=== PATIENT | female | born 1975 | race Two or more races ===

== ENCOUNTER 2020-09-18 14:11 | Outpatient (REF) | payer OTHER, MEDICARE, MEDICAID, SELFPAY ==
--- NOTE | 2020-09-18 14:15 | MR_ITS ---
EXAMINATION: MR KNEE WITHOUT CONTRAST, RIGHT CLINICAL INFORMATION: Patient fills pulling of the posterior knee. Knee gives out. History of fracture approximately 20 years ago. No recent injury. COMPARISON: No priors. TECHNIQUE: MRI of the knee without contrast was performed using routine sequences on a high-field scanner. Sequences were repeated due to motion artifact. FINDINGS: MENISCI: Medial Meniscus: Intact Lateral Meniscus: Intact LIGAMENTS: Cruciate: Intact Collateral: Intact EXTENSOR MECHANISM: Intact ARTICULAR CARTILAGE/BONE: Patellofemoral Compartment: Articular cartilage is preserved. Medial Compartment: Articular cartilage is preserved. Lateral Compartment: Articular cartilage is preserved. JOINT FLUID AND BURSAE: Small effusion. MR/MR knee RT wo con IMPRESSION: Right knee: 1. Intact menisci. 2. Intact cruciate and collateral ligaments. 3. Preserved tricompartmental articular cartilage. 4. Small joint effusion.
== END 2020-09-18 14:12 | disposition home or self-care (01) ==
LOC: HO.MRI 14:11
PROVIDERS: PCP Internal Medicine; Visit Provider Internal Medicine
DX: M25.561 Pain in right knee (principal); R53.1 Weakness; F40.240 Claustrophobia
CPT/HCPCS: 73721

== ENCOUNTER 2020-12-14 09:43 | Outpatient (REF) | payer OTHER, SELFPAY ==
[2020-12-14 10:58] LABS: MANUAL DIFF FLAG NO
[2020-12-14 11:08] LABS: Glucose Urine UA NEG (NEG); Leukocyte Esterase Urine NEG (NEG); Nitrite Urine NEG (NEG); PH 5.5 (5.0-8.0); Specific Gravity - Urine >= 1.030 (1.005-1.025); Urine Blood NEG (NEG); Urine Ketones NEG (NEG); Urine Protein NEG (NEG-TRACE)
[2020-12-14 11:09] LABS: Basophils Absolute Auto 0.1 X10*3/uL (0.0-0.2); Basophils Percent Auto 0.4 % (0-2); Eosinophils Absolute Auto 0.2 X10*3/uL (0.0-0.4); Eosinophils Percent Auto 1.7 % (0-4); Hematocrit 44.7 % (37-47); Hemoglobin 14.6 g/dl (12.0-16.0); Imm Gran Abs Auto 0.02 X10*3/uL (0.00-0.03); Imm Gran Pct Auto 0.2 % (0.0-0.4); Lymphocytes Absolute Auto 4.9 X10*3/uL (1.2-4.9); Lymphocytes Percent Auto 38.9 % (20-40); Mean Corpuscular HGB Conc 32.7 g/dl (31.0-35.0); Mean Corpuscular Hemoglobin 30.6 pg (27.0-33.0); Mean Corpuscular Volume 93.7 fL (80-98); Mean Platelet Volume 10.5 fL (9.4-12.3); Monocytes Absolute Auto 0.7 X10*3/uL (0.1-1.2); Monocytes Percent Auto 5.6 % (2-11); Neutrophils Absolute Auto 6.8 X10*3/uL (2.0-8.3); Neutrophils Percent Auto 53.2 % (45-73); Platelet Count 382 X10*3/uL (160-400); Red Blood Count 4.77 X10*6/uL (4.20-5.50); Red Cell Distribution Width 12.9 % (11.0-16.0); White Blood Count 12.7 X10*3/uL (4.8-10.8)
[2020-12-14 11:12] LABS: Appearance Urine CLEAR; Color Urine YELLOW
[2020-12-14 11:35] LABS: Alanine Aminotransferase 19 U/L (0-31); Albumin Level 4.4 g/dL (3.5-5.0); Alkaline Phosphatase 111 U/L (39-117); Anion Gap 12 (12-20); Aspartate Amino Transferase 12 U/L (5-31); Bilirubin Total 0.2 mg/dL (0.0-1.0); Blood Urea Nitrogen 13 mg/dL (9-16); C Reactive Protein 1.15 mg/dL (< or = 0.50); Calcium 9.7 mg/dL (8.4-10.2); Carbon Dioxide 26 mmol/L (22-29); Chloride 104 mmol/L (96-108); Cholesterol 252 mg/dL; Estimated Glomerular Filt Rate > 60; Glucose Fasting 80 mg/dL (60-99); HDL Cholesterol 28 mg/dL; Magnesium 2.2 mg/dL (1.6-2.6); Potassium 4.9 mmol/L (3.3-5.1); Rheumatoid Factor < 15.0 IU/mL (<15.0); Sodium 137 mmol/L (135-145); Total Protein 7.5 g/dL (6.5-8.0); Triglycerides 646 mg/dL; Uric Acid 6.1 mg/dL (2.4-5.7)
[2020-12-14 11:44] LABS: TSH reflex Free T4 2.98 uIU/mL (0.32-4.0)
[2020-12-14 12:30] LABS: Erythrocyte Sedimentation Rate 23 MM/HR (0-20)
[2020-12-16 13:31] LABS: Anti Nuclear Antibody Screen NEGATIVE (NEGATIVE)
== END 2020-12-14 09:44 | disposition home or self-care (01) ==
LOC: HO.LAB 09:43
PROVIDERS: PCP Internal Medicine; Visit Provider Internal Medicine
DX: M25.461 Effusion, right knee (principal); M25.561 Pain in right knee; E78.00 Pure hypercholesterolemia, unspecified
CPT/HCPCS: 36415; 80053; 80061; 81003; 83735; 84443; 84550; 85025; 85652; 86038; 86039; 86140; 86431

== ENCOUNTER 2021-01-05 14:33 | Outpatient (REF) | payer OTHER, SELFPAY ==
--- NOTE | ~2021-01-05 | XR_ITS ---
EXAMINATION: XR CERVICAL SPINE CLINICAL INFORMATION: Cervicalgia. COMPARISON: None. TECHNIQUE: 3 views of the cervical spine were obtained. FINDINGS: Cervical spine is visualized from the C1-C7 level. Straightening of the spinal curvature. Normal alignment of the lateral projection. No prevertebral soft tissue swelling. Vertebral body heights are maintained. No evidence of acute fracture. Base of the dens is intact. Disc spaces relatively maintained. Lung apices are clear. XR/XR cervical spine 2V IMPRESSION: No evidence of acute osseous abnormality.
--- NOTE | ~2021-01-05 | XR_ITS ---
EXAMINATION: XR SHOULDER, LEFT CLINICAL INFORMATION: Pain COMPARISON: None TECHNIQUE: AP external rotation, Grashey, scapular Y, and axillary views of the left shoulder. FINDINGS: The bones and soft tissues are normal. No fracture. Glenohumeral and acromioclavicular alignment is anatomic with normal joint space. No abnormal soft tissue calcifications. XR/XR shoulder LT min 2V IMPRESSION: Normal radiograph.
--- NOTE | ~2021-01-05 | XR_ITS ---
EXAMINATION: XR ANKLE, RIGHT CLINICAL INFORMATION: Pain. COMPARISON: None TECHNIQUE: AP, lateral, and mortise views of the right ankle. FINDINGS: There is sclerosis in the subchondral region of the mid/lateral aspect of the talar dome, within which is a curvilinear lucency measuring 1 cm transverse. Differential considerations include talar dome osteochondral lesion, avascular necrosis, sequela of fracture. There is anterior degenerative spurring of the tibial plafond. Dorsal spurring of the talar neck. Dorsal spurring at the talonavicular joint. Small plantar calcaneal spur. Focal chronic-appearing small osseous prominence along the plantar aspect of the mid fifth metatarsal shaft. XR/XR ankle RT min 3V IMPRESSION: 1. Abnormal findings of sclerosis, within which is a curvilinear 1 cm lucency in the mid/lateral talar dome as detailed above. Differential considerations include talar OCD, avascular necrosis, sequela of fracture. Recommend further evaluation with MRI. 2. Degenerative/arthritic changes as detailed above.
--- NOTE | ~2021-01-05 | XR_ITS ---
EXAMINATION: XR knee RT 3V CLINICAL INFORMATION: Reason for Exam M25.461 - Effusion, right knee COMPARISON: None available at the time of this dictation. TECHNIQUE: frontal, lateral, tunnel and patella sunrise views FINDINGS: BONES: No fracture or dislocation is present. JOINTS: Mild narrowing of medial joint space suggests mild DJD. No joint effusion. SOFT TISSUE: Normal XR/XR knee RT 3V IMPRESSION: Mild degenerative osteoarthritis involving medial compartment.
== END 2021-01-05 14:34 | disposition home or self-care (01) ==
LOC: HO.XRAY 14:33
PROVIDERS: PCP Internal Medicine; Visit Provider Internal Medicine
DX: M25.471 Effusion, right ankle (principal); M25.571 Pain in right ankle and joints of right foot; M25.512 Pain in left shoulder; M25.461 Effusion, right knee; M25.561 Pain in right knee; M54.2 Cervicalgia
CPT/HCPCS: 72040; 73030; 73562; 73610

== ENCOUNTER 2021-03-29 08:33 | Outpatient (REF) | payer OTHER, SELFPAY ==
--- NOTE | ~2021-03-29 | XR_ITS ---
EXAMINATION: XR CHEST CLINICAL INFORMATION: Hematemesis. COMPARISON: Most recent chest radiograph dated 03/11/2021 TECHNIQUE: Two views of the chest were obtained. FINDINGS: The lungs are clear. The cardiomediastinal silhouette is normal in size. There is no pleural effusion or pneumothorax. No acute osseous abnormality. Right upper quadrant surgical clips. XR/XR chest 2V IMPRESSION: No acute cardiopulmonary findings.
== END 2021-03-29 08:34 | disposition home or self-care (01) ==
LOC: HO.XRAY 08:33
PROVIDERS: PCP Internal Medicine; Referring Provider Internal Medicine; Visit Provider Anesthesiology
DX: M54.16 Radiculopathy, lumbar region (principal); M51.36 Other intervertebral disc degeneration, lumbar region; M16.0 Bilateral primary osteoarthritis of hip; M17.11 Unilateral primary osteoarthritis, right knee; M87.071 Idiopathic aseptic necrosis of right ankle; G89.4 Chronic pain syndrome; I10 Essential (primary) hypertension; K92.0 Hematemesis; K21.9 Gastro-esophageal reflux disease without esophagitis; K50.90 Crohn's disease, unspecified, without complications; E66.9 Obesity, unspecified; E78.2 Mixed hyperlipidemia; F17.210 Nicotine dependence, cigarettes, uncomplicated; Z88.5 Allergy status to narcotic agent; Z88.0 Allergy status to penicillin; Z88.2 Allergy status to sulfonamides; Z88.8 Allergy status to other drugs, medicaments and biological substances
CPT/HCPCS: 71046; 99202

== ENCOUNTER → 2021-04-11 13:03 | Outpatient (BNVA) | payer OTHER, SELFPAY | PROVIDERS: PCP Internal Medicine; Visit Provider Student in an Organized Health Care Education/Training Program | DX: M17.11 Unilateral primary osteoarthritis, right knee (principal) | CPT/HCPCS: 99202 ==

== ENCOUNTER → 2021-05-03 12:38 | Outpatient (BNVA) | payer OTHER, SELFPAY | PROVIDERS: PCP Internal Medicine; Visit Provider Orthopaedic Surgery | DX: M87.071 Idiopathic aseptic necrosis of right ankle (principal) | CPT/HCPCS: 99202; J1100 ==

== ENCOUNTER 2021-06-29 13:43 | Outpatient (REF) | payer OTHER, SELFPAY ==
[2021-06-29 13:51] LABS: MANUAL DIFF FLAG NO
[2021-06-29 14:04] LABS: Basophils Absolute Auto 0.1 X10*3/uL (0.0-0.2); Basophils Percent Auto 0.4 % (0-2); Eosinophils Absolute Auto 0.2 X10*3/uL (0.0-0.4); Eosinophils Percent Auto 1.4 % (0-4); Hematocrit 42.5 % (37-47); Hemoglobin 14.3 g/dl (12.0-16.0); Imm Gran Abs Auto 0.04 X10*3/uL (0.00-0.03); Imm Gran Pct Auto 0.3 % (0.0-0.4); Lymphocytes Absolute Auto 4.3 X10*3/uL (1.2-4.9); Lymphocytes Percent Auto 31.2 % (20-40); Mean Corpuscular HGB Conc 33.6 g/dl (31.0-35.0); Mean Corpuscular Hemoglobin 30.4 pg (27.0-33.0); Mean Corpuscular Volume 90.4 fL (80-98); Mean Platelet Volume 10.2 fL (9.4-12.3); Monocytes Absolute Auto 0.5 X10*3/uL (0.1-1.2); Monocytes Percent Auto 3.5 % (2-11); Neutrophils Absolute Auto 8.7 X10*3/uL (2.0-8.3); Neutrophils Percent Auto 63.2 % (45-73); Platelet Count 437 X10*3/uL (160-400); Red Cell Distribution Width 12.7 % (11.0-16.0); White Blood Count 13.8 X10*3/uL (4.8-10.8)
[2021-06-29 14:27] LABS: Alanine Aminotransferase 13 U/L (0-31); Albumin Level 4.5 g/dL (3.5-5.0); Alkaline Phosphatase 108 U/L (39-117); Anion Gap 11 (12-20); Aspartate Amino Transferase 12 U/L (5-31); Bilirubin Total 0.4 mg/dL (0.0-1.0); Blood Urea Nitrogen 11 mg/dL (9-16); Calcium 10.1 mg/dL (8.4-10.2); Carbon Dioxide 25 mmol/L (22-29); Chloride 108 mmol/L (96-108); Cholesterol 234 mg/dL; Estimated Glomerular Filt Rate 55; Glucose Fasting 77 mg/dL (60-99); HDL Cholesterol 29 mg/dL; LDL Cholesterol Calculated 138 mg/dl; Potassium 4.5 mmol/L (3.3-5.1); Sodium 139 mmol/L (135-145); Total Protein 7.6 g/dL (6.5-8.0); Triglycerides 337 mg/dL
[2021-06-29 14:48] LABS: TSH reflex Free T4 1.53 uIU/mL (0.32-4.0)
== END 2021-06-29 13:44 | disposition home or self-care (01) ==
LOC: HO.LAB 13:43
PROVIDERS: PCP Internal Medicine; Visit Provider Internal Medicine
DX: E78.2 Mixed hyperlipidemia (principal); E78.00 Pure hypercholesterolemia, unspecified; M16.11 Unilateral primary osteoarthritis, right hip; E66.9 Obesity, unspecified; I10 Essential (primary) hypertension; K92.0 Hematemesis; K21.9 Gastro-esophageal reflux disease without esophagitis; F17.200 Nicotine dependence, unspecified, uncomplicated
CPT/HCPCS: 36415; 80053; 80061; 84443; 85025

== ENCOUNTER 2021-07-13 11:43 | Day surgery (SDC) | payer OTHER, SELFPAY ==
[2021-07-06 12:38] VITALS: BMI 34.0
--- NOTE | 2021-07-12 10:26 | HO.ANESPROP2 ---
Documented by User: Mildred Galindo NP 07/12/21 10:27 HPI - Anesthesia Eval Consult details Narrative: 46yo F for Right Hip Steroid Injection Multiple Med Allergies PMFSH Active Problems Active Problems: All Active Problems (Updated 07/06/21 @ 12:45 by Christa Pillai RN) Chronic pain of right ankle (Acute) Hematemesis (Acute) Crohn's disease (Acute) Avascular necrosis of right talus (Acute) Chronic pain syndrome (Acute) Osteoarthritis of right knee (Acute) Osteoarthritis of left hip (Acute) Osteoarthritis of right hip (Acute) Lumbar radiculopathy, right (Acute) Disc degeneration, lumbar (Acute) Bony sclerosis (Acute) Rash (Acute) Strain of left trapezius muscle (Acute) Shoulder pain, left (Acute) Neck pain (Acute) Mixed hyperlipidemia (Acute) Pain and swelling of right ankle (Acute) Swelling of right knee joint (Acute) Right knee pain (Acute) Obesity (BMI 30-39.9) (Acute) Smoker (Acute) Migraine (Acute) GERD (gastroesophageal reflux disease) (Acute) COPD (chronic obstructive pulmonary disease) (Acute) Right lumbosacral radiculopathy (Acute) Lumbar degenerative disc disease (Acute) Past Medical History Medical History Avascular necrosis of right talus Bony sclerosis Chronic pain syndrome COPD (chronic obstructive pulmonary disease) Crohn's disease Depression Disc degeneration, lumbar GERD (gastroesophageal reflux disease) Hematemesis Lumbar degenerative disc disease Lumbar radiculopathy, right Migraine Mixed hyperlipidemia Neck pain Obesity (BMI 30-39.9) Osteoarthritis of left hip Osteoarthritis of right hip Osteoarthritis of right knee Pain and swelling of right ankle Rash Right knee pain Right lumbosacral radiculopathy Shoulder pain, left Smoker Strain of left trapezius muscle Swelling of right knee joint Family History Family History Father Hypertension Mother Hypertension Diabetes CVD (cardiovascular disease) Sister Liver disease Maternal Grandmother Colon cancer Maternal Aunt Breast cancer Surgical History Surgical History History of appendectomy History of cholecystectomy History of hysterectomy Hx of section Hx of colonoscopy Social History Social History Housing: House Are you a primary rn complex care to a significant other at home: No Do you presently have visiting nurse or other home services: No (Children come by to help) Alcohol intake: never Patient Tobacco Use Status: Current everyday Tobacco user Tobacco use type: Cigarette Cigarette Packs Per Day: 0.25 Cigarettes Per Day: 5.0 Second Hand Smoke Exposure: Yes Have you been hit, kicked, punched, or otherwise hurt by someone within the past year? If so, by whom?: No Are you DNR?: No Advance Directives: No Advance Directives Information Provided: No Advance Directives on File: No Recently lost weight without trying: No Eating poorly because of decreased appetite: No Nutrition Risks: No Nutritional Risk Patient : No service: No Current occupational status: disabled Meds Allergies Allergy/AdvReac Type Severity Reaction Status Date / Time diazepam [DIAZEPAM] Allergy Mild RASH Verified 07/06/21 12:22 fluoxetine [From Prozac] Allergy Unknown Unknown Verified 07/06/21 12:22 ibuprofen [From Motrin] Allergy Unknown UNKNOWN Verified 07/06/21 12:22 NSAIDS (Non-Steroidal Allergy Unknown UNKNOWN Verified 07/06/21 12:22 Anti-Inflamma [Nsaids] Penicillins Allergy Unknown UNKNOWN Verified 07/06/21 12:22 tramadol Allergy Unknown Unknown Verified 07/06/21 12:22 colchicine Allergy Dizziness Verified 07/06/21 12:22 gabapentin [From NEURONTIN] AdvReac Severe HALLUCINATIONS, Verified 07/06/21 12:22 halluciinations morphine [Morphine] AdvReac Severe DIFFICULTY Verified 07/06/21 12:22 BREATHING Sulfa (Sulfonamide AdvReac Severe DIFF Verified 07/06/21 12:22 Antibiotics) BREATHING [SULFA (SULFONAMIDE ANTIBIOTICS)] Home Medications Medication Instructions Recorded Confirmed Last Taken Type potassium chloride 20 mEq 20 meq PO DAILY 07/04/20 07/06/21 Unknown History tablet,extended release tiotropium bromide 18 mcg capsule 1 cap INHALATION DAILY 07/04/20 07/06/21 Unknown History with inhalation device (Spiriva with HandiHaler) lamotrigine 150 mg tablet 1 tab PO DAILY 07/06/21 07/06/21 07/13/21 History montelukast 10 mg tablet 1 tab PO DAILY 07/06/21 07/06/21 07/13/21 History prazosin 1 mg capsule mg PO 07/06/21 07/06/21 Unknown History Exam Exam Date and Time: July 12, 2021 1026 Height,Weight and Vital Signs: Height 5 ft 3 in Weight 87.09 kg Pertinent Lab Results Pertinent Lab Results: Laboratory Tests 06/29/21 06/29/21 13:49 13:49 WBC 13.8 H Hgb 14.3 Hct 42.5 Plt Count 437 H Sodium 139 Potassium 4.5 Chloride 108 Carbon Dioxide 25 BUN 11 Creatinine 1.08 Assessment and Plan Assessment Anesthesia Assessment: Chart Reviewed Documented by User: Corina Gerard MD 07/13/21 13:50 PMFSH Past Medical History Medical History Avascular necrosis of right talus Bony sclerosis Chronic pain syndrome COPD (chronic obstructive pulmonary disease) Crohn's disease Depression Disc degeneration, lumbar GERD (gastroesophageal reflux disease) Hematemesis Lumbar degenerative disc disease Lumbar radiculopathy, right Migraine Mixed hyperlipidemia Neck pain Obesity (BMI 30-39.9) Osteoarthritis of left hip Osteoarthritis of right hip Osteoarthritis of right knee Pain and swelling of right ankle Rash Right knee pain Right lumbosacral radiculopathy Shoulder pain, left Smoker Strain of left trapezius muscle Swelling of right knee joint Family History Family History Father Hypertension Mother Hypertension Diabetes CVD (cardiovascular disease) Sister Liver disease Maternal Grandmother Colon cancer Maternal Aunt Breast cancer Surgical History Surgical History History of appendectomy History of cholecystectomy History of hysterectomy Hx of section Hx of colonoscopy History of Problems with Anesthesia: No Social History Social History Housing: House Are you a primary rn complex care to a significant other at home: No Do you presently have visiting nurse or other home services: No (Children come by to help) Alcohol intake: never Patient Tobacco Use Status: Current everyday Tobacco user Tobacco use type: Cigarette Cigarette Packs Per Day: 0.25 Cigarettes Per Day: 5.0 Second Hand Smoke Exposure: Yes Have you been hit, kicked, punched, or otherwise hurt by someone within the past year? If so, by whom?: No Are you DNR?: No Advance Directives: No Advance Directives Information Provided: No Advance Directives on File: No Recently lost weight without trying: No Eating poorly because of decreased appetite: No Nutrition Risks: No Nutritional Risk Patient : No service: No Current occupational status: disabled Meds Allergies Allergy/AdvReac Type Severity Reaction Status Date / Time diazepam [DIAZEPAM] Allergy Mild RASH Verified 07/06/21 12:22 fluoxetine [From Prozac] Allergy Unknown Unknown Verified 07/06/21 12:22 ibuprofen [From Motrin] Allergy Unknown UNKNOWN Verified 07/06/21 12:22 NSAIDS (Non-Steroidal Allergy Unknown UNKNOWN Verified 07/06/21 12:22 Anti-Inflamma [Nsaids] Penicillins Allergy Unknown UNKNOWN Verified 07/06/21 12:22 tramadol Allergy Unknown Unknown Verified 07/06/21 12:22 colchicine Allergy Dizziness Verified 07/06/21 12:22 gabapentin [From NEURONTIN] AdvReac Severe HALLUCINATIONS, Verified 07/06/21 12:22 halluciinations morphine [Morphine] AdvReac Severe DIFFICULTY Verified 07/06/21 12:22 BREATHING Sulfa (Sulfonamide AdvReac Severe DIFF Verified 07/06/21 12:22 Antibiotics) BREATHING [SULFA (SULFONAMIDE ANTIBIOTICS)] Home Medications Medication Instructions Recorded Confirmed Last Taken Type potassium chloride 20 mEq 20 meq PO DAILY 07/04/20 07/06/21 Unknown History tablet,extended release tiotropium bromide 18 mcg capsule 1 cap INHALATION DAILY 07/04/20 07/06/21 Unknown History with inhalation device (Spiriva with HandiHaler) lamotrigine 150 mg tablet 1 tab PO DAILY 07/06/21 07/06/21 07/13/21 History montelukast 10 mg tablet 1 tab PO DAILY 07/06/21 07/06/21 07/13/21 History prazosin 1 mg capsule mg PO 07/06/21 07/06/21 Unknown History Exam Airway Mallampati Class: II (Edentulous) TM Dist: >3cm Neck ROM: Full Denture: Upper and Lower Loose/Missing/Broken Teeth: Yes, Upper and Lower Heart: RRR Lungs: CTA Assessment and Plan Assessment Anesthesia Assessment: Anesthesia Plan Discussed Final Anesthetic Review History of Problems with Anesthesia: No NPO: Yes ASA Class: III Final Preanesthetic Review: Meds/Allgs Chart Reviewed, Consent Obtained/Reviewed and Anes Risks/Benef Reviewed Patient Risk: Intermediate Procedure Risk: Intermediate Anesthetic Plan Anesthetic Plan: MAC: Disposition: Standard PACU
--- NOTE | ~2021-07-13 | FL_ITS ---
EXAMINATION: XR FLUOROSCOPY WITH IMAGES CLINICAL INFORMATION: Right hip pain COMPARISON: None. TECHNIQUE: Fluoroscopy performed by Dr. Talat Del Valle. Fluoroscopy time: 0.2 minutes DAP: 1.89 Gycm2 Images: 1 FINDINGS: There is spinal needle with tip adjacent to the superior lateral right femoral head. Some contrast is present in the joint capsule. FL/FL guidance in OR IMPRESSION: Fluoroscopy for pain management procedure.
[2021-07-13 11:58] VITALS: BP 166/88; PULSE 81; RESP 18; TEMP 36.9; O2SAT 95
--- NOTE | 2021-07-13 13:23 | PC.NURSE ---
attempted iv with several rn anesthesia attempted now
--- NOTE | 2021-07-13 13:28 | P.HPSUR_ITS ---
Pre-Procedural Eval Section A Date of Service: 07/13/21 Section B Chief Complaint: Osteoarthritis of right hip Details of Present Illness: As above Relevant Family History (Specify if Yes): No Relevant Social History: None Present Medications: see Short Stay [facility] assessment Medical History: No relevant PMH History of Previous Operations: No relevant previous surgery Allergies: Allergies Allergy/AdvReac Type Severity Reaction Status Date / Time diazepam [DIAZEPAM] Allergy Mild RASH Verified 07/06/21 12:22 fluoxetine [From Prozac] Allergy Unknown Unknown Verified 07/06/21 12:22 ibuprofen [From Motrin] Allergy Unknown UNKNOWN Verified 07/06/21 12:22 NSAIDS (Non-Steroidal Allergy Unknown UNKNOWN Verified 07/06/21 12:22 Anti-Inflamma [Nsaids] Penicillins Allergy Unknown UNKNOWN Verified 07/06/21 12:22 tramadol Allergy Unknown Unknown Verified 07/06/21 12:22 colchicine Allergy Dizziness Verified 07/06/21 12:22 gabapentin [From NEURONTIN] AdvReac Severe HALLUCINATIONS, Verified 07/06/21 12:22 halluciinations morphine [Morphine] AdvReac Severe DIFFICULTY Verified 07/06/21 12:22 BREATHING Sulfa (Sulfonamide AdvReac Severe DIFF Verified 07/06/21 12:22 Antibiotics) BREATHING [SULFA (SULFONAMIDE ANTIBIOTICS)] Review of Systems Sugical H&P ROS: Negative: Constitution, Cardiovascular, Respiratory, Neurological, Psychiatric, Hem-Onc, Allergic/Immunologic, Gastrointestinal, Genitourinary, Musculoskeletal, Integumentary, Endocrine and Eyes/Ears/Nose/Throat Exam Surgical H&P Exam: Normal: HEENT, Normal: Heart, Normal: Lungs, Normal: Extremities, Normal: Abdomen, Normal: Skin and Normal: Neurological Plan Diagnosis/Plan: Unchanged I have reviewed the history and physical and performed a pertinent physical examination on my patient. No changes have occurred unless specified.
[2021-07-13] MEDS: Lactated Ringers 1,000 ML 100 ML IVCONT (13:38)
--- NOTE | 2021-07-13 14:20 | PM.OP ---
Brief Operative Note Date of Service: 07/13/21 Pre-op diagnosis: right hip osteoarthritis Post-op diagnosis: same Procedure: right hip joint steroid injection Surgeon: Talat Del Valle MD Anesthesia: MAC Was an Warehouse Foreman used for this Procedure?: No Estimated blood loss (mL): 0 Pathology: none sent Condition: stable Disposition: PACU
--- NOTE | 2021-07-13 14:22 | W.PM.OPN ---
Operative Note Operative Note Date of Service: 07/13/21 Narrative: Ms. Vela is very pleasant 46 y.o. female who came to the OR for intraarticular fluoroscopy guided right hip joint injection under sadation. The patient came to the operating room after informed consent was explained. She was position left lateral decubitus on the operating table, [employer] monitors were applied and patient was moderately sedated. Time-out was performed delineating name and date of of the patient, nature and laterality of the procedure, need for antibiotics, list of allergies, need for DVT prophylaxis and risk of fire. The patient is non dependent right hip was prepped with ChloraPrep and draped with sterile utility towels. C-arm was brought over operating field and picture of right hip joint (smaller in size) was delineated on the screen. The point of injection was chosen as projection prevent of most superior portion of the trochanter. Few mm above that area skin wheal was raised using lidocaine 2% 2 cc and after that 22 gauge 3-1/2 inch needle was advanced to were the right hip joint on anterior posterior and intermittent lateral views. A when needle entered the capsule of the joint injection of the contrast was performed demonstrating the intra-articular spread of the contrast. The image was saved. After that 5 cc of bupivacaine 0.5% mixed with Kenalog 40 mg was slowly injected into the joint. The patient tolerated procedure well. She was taking outside of the operating room to recovery room where she recovered uneventfully. She went home without immediate complications.
[2021-07-13 14:25] VITALS: BP 118/72; PULSE 71; RESP 14; TEMP 36.3; O2SAT 98
[2021-07-13] MEDS: Acetaminophen 325 MG TABLET 650 MG PO (14:36)
[2021-07-13] MEDS: oxyCODONE HCl Immed Release 5 MG TABLET 10 MG PO (14:37)
[2021-07-13] MEDS: ondansetron HCL 4 MG/2 ML VIAL IVPUSH (14:39)
[2021-07-13 14:40] VITALS: BP 141/85; PULSE 65; RESP 20; O2SAT 96
[2021-07-13 14:41] VITALS: RESP 20
[2021-07-13] MEDS: fentaNYL citrate/PF 100 MCG/2 ML VIAL 50 MCG IVPUSH (14:41)
[2021-07-13 14:55] VITALS: BP 149/82; PULSE 72; RESP 20; O2SAT 98
== END 2021-07-13 13:00 | disposition home or self-care (01) ==
PROVIDERS: PCP Internal Medicine; Visit Provider Anesthesiology
PROC: (CPT 20610; principal; 2021-07-13 14:20)
DX: M16.11 Unilateral primary osteoarthritis, right hip (principal); M17.11 Unilateral primary osteoarthritis, right knee; G89.4 Chronic pain syndrome; M54.50 Low back pain, unspecified; M51.36 Other intervertebral disc degeneration, lumbar region; M54.16 Radiculopathy, lumbar region; R51.9 Headache, unspecified; J45.909 Unspecified asthma, uncomplicated; F32.9 Major depressive disorder, single episode, unspecified; J44.9 Chronic obstructive pulmonary disease, unspecified; Z79.899 Other long term (current) drug therapy; Z88.0 Allergy status to penicillin; Z88.2 Allergy status to sulfonamides; Z88.8 Allergy status to other drugs, medicaments and biological substances; F17.210 Nicotine dependence, cigarettes, uncomplicated
CPT/HCPCS: 20610; J2250; J2405; J3010; J3300; Q9967

== ENCOUNTER 2021-08-31 14:19 | Outpatient (REF) | payer OTHER, SELFPAY ==
[2021-08-31 15:23] LABS: Alanine Aminotransferase 13 U/L (0-31); Albumin Level 4.1 g/dL (3.5-5.0); Alkaline Phosphatase 112 U/L (39-117); Anion Gap 13 (12-20); Aspartate Amino Transferase 11 U/L (5-31); Bilirubin Total 0.3 mg/dL (0.0-1.0); Blood Urea Nitrogen 8 mg/dL (9-16); Carbon Dioxide 24 mmol/L (22-29); Chloride 107 mmol/L (96-108); Cholesterol 191 mg/dL; Estimated Glomerular Filt Rate 56; Glucose Fasting 97 mg/dL (60-99); HDL Cholesterol 26 mg/dL; LDL Cholesterol Calculated 114 mg/dl; Potassium 4.2 mmol/L (3.3-5.1); Sodium 140 mmol/L (135-145); Triglycerides 257 mg/dL
[2021-08-31 15:57] LABS: Appearance Urine HAZY; Color Urine YELLOW; Glucose Urine UA NEG (NEG); Leukocyte Esterase Urine NEG (NEG); Nitrite Urine POS (NEG); PH 5.5 (5.0-8.0); UACC Culture Trigger YES; Urine Blood NEG (NEG); Urine Ketones NEG (NEG); Urine Protein NEG (NEG-TRACE)
[2021-08-31 16:17] LABS: Bacteria Urine 4+ /LPF; RBC Urine 0 /HPF (0); Squamous Epithelial Cell Urine 1+ /LPF
== END 2021-08-31 14:20 | disposition home or self-care (01) ==
LOC: HO.LAB 14:19
PROVIDERS: Absent Provider Internal Medicine; PCP Internal Medicine; Visit Provider Internal Medicine
DX: E78.2 Mixed hyperlipidemia (principal)
CPT/HCPCS: 36415; 80053; 80061; 81001; 81003; 87086; 87088; 87186

== ENCOUNTER 2021-09-19 13:23 | Outpatient (REF) | payer OTHER, SELFPAY ==
--- NOTE | ~2021-09-19 | MM_ITS ---
EXAMINATION: MM DIAGNOSTIC DIGITAL BREAST TOMOSYNTHESIS, BILATERAL US DIAGNOSTIC ULTRASOUND BREAST, RIGHT CLINICAL INFORMATION: Pain and fullness right axilla and right lateral chest wall. Prior mammography performed in [place], currently unavailable. Family history breast cancer, mother. Personal history cervical cancer. The lifetime risk of breast cancer based on the Tyrer-Cuzick Model is 18%. COMPARISON: None. TECHNIQUE: Digital breast tomosynthesis is performed in both the craniocaudal and mediolateral oblique views along with computer-aided detection (CAD). Synthesized 2D images are generated from the tomosynthesis. Additional spot CC and ML views of the right breast are obtained. Ultrasound right breast is performed posterior upper outer quadrant and axilla. Additional imaging also performed along right lateral chest wall in area of patient symptoms. Patient is able to point to area of concern at time of imaging. Grayscale imaging and color Doppler are performed without and with harmonics. FINDINGS: There are scattered areas of fibroglandular density (ACR BI-RADS breast composition Category b). There is inhomogeneous parenchymal pattern. Focal asymmetry is present mid upper outer right breast. No underlying mass or architectural distortion on additional views. No abnormal calcifications. No lymphadenopathy. There is no skin thickening or coarsening of the Marito's ligaments. Ultrasound demonstrates no cystic or solid mass or right axillary adenopathy. No skin thickening or edema tracking in soft tissue planes. Additional imaging right lateral chest wall shows no soft tissue mass. Results are discussed with the patient at time of visit. Radiology department staff will attempt to retrieve prior [id number] mammography to allow for comparison in an addendum report. If prior outside exam is unable to be retrieved, then short interval six-month follow-up right mammography would be suggested to confirm stability of the probable benign parenchymal asymmetry mid upper outer quadrant. If there is still clinical concern for palpable area right lateral chest wall and/or axilla, then CT may be considered for further assessment. MM/MM tomosynthesis diagnostic BI IMPRESSION: 1. Left: No mammographic evidence of malignancy. 2. Right: Probable benign parenchymal asymmetry mid upper outer quadrant. No adenopathy or inflammatory changes. 3. Additional targeted ultrasound right lateral chest wall shows no soft tissue abnormality. ASSESSMENT: BI-RADS 3: Probably Benign RECOMMENDATION: 1. Radiology department staff will attempt to retrieve prior rud-ri-[id number] mammography to allow for comparison in an addendum report. If prior outside exam is unable to be retrieved, then short interval six-month follow-up right mammography would be suggested. 2. Patient should be managed based on the clinical impression. If there is still clinical concern for palpable area right lateral chest wall and/or axilla, then surgical consult and/or CT may be considered for further assessment. This patient's information was entered into a reminder system with a target due date for their next mammogram.
== END 2021-09-19 13:24 | disposition home or self-care (01) ==
LOC: HO.MAMMO 13:23
PROVIDERS: PCP Internal Medicine; Visit Provider Nurse Practitioner Family
DX: N63.31 Unspecified lump in axillary tail of the right breast (principal)
CPT/HCPCS: 76642; 77062; 77066

== ENCOUNTER 2021-10-16 13:23 | Outpatient (REF) | payer OTHER, SELFPAY ==
--- NOTE | ~2021-10-16 | XR_ITS ---
EXAMINATION: XR ELBOW, RIGHT CLINICAL INFORMATION: Pain. COMPARISON: None TECHNIQUE: AP, lateral, and oblique views of the right elbow. FINDINGS: No acute fracture or dislocation. No joint space or marginal osteophytes. No osseous erosion. No abnormal soft tissue calcification. No significant joint effusion. Mild soft tissue swelling overlying the olecranon, which could represent a soft tissue contusion or mild bursitis. XR/XR elbow RT 2V IMPRESSION: Mild soft tissue swelling overlying the olecranon which could represent a soft tissue contusion or mild bursitis. No acute osseous abnormality.
--- NOTE | ~2021-10-16 | XR_ITS ---
EXAMINATION: XR HIP, RIGHT CLINICAL INFORMATION: Right hip pain. COMPARISON: None TECHNIQUE: Two views of the right hip. FINDINGS: Mild joint space narrowing with small lateral acetabular marginal osteophytes. No osseous erosion. No fracture or dislocation. No abnormal soft tissue calcification. XR/XR hip RT min 2V IMPRESSION: Mild right hip osteoarthritis.
--- NOTE | ~2021-10-16 | XR_ITS ---
EXAMINATION: XR KNEE, RIGHT CLINICAL INFORMATION: Pain right knee COMPARISON: Radiographs right knee 01/05/2021 TECHNIQUE: Four views of the right knee. FINDINGS: There is no fracture, dislocation, or destructive process. No focal joint narrowing or erosive change or chondrocalcinosis. No subchondral sclerosis. No suprapatellar effusion. Hoffa's fat pad appears normal. Axial view patella shows no lateralization or tilting. XR/XR knee RT 3V IMPRESSION: Unremarkable right knee.
== END 2021-10-16 13:24 | disposition home or self-care (01) ==
LOC: HO.XRAY 13:23
PROVIDERS: Absent Provider Nurse Practitioner Family; PCP Internal Medicine; Visit Provider Surgery
DX: M25.511 Pain in right shoulder (principal); M25.551 Pain in right hip; M25.561 Pain in right knee; R22.2 Localized swelling, mass and lump, trunk; N63.31 Unspecified lump in axillary tail of the right breast
CPT/HCPCS: 73070; 73502; 73562; 99202

== ENCOUNTER 2021-11-06 10:09 | Outpatient (REF) | payer OTHER, SELFPAY ==
[2021-11-06 10:37] LABS: MANUAL DIFF FLAG NO
[2021-11-06 10:48] LABS: Basophils Absolute Auto 0.1 X10*3/uL (0.0-0.2); Basophils Percent Auto 0.5 % (0-2); Eosinophils Absolute Auto 0.2 X10*3/uL (0.0-0.4); Hematocrit 41.9 % (37.0-47.0); Hemoglobin 13.8 g/dl (12.0-16.0); Imm Gran Abs Auto 0.03 X10*3/uL (0.00-0.03); Imm Gran Pct Auto 0.3 % (0.0-0.4); Lymphocytes Absolute Auto 4.9 X10*3/uL (1.2-4.9); Lymphocytes Percent Auto 43.3 % (20-40); Mean Corpuscular HGB Conc 32.9 g/dl (31.0-35.0); Mean Corpuscular Hemoglobin 29.9 pg (27.0-33.0); Mean Corpuscular Volume 90.7 fL (80.0-98.0); Monocytes Absolute Auto 0.7 X10*3/uL (0.1-1.2); Monocytes Percent Auto 6.1 % (2-11); Neutrophils Absolute Auto 5.4 x10*3/uL (2.0-8.3); Neutrophils Percent Auto 47.8 % (45-73); Platelet Count 412 X10*3/uL (160-400); Red Blood Count 4.62 X10*6/uL (4.20-5.50); Red Cell Distribution Width 12.9 % (11.0-16.0); White Blood Count 11.4 X10*3/uL (4.8-10.8)
[2021-11-06 11:16] LABS: Alanine Aminotransferase 30 U/L (0-31); Albumin Level 4.3 g/dL (3.5-5.0); Alkaline Phosphatase 128 U/L (39-117); Anion Gap 13 (12-20); Aspartate Amino Transferase 30 U/L (5-31); Bilirubin Total 0.3 mg/dL (0.0-1.0); Blood Urea Nitrogen 11 mg/dL (9-16); Calcium 9.9 mg/dL (8.4-10.2); Carbon Dioxide 23 mmol/L (22-29); Chloride 107 mmol/L (96-108); Cholesterol 247 mg/dL; Estimated Glomerular Filt Rate > 60; Glucose Random 66 mg/dL (60-115); HDL Cholesterol 33 mg/dL; LDL Cholesterol Calculated 151 mg/dl; Potassium 4.5 mmol/L (3.3-5.1); Sodium 138 mmol/L (135-145); Total Protein 7.4 g/dL (6.5-8.0); Triglycerides 317 mg/dL
[2021-11-06 11:25] LABS: Erythrocyte Sedimentation Rate 25 MM/HR (0-20)
[2021-11-06 11:37] LABS: TSH reflex Free T4 1.84 uIU/mL (0.32-4.0)
[2021-11-06 11:43] LABS: Appearance Urine CLEAR; Color Urine YELLOW; Glucose Urine UA NEG (NEG); Leukocyte Esterase Urine NEG (NEG); Nitrite Urine NEG (NEG); Specific Gravity - Urine 1.025 (1.005-1.025); Urine Blood NEG (NEG); Urine Ketones NEG (NEG); Urine Protein NEG (NEG-TRACE)
== END 2021-11-06 10:10 | disposition home or self-care (01) ==
LOC: HO.LAB 10:09
PROVIDERS: Absent Provider Internal Medicine; PCP Internal Medicine; Visit Provider Nurse Practitioner Family
DX: E78.00 Pure hypercholesterolemia, unspecified (principal); I10 Essential (primary) hypertension; R22.2 Localized swelling, mass and lump, trunk; M16.11 Unilateral primary osteoarthritis, right hip
CPT/HCPCS: 36415; 80053; 80061; 81003; 84443; 85025; 85652; 86140

== ENCOUNTER 2021-11-12 10:08 | Outpatient (REF) | payer OTHER, SELFPAY ==
--- NOTE | ~2021-11-12 | CT_ITS ---
EXAMINATION: CT CHEST WITH CONTRAST CLINICAL INFORMATION: Localized swelling, mass and lump. COMPARISON: None TECHNIQUE: Multidetector volumetric CT imaging of the chest was obtained after the administration of 50 mL of Omnipaque 350 intravenous contrast without immediate adverse reactions. Axial MIP volume rendering provided. Sagittal and coronal reformatted images were obtained. This CT examination was performed using dose optimization techniques as appropriate, variously including the following: *Automated exposure control *Adjustment of mA and/or kV according to patient size (this includes techniques or standardized protocols for targeted exams where dose is matched to indication/reason for exam; i.e. 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 LUNGS: There is centrilobular emphysema without acute pneumonic process. There is a 3 mm nodule right middle lobe axial image 27/4. A 1 mm nodule is seen in the left lower lobe anterobasal segment image 138/7. No additional nodules seen. There is no mass, consolidation or groundglass density. MEDIASTINUM: The thyroid lobes are symmetrical and normal. The central trachea and the bronchi are widely patent. The heart size and the great vessels are normal caliber. There is no pericardial effusion. There is no hilar or mediastinal lymph nodes. PLEURA: There is no pleural effusion. No pleural mass or thickening. AXILLA: No abnormal lymph nodes seen in the axilla. The chest wall appears unremarkable. UPPER ABDOMEN: Visualized liver, spleen, pancreas and bilateral adrenal glands unremarkable. Gallbladder has been surgically removed. OSSEOUS STRUCTURES: No lytic or sclerotic process seen. CT/CT chest w con IMPRESSION: Diffuse emphysema with 2 small pulmonary nodules. No abnormal lymphadenopathy. There is no mass seen along the chest wall. Fleischner guidelines were followed.
[2021-11-12] MEDS: iohexoL 350 MG/ML 100 ML INFUS..BTL IV (11:36)
== END 2021-11-12 10:09 | disposition home or self-care (01) ==
LOC: HO.CT 10:08
PROVIDERS: PCP Internal Medicine; Visit Provider Nurse Practitioner Family
DX: N63.31 Unspecified lump in axillary tail of the right breast (principal); R22.2 Localized swelling, mass and lump, trunk
CPT/HCPCS: 71260; Q9967

== ENCOUNTER → 2021-11-20 15:19 | Outpatient (BNVA) | payer OTHER, SELFPAY | PROVIDERS: PCP Internal Medicine; Referring Provider Internal Medicine; Visit Provider Surgery | DX: R22.2 Localized swelling, mass and lump, trunk (principal) | CPT/HCPCS: 99212 ==

== ENCOUNTER → 2021-12-10 10:24 | Outpatient (BNVA) | payer OTHER, SELFPAY | PROVIDERS: PCP Internal Medicine; Visit Provider Internal Medicine | DX: M87.071 Idiopathic aseptic necrosis of right ankle (principal); M25.561 Pain in right knee; M25.551 Pain in right hip; M54.16 Radiculopathy, lumbar region | CPT/HCPCS: 99212 ==

== ENCOUNTER 2021-12-17 10:49 | Outpatient (REF) | payer OTHER, SELFPAY ==
[2021-12-17 11:00] LABS: MANUAL DIFF FLAG NO
[2021-12-17 11:50] LABS: Basophils Absolute Auto 0.1 X10*3/uL (0.0-0.2); Basophils Percent Auto 0.5 % (0-2); Eosinophils Absolute Auto 0.1 X10*3/uL (0.0-0.4); Eosinophils Percent Auto 1.1 % (0-4); Hemoglobin 13.1 g/dl (12.0-16.0); Imm Gran Abs Auto 0.04 X10*3/uL (0.00-0.03); Imm Gran Pct Auto 0.4 % (0.0-0.4); Lymphocytes Absolute Auto 3.5 X10*3/uL (1.2-4.9); Lymphocytes Percent Auto 31.5 % (20-40); Mean Corpuscular HGB Conc 33.6 g/dl (31.0-35.0); Mean Corpuscular Hemoglobin 29.9 pg (27.0-33.0); Mean Platelet Volume 10.2 fL (9.4-12.3); Monocytes Absolute Auto 0.5 X10*3/uL (0.1-1.2); Monocytes Percent Auto 4.8 % (2-11); Neutrophils Absolute Auto 6.8 x10*3/uL (2.0-8.3); Neutrophils Percent Auto 61.7 % (45-73); Platelet Count 374 X10*3/uL (160-400); Red Blood Count 4.38 X10*6/uL (4.20-5.50); Red Cell Distribution Width 12.6 % (11.0-16.0)
[2021-12-17 12:26] LABS: Alanine Aminotransferase 78 U/L (0-31); Albumin Level 4.4 g/dL (3.5-5.0); Alkaline Phosphatase 110 U/L (39-117); Anion Gap 12 (12-20); Aspartate Amino Transferase 74 U/L (5-31); Bilirubin Total 0.3 mg/dL (0.0-1.0); Blood Urea Nitrogen 21 mg/dL (9-16); Calcium 9.7 mg/dL (8.4-10.2); Carbon Dioxide 25 mmol/L (22-29); Chloride 104 mmol/L (96-108); Cholesterol 222 mg/dL; Estimated Glomerular Filt Rate 57; Glucose Fasting 86 mg/dL (60-99); HDL Cholesterol 41 mg/dL; LDL Cholesterol Calculated 134 mg/dl; Potassium 4.1 mmol/L (3.3-5.1); Sodium 137 mmol/L (135-145); Total Protein 7.2 g/dL (6.5-8.0); Triglycerides 237 mg/dL
[2021-12-17 12:49] LABS: TSH reflex Free T4 4.93 uIU/mL (0.32-4.0)
[2021-12-17 13:24] LABS: Free T4 (Free Thyroxine) 1.02 ng/dL (0.71-1.85)
== END 2021-12-17 10:50 | disposition home or self-care (01) ==
LOC: HO.LAB 10:49
PROVIDERS: PCP Internal Medicine; Visit Provider Internal Medicine
DX: K21.9 Gastro-esophageal reflux disease without esophagitis (principal); K50.919 Crohn's disease, unspecified, with unspecified complications; E78.00 Pure hypercholesterolemia, unspecified
CPT/HCPCS: 36415; 80053; 80061; 84439; 84443; 85025

== ENCOUNTER → 2021-12-18 13:25 | Outpatient (BNVA) | payer OTHER, SELFPAY | PROVIDERS: PCP Internal Medicine; Visit Provider Internal Medicine Pulmonary Disease | DX: R91.8 Other nonspecific abnormal finding of lung field (principal); J43.9 Emphysema, unspecified; F17.210 Nicotine dependence, cigarettes, uncomplicated; Z79.899 Other long term (current) drug therapy | CPT/HCPCS: 99202 ==

== ENCOUNTER 2022-01-14 14:03 | Outpatient (REF) | payer OTHER, SELFPAY ==
--- NOTE | ~2022-01-14 | MR_ITS ---
EXAMINATION: MRI ANKLE WITHOUT CONTRAST, RIGHT CLINICAL INFORMATION: Right ankle pain and swelling. Osteopetrosis. COMPARISON: Right ankle radiographs dated 01/05/2021. TECHNIQUE: Multisequence MR imaging of the right ankle was obtained without contrast on a high-field strength scanner. FINDINGS: BONE AND ARTICULAR CARTILAGE: Articular cartilage thinning and loss with mild subchondral cystic change and small anterior osteophytes at the distal tibial plafond. There is an unfused osteophyte versus loose body anteriorly measuring up to 1.2 cm in ML dimension. ACHILLES TENDON: Normal. OTHER TENDONS: Trace fluid within the posterior tibialis and flexor digitorum longus tendon sheaths consistent with minimal tenosynovitis. No measurable tendon tear. LIGAMENTS: Intact. JOINT FLUID AND SOFT TISSUES: Small tibiotalar joint effusion. Medial subcutaneous edema. PLANTAR FASCIA: Small plantar calcaneal spur. Intact plantar fascia. SINUS TARSI AND TARSAL TUNNEL: Normal. MR/MR ankle RT wo con IMPRESSION: 1. Mild tibiotalar osteoarthritis. Anterior marginal osteophytes as well as an anterior unfused osteophyte versus ossified loose body measuring up to 1.2 cm in ML dimension. Small tibiotalar joint effusion. 2. Minimal posterior tibialis and flexor digitorum tenosynovitis. No tendon tear. 3. Medial subcutaneous edema.
== END 2022-01-14 14:04 | disposition home or self-care (01) ==
LOC: HO.MRI 14:03
PROVIDERS: Visit Provider Internal Medicine
DX: Q78.2 Osteopetrosis (principal); M19.90 Unspecified osteoarthritis, unspecified site
CPT/HCPCS: 73721

== ENCOUNTER 2022-02-19 09:23 | Outpatient (REF) | payer OTHER, SELFPAY ==
[2022-02-19 10:26] LABS: Alanine Aminotransferase 20 U/L (0-31); Albumin Level 4.5 g/dL (3.5-5.0); Alkaline Phosphatase 132 U/L (39-117); Anion Gap 13 (12-20); Aspartate Amino Transferase 16 U/L (5-31); Bilirubin Total 0.2 mg/dL (0.0-1.0); Blood Urea Nitrogen 13 mg/dL (9-16); Calcium 9.9 mg/dL (8.4-10.2); Carbon Dioxide 25 mmol/L (22-29); Chloride 106 mmol/L (96-108); Cholesterol 290 mg/dL; Estimated Glomerular Filt Rate 60; Glucose Fasting 68 mg/dL (60-99); HDL Cholesterol 35 mg/dL; LDL Cholesterol Calculated 183 mg/dl; Potassium 4.9 mmol/L (3.3-5.1); Sodium 139 mmol/L (135-145); Total Protein 7.5 g/dL (6.5-8.0); Triglycerides 360 mg/dL
[2022-02-19 10:47] LABS: TSH reflex Free T4 1.71 uIU/mL (0.32-4.0); Vitamin D 25-OH Total 22.1 ng/mL (>30)
== END 2022-02-19 09:24 | disposition home or self-care (01) ==
LOC: HO.LAB 09:23
PROVIDERS: PCP Internal Medicine; Visit Provider Internal Medicine
DX: E78.00 Pure hypercholesterolemia, unspecified (principal); E55.9 Vitamin D deficiency, unspecified
CPT/HCPCS: 36415; 80053; 80061; 82306; 84443

== ENCOUNTER 2022-03-11 10:50 | Outpatient (REF) | payer OTHER, SELFPAY ==
--- NOTE | ~2022-03-11 | XR_ITS ---
EXAMINATION: XR CHEST CLINICAL INFORMATION: J43.9 - Emphysema, unspecified COMPARISON: Chest radiographs 03/29/2021, 03/11/2010 TECHNIQUE: 2 views of the chest were obtained. FINDINGS: Lungs are clear. The vascularity is normal. No airspace solid lesion, groundglass opacity, or effusion. No hyperinflation. The costophrenic sulci are clear. The heart is normal in size. The hilar and mediastinal contours and bony structures are unremarkable. XR/XR chest 2V IMPRESSION: Unremarkable examination.
--- NOTE | 2022-03-11 11:04 | ECG_ITS ---
Test Reason : PREOP Blood Pressure : / mmHG Vent. Rate : 072 BPM Atrial Rate : 072 BPM P-R Int : 156 ms QRS Dur : 080 ms QT Int : 378 ms P-R-T Axes : 021 049 054 degrees QTc Int : 413 ms Normal sinus rhythm Nonspecific T wave abnormality Borderline ECG No previous ECGs available Referred By: Murphy Feliz Electronically Signed By:TC CALVILLO
[2022-03-11 11:51] LABS: Basophils Absolute Auto 0.1 X10*3/uL (0.0-0.2); Basophils Percent Auto 0.4 % (0-2); Eosinophils Absolute Auto 0.2 X10*3/uL (0.0-0.4); Eosinophils Percent Auto 1.3 % (0-4); Hematocrit 38.7 % (37.0-47.0); Hemoglobin 13.2 g/dl (12.0-16.0); Imm Gran Abs Auto 0.05 X10*3/uL (0.00-0.03); Imm Gran Pct Auto 0.4 % (0.0-0.4); Lymphocytes Absolute Auto 5.7 X10*3/uL (1.2-4.9); Lymphocytes Percent Auto 42.6 % (20-40); MANUAL DIFF FLAG SCAN; Mean Corpuscular HGB Conc 34.1 g/dl (31.0-35.0); Mean Corpuscular Hemoglobin 31.4 pg (27.0-33.0); Mean Corpuscular Volume 91.9 fL (80.0-98.0); Mean Platelet Volume 10.5 fL (9.4-12.3); Monocytes Absolute Auto 0.7 X10*3/uL (0.1-1.2); Monocytes Percent Auto 5.3 % (2-11); Neutrophils Absolute Auto 6.8 x10*3/uL (2.0-8.3); Platelet Count 382 X10*3/uL (160-400); Red Blood Count 4.21 X10*6/uL (4.20-5.50); Red Cell Distribution Width 13.1 % (11.0-16.0); SCAN SMEAR FLAG 1; White Blood Count 13.5 X10*3/uL (4.8-10.8)
[2022-03-11 11:53] LABS: Prothrombin Time 11.2 SEC (9.9-13.0)
[2022-03-11 12:28] LABS: SLIDE REVIEW VERIFIED
[2022-03-11 13:00] LABS: Anion Gap 14 (12-20); Blood Urea Nitrogen 12 mg/dL (9-16); Calcium 9.1 mg/dL (8.4-10.2); Carbon Dioxide 20 mmol/L (22-29); Chloride 109 mmol/L (96-108); Estimated Glomerular Filt Rate > 60; Glucose Random 82 mg/dL (60-115); Potassium 4.3 mmol/L (3.3-5.1); Sodium 139 mmol/L (135-145)
== END 2022-03-11 10:51 | disposition home or self-care (01) ==
LOC: HO.LAB 10:50
PROVIDERS: Absent Provider Internal Medicine Pulmonary Disease; PCP Internal Medicine; Visit Provider Nurse Practitioner Family
DX: Z01.818 Encounter for other preprocedural examination (principal); M19.90 Unspecified osteoarthritis, unspecified site; J43.9 Emphysema, unspecified; I10 Essential (primary) hypertension
CPT/HCPCS: 36415; 71046; 80048; 85025; 85610; 93005

== ENCOUNTER 2022-04-30 13:04 | Outpatient (REF) | payer OTHER, SELFPAY ==
--- NOTE | ~2022-04-30 | CT_ITS ---
EXAMINATION: CT CHEST WITHOUT CONTRAST CLINICAL INFORMATION: Abnormal findings of lung field. COMPARISON: CT chest 11/12/2021. Chest x-ray 03/11/2022. TECHNIQUE: Multidetector volumetric CT imaging of the chest was done. Axial MIP volume rendering provided. Sagittal and coronal reformatted images were obtained. This CT examination was performed using dose optimization techniques as appropriate, variously including the following: *Automated exposure control *Adjustment of mA and/or kV according to patient size (this includes techniques or standardized protocols for targeted exams where dose is matched to indication/reason for exam; i.e. 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 LUNGS: There is diffuse centrilobular emphysematous changes of both lungs with minimal bilateral apical pleural thickening and parenchymal scarring. There are no pulmonary nodules, mass or consolidation. MEDIASTINUM: The thyroid lobes are symmetrical and normal. The central trachea and the bronchi are widely patent. The heart size and great vessels are normal caliber. There is no abnormal-sized mediastinal or hilar lymph node seen. There is no pericardial effusion. PLEURA: There is no pleural effusion. No pleural mass or thickening. AXILLA: No lymphadenopathy. UPPER ABDOMEN: Visualized liver, spleen, pancreas and bilateral adrenal glands unremarkable. OSSEOUS STRUCTURES: No aggressive lytic or sclerotic process seen. CT/CT chest wo con IMPRESSION: Emphysema with no acute process. No nodules or lymphadenopathy. Fleischner guidelines were followed.
== END 2022-04-30 13:05 | disposition home or self-care (01) ==
LOC: HO.CT 13:04
PROVIDERS: PCP Internal Medicine; Visit Provider Internal Medicine Pulmonary Disease
DX: R91.8 Other nonspecific abnormal finding of lung field (principal)
CPT/HCPCS: 71250

== ENCOUNTER 2022-07-05 13:54 | Outpatient (REF) | payer OTHER, SELFPAY ==
[2022-07-09 22:02] LABS: HPV mRNA E6/E7 rflx Not Detected (Not Detected)
== END 2022-07-05 13:55 | disposition home or self-care (01) ==
LOC: HO.LNP 13:54
PROVIDERS: Visit Provider Advanced Practice Midwife
DX: Z01.419 Encounter for gynecological examination (general) (routine) without abnormal findings (principal)
CPT/HCPCS: 87255; 87624; 88142

== ENCOUNTER 2022-10-09 12:44 | Outpatient (REF) | payer OTHER, SELFPAY ==
--- NOTE | ~2022-10-09 | XR_ITS ---
EXAMINATION: CHEST. RIGHT HIP. CLINICAL INFORMATION: Chest pain. Respiratory disorders. Right hip pain. COMPARISON: None TECHNIQUE: 2 views right hip. Chest 2 views. FINDINGS: Chest: Both lungs are fairly well-expanded and clear of acute pneumonic process. The heart size and pulmonary vascularity is normal. No gross bony abnormalities seen. Right hip: The joint space is maintained normal. No bony erosive changes. No loose bodies. No visible acute fracture or dislocation seen. XR/XR hip RT min 2V IMPRESSION: 1. Unremarkable chest exam. 2. Unremarkable right hip exam.
--- NOTE | ~2022-10-09 | XR_ITS ---
EXAMINATION: CHEST. RIGHT HIP. CLINICAL INFORMATION: Chest pain. Respiratory disorders. Right hip pain. COMPARISON: None TECHNIQUE: 2 views right hip. Chest 2 views. FINDINGS: Chest: Both lungs are fairly well-expanded and clear of acute pneumonic process. The heart size and pulmonary vascularity is normal. No gross bony abnormalities seen. Right hip: The joint space is maintained normal. No bony erosive changes. No loose bodies. No visible acute fracture or dislocation seen. XR/XR chest 2V IMPRESSION: 1. Unremarkable chest exam. 2. Unremarkable right hip exam.
[2022-10-09 13:02] LABS: MANUAL DIFF FLAG NO
[2022-10-09 13:14] LABS: Basophils Absolute Auto 0.1 X10*3/uL (0.0-0.2); Basophils Percent Auto 0.5 % (0-2); Eosinophils Absolute Auto 0.3 X10*3/uL (0.0-0.4); Eosinophils Percent Auto 2.3 % (0-4); Hematocrit 41.1 % (37.0-47.0); Hemoglobin 14.3 g/dl (12.0-16.0); Imm Gran Abs Auto 0.03 X10*3/uL (0.00-0.03); Imm Gran Pct Auto 0.2 % (0.0-0.4); Lymphocytes Absolute Auto 4.9 X10*3/uL (1.2-4.9); Lymphocytes Percent Auto 38.2 % (20-40); Mean Corpuscular HGB Conc 34.8 g/dl (31.0-35.0); Mean Corpuscular Hemoglobin 30.8 pg (27.0-33.0); Mean Corpuscular Volume 88.6 fL (80.0-98.0); Monocytes Absolute Auto 0.5 X10*3/uL (0.1-1.2); Monocytes Percent Auto 3.9 % (2-11); Neutrophils Percent Auto 54.9 % (45-73); Platelet Count 373 X10*3/uL (160-400); Red Blood Count 4.64 X10*6/uL (4.20-5.50); White Blood Count 12.8 X10*3/uL (4.8-10.8)
[2022-10-09 13:53] LABS: Alanine Aminotransferase 83 U/L (0-31); Albumin Level 4.4 g/dL (3.5-5.0); Alkaline Phosphatase 187 U/L (39-117); Anion Gap 15 (12-20); Aspartate Amino Transferase 40 U/L (5-31); Bilirubin Total 0.4 mg/dL (0.0-1.0); Blood Urea Nitrogen 11 mg/dL (9-16); Calcium 9.9 mg/dL (8.4-10.2); Carbon Dioxide 20 mmol/L (22-29); Chloride 106 mmol/L (96-108); Cholesterol 299 mg/dL; Estimated Glomerular Filt Rate > 60; Glucose Fasting 99 mg/dL (60-99); HDL Cholesterol 32 mg/dL; LDL Cholesterol Calculated 215 mg/dl; Potassium 4.3 mmol/L (3.3-5.1); Sodium 137 mmol/L (135-145); Total Protein 7.6 g/dL (6.5-8.0); Triglycerides 261 mg/dL
[2022-10-09 14:03] LABS: TSH reflex Free T4 1.85 uIU/mL (0.32-4.0); Vitamin D 25-OH Total 13.6 ng/mL (>30)
[2022-10-09 14:05] LABS: TSH reflex Free T4 1.86 uIU/mL (0.32-4.0)
[2022-10-09 14:13] LABS: Appearance Urine Clear; Color Urine Yellow; Glucose Urine UA Negative (Negative); Leukocyte Esterase Urine Negative (Negative); Nitrite Urine Negative (Negative); PH 5.5 (5.0-9.0); Specific Gravity - Urine 1.015 (1.005-1.025); Urine Blood Negative (Negative); Urine Ketones Negative (Negative); Urine Protein Negative (Neg-Trace)
[2022-10-09 14:19] LABS: Folate 5.8 ng/mL (> or = 4.0); Vitamin B12 262 pg/mL (200-900)
== END 2022-10-09 12:45 | disposition home or self-care (01) ==
LOC: HO.LAB 12:44
PROVIDERS: Absent Provider Internal Medicine; PCP Internal Medicine; Visit Provider Nurse Practitioner Family
DX: M25.551 Pain in right hip (principal); R05.9 Cough, unspecified; E78.00 Pure hypercholesterolemia, unspecified; I10 Essential (primary) hypertension; E55.9 Vitamin D deficiency, unspecified; G62.9 Polyneuropathy, unspecified; R20.0 Anesthesia of skin; J98.8 Other specified respiratory disorders; Z91.81 History of falling
CPT/HCPCS: 36415; 71046; 73502; 80053; 80061; 81003; 82306; 82607; 82746; 84443; 85025

== ENCOUNTER 2022-10-22 12:52 | Outpatient (REF) | payer OTHER, SELFPAY ==
[2022-10-22 15:11] LABS: Prothrombin Time 11.3 SEC (10.0-13.1)
== END 2022-10-22 12:53 | disposition home or self-care (01) ==
LOC: HO.LAB 12:52
PROVIDERS: PCP Internal Medicine; Referring Provider Internal Medicine; Visit Provider Internal Medicine
DX: I25.10 Atherosclerotic heart disease of native coronary artery without angina pectoris (principal); R07.2 Precordial pain; E78.2 Mixed hyperlipidemia; Z79.899 Other long term (current) drug therapy
CPT/HCPCS: 36415; 85610; 93005; 99202

== ENCOUNTER → 2022-10-24 14:27 | Outpatient (REF) | payer OTHER, SELFPAY ==
--- NOTE | 2022-10-24 14:32 | CA_ITS ---
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 Study Quality: Fair Conclusions: - 1. Normal LV systolic function with grade 1 diastolic dysfunction 2. Normal cardiac valvular Doppler 3. Normal RV systolic pressure 4. No gross pericardial effusion Findings Left Ventricle Normal left ventricular size, thickness, and systolic function. The visually estimated ejection fraction is between 60-65%. Spectral Doppler is indicative of an impaired relaxation filling pattern. E/E prime ratio is <8, consistent with normal filling pressures. Evidence suggests grade I (mild) diastolic dysfunction. Right Ventricle Normal right ventricular cavity size and systolic function. Atria Both atria are normal in size. There is no evidence of interatrial shunt. Aortic Valve Normal aortic valve structure and function. There is no aortic valve stenosis. There is no aortic valve regurgitation. Mitral Valve There is mild anterior and posterior mitral leaflet thickening. There is trace mitral valve regurgitation. There is no mitral valve stenosis. Pulmonic Valve The pulmonic valve was not well visualized. Tricuspid Valve Likely normal tricuspid valve structure and function. There is trace tricuspid valve regurgitation. The right ventricular systolic pressure is normal. The right ventricular systolic pressure is 10 mmHg. Normal right atrial pressure. There is no evidence of pulmonary hypertension. Great Vessels All visible segments of the aorta are normal in size. The pulmonary artery was not well visualized. Venous The inferior vena cava is normal in size and collapses greater than 50% with inspiration. Pericardium/Pleural There is no evidence of pericardial effusion. Prior Study Comparison No prior study available for comparison. Measurements 2D Linear Measurements IVSd: 1.06 0.6-0.9/0.6-1.0 cm LVIDd: 3.51 3.9-5.3/4.2-5.9 cm LVIDd Index: 1.80 2.4-3.2/2.2-3.1 cm/m2 LVIDs: 2.57 2.0-3.6 cm LVPWd: 0.93 0.7-1.1 cm LA Diam: 3.40 2.7-3.8/3.0-4.0 cm LAIDs Index: 1.74 1.5-2.3 cm/m2 LV Mass: 156.69 67-162/88-224 g LV Mass Index: 80.35 43-95/49-115 g/m2 LVOT Diam: 2.00 3.0+(-)1.3 cm 2D Systolic Function EF 4C: 59.40 >55% EF 2C: 65.90 >55% EF BiP: 63.20 >55% Mitral Valve MV Pk E: 0.45 MV PK A: 0.71 MV Decel Time: 211.00 E/A: 0.60 E'Lateral: 7.51 E'Medial: 5.87 E/E' Med: 7.70 E/E' Lat: 6.00 PHT: 62.00 MVA PHT: 3.55 Decel Kimble: 2.13 Aortic Valve AoV Pk Sky: 1.06 AoV Mn Sky: 0.75 AoV VTI: 0.21 AoV Pk Grad: 4.00 Aov Mn Grad: 2.00 WOJCIECH Cont.VTI: 2.19 LVOT LVOT Pk Sky: 0.82 LVOT Mn Sky: 0.55 LVOT VTI: 0.15 LVOT Pk Grad: 3.00 LVOT Mn Grad: 1.00 LVOT Diam: 2.00 LVOT Area: 3.14 Diastolic Function MV Pk E: 0.45 MV Pk A: 0.71 E/A: 0.60 E'Medial: 5.87 E/E' Med: 7.70 E' Laterial: 7.51 E/E' Lat: 6.00 Right Ventricle TAPSE (mm): 21.20 TVS' Sky: 9.46 Tricuspid Valve TR Pk Sky: 1.32 TR Pk Grad: 7.00 RA Press: 3.00 RVSP: 10.00 Great Vessels Aorta Sinus of Valsalva: 3.20 2.0-3.5 cm Ao Asc: 2.90 2.1-3.4 cm Updated in Other Vendor System with Status of Final Paolo Abrams MD electronically signed on 10/26/2022 1:28:55 PM with status of Final
== END ==
LOC: HO.CARD 14:27
PROVIDERS: PCP Internal Medicine; Visit Provider Internal Medicine
DX: R07.2 Precordial pain (principal); I25.10 Atherosclerotic heart disease of native coronary artery without angina pectoris
CPT/HCPCS: 93306

== ENCOUNTER 2022-11-19 13:52 | Outpatient (REF) | payer OTHER, SELFPAY ==
[2022-11-19 14:05] LABS: MANUAL DIFF FLAG NO
[2022-11-19 14:45] LABS: Basophils Absolute Auto 0.1 X10*3/uL (0.0-0.2); Basophils Percent Auto 0.7 % (0-2); Eosinophils Absolute Auto 0.3 X10*3/uL (0.0-0.4); Eosinophils Percent Auto 2.7 % (0-4); Hematocrit 36.2 % (37.0-47.0); Hemoglobin 12.2 g/dl (12.0-16.0); Imm Gran Abs Auto 0.03 X10*3/uL (0.00-0.03); Imm Gran Pct Auto 0.3 % (0.0-0.4); Lymphocytes Absolute Auto 4.6 X10*3/uL (1.2-4.9); Lymphocytes Percent Auto 46.8 % (20-40); Mean Corpuscular HGB Conc 33.7 g/dl (31.0-35.0); Mean Corpuscular Hemoglobin 30.7 pg (27.0-33.0); Mean Corpuscular Volume 91.2 fL (80.0-98.0); Mean Platelet Volume 9.9 fL (9.4-12.3); Monocytes Absolute Auto 0.6 X10*3/uL (0.1-1.2); Monocytes Percent Auto 5.8 % (2-11); Neutrophils Absolute Auto 4.3 x10*3/uL (2.0-8.3); Neutrophils Percent Auto 43.7 % (45-73); Platelet Count 429 X10*3/uL (160-400); Red Blood Count 3.97 X10*6/uL (4.20-5.50); Red Cell Distribution Width 12.8 % (11.0-16.0); White Blood Count 9.8 X10*3/uL (4.8-10.8)
[2022-11-19 15:28] LABS: Alanine Aminotransferase 24 U/L (0-31); Alkaline Phosphatase 155 U/L (39-117); Anion Gap 14 (12-20); Aspartate Amino Transferase 16 U/L (5-31); Bilirubin Total 0.2 mg/dL (0.0-1.0); Blood Urea Nitrogen 9 mg/dL (9-16); Calcium 9.4 mg/dL (8.4-10.2); Carbon Dioxide 23 mmol/L (22-29); Chloride 108 mmol/L (96-108); Cholesterol 153 mg/dL; Estimated Glomerular Filt Rate > 60; Glucose Fasting 85 mg/dL (60-99); HDL Cholesterol 31 mg/dL; LDL Cholesterol Calculated 74 mg/dl; Potassium 4.3 mmol/L (3.3-5.1); Sodium 141 mmol/L (135-145); Total Protein 6.7 g/dL (6.5-8.0); Triglycerides 242 mg/dL
[2022-11-19 15:39] LABS: Appearance Urine Clear; Color Urine Yellow; Glucose Urine UA Negative (Negative); Leukocyte Esterase Urine Negative (Negative); Nitrite Urine Negative (Negative); Urine Blood Negative (Negative); Urine Ketones Negative (Negative); Urine Protein Negative (Neg-Trace)
== END 2022-11-19 13:53 | disposition home or self-care (01) ==
LOC: HO.LAB 13:52
PROVIDERS: PCP Internal Medicine; Visit Provider Internal Medicine
DX: I10 Essential (primary) hypertension (principal); R30.0 Dysuria; E78.00 Pure hypercholesterolemia, unspecified; E55.9 Vitamin D deficiency, unspecified; I25.118 Atherosclerotic heart disease of native coronary artery with other forms of angina pectoris; E78.2 Mixed hyperlipidemia; Z79.899 Other long term (current) drug therapy
CPT/HCPCS: 36415; 80053; 80061; 81003; 82306; 85025; 99212

== ENCOUNTER 2022-12-27 12:55 | Outpatient (REF) | payer OTHER, SELFPAY ==
[2022-12-27 13:31] LABS: B Type Natriuretic Peptide 10 pg/mL (<100)
[2022-12-27 13:32] LABS: Anion Gap 13 (12-20); Blood Urea Nitrogen 14 mg/dL (9-16); Calcium 9.4 mg/dL (8.4-10.2); Carbon Dioxide 23 mmol/L (22-29); Chloride 112 mmol/L (96-108); Estimated Glomerular Filt Rate 48; Glucose Random 85 mg/dL (60-115); Potassium 4.1 mmol/L (3.3-5.1); Sodium 144 mmol/L (135-145)
== END 2022-12-27 12:56 | disposition home or self-care (01) ==
LOC: HO.LAB 12:55
PROVIDERS: PCP Internal Medicine; Visit Provider Internal Medicine Cardiovascular Disease
DX: M79.89 Other specified soft tissue disorders (principal); R19.00 Intra-abdominal and pelvic swelling, mass and lump, unspecified site; Z98.890 Other specified postprocedural states
CPT/HCPCS: 36415; 80048; 83880

== ENCOUNTER → 2023-01-10 12:36 | Outpatient (BNVA) | payer OTHER, SELFPAY | PROVIDERS: PCP Internal Medicine; Visit Provider Nurse Practitioner Family | DX: G47.62 Sleep related leg cramps (principal); R40.0 Somnolence; I25.2 Old myocardial infarction; F17.210 Nicotine dependence, cigarettes, uncomplicated; Z86.73 Personal history of transient ischemic attack (TIA), and cerebral infarction without residual deficits | CPT/HCPCS: 99202 ==

== ENCOUNTER 2023-01-21 12:55 | Outpatient (REF) | payer OTHER, SELFPAY ==
[2023-01-21 13:12] LABS: MANUAL DIFF FLAG NO
[2023-01-21 13:22] LABS: Basophils Absolute Auto 0.1 X10*3/uL (0.0-0.2); Basophils Percent Auto 0.6 % (0-2); Eosinophils Absolute Auto 0.3 X10*3/uL (0.0-0.4); Eosinophils Percent Auto 2.9 % (0-4); Hematocrit 38.2 % (37.0-47.0); Hemoglobin 12.9 g/dl (12.0-16.0); Imm Gran Abs Auto 0.04 X10*3/uL (0.00-0.03); Imm Gran Pct Auto 0.4 % (0.0-0.4); Lymphocytes Absolute Auto 3.9 X10*3/uL (1.2-4.9); Mean Corpuscular HGB Conc 33.8 g/dl (31.0-35.0); Mean Corpuscular Volume 91.8 fL (80.0-98.0); Mean Platelet Volume 9.5 fL (9.4-12.3); Monocytes Absolute Auto 0.5 X10*3/uL (0.1-1.2); Monocytes Percent Auto 4.8 % (2-11); Neutrophils Percent Auto 51.3 % (45-73); Platelet Count 460 X10*3/uL (160-400); Red Blood Count 4.16 X10*6/uL (4.20-5.50); Red Cell Distribution Width 13.2 % (11.0-16.0); White Blood Count 9.7 X10*3/uL (4.8-10.8)
[2023-01-21 14:28] LABS: Alanine Aminotransferase 23 U/L (0-31); Albumin Level 4.2 g/dL (3.5-5.0); Alkaline Phosphatase 105 U/L (39-117); Anion Gap 13 (12-20); Aspartate Amino Transferase 15 U/L (5-31); Bilirubin Total 0.2 mg/dL (0.0-1.0); Blood Urea Nitrogen 8 mg/dL (9-16); Calcium 9.5 mg/dL (8.4-10.2); Carbon Dioxide 22 mmol/L (22-29); Chloride 109 mmol/L (96-108); Cholesterol 183 mg/dL; Estimated Glomerular Filt Rate > 60; Glucose Fasting 87 mg/dL (60-99); HDL Cholesterol 31 mg/dL; LDL Cholesterol Calculated 111 mg/dl; Potassium 4.4 mmol/L (3.3-5.1); Sodium 140 mmol/L (135-145); Triglycerides 208 mg/dL
[2023-01-21 14:56] LABS: Folate 2.7 ng/mL (> or = 4.0); TSH reflex Free T4 2.56 uIU/mL (0.32-4.0); Vitamin B12 < 148 pg/mL (200-900); Vitamin D 25-OH Total 25.1 ng/mL (>30)
[2023-01-21 15:00] LABS: Appearance Urine Clear; Color Urine Yellow; Glucose Urine UA Negative (Negative); Leukocyte Esterase Urine Negative (Negative); Nitrite Urine Negative (Negative); PH 5.5 (5.0-9.0); Urine Blood Negative (Negative); Urine Ketones Negative (Negative); Urine Protein Negative (Neg-Trace)
== END 2023-01-21 12:56 | disposition home or self-care (01) ==
LOC: HO.LAB 12:55
PROVIDERS: PCP Internal Medicine; Visit Provider Internal Medicine
DX: I25.118 Atherosclerotic heart disease of native coronary artery with other forms of angina pectoris (principal); E78.00 Pure hypercholesterolemia, unspecified; E55.9 Vitamin D deficiency, unspecified; E53.8 Deficiency of other specified B group vitamins; I10 Essential (primary) hypertension; R30.0 Dysuria; E78.2 Mixed hyperlipidemia; F17.200 Nicotine dependence, unspecified, uncomplicated; Z71.6 Tobacco abuse counseling
CPT/HCPCS: 36415; 80053; 80061; 81003; 82306; 82607; 82746; 84443; 85025; 93005; 99212

== ENCOUNTER → 2023-02-19 14:00 | Outpatient (BNVA) | payer OTHER, SELFPAY | PROVIDERS: PCP Internal Medicine; Referring Provider Internal Medicine; Visit Provider Internal Medicine | DX: R19.4 Change in bowel habit (principal); R10.9 Unspecified abdominal pain; I25.10 Atherosclerotic heart disease of native coronary artery without angina pectoris; Z79.02 Long term (current) use of antithrombotics/antiplatelets | CPT/HCPCS: 99202 ==

== ENCOUNTER 2023-02-21 12:28 | Outpatient (REF) | payer OTHER, SELFPAY ==
[2023-02-21 12:53] LABS: Hemoglobin 13.2 g/dl (12.0-16.0); Mean Corpuscular Hemoglobin 30.6 pg (27.0-33.0); Mean Corpuscular Volume 92.8 fL (80.0-98.0); Platelet Count 424 X10*3/uL (160-400); Red Blood Count 4.31 X10*6/uL (4.20-5.50); Red Cell Distribution Width 12.6 % (11.0-16.0); White Blood Count 13.6 X10*3/uL (4.8-10.8)
[2023-02-21 13:30] LABS: C Reactive Protein 0.24 mg/dL (< or = 0.50)
[2023-02-21 13:52] LABS: HBS Num1 0.23 mIU/mL (0-7.99); HBc Num1 0.09 S/CO (0.00-0.79); HBsAGNum1 0.29 S/CO (0.00-0.99); Hepatitis B Core Antibody Nonreactive (Nonreactive); Hepatitis B Surface Antigen Negative (Negative); ~HepC Num1 0.09 S/CO (0.00-0.79); ~Hepatitis B Surface Antibody NONREACTIVE (Nonreactive); ~Hepatitis C Antibody Nonreactive (Nonreactive)
[2023-02-21 14:00] LABS: Ferritin 205 ng/mL (10-250); Folate 14.1 ng/mL (> or = 4.0); TSH reflex Free T4 4.68 uIU/mL (0.32-4.0); Vitamin B12 336 pg/mL (200-900); Vitamin D 25-OH Total 33.6 ng/mL (>30)
[2023-02-21 14:38] LABS: Free T4 (Free Thyroxine) 0.94 ng/dL (0.71-1.85)
[2023-02-24 18:33] LABS: Immunoglobulin A 304 mg/dL (47-310)
[2023-02-25 13:28] LABS: Transglutaminase IgA <1.0 U/mL
== END 2023-02-21 12:29 | disposition home or self-care (01) ==
LOC: HO.LAB 12:28
PROVIDERS: PCP Internal Medicine; Visit Provider Internal Medicine
DX: R19.4 Change in bowel habit (principal)
CPT/HCPCS: 36415; 82306; 82607; 82728; 82746; 82784; 84439; 84443; 85027; 86140; 86364; 86704; 86706; 86803; 87340

== ENCOUNTER 2023-04-15 11:00 | Outpatient (REF) | payer OTHER, SELFPAY ==
[2023-04-15 11:28] LABS: MANUAL DIFF FLAG NO
[2023-04-15 11:49] LABS: Basophils Absolute Auto 0.1 X10*3/uL (0.0-0.2); Basophils Percent Auto 0.5 % (0-2); Eosinophils Absolute Auto 0.3 X10*3/uL (0.0-0.4); Eosinophils Percent Auto 2.2 % (0-4); Hematocrit 39.9 % (37.0-47.0); Hemoglobin 13.3 g/dl (12.0-16.0); Imm Gran Abs Auto 0.05 X10*3/uL (0.00-0.03); Imm Gran Pct Auto 0.4 % (0.0-0.4); Lymphocytes Absolute Auto 4.1 X10*3/uL (1.2-4.9); Lymphocytes Percent Auto 31.5 % (20-40); Mean Corpuscular HGB Conc 33.3 g/dl (31.0-35.0); Mean Corpuscular Hemoglobin 30.6 pg (27.0-33.0); Mean Corpuscular Volume 91.9 fL (80.0-98.0); Mean Platelet Volume 10.1 fL (9.4-12.3); Monocytes Absolute Auto 0.7 X10*3/uL (0.1-1.2); Monocytes Percent Auto 5.7 % (2-11); Neutrophils Absolute Auto 7.7 x10*3/uL (2.0-8.3); Neutrophils Percent Auto 59.7 % (45-73); Platelet Count 454 X10*3/uL (160-400); Red Blood Count 4.34 X10*6/uL (4.20-5.50); Red Cell Distribution Width 12.7 % (11.0-16.0); White Blood Count 12.9 X10*3/uL (4.8-10.8)
[2023-04-15 12:52] LABS: Alanine Aminotransferase 22 U/L (0-31); Albumin Level 4.4 g/dL (3.5-5.0); Alkaline Phosphatase 84 U/L (39-117); Anion Gap 16 (12-20); Aspartate Amino Transferase 16 U/L (5-31); Bilirubin Total 0.3 mg/dL (0.0-1.0); Blood Urea Nitrogen 15 mg/dL (9-16); Calcium 10.4 mg/dL (8.4-10.2); Carbon Dioxide 21 mmol/L (22-29); Chloride 104 mmol/L (96-108); Cholesterol 177 mg/dL; Estimated Glomerular Filt Rate > 60; Glucose Fasting 93 mg/dL (60-99); HDL Cholesterol 31 mg/dL; LDL Cholesterol Calculated 101 mg/dl; Potassium 4.3 mmol/L (3.3-5.1); Sodium 137 mmol/L (135-145); TSH reflex Free T4 3.32 uIU/mL (0.32-4.0); Total Protein 7.8 g/dL (6.5-8.0); Triglycerides 228 mg/dL; Vitamin D 25-OH Total 31.8 ng/mL (>30)
[2023-04-15 13:07] LABS: Appearance Urine Clear; Color Urine Yellow; Glucose Urine UA Negative (Negative); Leukocyte Esterase Urine Negative (Negative); Nitrite Urine Negative (Negative); Urine Blood Negative (Negative); Urine Ketones Negative (Negative); Urine Protein Negative (Neg-Trace)
[2023-04-15 13:27] LABS: Folate > 20.0 ng/mL (> or = 4.0); Vitamin B12 903 pg/mL (200-900)
== END 2023-04-15 11:01 | disposition home or self-care (01) ==
LOC: HO.LAB 11:00
PROVIDERS: PCP Internal Medicine; Visit Provider Internal Medicine
DX: E78.00 Pure hypercholesterolemia, unspecified (principal); I10 Essential (primary) hypertension; R30.0 Dysuria; E55.9 Vitamin D deficiency, unspecified; E53.8 Deficiency of other specified B group vitamins
CPT/HCPCS: 36415; 80053; 80061; 81003; 82306; 82607; 82746; 84443; 85025

== ENCOUNTER 2023-04-15 12:56 | Outpatient (AMB) | payer OTHER, SELFPAY ==
[2023-04-15 13:02] VITALS: BP 110/68; PULSE 97; O2SAT 96; BMI 36.5
--- NOTE | 2023-04-15 13:02 | MHC.PC.OV ---
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: No Accompanied by: Self / Same As Patient Allergies NSAIDS (Non-Steroidal Anti-Inflamma [Nsaids] Allergy (Severe, Verified 04/15/23 14:00) blood in stool diazepam [DIAZEPAM] Allergy (Mild, Verified 04/15/23 14:00) RASH fluoxetine [From Prozac] Allergy (Unknown, Verified 04/15/23 14:00) Unknown ibuprofen [From Motrin] Allergy (Unknown, Verified 04/15/23 14:00) UNKNOWN Penicillins Allergy (Unknown, Verified 04/15/23 14:00) UNKNOWN colchicine Allergy (Verified 04/15/23 14:00) Dizziness gabapentin [From NEURONTIN] Adverse Reaction (Severe, Verified 04/15/23 14:00) HALLUCINATIONS, halluciinations morphine [Morphine] Adverse Reaction (Severe, Verified 04/15/23 14:00) DIFFICULTY BREATHING Sulfa (Sulfonamide Antibiotics) [SULFA (SULFONAMIDE ANTIBIOTICS)] Adverse Reaction (Severe, Verified 04/15/23 14:00) DIFF BREATHING Medication List - Last Reconciled 04/15/23 by Ambrose Feliciano MD albuterol sulfate 2.5 mg (3 mL) inhalation QID PRN 30 days albuterol sulfate 90 mcg/actuation 2 puffs inhalation Q6H PRN aspirin 81 mg PO DAILY atorvastatin 80 mg PO DAILY baclofen 20 mg PO TID PRN 30 days bupropion HCl 150 mg PO QAM 30 days mmbfclkzgq-wklpqwehftvmw-cfic 50-325-40 mg 1 tab PO Q6-8H PRN 30 days carvedilol 6.25 mg PO BID 90 days cholecalciferol (vitamin D3) 50 mcg PO DAILY 90 days cyanocobalamin (vitamin B-12) 1,000 mcg IM DAILY 2 weeks fenofibrate 160 mg PO DAILY 30 days folic acid 1 mg PO DAILY 90 days furosemide 20 mg PO QAM PRN 15 days hydroxyzine HCl 25 mg PO TID PRN 30 days lamotrigine 150 mg PO DAILY lidocaine HCl 2% 1 appl topical BID-QID PRN lidocaine HCl 3% 1 appl topical BID PRN 30 days magnesium 200 mg PO BEDTIME 30 days melatonin 10 mg PO BEDTIME PRN 14 days miscellaneous medical supply as directed; Medical Recliner miscellaneous medical supply as directed; Cane miscellaneous medical supply 1 ea miscellaneous DAILY miscellaneous medical supply 1 ea miscellaneous DAILY nebulizers As directed every 6 hours as needed nystatin-triamcinolone 100,000-0.1 unit/g-% 1 appl topical BID 10 days omeprazole 20 mg PO DAILY 90 days ondansetron HCl 4 mg PO Q12H PRN 7 days oxycodone 5 mg PO BID-TID PRN potassium chloride ER 20 mEq PO DAILY 90 days prazosin 3 mg PO BEDTIME prednisone 40 mg (2 x 20 mg) PO DAILY 5 days sertraline 50 mg PO DAILY ticagrelor (Brilinta) 90 mg PO BID tizanidine 4 mg PO Q8H PRN 30 days tramadol 50 mg PO QID PRN 14 days Tobacco use date assessed: 04/15/23 Dental Screening Dental Screen Date: 04/15/23 Did you have a dental visit in the last 12 months?: Yes Did you have a dental problem in the last 6 months where you did not have access to dental care?: No Was dental information given to patient?: Patient has dentist HPI Multiple Concerns HPI Details Patient comes in today for her follow up visit States that she feels okay Continues to experience increased pain in her right knee and right ankle States that she is scheduled to receive some injections into her right knee from [facility] next month (May 2023) and is hoping that the injection will help with her knee pain States that she was advised that she will only be able to have ankle surgery done once she is cleared by cardiology, which will most likely be a year after her recent OH earlier this year (10/2022) She denies any headaches or dizziness Denies any chest pains, no shortness of breath No nausea/ vomiting, no abdominal pain No change in bowel habits noted Had her follow up labs done earlier today - to discuss her results COUNTS INCLUDE 234 BEDS AT [facility] Medical History (Updated 04/16/23 @ 06:23 by Ambrose Feliciano MD) Anxiety Avascular necrosis of right talus Bony sclerosis Chronic pain syndrome COPD (chronic obstructive pulmonary disease) Coronary atherosclerosis Crohn's disease Depression Disc degeneration, lumbar Folate deficiency GERD (gastroesophageal reflux disease) Hematemesis Lumbar degenerative disc disease Lumbar radiculopathy, right Migraine Mixed hyperlipidemia Neck pain Obesity (BMI 30-39.9) Osteoarthritis of left hip Osteoarthritis of right hip Osteoarthritis of right knee Pain and swelling of right ankle Rash Right knee pain Right lumbosacral radiculopathy Shoulder pain, left Smoker STEMI (ST elevation myocardial infarction) Strain of left trapezius muscle Swelling of right knee joint Vitamin D deficiency Surgical History History of appendectomy History of cholecystectomy History of esophagogastroduodenoscopy (EGD) History of hysterectomy Hx of cardiac cath (~11/01/22) Hx of section Hx of colonoscopy Family History Father Hypertension Mother Hypertension Diabetes CVD (cardiovascular disease) Sister Liver disease Maternal Grandmother Colon cancer Maternal Aunt Breast cancer Social History Housing: House Are you a primary wound care physician to a significant other at home: No Do you presently have visiting nurse or other home services: No (Children come by to help) Alcohol intake: never Patient Tobacco Use Status: Current everyday Tobacco user Tobacco use type: Cigarette Cigarettes Per Day: 5 e-Cigarette/Vaping Use: Never Used Second Hand Smoke Exposure: Yes service: No Current occupational status: disabled Cognitive needs: Yes (cane) Hearing needs: No Vision needs: Yes (glasses) Female Reproductive History Menstrual Age of Menarche: 10 Questionnaire PHQ-9 Over the last 2 weeks, how often have you been bothered by any of the following problems? 1. Little interest or pleasure in doing things: several days 2. Feeling down, depressed, or hopeless: several days 3. Trouble falling or staying asleep, or sleeping too much: several days 4. Feeling tired or having little energy: several days 5. Poor appetite or overeating: several days 6. Feeling bad about yourself - or that you are a failure or have let yourself or your family down: not at all 7. Trouble concentrating on things, such as reading the newspaper or watching television: not at all 8. Moving or speaking so slowly that other people could have noticed. Or the opposite - being so fidgety or restless that you have been moving around a lot more than usual: not at all 9. Thoughts that you would be better off or of hurting yourself in some way: not at all Total score: 5 Depression Screening Interpretation: Positive Depression Screening Follow-up: Existing condition and In treatment 17912 - PHQ-9 Billing: Yes Source: Developed by Drs. Adebayo Lizarraga, Alicia Mata, Avel Blancas and colleagues, with an educational rayshawn from [employer]. Thrive Questionnaire Date Thrive assessed: 04/15/23 I am a: Patient What is your living situation today?: I have a steady place to live Within the past 12 months, did the food you bought not last and you didn't have the money to get more?: Never true Within the past 12 months, did you worry whether your food would run out before you got money to buy more?: Never true Do you have trouble paying for medicines?: No Do you have trouble getting transportation to medical appointments?: No Do you have trouble paying your heating and electricity bill?: No Do you have trouble taking care of your child, family member or friend?: No Do you have trouble with day-to-day activities such as bathing, preparing meals, shopping, managing finances, etc.?: No Are you currently unemployed and looking for a job?: No Are you interested in more education?: No Please select the resources that you would like help with: None Currently or been in a relationship where the following occur: no concerns reported AUDIT C Alcohol Use Questionnaire (AUDIT-C) 1. How often do you have a drink containing alcohol?: Never 2. How many drinks containing alcohol do you have on a typical day when you are drinking?: 1 or 2 (0) 3. How often do you have six or more drinks on one occasion?: Never Total Score: 0 Score Reviewed/Action Taken: Yes CHANELLE-7 AMB Questionnaire CHANELLE-7 Date CHANELLE - 7 assessed: 04/15/23 Feeling nervous, anxious, or on edge: 0 = Not at all Not being able to stop or control worryin = Not at all Worrying too much about different things: 0 = Not at all Trouble relaxin = Not at all Being so restless that it is hard to sit still: 0 = Not at all Becoming easily annoyed or irritable: 0 = Not at all Feeling afraid as if something awful might happen: 0 = Not at all Total CHANELLE-7 score (0-4 normal; 5-9 mild; 10-14 moderate; 15-21 severe): 0 Source: Developed by Drs. Adebayo Lizarraga, Alicia Mata, Avel Blancas and colleagues, with an educational rayshawn from [employer]. Review of Systems Const Reports fatigue, Denies fever(s) and Denies headache(s) ENT Denies dysphagia, Denies dizziness, Denies headache(s), Reports neck pain, Denies odynophagia and Denies sore throat Card Denies chest pain, Denies palpitations and Denies dyspnea Resp Denies cough, Denies dyspnea and Denies wheezing GI Denies abdominal pain, Denies constipation, Denies dysphagia, Denies heartburn, Denies diarrhea, Denies nausea, Denies odynophagia and Denies vomiting Denies difficulty voiding, Denies nocturia and Denies dysuria Musc Reports back pain (chronic), Reports arthralgias (of the right knee and right ankle), Denies joint swelling and Reports neck pain Neuro Denies dizziness and Denies headache(s) Endo Reports fatigue and Denies palpitations Aller/Immun Denies wheezing Physical exam (Primary Care) Vital Signs: Last Vital Signs Pulse 97 04/15/23 13:02 BP 110/68 04/15/23 13:02 Pulse Ox 96 04/15/23 13:02 Oxygen Delivery Method Room Air 04/15/23 13:02 BMI result Body Mass Index 36.5 Tobacco/Smoking Status: Tobacco use Status Tobacco use date assessed 04/15/23 04/15/23 13:09 Patient Tobacco Use Status Current everyday Tobacco 04/15/23 13:09 Tobacco use type Cigarette 04/15/23 13:09 e-Cigarette/Vaping Use Never Used 04/15/23 13:09 PHQ-9: PHQ-9 Score PHQ-9: Total score 5 04/15/23 13:49 Depression Screening Interpretation: Positive Depression Screening Follow-up: Existing condition and In treatment Thrive Assessment: Date of Thrive Assessment Date Thrive assessed 04/15/23 04/15/23 13:09 Currently or been in a relationship where the following occur: no concerns reported Const General: no acute distress and alert HENMT Ears: TM's normal bilaterally and EAC's normal Throat: Yes posterior oropharynx normal and Yes tonsils normal (no TP congestion noted) Neck Neck: Yes no lymphadenopathy and Yes supple Resp Auscultation: clear to auscultation bilaterally, no rales and no wheezes Cardio Rate: regular rate Rhythm: regular rhythm Heart sounds: no murmurs GI Palpation (GI): Soft to palpation and nontender Auscultation: normal bowel sounds Back/Spine/Pelvis Cervical Spine: Cervical spine tenderness Thoracic/Lumbar Spine: lumbar spinal tenderness Extrem General: Yes no clubbing, cyanosis or edema Right lower extremity: knee Details: tenderness; no swelling, ankle Details: tenderness; no swelling and foot Details: tenderness Location: of the dorsal foot and edema (mild) Location: of the dorsal foot Office Meds cyanocobalamin (vitamin B-12) Performing Provider: Ambrose Feliciano MD Administered by: Pam Park RN on 04/15/23 13:29 Dose Route Admin Location Lot Number Expiration Date [facility] Sterilization Tech 1,000 mcg IM [id number] 11/12/24 49814-174-50 Pricebets Results Reviewed Results Reviewed: Laboratory Tests 04/15/23 04/15/23 04/15/23 11:25 11:26 11:26 WBC 12.9 H Hgb 13.3 Hct 39.9 Plt Count 454 H Sodium 137 Potassium 4.3 Creatinine 0.97 Estimated GFR > 60 Fasting Glucose 93 Calcium 10.4 H D AST 16 ALT 22 Triglycerides 228 Cholesterol 177 LDL Cholesterol, Calc 101 HDL Cholesterol 31 Vitamin B12 25-OH Vitamin D Total 31.8 TSH 3.32 Ur Specific Walker 1.020 Urine Protein Negative Urine Glucose (UA) Negative Urine Blood Negative 04/15/23 11:26 WBC Hgb Hct Plt Count Sodium Potassium Creatinine Estimated GFR Fasting Glucose Calcium AST ALT Triglycerides Cholesterol LDL Cholesterol, Calc HDL Cholesterol Vitamin B12 903 H 25-OH Vitamin D Total TSH Ur Specific Walker Urine Protein Urine Glucose (UA) Urine Blood Assessment and Plan Assessment & Plan (1) Coronary atherosclerosis: Code(s): I25.10 - Atherosclerotic heart disease of [place] coronary artery without angina pectoris Qualifiers: Coronary Disease-Associated Artery/Lesion type: [place] artery [place] vs. transplanted heart: [place] heart Associated angina: with stable angina Qualified Code(s): I25.118 - Atherosclerotic heart disease of [place] coronary artery with other forms of angina pectoris Plan: S/P cardiac cath and PCI to the mid LAD in October 2022 - had CARA x1 and kissing balloon angioplasty to the bifurcating lesion Continue Aspirin 81 mg QD - will need lifelong antiplatelet therapy Continue aggressive risk reduction with strict BP control and cholesterol reduction Follow up with cardiology as scheduled (2) STEMI (ST elevation myocardial infarction): Code(s): I21.3 - ST elevation (STEMI) myocardial infarction of unspecified site Qualifiers: Involved coronary artery: unspecified coronary artery Qualified Code(s): I21.3 - ST elevation (STEMI) myocardial infarction of unspecified site Plan: S/P STEMI post cath and required a second CARA to remove the occlusion in the ostial diagonal, which was thought to be due to dissection from her prior PCI Continue Carvedilol 6.25 mg BID Continue cardiac rehab as scheduled (3) Mixed hyperlipidemia: Code(s): E78.2 - Mixed hyperlipidemia Plan: Results of her labs done earlier today reviewed and discussed with patient - lipids have improved slightly from previous but advised that these should continue to improve and goal is LDL cholesterol <70 mg/dl Reinforced low cholesterol diet Continue Fenofibrate 160 mg QD and Atorvastatin 80 mg QD Will recheck her labs in 3 months for follow up (4) Chronic pain of right ankle: Code(s): M25.571 - Pain in right ankle and joints of right foot; G89.29 - Other chronic pain Plan: Orthopedics suspects that patient may have AVN of her ankle Right ankle MRI done in January 2022 revealed mild tibiotalar osteoarthritis. Anterior marginal osteophytes as well as an anterior unfused osteophyte versus ossified loose body measuring up to 1.2 cm in ML dimension. Small tibiotalar joint effusion. Minimal posterior tibialis and flexor digitorum tenosynovitis. No tendon tear. Medial subcutaneous edema Patient has reportedly been advised that they can only perform surgery on her ankle when she is cleared by Cardiology, which will most likely be early next year when she will be a year out from her OH earlier this year in October 2022 Follow-up with orthopedics as scheduled (5) Osteoarthritis of right knee: Comment: Right knee MRI done on 09/18/2020 showed: 1. Intact menisci. 2. Intact cruciate and collateral ligaments. 3. Preserved tricompartmental articular cartilage. 4. Small joint effusion Code(s): M17.11 - Unilateral primary osteoarthritis, right knee Qualifiers: Osteoarthritis type: unspecified Qualified Code(s): M17.11 - Unilateral primary osteoarthritis, right knee Plan: Was seen previously by [facility] months ago and advised that her knee OA is mild with no other intervention recommended at the time Per request, was referred to orthopedics in [place] for a second opinion and she is now following up with [facility] for her knee issues (6) Lumbar degenerative disc disease: Code(s): M51.36 - Other intervertebral disc degeneration, lumbar region Plan: Reinforced activity and weight-lifting restrictions Continue Tramadol 50 mg TID PRN for pain Follow up with pain management as scheduled (7) Elevated LFTs: Code(s): R79.89 - Other specified abnormal findings of blood chemistry Plan: Improved/resolved - patient's LFTs have remained normal on her labs done earlier today Was most likely due to her weight and high cholesterol numbers Will continue to monitor her LFTs regularly (8) COPD (chronic obstructive pulmonary disease): Code(s): J44.9 - Chronic obstructive pulmonary disease, unspecified Qualifiers: COPD type: emphysema Emphysema type: unspecified Qualified Code(s): J43.9 - Emphysema, unspecified Plan: Stable lately Continue Spiriva Handihaler inhale contents of 18 mcg capsule QD, Breo Ellipta 200-25 mcg 1 inhalation QD and Albuterol HFA 2 puffs 4 times a day as needed Follow up with pulmonary as scheduled (9) Crohn's disease: Code(s): K50.90 - Crohn's disease, unspecified, without complications Qualifiers: Gastrointestinal tract location: unspecified location Digestive disease complication type: unspecified complication Qualified Code(s): K50.919 - Crohn's disease, unspecified, with unspecified complications Plan: Has had no recent flare ups Follow up with GI as scheduled (10) Vitamin B12 deficiency: Code(s): E53.8 - Deficiency of other specified B group vitamins Plan: Corrected - S/P Tx with 3 doses of Vitamin B12 IM Q 2 weeks She will continue on oral Vitamin B12 tablets 1000 mcg QD (11) Folate deficiency: Code(s): E53.8 - Deficiency of other specified B group vitamins Plan: Continue Folic Acid 1 mg QD (12) Vitamin D deficiency: Code(s): E55.9 - Vitamin D deficiency, unspecified Plan: Corrected - continue Vitamin D3 2000 units QD (13) GERD (gastroesophageal reflux disease): Code(s): K21.9 - Gastro-esophageal reflux disease without esophagitis Qualifiers: Esophagitis presence: without esophagitis Qualified Code(s): K21.9 - Gastro-esophageal reflux disease without esophagitis Plan: Dietary restrictions reinforced Continue Omeprazole 20 mg QD Follow up with GI as scheduled (14) Migraine: Code(s): G43.909 - Migraine, unspecified, not intractable, without status migrainosus Qualifiers: Migraine type: unspecified Status migrainosus presence: without status migrainosus Intractability: not intractable Qualified Code(s): G43.909 - Migraine, unspecified, not intractable, without status migrainosus Plan: Stable lately - continue Fioricet 3 to 4 times a day as needed for headaches (15) Anxiety: Code(s): F41.9 - Anxiety disorder, unspecified Plan: Continue Bupropion 150 mg Q AM, Sertraline 50 mg QD and Hydroxyzine 25 mg TID PRN Continue Prazosin 3 mg Q HS (16) Depression: Code(s): F32.A - Depression, unspecified Qualifiers: Depression Type: major depressive disorder Major depression recurrence: recurrent Active/Remission status: currently active Major depression episode severity: unspecified Qualified Code(s): F33.9 - Major depressive disorder, recurrent, unspecified Plan: Continue Sertraline 50 mg QD, Bupropion 150 mg Q AM and Lamictal 150 mg QD Follow up with psychiatry as scheduled (17) Smoker: Code(s): F17.200 - Nicotine dependence, unspecified, uncomplicated Plan: Counseled again on complete smoking cessation, especially in light of her coronary disease (18) Obesity (BMI 30-39.9): Code(s): E66.9 - Obesity, unspecified Plan: Reinforced diet/exercise as tolerated/lose weight Plan Follow up in 3 months Orders: Orders Complete Blood Count Auto Diff 3 Months I10 - Essential (primary) hypertension Comprehensive [place]. Panel Fast 3 Months E78.00 - Pure hypercholesterolemia, unspecified Lipid Panel 3 Months E78.00 - Pure hypercholesterolemia, unspecified AMB Vitamin B12 Injection Patient Supplied 04/15/23 E53.8 - Deficiency of other specified B group vitamins Vitamin B12 and Folate 3 Months E53.8 - Deficiency of other specified B group vitamins TSH reflex Free T4 3 Months E78.00 - Pure hypercholesterolemia, unspecified Vitamin D 25-OH Total 3 Months E55.9 - Vitamin D deficiency, unspecified UA CC w/rflx Micro + Cult 3 Months R30.0 - Dysuria Coding Level of Care Code Est Pt Level 4 (97898) Diagnoses Coronary atherosclerosis I25.118 Coronary Disease-Associated Artery/Lesion type: [place] artery [place] vs. transplanted heart: [place] heart Associated angina: with stable angina STEMI (ST elevation myocardial infarction) I21.3 Involved coronary artery: unspecified coronary artery Mixed hyperlipidemia E78.2 Chronic pain of right ankle M25.571; G89.29 Osteoarthritis of right knee M17.11 Osteoarthritis type: unspecified Lumbar degenerative disc disease M51.36 Elevated LFTs R79.89 COPD (chronic obstructive pulmonary disease) J43.9 COPD type: emphysema Emphysema type: unspecified Crohn's disease K50.919 Gastrointestinal tract location: unspecified location Digestive disease complication type: unspecified complication Vitamin B12 deficiency E53.8 Folate deficiency E53.8 Vitamin D deficiency E55.9 GERD (gastroesophageal reflux disease) K21.9 Esophagitis presence: without esophagitis Migraine G43.909 Migraine type: unspecified Status migrainosus presence: without status migrainosus Intractability: not intractable Anxiety F41.9 Depression F33.9 Depression Type: major depressive disorder Major depression recurrence: recurrent Active/Remission status: currently active Major depression episode severity: unspecified Smoker F17.200 Obesity (BMI 30-39.9) E66.9
== END 2023-04-15 13:59 | disposition home or self-care (01) ==
PROVIDERS: PCP Internal Medicine; Visit Provider Internal Medicine
DX: I25.118 Atherosclerotic heart disease of native coronary artery with other forms of angina pectoris (principal); J43.9 Emphysema, unspecified; K50.919 Crohn's disease, unspecified, with unspecified complications; G43.909 Migraine, unspecified, not intractable, without status migrainosus; G89.29 Other chronic pain; E78.2 Mixed hyperlipidemia; M25.571 Pain in right ankle and joints of right foot; M17.11 Unilateral primary osteoarthritis, right knee; M51.36 Other intervertebral disc degeneration, lumbar region; I21.3 ST elevation (STEMI) myocardial infarction of unspecified site; R79.89 Other specified abnormal findings of blood chemistry; K21.9 Gastro-esophageal reflux disease without esophagitis
CPT/HCPCS: 96372; 99214; J3420

== ENCOUNTER 2023-05-27 11:55 | Outpatient (REF) | payer OTHER, SELFPAY ==
[2023-05-27 15:29] LABS: B Type Natriuretic Peptide 40 pg/mL (<100)
== END 2023-05-27 11:56 | disposition home or self-care (01) ==
LOC: HO.LAB 11:55
PROVIDERS: PCP Internal Medicine; Visit Provider Nurse Practitioner Family
DX: R07.2 Precordial pain (principal); R06.02 Shortness of breath; I25.10 Atherosclerotic heart disease of native coronary artery without angina pectoris
CPT/HCPCS: 36415; 83880; 93005; 99212

== ENCOUNTER 2023-05-27 11:55 | Outpatient (AMB) | payer OTHER, SELFPAY ==
[2023-05-27 13:21] VITALS: BP 132/70; PULSE 78; BMI 36.7
--- NOTE | 2023-05-27 13:21 | MHC.OFFVIS ---
Intake Vital Signs 05/27/23 13:21 Height 5 ft 3 in Weight 207 lb 3.752 oz BMI 36.7 BP 132/70 Blood Pressure Location Lt brachial Position Sitting Pulse 78 Intake Visit Reasons: per dc In Store Banker Required: No Allergies NSAIDS (Non-Steroidal Anti-Inflamma [Nsaids] Allergy (Severe, Verified 05/27/23 13:26) blood in stool diazepam [DIAZEPAM] Allergy (Mild, Verified 05/27/23 13:26) RASH fluoxetine [From Prozac] Allergy (Unknown, Verified 05/27/23 13:) Unknown ibuprofen [From Motrin] Allergy (Unknown, Verified 05/27/23 13:) UNKNOWN Penicillins Allergy (Unknown, Verified 05/27/23 13:) UNKNOWN colchicine Allergy (Verified 05/27/23:) Dizziness gabapentin [From NEURONTIN] Adverse Reaction (Severe, Verified 05/27/23 13:) HALLUCINATIONS, halluciinations morphine [Morphine] Adverse Reaction (Severe, Verified 05/27/23 13:) DIFFICULTY BREATHING Sulfa (Sulfonamide Antibiotics) [SULFA (SULFONAMIDE ANTIBIOTICS)] Adverse Reaction (Severe, Verified 05/27/23 13:26) DIFF BREATHING Medication List - Last Reconciled 05/27/23 by Liliam Green [employer]IGH SCHOOL LIBRARIAN-C albuterol sulfate 2.5 mg (3 mL) inhalation QID PRN 30 days albuterol sulfate 90 mcg/actuation 2 puffs inhalation Q6H PRN aspirin 81 mg PO DAILY atorvastatin 80 mg PO DAILY baclofen 20 mg PO TID PRN 30 days bupropion HCl 150 mg PO QAM 30 days hcbmasldhi-cubbfskldscuu-roug 50-325-40 mg 1 tab PO Q6-8H PRN 30 days carvedilol 6.25 mg PO BID 90 days cholecalciferol (vitamin D3) 50 mcg PO DAILY 90 days cyanocobalamin (vitamin B-12) 1,000 mcg IM DAILY 2 weeks fenofibrate 160 mg PO DAILY 30 days folic acid 1 mg PO DAILY 90 days furosemide 20 mg PO QAM PRN 15 days hydroxyzine HCl 25 mg PO TID PRN 30 days lamotrigine 150 mg PO DAILY lidocaine HCl 2% 1 appl topical BID-QID PRN lidocaine HCl 3% 1 appl topical BID PRN 30 days magnesium 200 mg PO BEDTIME 30 days melatonin 10 mg PO BEDTIME PRN 14 days miscellaneous medical supply as directed; Medical Recliner miscellaneous medical supply as directed; Cane miscellaneous medical supply 1 ea miscellaneous DAILY miscellaneous medical supply 1 ea miscellaneous DAILY nebulizers As directed every 6 hours as needed nystatin-triamcinolone 100,000-0.1 unit/g-% 1 appl topical BID 10 days omeprazole 20 mg PO DAILY 90 days ondansetron HCl 4 mg PO Q12H PRN 7 days oxycodone 5 mg PO BID-TID PRN potassium chloride ER 20 mEq PO DAILY 90 days prazosin 3 mg PO BEDTIME prednisone 40 mg (2 x 20 mg) PO DAILY 3 days sertraline 50 mg PO DAILY ticagrelor (Brilinta) 90 mg PO BID tizanidine 4 mg PO Q8H PRN 30 days tramadol 50 mg PO QID PRN 14 days HPI per dc HPI Details Kyrie is a 48-year-old female with past medical history of hyperlipidemia, smoking, obesity, coronary artery disease status post PCI to the LAD and diagonal who called our office yesterday with reports of recurrent pressure in her left chest region. Office visit arranged for today. Today she states she has been under high emotional stress and grieving. She tells me that her grandson over the summer. She has been experiencing some tightness in her left upper chest region. She said in the past when she had chest discomfort prior to her stents it was like this and went to her arm and neck. At this time her discomfort is not traveling to her arm or neck. It is occurring intermittently when she is feeling very stressed. She does report some tenderness to palpation in that region. Also some discomfort with deep inspiration. She is noticing shortness of breath which she feels is new for her along with orthopnea. No PND, edema. No presyncope, syncope, falls. She has been taking her medications as directed. She continues on aspirin and Brilinta without interruption. [facility] Medical History (Updated 05/27/23 @ 16:47 by MARLENE Edward) Anxiety Folate deficiency Vitamin D deficiency STEMI (ST elevation myocardial infarction) Coronary atherosclerosis Depression Hematemesis Crohn's disease Avascular necrosis of right talus Chronic pain syndrome Osteoarthritis of right knee Osteoarthritis of left hip Osteoarthritis of right hip Lumbar radiculopathy, right Disc degeneration, lumbar Bony sclerosis Rash Strain of left trapezius muscle Shoulder pain, left Neck pain Mixed hyperlipidemia Pain and swelling of right ankle Swelling of right knee joint Right knee pain Obesity (BMI 30-39.9) Smoker Migraine GERD (gastroesophageal reflux disease) COPD (chronic obstructive pulmonary disease) Right lumbosacral radiculopathy Lumbar degenerative disc disease Surgical History (Updated 05/27/23 @ 16:09 by Liliam Green NP-C) History of esophagogastroduodenoscopy (EGD) Hx of cardiac cath (~11/01/22) Hx of section History of appendectomy Hx of colonoscopy History of hysterectomy History of cholecystectomy Family History Father Hypertension Mother Hypertension Diabetes CVD (cardiovascular disease) Sister Liver disease Maternal Grandmother Colon cancer Maternal Aunt Breast cancer Social History Housing: House Are you a primary plant health care technician to a significant other at home: No Do you presently have visiting nurse or other home services: No (Children come by to help) Alcohol intake: never Patient Tobacco Use Status: Current everyday Tobacco user Tobacco use type: Cigarette Cigarettes Per Day: 5 e-Cigarette/Vaping Use: Never Used Second Hand Smoke Exposure: Yes service: No Current occupational status: disabled Cognitive needs: Yes (cane) Hearing needs: No Vision needs: Yes (glasses) Female Reproductive History Menstrual Age of Menarche: 10 Review of Systems Const All systems reviewed & are unremarkable except as noted in HPI and below ENT Denies dizziness Card Reports chest pain (tightness - left upper chest), Denies chest pain at rest, Denies chest pain with activity, Denies rapid heart rate, Denies pedal edema, Denies edema, Denies leg edema, Denies lightheadedness, Denies palpitations, Denies dyspnea, Reports dyspnea on exertion and Reports orthopnea Resp Denies cough, Denies dyspnea and Reports dyspnea on exertion GI Denies hematochezia and Denies change in stool character Musc Denies abnormal gait, Denies limited range of motion, Denies muscle cramps, Denies muscle weakness, Denies numbness, Denies radiating pain into limb, Denies stiffness and Denies tingling Neuro Denies abnormal gait, Denies dizziness, Denies numbness and Denies tingling Endo Denies palpitations Physical Exam Vital Signs: Last Vital Signs Pulse 78 05/27/23 13:21 BP 132/70 05/27/23 13:21 BMI result Body Mass Index 36.7 Const General: cooperative, healthy appearing, comfortable and no acute distress Orientation/consciousness: patient oriented x3 Neck Neck: Yes normal visual inspection and Yes no JVD Resp Effort & Inspection: normal respiratory effort Auscultation: clear to auscultation bilaterally, no crackles, no rales, no rhonchi and no wheezes Cardio Jugular venous distension: no JVD Rate: regular rate Rhythm: regular rhythm Heart sounds: S1 normal heart sound present, S2 normal heart sound present, no murmurs and no rubs Neuro General: patient oriented x3 Extrem General: Yes normal to inspection Psych Appearance: grossly normal Mental Status: mental status grossly normal Speech and movement: Normal speech and movement present Office Procedures EKG Details: Today, read by me, sinus rhythm with nonspecific T-wave abnormality, rate 78, QTC 437 millisecond [id number], Complete Assessment & Plan Assessment & Plan (1) Precordial chest pain: Code(s): R07.2 - Precordial pain Plan: Left upper chest discomfort which feels like tightness occurring intermittently, brought on by stress, not brought on by physical exertion. She describes a similar feeling prior to her coronary stents however at that time she was also experiencing left arm and left neck discomfort as well. Her current symptom is worsened with palpation of the area and deep inspiration. It is most likely noncardiac in nature however with her history of coronary stents, resolution of symptom and now recurrent symptom will need to ischemia. EKG done today showing sinus rhythm with no acute ST or T-wave abnormalities. Will order an exercise nuclear stress test. She also describes extreme stress and grief in recent months as well as new she a apnea. Will check a BNP today. Will also check a limited echo to assess for any stress induced cardiomyopathy. Signs and symptoms of angina reviewed. Offered some reassurance that her symptom is worse with palpation. It may be musculoskeletal discomfort brought on by high stress. Will have her continue on aspirin indefinitely. Continue Brilinta uninterrupted for at least 1 year post stenting, October 2023. Continue high-dose atorvastatin, fenofibrate, carvedilol. Cardiology follow-up in 4-6 weeks, sooner if needed. Emergency care if needed for concerning symptoms. (2) Shortness of breath: Code(s): R06.02 - Shortness of breath (3) Coronary artery disease: Code(s): I25.10 - Atherosclerotic heart disease of mi[place]kmaq coronary artery without angina pectoris Qualifiers: Coronary Disease-Associated Artery/Lesion type: mi[place]kmaq artery [place] vs. transplanted heart: mi[place]kmaq heart Associated angina: unspecified whether angina present Qualified Code(s): I25.10 - Atherosclerotic heart disease of mi'kmaq coronary artery without angina pectoris Plan: History of coronary artery disease with cardiac catheterization 11/01/2022, PCI to the LAD. She then developed chest discomfort and ST elevations and had PCI of the diagonal artery, same day. She describes her symptom as being left upper chest tightness with radiation to her left arm and left neck area. Tells me her symptoms did resolve after stenting. She now has symptoms as described above. Will update cardiac testing. Orders: Orders B Type Natriuretic Peptide Today R06.02 - Shortness of breath CA echo limited Today F43.21 - Adjustment disorder with depressed mood, I25.10 - Atherosclerotic heart disease of mi[place] coronary artery without angina pectoris, R06.02 - Shortness of breath, R07.2 - Precordial pain NM cardiolite stress test Today I25.10 - Atherosclerotic heart disease of [place] coronary artery without angina pectoris, R07.2 - Precordial pain, Z98.890 - Other specified postprocedural states CA stress test Today I25.10 - Atherosclerotic heart disease of mi[place] coronary artery without angina pectoris, R06.02 - Shortness of breath, R07.2 - Precordial pain Coding Level of Care Code Est Pt Level 4 (76899) Diagnoses Precordial chest pain R07.2 Shortness of breath R06.02 Coronary artery disease involving mi'kmaq coronary artery of mi[place] heart, unspecified whether angina present I25.10 Coronary Disease-Associated Artery/Lesion type: mi[place] artery [place] vs. transplanted heart: mi[place]kmaq heart Associated angina: unspecified whether angina present CPT Codes EKG - CPT: 62005-[id number], Complete ([id number]) Time Spent (min) 28
== END 2023-05-27 14:05 | disposition home or self-care (01) ==
PROVIDERS: PCP Internal Medicine; Visit Provider Nurse Practitioner Family
DX: R07.2 Precordial pain (principal); R06.02 Shortness of breath; I25.10 Atherosclerotic heart disease of native coronary artery without angina pectoris
CPT/HCPCS: 93010; 99214

== ENCOUNTER 2023-06-13 14:39 | Outpatient (AMB) | payer OTHER, SELFPAY ==
--- NOTE | 2023-06-13 14:40 | MHC.OFFVIS ---
Intake Vital Signs 06/13/23 14:50 Height 5 ft 3 in Weight 208 lb 5.389 oz BMI 36.9 BP 102/80 Blood Pressure Location Rt brachial Position Sitting Pulse 91 Pulse Source Pulse Oximeter Temp 97.3 F Temp Source Skin Pulse Oximetry (%) 96 Oxygen Delivery Method Room Air Intake Visit Reasons: Joint Pain Intake Note: Patient here for joint pain follow up. c/o right leg swelling, debra knee pain Exceptional Children Teacher Assistant Required: No Accompanied by: Self / Same As Patient Allergies NSAIDS (Non-Steroidal Anti-Inflamma [Nsaids] Allergy (Severe, Verified 06/13/23 14:52) blood in stool diazepam [DIAZEPAM] Allergy (Mild, Verified 06/13/23 14:52) RASH fluoxetine [From Prozac] Allergy (Unknown, Verified 06/13/23 14:52) Unknown ibuprofen [From Motrin] Allergy (Unknown, Verified 06/13/23 14:52) UNKNOWN Penicillins Allergy (Unknown, Verified 06/13/23 14:52) UNKNOWN colchicine Allergy (Verified 06/13/23 14:52) Dizziness gabapentin [From NEURONTIN] Adverse Reaction (Severe, Verified 06/13/23 14:52) HALLUCINATIONS, halluciinations morphine [Morphine] Adverse Reaction (Severe, Verified 06/13/23 14:52) DIFFICULTY BREATHING Sulfa (Sulfonamide Antibiotics) [SULFA (SULFONAMIDE ANTIBIOTICS)] Adverse Reaction (Severe, Verified 06/13/23 14:52) DIFF BREATHING Medication List - Last Reviewed 06/13/23 by BORA Judd albuterol sulfate 90 mcg/actuation 2 puffs inhalation Q6H PRN albuterol sulfate 2.5 mg (3 mL) inhalation QID PRN 30 days aspirin 81 mg PO DAILY atorvastatin 80 mg PO DAILY baclofen 20 mg PO TID PRN 30 days bupropion HCl 150 mg PO QAM 30 days okuvealadw-rcdykkaczhzdh-vkus 50-325-40 mg 1 tab PO Q6-8H PRN 30 days carvedilol 6.25 mg PO BID 90 days cholecalciferol (vitamin D3) 50 mcg PO DAILY 90 days cyanocobalamin (vitamin B-12) 1,000 mcg PO DAILY fenofibrate 160 mg PO DAILY 30 days folic acid 1 mg PO DAILY 90 days furosemide 20 mg PO QAM PRN 15 days hydroxyzine HCl 25 mg PO TID PRN 30 days lamotrigine 150 mg PO DAILY lidocaine HCl 2% 1 appl topical BID-QID PRN lidocaine HCl 3% 1 appl topical BID PRN 30 days magnesium 200 mg PO BEDTIME 30 days melatonin 10 mg PO BEDTIME PRN 14 days miscellaneous medical supply as directed; Medical Recliner miscellaneous medical supply as directed; Cane miscellaneous medical supply 1 ea miscellaneous DAILY miscellaneous medical supply 1 ea miscellaneous DAILY nebulizers As directed every 6 hours as needed nystatin-triamcinolone 100,000-0.1 unit/g-% 1 appl topical BID 10 days omeprazole 20 mg PO DAILY 90 days ondansetron HCl 4 mg PO Q12H PRN 7 days potassium chloride ER 20 mEq PO DAILY 90 days prazosin 3 mg PO BEDTIME sertraline 50 mg PO DAILY ticagrelor (Brilinta) 90 mg PO BID tizanidine 4 mg PO Q8H PRN 30 days tramadol 50 mg PO QID PRN 14 days HPI HPI Comments History of Present Illness Details This is a 48-year-old female who presents for evaluation of multiple joint pain. Patient stated that 6 years ago in [place] she was evaluated by [facility] at that time she had right foot swelling. She stated that fluid was aspirated and she was told she has gout. She does not recall being on any specific treatment for gout. She does not recall the name of the hanger in [place]. Patient states that she gets recurrent pain in her right lower back, right hip and right knee as well as her right ankle and foot. Is treated with tramadol, Percocet and prednisone. She had right ankle surgery last year for a large bone spur. She was evaluated by [facility] and received steroid injections in her right knee, most recent injection was January of 2023, states that injections provide some relief. She was told that she will likely need arthroscopic surgery for her right knee and right hip, these procedures however cannot be done before October of next year when patient can reduce her blood thinners, patient had a heart attack in October of 2022 and had 2 stents placed. She also gets intermittent pain and swelling of her left elbow. She mentions that her mother of MS. Her sister had SLE and of alcoholic liver disease. She mentions that her father was diagnosed with rheumatoid arthritis but she is estranged from her father COUNT INCLUDES THE [facility] Medical History (Updated 06/13/23 @ 15:21 by Tia Solano MD) Anxiety Folate deficiency Vitamin D deficiency STEMI (ST elevation myocardial infarction) Coronary atherosclerosis Depression Hematemesis Crohn's disease Avascular necrosis of right talus Chronic pain syndrome Osteoarthritis of right knee Osteoarthritis of left hip Osteoarthritis of right hip Lumbar radiculopathy, right Disc degeneration, lumbar Bony sclerosis Rash Strain of left trapezius muscle Shoulder pain, left Neck pain Mixed hyperlipidemia Pain and swelling of right ankle Swelling of right knee joint Right knee pain Obesity (BMI 30-39.9) Smoker Migraine GERD (gastroesophageal reflux disease) COPD (chronic obstructive pulmonary disease) Right lumbosacral radiculopathy Lumbar degenerative disc disease Surgical History Hx of foot surgery History of esophagogastroduodenoscopy (EGD) Hx of cardiac cath (~11/01/22) Hx of section History of appendectomy Hx of colonoscopy History of hysterectomy History of cholecystectomy Family History Father Hypertension Rheumatoid arthritis Mother Hypertension Diabetes CVD (cardiovascular disease) Multiple sclerosis Sister Liver disease Maternal Grandmother Colon cancer Maternal Aunt Breast cancer Social History Housing: House Are you a primary post acute care nurse to a significant other at home: No Do you presently have visiting nurse or other home services: No (Children come by to help) Alcohol intake: never Patient Tobacco Use Status: Current everyday Tobacco user Tobacco use type: Cigarette Cigarettes Per Day: 5 e-Cigarette/Vaping Use: Never Used Second Hand Smoke Exposure: Yes service: No Current occupational status: disabled Cognitive needs: Yes (cane) Hearing needs: No Vision needs: Yes (glasses) Female Reproductive History Menstrual Age of Menarche: 10 Review of Systems Musc Reports back pain, Reports arthralgias, Reports joint swelling, Reports limited range of motion and Reports stiffness Skin/Breast Reports dry skin and Reports rash Physical Exam Const General: cooperative, healthy appearing and comfortable Nutritional Appearance: obese Orientation/consciousness: patient oriented x3 Limitations: no limitations HEENT Head: Yes normocephalic and Yes atraumatic Mouth: moist mucous membranes Resp Effort & Inspection: normal respiratory effort and able to speak in complete sentences Cardio Rate: regular rate Skin Other: Dry skin Neuro General: patient oriented x3 Extrem Other: Mild osteoarthritic changes of both hands with no active synovitis Multiple fibromyalgia tender points Bilateral groin pain with straight leg raise test No knee swelling erythema or warmth No ankle swelling erythema or warmth right Bilateral foot bunions No tophi noted Assessment & Plan Assessment & Plan (1) Polyarthralgia: Code(s): M25.50 - Pain in unspecified joint Plan: This is a 48-year-old female with complex past medical history of presents for follow-up. Patient stated that 6 years ago in [place] she was evaluated by a [facility] for his swollen and red right foot and had arthrocentesis and was told she had gout. Patient does not recall being on any specific treatment for gout in the past. Except for pain medication. Uric acid level when checked a few years ago was unremarkable. There is questionable history of pseudogout, patient stated that she will need right knee and right hip arthroscopy as soon as she can hold her blood thinners next year (patient is on blood thinners after [facility] and stents 10/2022) there is also questionable history of Crohn's colitis. Patient has some findings of olecranon bursitis of her left elbow which can be seen gout. Will check BMP and uric acid levels. Follow-up in 1 month. Advised patient to take pictures of any swollen joints. We can consider ordering a dual energy CT scan of both ankles and feet to evaluate for gout/pseudogout Plan I spent 30 minutes reviewing patient's chart, evaluating patient, ordering diagnostic workup, counseling patient and documenting in the chart Orders: Orders Basic Metabolic Panel Today M25.50 - Pain in unspecified joint Uric Acid Today M25.50 - Pain in unspecified joint Coding Level of Care Code Est Pt Level 4 (37030) Diagnoses Polyarthralgia M25.50
[2023-06-13 14:50] VITALS: BP 102/80; PULSE 91; TEMP 36.3; O2SAT 96; BMI 36.9
== END 2023-06-13 15:13 | disposition home or self-care (01) ==
PROVIDERS: PCP Internal Medicine; Visit Provider Student in an Organized Health Care Education/Training Program
DX: M25.50 Pain in unspecified joint (principal)
CPT/HCPCS: 99214

== ENCOUNTER → 2023-06-13 14:39 | Outpatient (BNVA) | payer OTHER, SELFPAY | PROVIDERS: PCP Internal Medicine; Visit Provider Student in an Organized Health Care Education/Training Program | DX: M25.50 Pain in unspecified joint (principal) | CPT/HCPCS: 99212 ==

== ENCOUNTER 2023-07-07 12:47 | Outpatient (AMB) | payer OTHER, SELFPAY ==
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
[2023-07-07 13:17] VITALS: BP 120/82; BMI 36.1
== END 2023-07-07 14:13 | disposition home or self-care (01) ==
PROVIDERS: Visit Provider Advanced Practice Midwife
DX: Z01.419 Encounter for gynecological examination (general) (routine) without abnormal findings (principal); N39.3 Stress incontinence (female) (male); Z86.19 Personal history of other infectious and parasitic diseases; E66.9 Obesity, unspecified; Z90.710 Acquired absence of both cervix and uterus; Z90.721 Acquired absence of ovaries, unilateral; Z91.410 Personal history of adult physical and sexual abuse
CPT/HCPCS: 99396

== ENCOUNTER → 2023-07-07 12:47 | Outpatient (BNVA) | payer OTHER, SELFPAY | PROVIDERS: Visit Provider Advanced Practice Midwife ==

== ENCOUNTER → 2023-07-15 07:21 | Outpatient (REF) | payer OTHER, SELFPAY ==
--- NOTE | ~2023-07-15 | NM_ITS ---
Lexiscan Myocardial perfusion study Indication: Coronary artery disease, assess for ischemia Technique: The patient was brought in for a Lexiscan perfusion study on 07/15/2023 and was injected 0.4 mg of Lexiscan intravenously. Within a minute of this injection 35 mCi of sestamibi was given intravenously. Images were obtained using the SPECT gamma camera interlaced with the gating device. Images were obtained in supine position. Resting perfusion study was performed on 07/17/2023. Patient was administered 35 mCi of sestamibi intravenously at rest. Images were then obtained in supine position. Images were processed with the software and compared side to side in short axis, horizontal long axis and vertical long axis views. Total DLP 124mGy-cm. Findings: Raw acquisition reviewed. The stress perfusion study showed diminished tracer uptake along the basal part of anterior wall. With CT attenuation correction, there is significant improvement suggestive of components of soft tissue attenuation artifact. The gated study shows normal LV systolic function with calculated LVEF of 70%. LV cavity is normal in size. The gated study shows possible mild anterior hypokinesis. Resting study shows diminished tracer uptake along the basal part of anterior wall. With CT attenuation correction, there is significant improvement suggestive of soft tissue attenuation artifact. Gating at rest reveals LVEF 63%. The findings are consistent with very small reversible defect in the basal part of anterior wall. NM/NM cardiolite stress test Impression: 1. Myocardial perfusion imaging study shows possible mild ischemia in the basal part of anterior wall. Could also be artifactual. 2. Gated LVEF is 70% during stress and 60% during rest. 3. Transient ischemic dilatation not present. EKG component of the test reported separately.
--- NOTE | 2023-07-15 07:27 | CA_ITS ---
Transthoracic Echocardiogram Patient (Last, First, Middle): Mariana Vela Dee Gender: Female Date of : 1975 Age: 48 Procedure Date: 07/15/2023 Procedure Type: Transthoracic Echocardiogram Location: OP Height: 160.02 cm Weight: 94.35 kg BSA: 1.97 m2 Heart Rate: bpm BP: 120 / 76 mmHg Acrobatic Rigger: TO Referring MD: Liliam Green SENIOR SHAREPOINT DEVELOPERZaira Symptoms: R06.02 - Shortness of breath Study Quality: Fair/Contrast ECG Rhythm: Sinus Conclusions: - The left ventricular systolic function is normal. The visually estimated ejection fraction is between 60-65%. - The basal inferior and basal inferolateral segments are hypokinetic. Findings Procedure Information Contrast agent, definity, is being given per protocol without apparent complications. Left Ventricle Normal left ventricular cavity size. The left ventricular systolic function is normal. The visually estimated ejection fraction is between 60-65%. There is evidence of regional wall motion abnormalities. There is moderate septal asymmetric hypertrophy. Wall Motion Rest Echo Findings The basal inferior and basal inferolateral segments are hypokinetic. Atria Both atria are normal in size. Aortic Valve There is no aortic valve stenosis. There is no aortic valve regurgitation. Venous The inferior vena cava is normal in size and collapses greater than 50% with inspiration. Prior Study Comparison No significant change compared to prior study dated: 10/24/2022. (images reviewed). Measurements 2D Linear Measurements IVSd: 1.43 0.6-0.9/0.6-1.0 cm LVIDd: 3.99 3.9-5.3/4.2-5.9 cm LVIDd Index: 2.03 2.4-3.2/2.2-3.1 cm/m2 LVIDs: 2.25 2.0-3.6 cm LVPWd: 0.88 0.7-1.1 cm LA Diam: 3.20 2.7-3.8/3.0-4.0 cm LAIDs Index: 1.62 1.5-2.3 cm/m2 LV Mass: 194.11 67-162/88-224 g LV Mass Index: 98.53 43-95/49-115 g/m2 LVOT Diam: 2.00 3.0+(-)1.3 cm 2D Systolic Function EF 4C: 69.70 >55% EF 2C: 71.30 >55% EF BiP: 71.30 >55% LVOT LVOT Pk Sky: 0.97 LVOT Mn Sky: 0.63 LVOT VTI: 0.19 LVOT Pk Grad: 4.00 LVOT Mn Grad: 2.00 LVOT Diam: 2.00 LVOT Area: 3.14 Tricuspid Valve RA Press: 3.00 Updated in Other Vendor System with Status of Final Andrews Francois MD electronically signed on 07/16/2023 1:13:49 PM with status of Final
--- NOTE | 2023-07-15 07:27 | CA_ITS ---
Acquisition Time: 2023-07-15 09:17:04 Total Exercise Time: 00:02:45 Test Indications: Chest Pain Medications: SEE H Protocol: GYPSY Max HR: 136 BPM 78% of Pred: 173 BPM Max BP: 158/070 mmHG Max Work Load: 4.6 METS Exerise stress test exercise 2 min 45 sec of Gypsy protocol approx 64% with request to stop due to moderate SOB, with 6/10 left chest pressure at baseline. 7-8/10 at peak, without arrhythmias, with HTN respones, with nondiagnoisitic EKGs. Breathing and chest pain returned to baseline with rest. Test changed to pharmacological stress test with Lexiscan injeciton, without anginal symptoms, without arrhythmais, with normotensive response to injection, without EKG changes. Aminophylline 75mg IVP given to reverse Lexiscan. Nuclear images pending, Test reviewed with Dr. Polo Referred By: Liliam Green Overread By: Jenn Soliman
[2023-07-15 07:48] LABS: MANUAL DIFF FLAG NO
[2023-07-15 07:57] LABS: Basophils Absolute Auto 0.1 X10*3/uL (0.0-0.2); Basophils Percent Auto 0.5 % (0-2); Eosinophils Absolute Auto 0.3 X10*3/uL (0.0-0.4); Hematocrit 37.5 % (37.0-47.0); Hemoglobin 12.9 g/dl (12.0-16.0); Imm Gran Abs Auto 0.06 X10*3/uL (0.00-0.03); Imm Gran Pct Auto 0.5 % (0.0-0.4); Lymphocytes Absolute Auto 3.6 X10*3/uL (1.2-4.9); Lymphocytes Percent Auto 26.8 % (20-40); Mean Corpuscular HGB Conc 34.4 g/dl (31.0-35.0); Mean Corpuscular Volume 90.1 fL (80.0-98.0); Mean Platelet Volume 10.1 fL (9.4-12.3); Monocytes Absolute Auto 0.8 X10*3/uL (0.1-1.2); Monocytes Percent Auto 6.1 % (2-11); Neutrophils Absolute Auto 8.5 x10*3/uL (2.0-8.3); Neutrophils Percent Auto 64.1 % (45-73); Platelet Count 416 X10*3/uL (160-400); Red Blood Count 4.16 X10*6/uL (4.20-5.50); Red Cell Distribution Width 12.5 % (11.0-16.0); White Blood Count 13.2 X10*3/uL (4.8-10.8)
[2023-07-15 08:36] LABS: Alanine Aminotransferase 49 U/L (0-31); Albumin Level 4.6 g/dL (3.5-5.0); Alkaline Phosphatase 95 U/L (39-117); Anion Gap 14 (12-20); Aspartate Amino Transferase 26 U/L (5-31); Bilirubin Total 0.4 mg/dL (0.0-1.0); Blood Urea Nitrogen 20 mg/dL (9-16); Calcium 10.1 mg/dL (8.4-10.2); Carbon Dioxide 24 mmol/L (22-29); Chloride 104 mmol/L (96-108); Cholesterol 189 mg/dL (<200); Estimated Glomerular Filt Rate > 60; Glucose Fasting 71 mg/dL (60-99); HDL Cholesterol 30 mg/dL (>40); LDL Cholesterol Calculated 129 mg/dL (<100); Potassium 4.2 mmol/L (3.3-5.1); Sodium 138 mmol/L (135-145); Total Protein 7.9 g/dL (6.5-8.0); Triglycerides 153 mg/dL (<150)
[2023-07-15 08:53] LABS: TSH reflex Free T4 3.37 uIU/mL (0.32-4.0); Vitamin D 25-OH Total 42.2 ng/mL (>30)
[2023-07-15 08:58] LABS: Appearance Urine Turbid; Color Urine Yellow; Glucose Urine UA Negative (Negative); Leukocyte Esterase Urine Moderate (2+) (Negative); Nitrite Urine Positive (Negative); PH 5.5 (5.0-9.0); Specific Gravity - Urine 1.025 (1.005-1.025); UMIC TRIGGER UACC YES; Urine Blood Small (1+) (Negative); Urine Ketones Negative (Negative); Urine Protein Trace mg/dL (Neg-Trace)
[2023-07-15 09:17] LABS: Folate > 20.0 ng/mL (> or = 4.0); Vitamin B12 1925 pg/mL (200-900)
[2023-07-15 09:21] LABS: Bacteria Urine 4+ (None Seen); Hyaline Casts Urine 0-2 /LPF (0-2); UACC Culture Trigger YES; WBC Clumps Urine Present; WBC Urine >50 /HPF (0-5)
== END ==
LOC: HO.CARD 07:21
PROVIDERS: Absent Provider Internal Medicine; PCP Internal Medicine; Referring Provider Student in an Organized Health Care Education/Training Program; Visit Provider Nurse Practitioner Family
DX: R07.2 Precordial pain (principal); I25.10 Atherosclerotic heart disease of native coronary artery without angina pectoris; R06.02 Shortness of breath; R30.0 Dysuria; I10 Essential (primary) hypertension; E53.8 Deficiency of other specified B group vitamins; E78.00 Pure hypercholesterolemia, unspecified; E55.9 Vitamin D deficiency, unspecified; Z98.890 Other specified postprocedural states
CPT/HCPCS: 36415; 78452; 80053; 80061; 81001; 81003; 82306; 82607; 82746; 84443; 85025; 87086; 87088; 87186; 93017; 93308; A9500; J0280; J2785; Q9957

== ENCOUNTER → 2023-07-15 07:27 | Outpatient (BNV) | payer OTHER, SELFPAY | PROVIDERS: Absent Provider Internal Medicine; PCP Internal Medicine; Referring Provider Student in an Organized Health Care Education/Training Program; Visit Provider Nurse Practitioner | DX: I25.10 Atherosclerotic heart disease of native coronary artery without angina pectoris (principal) | CPT/HCPCS: 78452; 93016; 93018; 93308 ==

== ENCOUNTER 2023-07-23 10:05 | Outpatient (AMB) | payer OTHER, SELFPAY ==
--- NOTE | 2023-07-23 10:07 | A.OFFPC_ITS ---
Intake Visit Reasons: 3 month f/u/CAD, hyperlipidemia, OA/[phone] Lead Level Designer Required: No Accompanied by: Self / Same As Patient Allergies NSAIDS (Non-Steroidal Anti-Inflamma [Nsaids] Allergy (Severe, Verified 07/23/23 10:37) blood in stool diazepam [DIAZEPAM] Allergy (Mild, Verified 07/23/23 10:37) RASH fluoxetine [From Prozac] Allergy (Unknown, Verified 07/23/23 10:37) Unknown ibuprofen [From Motrin] Allergy (Unknown, Verified 07/23/23 10:37) UNKNOWN Penicillins Allergy (Unknown, Verified 07/23/23 10:37) UNKNOWN colchicine Allergy (Verified 07/23/23 10:37) Dizziness gabapentin [From NEURONTIN] Adverse Reaction (Severe, Verified 07/23/23 10:37) HALLUCINATIONS, halluciinations morphine [Morphine] Adverse Reaction (Severe, Verified 07/23/23 10:37) DIFFICULTY BREATHING Sulfa (Sulfonamide Antibiotics) [SULFA (SULFONAMIDE ANTIBIOTICS)] Adverse Reaction (Severe, Verified 07/23/23 10:37) DIFF BREATHING pregabalin Adverse Reaction (Intermediate, Uncoded 07/23/23 10:52) Hallucinations Medication List - Last Reconciled 07/23/23 by Ambrose Feliciano MD albuterol sulfate 2.5 mg (3 mL) inhalation QID PRN 30 days albuterol sulfate 90 mcg/actuation 2 puffs inhalation Q6H PRN aspirin 81 mg PO DAILY atorvastatin 80 mg PO DAILY baclofen 20 mg PO TID PRN 30 days bupropion HCl 150 mg PO QAM 30 days [id number] 50-325-40 mg 1 tab PO Q6-8H PRN 30 days carvedilol 12.5 mg PO BID cholecalciferol (vitamin D3) 50 mcg PO DAILY 90 days cyanocobalamin (vitamin B-12) 1,000 mcg PO DAILY fenofibrate 160 mg PO DAILY 30 days folic acid 1 mg PO DAILY 90 days furosemide 20 mg PO QAM PRN 15 days hydroxyzine HCl 25 mg PO TID PRN 30 days lamotrigine 150 mg PO DAILY levofloxacin 500 mg PO DAILY lidocaine HCl 2% 1 appl topical BID-QID PRN lidocaine HCl 3% 1 appl topical BID PRN 30 days magnesium 200 mg PO BEDTIME 30 days melatonin 10 mg PO BEDTIME PRN 14 days miscellaneous medical supply as directed; Medical Recliner miscellaneous medical supply as directed; Cane miscellaneous medical supply 1 ea miscellaneous DAILY miscellaneous medical supply 1 ea miscellaneous DAILY nebulizers As directed every 6 hours as needed nystatin-triamcinolone 100,000-0.1 unit/g-% 1 appl topical BID 10 days omeprazole 20 mg PO DAILY 90 days ondansetron HCl 4 mg PO Q12H PRN 7 days potassium chloride ER 20 mEq PO DAILY 90 days prazosin 3 mg PO BEDTIME prednisone 20 mg PO DAILY sertraline 50 mg PO DAILY ticagrelor (Brilinta) 90 mg PO BID tizanidine 4 mg PO Q8H PRN 30 days tramadol 50 mg PO QID PRN 14 days Tobacco use date assessed: 07/23/23 Dental Screening Dental Screen Date: 07/23/23 Did you have a dental visit in the last 12 months?: No Did you have a dental problem in the last 6 months where you did not have access to dental care?: No Was dental information given to patient?: No HPI 3 month f/u/CAD, hyperlipidemia, OA/[phone] HPI Details Patient's follow-up visit / consultation today is done over the phone - this is a Telehealth visit Patient's current medications have been reviewed and verified with patient and / or caregiver / proxy and have been updated accordingly in the medication list Patient states that she has been experiencing symptoms of increased cough and congestion for over a week now and just tested positive for COVID using a home test kit yesterday so she asked to have her appointment today changed over to a telehealth visit She also continues to experience increased pain over her lower back and in her right knee and right ankle States that her current meds help with the pain but she is hoping that she can take her Tramadol more often than her current dosing so that it will help her more effectively at least until she can undergo orthopedics intervention for her right ankle and knee when she is cleared by cardiology Relates (+) fatigue and some sore throat as well as nasal and sinus congestion She denies any fever; relates (+) headaches at times; denies any dizziness Denies any chest pains, no increased SOB No nausea/vomiting, no abdominal pain No change in bowel habits noted Had her follow up labs done last week - to discuss her results [facility] Medical History Hx of ovarian cancer Anxiety Folate deficiency Vitamin D deficiency STEMI (ST elevation myocardial infarction) Coronary atherosclerosis Depression Hematemesis Crohn's disease Avascular necrosis of right talus Chronic pain syndrome Osteoarthritis of right knee Osteoarthritis of left hip Osteoarthritis of right hip Lumbar radiculopathy, right Disc degeneration, lumbar Bony sclerosis Rash Strain of left trapezius muscle Shoulder pain, left Neck pain Mixed hyperlipidemia Pain and swelling of right ankle Swelling of right knee joint Right knee pain Obesity (BMI 30-39.9) Smoker Migraine GERD (gastroesophageal reflux disease) COPD (chronic obstructive pulmonary disease) Right lumbosacral radiculopathy Lumbar degenerative disc disease Surgical History Hx of foot surgery History of esophagogastroduodenoscopy (EGD) Hx of cardiac cath (~11/01/22) Hx of section History of appendectomy Hx of colonoscopy History of hysterectomy History of cholecystectomy Family History Father Hypertension Rheumatoid arthritis Mother Hypertension Diabetes CVD (cardiovascular disease) Multiple sclerosis Sister Liver disease Maternal Grandmother Colon cancer Maternal Aunt Breast cancer Social History Housing: House Are you a primary direct care supervisor to a significant other at home: No Do you presently have visiting nurse or other home services: No (Children come by to help) Alcohol intake: never Patient Tobacco Use Status: Current everyday Tobacco user Tobacco use type: Cigarette Cigarettes Per Day: 5 e-Cigarette/Vaping Use: Never Used Second Hand Smoke Exposure: Yes service: No Current occupational status: disabled Cognitive needs: Yes (cane) Hearing needs: No Vision needs: Yes (glasses) Female Reproductive History Menstrual Age of Menarche: 10 Questionnaire PHQ-9 Over the last 2 weeks, how often have you been bothered by any of the following problems? 1. Little interest or pleasure in doing things: several days 2. Feeling down, depressed, or hopeless: several days 3. Trouble falling or staying asleep, or sleeping too much: several days 4. Feeling tired or having little energy: several days 5. Poor appetite or overeating: several days 6. Feeling bad about yourself - or that you are a failure or have let yourself or your family down: not at all 7. Trouble concentrating on things, such as reading the newspaper or watching television: not at all 8. Moving or speaking so slowly that other people could have noticed. Or the opposite - being so fidgety or restless that you have been moving around a lot more than usual: not at all 9. Thoughts that you would be better off or of hurting yourself in some way: not at all Total score: 5 Depression Screening Interpretation: Positive Depression Screening Follow-up: Existing condition and In treatment Depression Screening Done: Yes 28183 - PHQ-9 Billing: Yes Source: Developed by Drs. Adebayo Lizarraga, Alicia Mata, Avel Blancas and colleagues, with an educational rayshawn from [employer]. Thrive Questionnaire Date Thrive assessed: 07/23/23 I am a: Patient What is your living situation today?: I have a steady place to live Within the past 12 months, did the food you bought not last and you didn't have the money to get more?: Never true Within the past 12 months, did you worry whether your food would run out before you got money to buy more?: Never true Do you have trouble paying for medicines?: No Do you have trouble getting transportation to medical appointments?: No Do you have trouble paying your heating and electricity bill?: No Do you have trouble taking care of your child, family member or friend?: No Do you have trouble with day-to-day activities such as bathing, preparing meals, shopping, managing finances, etc.?: No Are you currently unemployed and looking for a job?: No Are you interested in more education?: No Please select the resources that you would like help with: None Currently or been in a relationship where the following occur: no concerns reported AUDIT C Alcohol Use Questionnaire (AUDIT-C) 1. How often do you have a drink containing alcohol?: Never 2. How many drinks containing alcohol do you have on a typical day when you are drinking?: 1 or 2 (0) 3. How often do you have six or more drinks on one occasion?: Never Total Score: 0 Score Reviewed/Action Taken: Yes CHANELLE-7 AMB Questionnaire CHANELLE-7 Date CHANELLE - 7 assessed: 07/23/23 Feeling nervous, anxious, or on edge: 0 = Not at all Not being able to stop or control worryin = Not at all Worrying too much about different things: 0 = Not at all Trouble relaxin = Not at all Being so restless that it is hard to sit still: 0 = Not at all Becoming easily annoyed or irritable: 0 = Not at all Feeling afraid as if something awful might happen: 0 = Not at all Total CHANELLE-7 score (0-4 normal; 5-9 mild; 10-14 moderate; 15-21 severe): 0 Source: Developed by Drs. Adebayo Lizarraga, Alicia Mata, Avel Blancas and colleagues, with an educational rayshawn from [employer]. Review of Systems Const Reports fatigue, Denies fever(s) and Reports headache(s) (on and off lately) ENT Denies dysphagia, Denies dizziness, Denies otalgia, Reports headache(s) (on and off lately), Reports nasal congestion, Reports neck pain, Denies odynophagia, Denies sinus pain and Denies sore throat Card Denies chest pain, Denies palpitations and Denies dyspnea Resp Reports chest congestion (mild), Reports cough (on and off), Denies dyspnea and Denies wheezing GI Denies abdominal pain, Denies constipation, Denies dysphagia, Denies heartburn, Denies diarrhea, Denies nausea, Denies odynophagia and Denies vomiting Denies difficulty voiding, Denies nocturia, Denies dysuria and Denies urinary urgency Musc Reports back pain (chronic), Reports arthralgias (of the right knee and right ankle), Denies joint swelling and Reports neck pain Skin/Breast Denies rash Neuro Denies dizziness and Reports headache(s) (on and off lately) Endo Reports fatigue and Denies palpitations Aller/Immun Denies wheezing Physical exam (Primary Care) Vital Signs: Physical examination is not performed as visit / consultation today is done over the phone - Telehealth visit All physical findings indicated here, if present, are as per patient's and / or caregivers / proxy's report Tobacco/Smoking Status: Tobacco use Status Tobacco use date assessed 07/23/23 07/23/23 10:09 Patient Tobacco Use Status Current everyday Tobacco 07/23/23 10:09 Tobacco use type Cigarette 07/23/23 10:09 e-Cigarette/Vaping Use Never Used 07/23/23 10:09 PHQ-9: PHQ-9 Score PHQ-9: Total score 5 07/23/23 10:42 Depression Screening Interpretation: Positive Depression Screening Follow-up: Existing condition and In treatment Thrive Assessment: Date of Thrive Assessment Date Thrive assessed 07/23/23 07/23/23 10:09 Currently or been in a relationship where the following occur: no concerns reported Telehealth Telehealth Location of provider rendering services: practice address Location of patient: address on file Patient Identification confirmed using: Name, : Yes Telehealth method: voice only Patient verbally consented to treatment: Yes Patient verbally consented to billing insurance company: Yes Patient informed of any privacy concerns related to visit: Yes Minutes spent on Phone/Video with Pt.: 23 Results Reviewed Results Reviewed: Laboratory Tests 07/15/23 07/15/23 07:35 07:37 WBC 13.2 H Hgb 12.9 Hct 37.5 Plt Count 416 H Sodium 138 Potassium 4.2 Creatinine 0.95 Estimated GFR > 60 Fasting Glucose 71 Calcium 10.1 AST 26 ALT 49 H Triglycerides 153 H Cholesterol 189 LDL Cholesterol, Calc 129 H HDL Cholesterol 30 L Vitamin B12 1925 H 25-OH Vitamin D Total 42.2 TSH 3.37 Ur Specific [place] 1.025 Urine Protein Trace Urine Glucose (UA) Negative Urine Blood Small (1+) H Assessment and Plan Assessment & Plan (1) COVID-19: Code(s): U07.1 - COVID-19 Plan: Patient states that she tested positive for COVID with a home test kit yesterday Has had increased cough and congestion since 3 days ago (Friday) but she denies any increased SOB She is currently on Brilinta and Atorvastatin, both of which should not be taken in combination with Paxlovid As she is not able to temporarily stop taking Brilinta and as her respiratory symptoms are not really severe, have advised patient to just take some OTC cough/cold meds PRN for symptomatic relief and will NOT start her on Paxlovid at this time for the abovementioned reasons She is instructed to call if her symptoms do not clear up significantly over the next week or so and to go to the ER [facility] if she starts experiencing increasing SOB or symptoms over the next few days (2) COPD exacerbation: Code(s): J44.1 - Chronic obstructive pulmonary disease with (acute) exacerbation Plan: MILD Continue Spiriva Handihaler inhale contents of 18 mcg capsule QD, Breo Ellipta 200-25 mcg 1 inhalation QD and Albuterol HFA 2 puffs 4 times a day as needed Will start her for now on some oral Prednisone taper to at least help keep her respiratory symptoms from getting worse, especially since she is not a candidate for Paxlovid Rx Follow up with pulmonary as scheduled (3) Coronary atherosclerosis: Code(s): I25.10 - Atherosclerotic heart disease of [place] coronary artery without angina pectoris Qualifiers: Associated angina: with stable angina Coronary Disease-Associated Artery/Lesion type: [place] artery [place] vs. transplanted heart: [place] heart Qualified Code(s): I25.118 - Atherosclerotic heart disease of [place] coronary artery with other forms of angina pectoris Plan: S/P cardiac cath and PCI to the mid LAD in October 2022 - had CARA x1 and kissing balloon angioplasty to the bifurcating lesion Continue Aspirin 81 mg QD - will need lifelong antiplatelet therapy Continue aggressive risk reduction with strict BP control and cholesterol reduction Follow up with cardiology as scheduled (4) STEMI (ST elevation myocardial infarction): Code(s): I21.3 - ST elevation (STEMI) myocardial infarction of unspecified site Qualifiers: Involved coronary artery: unspecified coronary artery Qualified Code(s): I21.3 - ST elevation (STEMI) myocardial infarction of unspecified site Plan: S/P STEMI post cath and required a second CARA to remove the occlusion in the ostial diagonal, which was thought to be due to dissection from her prior PCI Continue Carvedilol 6.25 mg BID; continue Brilinta 90 mg BID (for at least a year post-[place]) and Aspirin 81 mg QD Follow up with cardiology as scheduled (5) Mixed hyperlipidemia: Code(s): E78.2 - Mixed hyperlipidemia Plan: Results of her labs done last week reviewed and discussed with patient - is cautioned that her serum triglyceride level has improved significantly but her total and LDL cholesterol are still elevated and slightly higher than recommended (goal is LDL cholesterol <70 mg/dl) Reinforced low cholesterol diet Continue Fenofibrate 160 mg QD and Atorvastatin 80 mg QD Will recheck her labs and fasting lipids in 3 months for follow up (6) Chronic pain of right ankle: Code(s): M25.571 - Pain in right ankle and joints of right foot; G89.29 - Other chronic pain Plan: Orthopedics suspects that patient may have AVN of her ankle Right ankle MRI done in January 2022 revealed mild tibiotalar osteoarthritis, with (+) anterior marginal osteophytes as well as an anterior unfused osteophyte versus ossified loose body measuring up to 1.2 cm in ML dimension; small tibiotalar joint effusion; minimal posterior tibialis and flexor digitorum tenosynovitis but no tendon tear although there is some medial subcutaneous edema seen Patient has reportedly been advised that they can only perform surgery on her ankle when she is cleared by Cardiology, which will most likely be early next year when she will be a year out from her [place] that occurred in October 2022 Follow-up with orthopedics as scheduled (7) Osteoarthritis of right knee: Comment: Right knee MRI done on 09/18/2020 showed: 1. Intact menisci. 2. Intact cruciate and collateral ligaments. 3. Preserved tricompartmental articular cartilage. 4. Small joint effusion Code(s): M17.11 - Unilateral primary osteoarthritis, right knee Qualifiers: Osteoarthritis type: unspecified Qualified Code(s): M17.11 - Unilateral primary osteoarthritis, right knee Plan: Was seen previously by [facility] months ago and advised that her knee OA is mild with no other intervention recommended at the time Per request, was referred to orthopedics in [place] for a second opinion and she is now following up with [facility] for her knee issues (8) Lumbar degenerative disc disease: Code(s): M51.36 - Other intervertebral disc degeneration, lumbar region Plan: Reinforced activity and weight-lifting restrictions Continue Tramadol 50 mg QID PRN for pain - advised that her Tramadol is currently already dosed at 4 times a day, which is slightly more than the usual TID dosing Have advised her that she can take up to 2 tablets of her Tramadol at a time if she feels her pain is severe enough that 1 tablet alone does not help but she should only do this when absolutely necessary and that her total daily dose would still be only at 4 tablets a day maximum - reminded that insurance WILL NOT approve it for any dose more than that irregardless of how she feels Follow up with pain management as scheduled (9) Elevated LFTs: Code(s): R79.89 - Other specified abnormal findings of blood chemistry Plan: Improved/resolved previously but her ALT has increased again slightly on her labs done last week - is most likely related to her weight and high cholesterol numbers as patient denies drinking alcohol Will continue to monitor her LFTs regularly (10) Crohn's disease: Code(s): K50.90 - Crohn's disease, unspecified, without complications Qualifiers: Digestive disease complication type: unspecified complication Gastrointestinal tract location: unspecified location Qualified Code(s): K50.919 - Crohn's disease, unspecified, with unspecified complications Plan: Has had no recent flare ups Follow up with GI as scheduled (11) Vitamin B12 deficiency: Code(s): E53.8 - Deficiency of other specified B group vitamins Plan: Corrected - S/P Tx with 3 doses of Vitamin B12 IM Q 2 weeks a few months ago She is advised that her Vitamin B12 level is now very high and way over the recommended range - should cut back on her Vitamin B12 1000 mcg tablets to just 1 tablet once a week for now Will recheck her labs and Vitamin B12 level in 3 months for follow up (12) Folate deficiency: Code(s): E53.8 - Deficiency of other specified B group vitamins Plan: Corrected - continue Folic Acid 1 mg QD (13) Vitamin D deficiency: Code(s): E55.9 - Vitamin D deficiency, unspecified Plan: Corrected - continue Vitamin D3 2000 units QD (14) GERD (gastroesophageal reflux disease): Code(s): K21.9 - Gastro-esophageal reflux disease without esophagitis Qualifiers: Esophagitis presence: without esophagitis Qualified Code(s): K21.9 - Gastro-esophageal reflux disease without esophagitis Plan: Dietary restrictions reinforced Continue Omeprazole 20 mg QD Follow up with GI as scheduled (15) Migraine: Code(s): G43.909 - Migraine, unspecified, not intractable, without status migrainosus Qualifiers: Intractability: not intractable Migraine type: unspecified Status migrainosus presence: without status migrainosus Qualified Code(s): G43.909 - Migraine, unspecified, not intractable, without status migrainosus Plan: Stable lately - continue Fioricet 3 to 4 times a day as needed for headaches (16) Anxiety: Code(s): F41.9 - Anxiety disorder, unspecified Plan: Continue Bupropion 150 mg Q AM, Sertraline 50 mg QD and Hydroxyzine 25 mg TID P RN Continue Prazosin 3 mg Q HS (17) Depression: Code(s): F32.A - Depression, unspecified Qualifiers: Active/Remission status: currently active Depression Type: major depressive disorder Major depression episode severity: unspecified Major depression recurrence: recurrent Qualified Code(s): F33.9 - Major depressive disorder, recurrent, unspecified Plan: Continue Sertraline 50 mg QD, Bupropion 150 mg Q AM and Lamictal 150 mg QD Follow up with psychiatry as scheduled (18) Smoker: Code(s): F17.200 - Nicotine dependence, unspecified, uncomplicated Plan: Counseled again on complete smoking cessation, especially in light of her coronary disease (19) Obesity (BMI 30-39.9): Code(s): E66.9 - Obesity, unspecified Plan: Reinforced diet; exercise is currently not an option due to her chronic ankle and knee issues Plan Follow up in 3 months Orders: Orders TSH reflex Free T4 3 Months E78.00 - Pure hypercholesterolemia, unspecified UA CC w/rflx Micro + Cult 3 Months R30.0 - Dysuria Vitamin B12 and Folate 3 Months E53.8 - Deficiency of other specified B group vitamins Erythrocyte Sedimentation Rate 3 Months M25.50 - Pain in unspecified joint Complete Blood Count Auto Diff 3 Months I25.10 - Atherosclerotic heart disease of [place] coronary artery without angina pectoris Lipid Panel 3 Months E78.00 - Pure hypercholesterolemia, unspecified Comprehensive [place]. Panel Fast 3 Months E78.00 - Pure hypercholesterolemia, unspecified Vitamin D 25-OH Total 3 Months E55.9 - Vitamin D deficiency, unspecified Medications: New prednisone 4 tablets x 2 days, then 3 tablets x 2 days, then 2 tablets x 2 days, then 1 tablet x 2 days 8 days 20 tabs 0RF J44.1 - Chronic obstructive pulmonary disease with (acute) exacerbation Coding Level of Care Code Tele Est Pt Level 4 (10151) Diagnoses COVID-19 U07.1 COPD exacerbation J44.1 Atherosclerosis of [place] coronary artery of [place] heart with stable angina pectoris I25.118 Associated angina: with stable angina Coronary Disease-Associated Artery/Lesion type: [place] artery [place] vs. transplanted heart: [place] heart ST elevation myocardial infarction (STEMI), unspecified artery I21.3 Involved coronary artery: unspecified coronary artery Mixed hyperlipidemia E78.2 Chronic pain of right ankle M25.571; G89.29 Osteoarthritis of right knee, unspecified osteoarthritis type M17.11 Osteoarthritis type: unspecified Lumbar degenerative disc disease M51.36 Elevated LFTs R79.89 Crohn's disease with complication, unspecified gastrointestinal tract location K50.919 Digestive disease complication type: unspecified complication Gastrointestinal tract location: unspecified location Vitamin B12 deficiency E53.8 Folate deficiency E53.8 Vitamin D deficiency E55.9 Gastroesophageal reflux disease without esophagitis K21.9 Esophagitis presence: without esophagitis Migraine without status migrainosus, not intractable, unspecified migraine type G43.909 Intractability: not intractable Migraine type: unspecified Status migrainosus presence: without status migrainosus Anxiety F41.9 Episode of recurrent major depressive disorder, unspecified depression episode severity F33.9 Active/Remission status: currently active Depression Type: major depressive disorder Major depression episode severity: unspecified Major depression recurrence: recurrent Smoker F17.200 Obesity (BMI 30-39.9) E66.9
== END 2023-07-23 11:19 | disposition home or self-care (01) ==
LOC: HO.HMGH 10:05
PROVIDERS: PCP Internal Medicine; Visit Provider Internal Medicine
DX: U07.1 COVID-19 (principal); J44.1 Chronic obstructive pulmonary disease with (acute) exacerbation; I25.118 Atherosclerotic heart disease of native coronary artery with other forms of angina pectoris; K50.919 Crohn's disease, unspecified, with unspecified complications; F33.9 Major depressive disorder, recurrent, unspecified; I21.3 ST elevation (STEMI) myocardial infarction of unspecified site; E78.2 Mixed hyperlipidemia; M25.571 Pain in right ankle and joints of right foot; G89.29 Other chronic pain; M17.11 Unilateral primary osteoarthritis, right knee; M51.36 Other intervertebral disc degeneration, lumbar region; R79.89 Other specified abnormal findings of blood chemistry
CPT/HCPCS: 99443

== ENCOUNTER 2023-09-05 12:38 | Outpatient (REF) | payer OTHER, SELFPAY ==
[2023-09-05 12:47] LABS: MANUAL DIFF FLAG NO
[2023-09-05 13:39] LABS: Basophils Absolute Auto 0.1 X10*3/uL (0.0-0.2); Basophils Percent Auto 0.5 % (0-2); Eosinophils Absolute Auto 0.2 X10*3/uL (0.0-0.4); Eosinophils Percent Auto 1.8 % (0-4); Hematocrit 37.2 % (37.0-47.0); Hemoglobin 12.2 g/dl (12.0-16.0); Imm Gran Abs Auto 0.02 X10*3/uL (0.00-0.03); Imm Gran Pct Auto 0.2 % (0.0-0.4); Lymphocytes Absolute Auto 3.8 X10*3/uL (1.2-4.9); Lymphocytes Percent Auto 37.9 % (20-40); Mean Corpuscular HGB Conc 32.8 g/dl (31.0-35.0); Mean Corpuscular Hemoglobin 30.7 pg (27.0-33.0); Mean Corpuscular Volume 93.7 fL (80.0-98.0); Mean Platelet Volume 10.2 fL (9.4-12.3); Monocytes Absolute Auto 0.5 X10*3/uL (0.1-1.2); Monocytes Percent Auto 5.2 % (2-11); Neutrophils Absolute Auto 5.4 x10*3/uL (2.0-8.3); Neutrophils Percent Auto 54.4 % (45-73); Platelet Count 392 X10*3/uL (160-400); Red Blood Count 3.97 X10*6/uL (4.20-5.50); Red Cell Distribution Width 13.2 % (11.0-16.0)
[2023-09-05 13:49] LABS: Appearance Urine Clear; Color Urine Dark Yellow; Glucose Urine UA Negative (Negative); Leukocyte Esterase Urine Negative (Negative); Nitrite Urine Negative (Negative); Specific Gravity - Urine 1.025 (1.005-1.025); Urine Blood Negative (Negative); Urine Ketones Trace mg/dL (Negative); Urine Protein Negative (Neg-Trace)
[2023-09-05 14:17] LABS: Alanine Aminotransferase 25 U/L (0-31); Albumin Level 4.4 g/dL (3.5-5.0); Alkaline Phosphatase 83 U/L (39-117); Anion Gap 14 (12-20); Aspartate Amino Transferase 21 U/L (5-31); Bilirubin Total 0.4 mg/dL (0.0-1.0); Blood Urea Nitrogen 11 mg/dL (9-16); Calcium 9.9 mg/dL (8.4-10.2); Carbon Dioxide 24 mmol/L (22-29); Chloride 106 mmol/L (96-108); Cholesterol 172 mg/dL (<200); Estimated Glomerular Filt Rate 59; Glucose Fasting 88 mg/dL (60-99); HDL Cholesterol 31 mg/dL (>40); LDL Cholesterol Calculated 107 mg/dL (<100); Potassium 4.1 mmol/L (3.3-5.1); Sodium 140 mmol/L (135-145); Total Protein 7.6 g/dL (6.5-8.0); Triglycerides 173 mg/dL (<150)
[2023-09-05 14:20] LABS: Erythrocyte Sedimentation Rate 38 MM/HR (0-20)
[2023-09-05 14:35] LABS: TSH reflex Free T4 3.99 uIU/mL (0.32-4.0); Vitamin D 25-OH Total 35.7 ng/mL (>30)
[2023-09-05 14:41] LABS: Folate 13.5 ng/mL (> or = 4.0); Vitamin B12 943 pg/mL (200-900)
== END 2023-09-05 12:39 | disposition home or self-care (01) ==
LOC: HO.LAB 12:38
PROVIDERS: PCP Internal Medicine; Visit Provider Internal Medicine
DX: E78.00 Pure hypercholesterolemia, unspecified (principal); I25.10 Atherosclerotic heart disease of native coronary artery without angina pectoris; E55.9 Vitamin D deficiency, unspecified; R30.0 Dysuria; E53.8 Deficiency of other specified B group vitamins; M25.50 Pain in unspecified joint
CPT/HCPCS: 36415; 80053; 80061; 81003; 82306; 82607; 82746; 84443; 85025; 85652

== ENCOUNTER 2023-09-05 13:45 | Outpatient (AMB) | payer OTHER, SELFPAY ==
[2023-09-05 13:48] VITALS: BP 128/72; PULSE 89; O2SAT 96; BMI 36.4
--- NOTE | 2023-09-05 13:48 | MHC.PC.OV ---
Vital Signs 09/05/23 13:48 Height 5 ft 3 in Weight 205 lb 6 oz BMI 36.4 BP 128/72 Blood Pressure Location Lt brachial Position Sitting Pulse 89 Pulse Source Pulse Oximeter Pulse Oximetry (%) 96 Oxygen Delivery Method Room Air Intake Visit Reasons: physical Digital Analyst Required: No Accompanied by: Self / Same As Patient Allergies NSAIDS (Non-Steroidal Anti-Inflamma [Nsaids] Allergy (Severe, Verified 09/05/23 14:15) blood in stool diazepam [DIAZEPAM] Allergy (Mild, Verified 09/05/23 14:15) RASH fluoxetine [From Prozac] Allergy (Unknown, Verified 09/05/23 14:15) Unknown ibuprofen [From Motrin] Allergy (Unknown, Verified 09/05/23 14:15) UNKNOWN Penicillins Allergy (Unknown, Verified 09/05/23 14:15) UNKNOWN colchicine Allergy (Verified 09/05/23 14:15) Dizziness gabapentin [From NEURONTIN] Adverse Reaction (Severe, Verified 09/05/23 14:15) HALLUCINATIONS, halluciinations morphine [Morphine] Adverse Reaction (Severe, Verified 09/05/23 14:15) DIFFICULTY BREATHING Sulfa (Sulfonamide Antibiotics) [SULFA (SULFONAMIDE ANTIBIOTICS)] Adverse Reaction (Severe, Verified 09/05/23 14:15) DIFF BREATHING pregabalin Adverse Reaction (Intermediate, Uncoded 09/05/23 14:15) Hallucinations Medication List - Last Reconciled 09/05/23 by Ambrose Feliciano MD albuterol sulfate 2.5 mg (3 mL) inhalation QID PRN 30 days albuterol sulfate 90 mcg/actuation 2 puffs inhalation Q6H PRN aspirin 81 mg PO DAILY atorvastatin 80 mg PO DAILY azithromycin take 500 mg today (day 1), then 250 mg for 4 days (days 2-5) PO baclofen 20 mg PO TID PRN 30 days benzonatate 200 mg PO TID PRN bupropion HCl 150 mg PO QAM 30 days lzfxosndrp-psmoochxfhypq-vmjp 50-325-40 mg 1 tab PO Q6-8H PRN 30 days carvedilol 12.5 mg PO BID cholecalciferol (vitamin D3) 50 mcg PO DAILY 90 days cyanocobalamin (vitamin B-12) 1,000 mcg PO DAILY dextromethorphan-guaifenesin 10-100 mg/5 mL 10 mL PO Q4-6H PRN [ELECTRIC SCOOTER As directed] fenofibrate 160 mg PO DAILY 30 days folic acid 1 mg PO DAILY 90 days furosemide 20 mg PO QAM PRN 15 days [Handicap Shower Head As directed (with long hose as patient can not stand for a long period of time)] hydroxyzine HCl 25 mg PO TID PRN 30 days lamotrigine 150 mg PO DAILY levofloxacin 500 mg PO DAILY lidocaine HCl 2% 1 appl topical BID-QID PRN lidocaine HCl 3% 1 appl topical BID PRN 30 days magnesium 200 mg PO BEDTIME 30 days melatonin 10 mg PO BEDTIME PRN 14 days miscellaneous medical supply as directed; Medical Recliner miscellaneous medical supply as directed; Cane miscellaneous medical supply 1 ea miscellaneous DAILY miscellaneous medical supply 1 ea miscellaneous DAILY nebulizers As directed every 6 hours as needed nystatin-triamcinolone 100,000-0.1 unit/g-% 1 appl topical BID 10 days omeprazole 20 mg PO DAILY 90 days ondansetron HCl 4 mg PO Q12H PRN 7 days potassium chloride ER 20 mEq PO DAILY 90 days prazosin 3 mg PO BEDTIME prednisone 20 mg PO DAILY prednisone 4 tablets x 2 days, then 3 tablets x 2 days, then 2 tablets x 2 days, then 1 tablet x 2 days 8 days sertraline 50 mg PO DAILY ticagrelor (Brilinta) 90 mg PO BID 90 days tizanidine 4 mg PO Q8H PRN 30 days tramadol 50 mg PO QID PRN 14 days Tobacco use date assessed: 09/05/23 Dental Screening Dental Screen Date: 09/05/23 Did you have a dental visit in the last 12 months?: Yes Did you have a dental problem in the last 6 months where you did not have access to dental care?: No Was dental information given to patient?: Patient has dentist HPI physical HPI Details Patient comes in today for her annual physical examination States that she currently feels okay Is scheduled to fly out to [place] next Friday for a 3 weeks vacation and to visit her family there Still has increased pain over her lower back and joints, especially her right ankle and knees, but states that her current Rx help keep her pain manageable Will need her Tramadol Rx refilled today and would like to have her Rx sent over to the [facility] pharmacy instead Reports (+) on and off dizziness; denies any headaches Denies any chest pains, no SOB No nausea/vomiting, no abdominal pain No change in bowel habits noted Denies any acute urinary symptoms Had her follow up labs done earlier today Last had her mammogram done in September 2021 and she is due for repeat mammogram Was seen by gynecology a couple of months ago and was advised to follow back up with her bank guard at [facility] due to her extensive and complicated gynecologic history and given the fact that patient herself recalls being advised by them that she will need to have her left overy surgically removed at some point She was seen by Dr. Cabrera back in February 2023 for GI evaluation and was advised to hold off on any endoscopic procedures until a year out from her recent CT, which she had in October 2022 [facility] Medical History Hx of ovarian cancer Anxiety Folate deficiency Vitamin D deficiency STEMI (ST elevation myocardial infarction) Coronary atherosclerosis Depression Hematemesis Crohn's disease Avascular necrosis of right talus Chronic pain syndrome Osteoarthritis of right knee Osteoarthritis of left hip Osteoarthritis of right hip Lumbar radiculopathy, right Disc degeneration, lumbar Bony sclerosis Rash Strain of left trapezius muscle Shoulder pain, left Neck pain Mixed hyperlipidemia Pain and swelling of right ankle Swelling of right knee joint Right knee pain Obesity (BMI 30-39.9) Smoker Migraine GERD (gastroesophageal reflux disease) COPD (chronic obstructive pulmonary disease) Right lumbosacral radiculopathy Lumbar degenerative disc disease Surgical History Hx of foot surgery History of esophagogastroduodenoscopy (EGD) Hx of cardiac cath (~11/01/22) Hx of section History of appendectomy Hx of colonoscopy History of hysterectomy History of cholecystectomy Family History Father Hypertension Rheumatoid arthritis Mother Hypertension Diabetes CVD (cardiovascular disease) Multiple sclerosis Sister Liver disease Maternal Grandmother Colon cancer Maternal Aunt Breast cancer Social History Housing: House Are you a primary ostomy care nurse to a significant other at home: No Do you presently have visiting nurse or other home services: No (Children come by to help) Alcohol intake: never Patient Tobacco Use Status: Current everyday Tobacco user Tobacco use type: Cigarette Cigarettes Per Day: 5 e-Cigarette/Vaping Use: Never Used Second Hand Smoke Exposure: Yes service: No Current occupational status: disabled Cognitive needs: Yes (cane) Hearing needs: No Vision needs: Yes (glasses) Female Reproductive History Menstrual Age of Menarche: 10 Questionnaire PHQ-9 Over the last 2 weeks, how often have you been bothered by any of the following problems? 1. Little interest or pleasure in doing things: several days 2. Feeling down, depressed, or hopeless: several days 3. Trouble falling or staying asleep, or sleeping too much: several days 4. Feeling tired or having little energy: several days 5. Poor appetite or overeating: several days 6. Feeling bad about yourself - or that you are a failure or have let yourself or your family down: not at all 7. Trouble concentrating on things, such as reading the newspaper or watching television: not at all 8. Moving or speaking so slowly that other people could have noticed. Or the opposite - being so fidgety or restless that you have been moving around a lot more than usual: not at all 9. Thoughts that you would be better off or of hurting yourself in some way: not at all Total score: 5 Depression Screening Interpretation: Positive Depression Screening Follow-up: Existing condition and In treatment Depression Screening Done: Yes 75513 - PHQ-9 Billing: Yes Source: Developed by Drs. Adebayo Lizarraga, Alicia Mata, Avel Blancas and colleagues, with an educational rayshawn from [employer]. Thrive Questionnaire Date Thrive assessed: 09/05/23 I am a: Patient What is your living situation today?: I have a steady place to live Within the past 12 months, did the food you bought not last and you didn't have the money to get more?: Never true Within the past 12 months, did you worry whether your food would run out before you got money to buy more?: Never true Do you have trouble paying for medicines?: No Do you have trouble getting transportation to medical appointments?: No Do you have trouble paying your heating and electricity bill?: No Do you have trouble taking care of your child, family member or friend?: No Do you have trouble with day-to-day activities such as bathing, preparing meals, shopping, managing finances, etc.?: No Are you currently unemployed and looking for a job?: No Are you interested in more education?: No Please select the resources that you would like help with: None Currently or been in a relationship where the following occur: no concerns reported AUDIT C Alcohol Use Questionnaire (AUDIT-C) 1. How often do you have a drink containing alcohol?: Never 2. How many drinks containing alcohol do you have on a typical day when you are drinking?: 1 or 2 (0) 3. How often do you have six or more drinks on one occasion?: Never Total Score: 0 Score Reviewed/Action Taken: Yes CHANELLE-7 AMB Questionnaire CHANELLE-7 Date CHANELLE - 7 assessed: 09/05/23 Feeling nervous, anxious, or on edge: 0 = Not at all Not being able to stop or control worryin = Not at all Worrying too much about different things: 0 = Not at all Trouble relaxin = Not at all Being so restless that it is hard to sit still: 0 = Not at all Becoming easily annoyed or irritable: 0 = Not at all Feeling afraid as if something awful might happen: 0 = Not at all Total CHANELLE-7 score (0-4 normal; 5-9 mild; 10-14 moderate; 15-21 severe): 0 Source: Developed by Drs. Adebayo Lizarraga, Alicia Mata, Avel Blancas and colleagues, with an educational rayshawn from [employer]. Review of Systems Const Denies chills, Reports fatigue, Denies fever(s), Denies headache(s) and Denies malaise Eyes Denies blurry vision, Denies change in vision, Denies irritation and Denies itchy eyes ENT Denies dysphagia, Reports dizziness (occasional), Denies otalgia, Denies headache(s), Denies nasal congestion, Denies neck pain, Denies odynophagia, Denies sinus pain and Denies sore throat Card Denies chest pain, Denies rapid heart rate, Denies irregular heart rhythm, Denies palpitations and Denies dyspnea Resp Denies chest congestion, Denies cough, Denies dyspnea and Denies wheezing GI Denies abdominal pain, Denies bloating, Denies constipation, Denies dysphagia, Denies heartburn, Denies diarrhea, Denies nausea, Denies odynophagia and Denies vomiting Denies hematuria, Denies urinary frequency, Denies dysuria, Denies urinary incontinence and Denies urinary urgency Musc Reports back pain (chronic), Reports arthralgias (of the right knee and right ankle), Denies joint swelling and Denies neck pain Skin/Breast Denies breast pain, Denies breast mass, Denies change in pigmentation, Denies lesions, Denies rash and Denies unusual bruising Neuro Reports dizziness (occasional), Denies headache(s) and Denies paresthesias Psych Denies anxiety and Denies depression Endo Reports fatigue and Denies palpitations Han/Lymph Denies easy bruising Aller/Immun Denies itchy eyes and Denies wheezing Physical exam (Primary Care) Vital Signs: Last Vital Signs Pulse 89 09/05/23 13:48 BP 128/72 09/05/23 13:48 Pulse Ox 96 09/05/23 13:48 Oxygen Delivery Method Room Air 09/05/23 13:48 BMI result Body Mass Index 36.4 Tobacco/Smoking Status: Tobacco use Status Tobacco use date assessed 09/05/23 09/05/23 13:55 Patient Tobacco Use Status Current everyday Tobacco 09/05/23 13:55 Tobacco use type Cigarette 09/05/23 13:55 e-Cigarette/Vaping Use Never Used 09/05/23 13:55 PHQ-9: PHQ-9 Score PHQ-9: Total score 5 09/07/23 09:00 Depression Screening Interpretation: Positive Depression Screening Follow-up: Existing condition and In treatment Thrive Assessment: Date of Thrive Assessment Date Thrive assessed 09/05/23 09/05/23 13:55 Currently or been in a relationship where the following occur: no concerns reported Const General: no acute distress, alert and awake Orientation/consciousness: patient oriented x3 HENMT Head: Yes normocephalic and Yes atraumatic Ears: external ears normal, TM's normal bilaterally and EAC's normal General nose exam: No nasal discharge present Face and sinus: Yes normal facial exam and Yes sinuses nontender Teeth and gingiva: dentition normal Throat: Yes posterior oropharynx normal and Yes tonsils normal (no TP congestion) Eyes Eyelids: Yes eyelids normal Conjunctivae: conjunctivae normal Pupils: Equal, round and reactive pupils present EOM: EOMs intact bilaterally Neck Neck: Yes no lymphadenopathy and Yes supple Thyroid: Thyroid normal Resp Auscultation: clear to auscultation bilaterally, no rales and no wheezes Cardio Rate: regular rate Rhythm: regular rhythm Heart sounds: no murmurs GI Palpation (GI): Soft to palpation, nontender and No hepatosplenomegaly present Auscultation: normal bowel sounds General: Yes no CVA tenderness Back/Spine/Pelvis Back: no CVA tenderness Cervical Spine: Cervical spine tenderness Thoracic/Lumbar Spine: lumbar spinal tenderness Skin Lesions: no lesions Rashes: no rashes Neuro General: patient oriented x3, moves all extremities, no focal motor deficits and CN's II-XI intact bilaterally Cranial nerves: Yes Equal, round and reactive pupils present Cognition (Neuro): normal cognition Gait exam (Neuro): Normal gait present Extrem General: Yes no clubbing, cyanosis or edema Right lower extremity: knee Details: tenderness; no swelling, ankle Details: tenderness; no swelling and foot Details: tenderness Location: of the dorsal foot and edema (mild) Location: of the dorsal foot Results Reviewed Results Reviewed: Laboratory Tests 07/15/23 09/05/23 09/05/23 07:37 12:46 12:46 WBC 10.0 Hgb 12.2 Hct 37.2 Plt Count 392 Vitamin B12 1925 H 25-OH Vitamin D Total 42.2 TSH 3.37 Ur Specific [place] 1.025 Urine Protein Negative Urine Glucose (UA) Negative Urine Blood Negative Urine Nitrite Negative Ur Leukocyte Esterase Negative Assessment and Plan Assessment & Plan (1) Annual physical exam: Code(s): Z00.00 - Encounter for general adult medical examination without abnormal findings Plan: Patient had her labs done earlier this morning; currently, only her CBC and urinalysis reports are available for review Advised that her CBC and urinalysis came back normal; the rest of her labs are all still pending at this time She is currently due for her annual mammogram [facility] and was advised to return to her previous gynecology at [facility] due to her complicated history - patient has been reminded to try to get this scheduled as soon as possible She was also seen by GI back in February 2023 and was advised to hold off on any endoscopic procedures until a year after her CT - had STEMI back in October 2022 (2) Coronary atherosclerosis: Code(s): I25.10 - Atherosclerotic heart disease of [place] coronary artery without angina pectoris Qualifiers: Coronary Disease-Associated Artery/Lesion type: [place] artery [place] vs. transplanted heart: [place] heart Associated angina: with stable angina Qualified Code(s): I25.118 - Atherosclerotic heart disease of [place] coronary artery with other forms of angina pectoris Plan: S/P cardiac cath and PCI to the mid LAD in October 2022 - had CARA x1 and kissing balloon angioplasty to the bifurcating lesion Continue Aspirin 81 mg QD - will need lifelong antiplatelet therapy Continue aggressive risk reduction with strict BP control and cholesterol reduction Follow up with cardiology as scheduled (3) STEMI (ST elevation myocardial infarction): Code(s): I21.3 - ST elevation (STEMI) myocardial infarction of unspecified site Qualifiers: Involved coronary artery: unspecified coronary artery Qualified Code(s): I21.3 - ST elevation (STEMI) myocardial infarction of unspecified site Plan: S/P STEMI post cath and required a second CARA to remove the occlusion in the ostial diagonal, which was thought to be due to dissection from her prior PCI Continue Carvedilol 6.25 mg BID; continue Brilinta 90 mg BID (for at least a year post-CT) and Aspirin 81 mg QD Follow up with cardiology as scheduled (4) COPD (chronic obstructive pulmonary disease): Code(s): J44.9 - Chronic obstructive pulmonary disease, unspecified Qualifiers: COPD type: emphysema Emphysema type: unspecified Qualified Code(s): J43.9 - Emphysema, unspecified Plan: Controlled at present Continue Spiriva Handihaler inhale contents of 18 mcg capsule QD, Breo Ellipta 200-25 mcg 1 inhalation QD and Albuterol HFA 2 puffs 4 times a day as needed Follow up with pulmonary as scheduled (5) Mixed hyperlipidemia: Code(s): E78.2 - Mixed hyperlipidemia Plan: Her follow up labs done earlier this morning are not yet available for review, other than her CBC and urinalysis Reinforced low cholesterol diet Continue Fenofibrate 160 mg QD and Atorvastatin 80 mg QD (6) Chronic pain of right ankle: Code(s): M25.571 - Pain in right ankle and joints of right foot; G89.29 - Other chronic pain Plan: Orthopedics suspects that patient may have AVN of her ankle Right ankle MRI done in January 2022 revealed mild tibiotalar osteoarthritis, with (+) anterior marginal osteophytes as well as an anterior unfused osteophyte versus ossified loose body measuring up to 1.2 cm in ML dimension; small tibiotalar joint effusion; minimal posterior tibialis and flexor digitorum tenosynovitis but no tendon tear although there is some medial subcutaneous edema seen Patient has reportedly been advised that they can only perform surgery on her ankle when she is cleared by Cardiology, which will most likely be early next year when she will be a year out from her CT that occurred in October 2022 Follow-up with orthopedics as scheduled (7) Osteoarthritis of right knee: Comment: Right knee MRI done on 09/18/2020 showed: 1. Intact menisci. 2. Intact cruciate and collateral ligaments. 3. Preserved tricompartmental articular cartilage. 4. Small joint effusion Code(s): M17.11 - Unilateral primary osteoarthritis, right knee Qualifiers: Osteoarthritis type: unspecified Qualified Code(s): M17.11 - Unilateral primary osteoarthritis, right knee Plan: Was seen previously by [facility] months ago and advised that her knee OA is mild with no other intervention recommended at the time Per request, was referred to orthopedics in [place] for a second opinion and she is now following up with [facility] for her knee issues (8) Lumbar degenerative disc disease: Code(s): M51.36 - Other intervertebral disc degeneration, lumbar region Plan: Reinforced activity and weight-lifting restrictions Continue Tramadol 50 mg QID PRN for pain Have again reminded her that she can take up to 2 tablets of her Tramadol at a time if she feels her pain is severe enough that 1 tablet alone does not help but she should only do this when absolutely necessary and that her total daily dose would still be only at 4 tablets a day maximum - reminded that insurance WILL NOT approve it for any dose more than that irregardless of how she feels Follow up with pain management as scheduled (9) Elevated LFTs: Code(s): R79.89 - Other specified abnormal findings of blood chemistry Plan: Improved/resolved previously but her ALT was increased again slightly a few months ago - was likely related to her weight and high cholesterol numbers; patient denies drinking alcohol Will continue to monitor her LFTs regularly (10) Crohn's disease: Code(s): K50.90 - Crohn's disease, unspecified, without complications Qualifiers: Gastrointestinal tract location: unspecified location Digestive disease complication type: unspecified complication Qualified Code(s): K50.919 - Crohn's disease, unspecified, with unspecified complications Plan: Has had no recent flare ups Follow up with GI as scheduled (11) Vitamin B12 deficiency: Code(s): E53.8 - Deficiency of other specified B group vitamins Plan: S/P Tx with 3 doses of Vitamin B12 IM Q 2 weeks a few months ago She was advised at her previous appointment that her Vitamin B12 level was very high and instructed to cut back on her Vitamin B12 1000 mcg tablets to just 1 tablet once a week Repeat Vitamin B12 level is pending at present (12) Folate deficiency: Code(s): E53.8 - Deficiency of other specified B group vitamins Plan: Continue Folic Acid 1 mg QD (13) Vitamin D deficiency: Code(s): E55.9 - Vitamin D deficiency, unspecified Plan: Continue Vitamin D3 2000 units QD (14) Migraine: Code(s): G43.909 - Migraine, unspecified, not intractable, without status migrainosus Qualifiers: Migraine type: unspecified Status migrainosus presence: without status migrainosus Intractability: not intractable Qualified Code(s): G43.909 - Migraine, unspecified, not intractable, without status migrainosus Plan: Stable lately - continue Fioricet 3 to 4 times a day as needed for headaches (15) GERD (gastroesophageal reflux disease): Code(s): K21.9 - Gastro-esophageal reflux disease without esophagitis Qualifiers: Esophagitis presence: without esophagitis Qualified Code(s): K21.9 - Gastro-esophageal reflux disease without esophagitis Plan: Dietary restrictions reinforced Continue Omeprazole 20 mg QD Follow up with GI as scheduled (16) Anxiety: Code(s): F41.9 - Anxiety disorder, unspecified Plan: Continue Bupropion 150 mg Q AM, Sertraline 50 mg QD and Hydroxyzine 25 mg TID PRN Continue Prazosin 3 mg Q HS (17) Depression: Code(s): F32.A - Depression, unspecified Qualifiers: Depression Type: major depressive disorder Major depression recurrence: recurrent Active/Remission status: currently active Major depression episode severity: unspecified Qualified Code(s): F33.9 - Major depressive disorder, recurrent, unspecified Plan: Continue Sertraline 50 mg QD, Bupropion 150 mg Q AM and Lamictal 150 mg QD Follow up with psychiatry as scheduled (18) Smoker: Code(s): F17.200 - Nicotine dependence, unspecified, uncomplicated Plan: Counseled again on complete smoking cessation, especially in light of her coronary disease (19) Obesity (BMI 30-39.9): Code(s): E66.9 - Obesity, unspecified Plan: Reinforced diet; exercise is currently not an option due to her chronic ankle and knee issues (20) Breast cancer screening by mammogram: Code(s): Z12.31 - Encounter for screening mammogram for malignant neoplasm of breast Plan: Will send patient for her annual screening mammogram Plan Follow up as scheduled in October 2023 Orders: Orders MM tomosynthesis screening BI 09/05/23 Z12.31 - Encounter for screening mammogram for malignant neoplasm of breast Medications: Changed From tramadol Take 3 to 4 times a day ONLY NEEDED for increased pain 50 mg PO QID 14 days PRN 56 tabs 1RF pain M25.561 - Pain in right knee, M51.36 - Other intervertebral disc degeneration, lumbar region To tramadol Take 3 to 4 times a day ONLY NEEDED for increased pain 50 mg PO QID 21 days PRN 84 tabs 0RF pain M25.561 - Pain in right knee, M51.36 - Other intervertebral disc degeneration, lumbar region Coding Level of Care Code Est Pt Prev Care 40-64y([id number]) Diagnoses Annual physical exam Z00.00 Atherosclerosis of [place] coronary artery of [place] heart with stable angina pectoris I25.118 Coronary Disease-Associated Artery/Lesion type: [place] artery [place] vs. transplanted heart: [place] heart Associated angina: with stable angina ST elevation myocardial infarction (STEMI), unspecified artery I21.3 Involved coronary artery: unspecified coronary artery Pulmonary emphysema, unspecified emphysema type J43.9 COPD type: emphysema Emphysema type: unspecified Mixed hyperlipidemia E78.2 Chronic pain of right ankle M25.571; G89.29 Osteoarthritis of right knee, unspecified osteoarthritis type M17.11 Osteoarthritis type: unspecified Lumbar degenerative disc disease M51.36 Elevated LFTs R79.89 Crohn's disease with complication, unspecified gastrointestinal tract location K50.919 Gastrointestinal tract location: unspecified location Digestive disease complication type: unspecified complication Vitamin B12 deficiency E53.8 Folate deficiency E53.8 Vitamin D deficiency E55.9 Migraine without status migrainosus, not intractable, unspecified migraine type G43.909 Migraine type: unspecified Status migrainosus presence: without status migrainosus Intractability: not intractable Gastroesophageal reflux disease without esophagitis K21.9 Esophagitis presence: without esophagitis Anxiety F41.9 Episode of recurrent major depressive disorder, unspecified depression episode severity F33.9 Depression Type: major depressive disorder Major depression recurrence: recurrent Active/Remission status: currently active Major depression episode severity: unspecified Smoker F17.200 Obesity (BMI 30-39.9) E66.9 Breast cancer screening by mammogram Z12.31
== END 2023-09-05 14:32 | disposition home or self-care (01) ==
PROVIDERS: PCP Internal Medicine; Visit Provider Internal Medicine
DX: Z00.00 Encounter for general adult medical examination without abnormal findings (principal); I25.118 Atherosclerotic heart disease of native coronary artery with other forms of angina pectoris; F33.9 Major depressive disorder, recurrent, unspecified; J43.9 Emphysema, unspecified; K50.919 Crohn's disease, unspecified, with unspecified complications; I21.3 ST elevation (STEMI) myocardial infarction of unspecified site; M25.571 Pain in right ankle and joints of right foot; E78.2 Mixed hyperlipidemia; G89.29 Other chronic pain; M17.11 Unilateral primary osteoarthritis, right knee; M51.36 Other intervertebral disc degeneration, lumbar region; R79.89 Other specified abnormal findings of blood chemistry
CPT/HCPCS: 99396

== ENCOUNTER 2023-10-02 11:52 | Outpatient (AMB) | payer OTHER, SELFPAY ==
[2023-10-02 12:04] VITALS: BP 120/78; PULSE 88; O2SAT 96; BMI 36.9
--- NOTE | 2023-10-02 12:04 | A.OFFPC_ITS ---
Vital Signs 10/02/23 12:04 Height 5 ft 3 in Weight 208 lb 8 oz BMI 36.9 BP 120/78 Blood Pressure Location Lt brachial Position Sitting Pulse 88 Pulse Source Pulse Oximeter Pulse Oximetry (%) 96 Oxygen Delivery Method Room Air Intake Visit Reasons: Pain and swelling arms, legs, and feet. Intake Note: The patient has presented with concerns about pain, swelling, and sensitivity in the arms, legs, and feet for the past month, expressing a sensation as if walking on glass. Brass Polisher Required: No Accompanied by: Self / Same As Patient Allergies NSAIDS (Non-Steroidal Anti-Inflamma [Nsaids] Allergy (Severe, Verified 10/02/23 13:31) blood in stool diazepam [DIAZEPAM] Allergy (Mild, Verified 10/02/23 13:31) RASH fluoxetine [From Prozac] Allergy (Unknown, Verified 10/02/23 13:31) Unknown ibuprofen [From Motrin] Allergy (Unknown, Verified 10/02/23 13:31) UNKNOWN Penicillins Allergy (Unknown, Verified 10/02/23 13:31) UNKNOWN colchicine Allergy (Verified 10/02/23 13:31) Dizziness gabapentin [From NEURONTIN] Adverse Reaction (Severe, Verified 10/02/23 13:31) HALLUCINATIONS, halluciinations morphine [Morphine] Adverse Reaction (Severe, Verified 10/02/23 13:31) DIFFICULTY BREATHING Sulfa (Sulfonamide Antibiotics) [SULFA (SULFONAMIDE ANTIBIOTICS)] Adverse Reaction (Severe, Verified 10/02/23 13:31) DIFF BREATHING pregabalin Adverse Reaction (Intermediate, Uncoded 10/02/23 13:31) Hallucinations Medication List - Last Reconciled 10/02/23 by Ambrose Feliciano MD albuterol sulfate 2.5 mg (3 mL) inhalation QID PRN 30 days albuterol sulfate 90 mcg/actuation 2 puffs inhalation Q6H PRN aspirin 81 mg PO DAILY atorvastatin 80 mg PO DAILY baclofen 20 mg PO TID PRN 30 days bupropion HCl 150 mg PO QAM 30 days vniiztgpbp-mjlyhunsaivlk-objh 50-325-40 mg 1 tab PO Q6-8H PRN 30 days carvedilol 12.5 mg PO BID cholecalciferol (vitamin D3) 50 mcg PO DAILY 90 days cyanocobalamin (vitamin B-12) 1,000 mcg IM Q2W [ELECTRIC SCOOTER As directed] fenofibrate 160 mg PO DAILY 30 days folic acid 1 mg PO DAILY 90 days furosemide 20 mg PO QAM PRN 15 days [Handicap Shower Head As directed (with long hose as patient can not stand for a long period of time)] hydroxyzine HCl 25 mg PO TID PRN 30 days lamotrigine 150 mg PO DAILY lidocaine HCl 2% 1 appl topical BID-QID PRN lidocaine HCl 3% 1 appl topical BID PRN 30 days magnesium 200 mg PO BEDTIME 30 days melatonin 10 mg PO BEDTIME PRN 14 days miscellaneous medical supply as directed; Medical Recliner miscellaneous medical supply as directed; Cane miscellaneous medical supply 1 ea miscellaneous DAILY miscellaneous medical supply 1 ea miscellaneous DAILY nebulizers As directed every 6 hours as needed nystatin-triamcinolone 100,000-0.1 unit/g-% 1 appl topical BID 10 days omeprazole 20 mg PO DAILY 90 days ondansetron HCl 4 mg PO Q12H PRN 7 days potassium chloride ER 20 mEq PO DAILY 90 days prazosin 3 mg PO BEDTIME prednisone 4 tablets x 2 days, then 3 tablets x 2 days, then 2 tablets x 2 days, then 1 tablet x 2 days 8 days sertraline 50 mg PO DAILY ticagrelor (Brilinta) 90 mg PO BID 90 days tizanidine 4 mg PO Q8H PRN 30 days tramadol 50 mg PO QID PRN 21 days Tobacco use date assessed: 10/02/23 Dental Screening Dental Screen Date: 10/02/23 Did you have a dental visit in the last 12 months?: Yes Did you have a dental problem in the last 6 months where you did not have access to dental care?: No Was dental information given to patient?: Patient has dentist HPI Pain and swelling arms, legs, and feet. HPI Details Patient comes in today for her follow up visit She continues to complain of increased diffuse pain and multiple joint pains, including over her right ankle, right knee and right hip States that she has been experiencing on and off swelling of her hands, legs and feet lately although there does not seem to be any particular pattern to these States that she has also been experiencing what she feels is increased sensitivity in her hands and feet over the past month - describes her symptoms as a sensation of on and off tingling and sharp pains, especially of her hands and feet and sometimes feel like she is walking on broken glass shards; symptoms also seem to feel worse at night She denies any headaches or dizziness Reports (+) vague, on and off sharp chest pains at times but states that these do not seem to be associated with activity or exertion as they seem to occur randomly, including when she is just sitting down or lying down in bed Denies any increased SOB - still has mild LOUISE at times and this has been unchan ged from before No nausea/vomiting, no abdominal pain No change in bowel habits noted Had her follow up labs done a few weeks ago - to discuss her results She is scheduled to see cardiology at [facility] in less than an hour for her cardiac follow up [facility] Medical History Hx of ovarian cancer Anxiety Folate deficiency Vitamin D deficiency STEMI (ST elevation myocardial infarction) Coronary atherosclerosis Depression Hematemesis Crohn's disease Avascular necrosis of right talus Chronic pain syndrome Osteoarthritis of right knee Osteoarthritis of left hip Osteoarthritis of right hip Lumbar radiculopathy, right Disc degeneration, lumbar Bony sclerosis Rash Strain of left trapezius muscle Shoulder pain, left Neck pain Mixed hyperlipidemia Pain and swelling of right ankle Swelling of right knee joint Right knee pain Obesity (BMI 30-39.9) Smoker Migraine GERD (gastroesophageal reflux disease) COPD (chronic obstructive pulmonary disease) Right lumbosacral radiculopathy Lumbar degenerative disc disease Surgical History Hx of foot surgery History of esophagogastroduodenoscopy (EGD) Hx of cardiac cath (~11/01/22) Hx of section History of appendectomy Hx of colonoscopy History of hysterectomy History of cholecystectomy Family History Father Hypertension Rheumatoid arthritis Mother Hypertension Diabetes CVD (cardiovascular disease) Multiple sclerosis Sister Liver disease Maternal Grandmother Colon cancer Maternal Aunt Breast cancer Social History Housing: House Are you a primary day care supervisor to a significant other at home: No Do you presently have visiting nurse or other home services: No (Children come by to help) Alcohol intake: never Patient Tobacco Use Status: Current everyday Tobacco user Tobacco use type: Cigarette Cigarettes Per Day: 5 Years Smoked: 30 e-Cigarette/Vaping Use: Never Used Second Hand Smoke Exposure: Yes service: No Current occupational status: disabled Cognitive needs: Yes (cane) Hearing needs: No Vision needs: Yes (glasses) Female Reproductive History Menstrual Age of Menarche: 10 Questionnaire PHQ-9 Over the last 2 weeks, how often have you been bothered by any of the following problems? 1. Little interest or pleasure in doing things: more than half the days 2. Feeling down, depressed, or hopeless: nearly every day 3. Trouble falling or staying asleep, or sleeping too much: nearly every day 4. Feeling tired or having little energy: nearly every day 5. Poor appetite or overeating: nearly every day 6. Feeling bad about yourself - or that you are a failure or have let yourself or your family down: more than half the days 7. Trouble concentrating on things, such as reading the newspaper or watching television: more than half the days 8. Moving or speaking so slowly that other people could have noticed. Or the opposite - being so fidgety or restless that you have been moving around a lot more than usual: more than half the days 9. Thoughts that you would be better off or of hurting yourself in some way: not at all Total score: 20 Depression Screening Interpretation: Positive Depression Screening Follow-up: Existing condition and In treatment Depression Screening Done: Yes 32957 - PHQ-9 Billing: Yes Source: Developed by Drs. Adebayo Lizarraga, Alicia Mata, Avel Blancas and colleagues, with an educational rayshawn from [employer]. Thrive Questionnaire Date Thrive assessed: 10/02/23 I am a: Patient What is your living situation today?: I have a steady place to live Within the past 12 months, did the food you bought not last and you didn't have the money to get more?: Never true Within the past 12 months, did you worry whether your food would run out before you got money to buy more?: Never true Do you have trouble paying for medicines?: Yes Do you have trouble getting transportation to medical appointments?: Yes Do you have trouble paying your heating and electricity bill?: No Do you have trouble taking care of your child, family member or friend?: No Do you have trouble with day-to-day activities such as bathing, preparing meals, shopping, managing finances, etc.?: Yes Are you currently unemployed and looking for a job?: No Are you interested in more education?: No Please select the resources that you would like help with: None Currently or been in a relationship where the following occur: no concerns reported AUDIT C Alcohol Use Questionnaire (AUDIT-C) 1. How often do you have a drink containing alcohol?: Never 3. How often do you have six or more drinks on one occasion?: Never Total Score: 0 Score Reviewed/Action Taken: Yes CHANELLE-7 AMB Questionnaire CHANELLE-7 Date CHANELLE - 7 assessed: 10/02/23 Feeling nervous, anxious, or on edge: 3 = Nearly every day Not being able to stop or control worryin = Nearly every day Worrying too much about different things: 3 = Nearly every day Trouble relaxin = Nearly every day Being so restless that it is hard to sit still: 2 = More than half the days Becoming easily annoyed or irritable: 3 = Nearly every day Feeling afraid as if something awful might happen: 0 = Not at all Total CHANELLE-7 score (0-4 normal; 5-9 mild; 10-14 moderate; 15-21 severe): 17 Source: Developed by Drs. Adebayo Lizarraga, Alicia Mata, Avel Blancas and colleagues, with an educational rayshawn from [employer]. CHANELLE-7 Assessment Billing CHANELLE-7 Assessment Tool: CHANELLE-7 Assessment [id number] Review of Systems Const Denies chills, Reports fatigue, Denies fever(s) and Denies headache(s) ENT Denies dysphagia, Denies dizziness, Denies otalgia, Denies headache(s), Denies neck pain, Denies odynophagia and Denies sore throat Card Reports chest pain (on and off sharp chest wall pains), Denies rapid heart rate, Denies irregular heart rhythm, Denies palpitations and Reports dyspnea on exertion (mild, at times) Resp Denies chest congestion, Denies cough, Reports dyspnea on exertion (mild, at times) and Denies wheezing GI Denies abdominal pain, Denies constipation, Denies dysphagia, Denies heartburn, Denies diarrhea, Denies nausea, Denies odynophagia and Denies vomiting Denies urinary frequency, Denies dysuria, Denies urinary incontinence and Denies urinary urgency Musc Reports back pain (chronic), Reports myalgias (diffuse, frequent), Reports arthralgias (involving multiple joints, including the right knee and right ankle), Denies joint swelling and Denies neck pain Skin/Breast Denies rash Neuro Denies dizziness, Denies headache(s) and Reports paresthesias (of both hands and feet, increasing lately - see HPI) Psych Denies anxiety and Reports depression Endo Reports fatigue and Denies palpitations Han/Lymph Details: hands and feet feel swollen at times Denies easy bruising Aller/Immun Denies wheezing Physical exam (Primary Care) Vital Signs: Last Vital Signs Pulse 88 10/02/23 12:04 BP 120/78 10/02/23 12:04 Pulse Ox 96 10/02/23 12:04 Oxygen Delivery Method Room Air 10/02/23 12:04 BMI result Body Mass Index 36.9 Tobacco/Smoking Status: Tobacco use Status Tobacco use date assessed 10/02/23 10/02/23 12:16 Patient Tobacco Use Status Current everyday Tobacco 10/02/23 12:16 Tobacco use type Cigarette 10/02/23 12:16 e-Cigarette/Vaping Use Never Used 10/02/23 12:16 PHQ-9: PHQ-9 Score PHQ-9: Total score 20 10/02/23 12:32 Depression Screening Interpretation: Positive Depression Screening Follow-up: Existing condition and In treatment Thrive Assessment: Date of Thrive Assessment Date Thrive assessed 10/02/23 10/02/23 12:16 Currently or been in a relationship where the following occur: no concerns reported Const General: no acute distress and alert HENMT Ears: TM's normal bilaterally and EAC's normal Throat: Yes posterior oropharynx normal and Yes tonsils normal (no TP congestion) Neck Neck: Yes no lymphadenopathy and Yes supple Thyroid: Thyroid normal Resp Auscultation: clear to auscultation bilaterally, no rales and no wheezes Cardio Rate: regular rate Rhythm: regular rhythm Heart sounds: no murmurs GI Palpation (GI): Soft to palpation and nontender Auscultation: normal bowel sounds General: Yes no CVA tenderness Back/Spine/Pelvis Back: no CVA tenderness Cervical Spine: Cervical spine tenderness Thoracic/Lumbar Spine: lumbar spinal tenderness Skin Rashes: no rashes Extrem General: Yes no clubbing, cyanosis or edema Right lower extremity: knee Details: tenderness; no swelling, ankle Details: tenderness; no swelling and foot Details: tenderness Location: of the dorsal foot and edema (mild) Location: of the dorsal foot Results Reviewed Results Reviewed: Laboratory Tests 09/05/23 12:46 WBC 10.0 Hgb 12.2 Hct 37.2 Plt Count 392 ESR 38 H Sodium 140 Potassium 4.1 Creatinine 1.01 Estimated GFR 59 Fasting Glucose 88 Calcium 9.9 AST 21 ALT 25 Triglycerides 173 H Cholesterol 172 LDL Cholesterol, Calc 107 H HDL Cholesterol 31 L Vitamin B12 943 H 25-OH Vitamin D Total 35.7 Folate 13.5 TSH 3.99 Ur Specific Crawford 1.025 Urine Protein Negative Urine Glucose (UA) Negative Urine Blood Negative Urine Nitrite Negative Ur Leukocyte Esterase Negative Assessment and Plan Assessment & Plan (1) Coronary atherosclerosis: Code(s): I25.10 - Atherosclerotic heart disease of [place] coronary artery without angina pectoris Qualifiers: Coronary Disease-Associated Artery/Lesion type: [place] artery [place] vs. transplanted heart: [place] heart Associated angina: with stable angina Qualified Code(s): I25.118 - Atherosclerotic heart disease of [place] coronary artery with other forms of angina pectoris Plan: S/P cardiac cath and PCI to the mid LAD in October 2022 - had CARA x1 and kissing balloon angioplasty to the bifurcating lesion Continue Aspirin 81 mg QD - will need lifelong antiplatelet therapy Continue aggressive risk reduction with strict BP control and cholesterol reduction Follow up with cardiology as scheduled - has appointment coming up at [facility] in less than an hour Patient is hoping that now she is almost a year out from her AR, she will be cleared by cardiology soon and she can then proceed with the previously recommended interventions for her chronic joint pain and issues (2) STEMI (ST elevation myocardial infarction): Code(s): I21.3 - ST elevation (STEMI) myocardial infarction of unspecified site Qualifiers: Involved coronary artery: unspecified coronary artery Qualified Code(s): I21.3 - ST elevation (STEMI) myocardial infarction of unspecified site Plan: S/P STEMI post cath and required a second CARA to remove the occlusion in the ostial diagonal, which was thought to be due to dissection from her prior PCI Continue Carvedilol 6.25 mg BID; continue Brilinta 90 mg BID (for at least a year post-AR) and Aspirin 81 mg QD Follow up with cardiology as scheduled later today (3) Mixed hyperlipidemia: Code(s): E78.2 - Mixed hyperlipidemia Plan: Results of her labs done a few weeks ago reviewed and discussed with patient - cautioned that her cholesterol levels, especially her LDL cholesterol, have increased from previous Discussed that with her CAD and STEMI last October (2022), her LDL should be <70 mg/dl and that more recent recommendation is even much lower at <55 mg/dl Reinforced low cholesterol diet Continue Fenofibrate 160 mg QD and Atorvastatin 80 mg QD but advised that cardiology may decide to add something to her current regimen or switch her over to high dose Rosuvastatin Will have patient recheck her labs and fasting lipids in 4 months for follow up (4) COPD (chronic obstructive pulmonary disease): Code(s): J44.9 - Chronic obstructive pulmonary disease, unspecified Qualifiers: COPD type: emphysema Emphysema type: unspecified Qualified Code(s): J43.9 - Emphysema, unspecified Plan: Controlled at present Continue Spiriva Handihaler inhale contents of 18 mcg capsule QD, Breo Ellipta 200-25 mcg 1 inhalation QD and Albuterol HFA 2 puffs 4 times a day as needed Follow up with pulmonary as scheduled (5) Chronic pain of right ankle: Code(s): M25.571 - Pain in right ankle and joints of right foot; G89.29 - Other chronic pain Plan: Orthopedics suspected that patient may have AVN of her ankle - right ankle MRI done in January 2022 revealed mild tibiotalar osteoarthritis, with (+) anterior marginal osteophytes as well as an anterior unfused osteophyte versus ossified loose body measuring up to 1.2 cm in ML dimension; small tibiotalar joint effusion; minimal posterior tibialis and flexor digitorum tenosynovitis but no tendon tear although there is some medial subcutaneous edema seen Patient has reportedly been advised that they can only perform surgery on her ankle when she is cleared by Cardiology after she is a year out from her AR that occurred in October 2022 Follow-up with orthopedics as scheduled (6) Osteoarthritis of right knee: Comment: Right knee MRI done on 09/18/2020 showed: 1. Intact menisci. 2. Intact cruciate and collateral ligaments. 3. Preserved tricompartmental articular cartilage. 4. Small joint effusion Code(s): M17.11 - Unilateral primary osteoarthritis, right knee Qualifiers: Osteoarthritis type: unspecified Qualified Code(s): M17.11 - Unilateral primary osteoarthritis, right knee Plan: Was seen previously by [facility]opedics months ago and advised that her knee OA is mild with no other intervention recommended at the time Per request, was referred to orthopedics in [place] a second opinion and she is now following up with [facility] for her knee issues (7) Lumbar degenerative disc disease: Code(s): M51.36 - Other intervertebral disc degeneration, lumbar region Plan: Reinforced activity and weight-lifting restrictions Continue Tramadol 50 mg QID PRN for pain Have again reminded her that she can take up to 2 tablets of her Tramadol at a time if she feels her pain is severe enough that 1 tablet alone does not help but she should only do this when absolutely necessary and that her total daily dose would still be only at 4 tablets a day maximum - reminded that insurance WILL NOT approve it for any dose more than that irregardless of how she feels Follow up with pain management as scheduled (8) Elevated LFTs: Code(s): R79.89 - Other specified abnormal findings of blood chemistry Plan: Improved/resolved again on her labs done a few weeks ago - were likely related to her weight and high cholesterol numbers; patient denies drinking alcohol Will continue to monitor her LFTs regularly (9) Crohn's disease: Code(s): K50.90 - Crohn's disease, unspecified, without complications Qualifiers: Gastrointestinal tract location: unspecified location Digestive disease complication type: unspecified complication Qualified Code(s): K50.919 - Crohn's disease, unspecified, with unspecified complications Plan: Has had no recent GI flare ups Follow up with GI as scheduled (10) Neuropathy: Code(s): G62.9 - Polyneuropathy, unspecified Plan: She has been advised that her recent hand and feet symptoms appear to be neuropathic symptoms that are progressing Patient relates that she was diagnosed with neuropathy a few years ago and had a nerve test done but could not recall exactly when and where it was done Have discussed with her that if she does have neuropathy and her symptoms are progressing, there may not be much else we can do as she was unable to tolerate Gabapentin and Pregabalin when we trialed her on these medications in the past Have advised that one remaining option may be Duloxetine, and that there is no current existing Rx that has been shown to be very effective in managing neuropathic symptoms, and that these are only managed and NOT cured She has been referred to and is scheduled to be seen by neurology in December 2023, and have advised that neurology will likely repeat EMG and NCV on her for further evaluation (11) Vitamin B12 deficiency: Code(s): E53.8 - Deficiency of other specified B group vitamins Plan: Corrected (12) Folate deficiency: Code(s): E53.8 - Deficiency of other specified B group vitamins Plan: Continue Folic Acid 1 mg QD (13) Vitamin D deficiency: Code(s): E55.9 - Vitamin D deficiency, unspecified Plan: Continue Vitamin D3 2000 units QD (14) Migraine: Code(s): G43.909 - Migraine, unspecified, not intractable, without status migrainosus Qualifiers: Migraine type: unspecified Status migrainosus presence: without status migrainosus Intractability: not intractable Qualified Code(s): G43.909 - Migraine, unspecified, not intractable, without status migrainosus Plan: Stable lately - continue Fioricet 3 to 4 times a day as needed for headaches (15) GERD (gastroesophageal reflux disease): Code(s): K21.9 - Gastro-esophageal reflux disease without esophagitis Qualifiers: Esophagitis presence: without esophagitis Qualified Code(s): K21.9 - Gastro-esophageal reflux disease without esophagitis Plan: Dietary restrictions reinforced Continue Omeprazole 20 mg QD Follow up with GI as scheduled (16) Anxiety: Code(s): F41.9 - Anxiety disorder, unspecified Plan: Continue Bupropion 150 mg Q AM, Sertraline 50 mg QD and Hydroxyzine 25 mg TID PRN Continue Prazosin 3 mg Q HS (17) Depression: Code(s): F32.A - Depression, unspecified Qualifiers: Depression Type: major depressive disorder Major depression recurrence: recurrent Active/Remission status: currently active Major depression episode severity: unspecified Qualified Code(s): F33.9 - Major depressive disorder, recurrent, unspecified Plan: Continue Sertraline 50 mg QD, Bupropion 150 mg Q AM and Lamictal 150 mg QD Follow up with psychiatry as scheduled (18) Smoker: Code(s): F17.200 - Nicotine dependence, unspecified, uncomplicated Plan: Counseled again on complete smoking cessation, especially with her Hx of coronary disease (19) Obesity (BMI 30-39.9): Code(s): E66.9 - Obesity, unspecified Plan: Reinforced diet; exercise is currently not an option due to her chronic ankle and knee and joint issues Plan Follow up in 4 months Orders: Orders Complete Blood Count Auto Diff 4 Months D64.9 - Anemia, unspecified, M25.50 - Pain in unspecified joint Vitamin D 25-OH Total 4 Months E55.9 - Vitamin D deficiency, unspecified, M25.50 - Pain in unspecified joint C Reactive Protein 4 Months M25.50 - Pain in unspecified joint Lipid Panel 4 Months E78.00 - Pure hypercholesterolemia, unspecified, M25.50 - Pain in unspecified joint Comprehensive [place]. Panel Fast 4 Months E78.00 - Pure hypercholesterolemia, unspecified, M25.50 - Pain in unspecified joint TSH reflex Free T4 4 Months E78.00 - Pure hypercholesterolemia, unspecified, M25.50 - Pain in unspecified joint UA CC w/rflx Micro + Cult 4 Months M25.50 - Pain in unspecified joint, R30.0 - Dysuria Vitamin B12 and Folate 4 Months E53.8 - Deficiency of other specified B group vitamins, M25.50 - Pain in unspecified joint Erythrocyte Sedimentation Rate 4 Months M25.50 - Pain in unspecified joint, M79.7 - Fibromyalgia Coding Level of Care Code Est Pt Level 4 (10759) Diagnoses Atherosclerosis of [place] coronary artery of [place] heart with stable angina pectoris I25.118 Coronary Disease-Associated Artery/Lesion type: [place] artery [place] vs. transplanted heart: [place] heart Associated angina: with stable angina ST elevation myocardial infarction (STEMI), unspecified artery I21.3 Involved coronary artery: unspecified coronary artery Mixed hyperlipidemia E78.2 Pulmonary emphysema, unspecified emphysema type J43.9 COPD type: emphysema Emphysema type: unspecified Chronic pain of right ankle M25.571; G89.29 Osteoarthritis of right knee, unspecified osteoarthritis type M17.11 Osteoarthritis type: unspecified Lumbar degenerative disc disease M51.36 Elevated LFTs R79.89 Crohn's disease with complication, unspecified gastrointestinal tract location K50.919 Gastrointestinal tract location: unspecified location Digestive disease complication type: unspecified complication Neuropathy G62.9 Vitamin B12 deficiency E53.8 Folate deficiency E53.8 Vitamin D deficiency E55.9 Migraine without status migrainosus, not intractable, unspecified migraine type G43.909 Migraine type: unspecified Status migrainosus presence: without status migrainosus Intractability: not intractable Gastroesophageal reflux disease without esophagitis K21.9 Esophagitis presence: without esophagitis Anxiety F41.9 Episode of recurrent major depressive disorder, unspecified depression episode severity F33.9 Depression Type: major depressive disorder Major depression recurrence: recurrent Active/Remission status: currently active Major depression episode severity: unspecified Smoker F17.200 Obesity (BMI 30-39.9) E66.9 Additional Codes CHANELLE-7 Assessment Billing - CHANELLE-7 Assessment Tool: CHANELLE-7 Assessment [id number] ([id number])
== END 2023-10-02 12:32 | disposition home or self-care (01) ==
PROVIDERS: PCP Internal Medicine; Visit Provider Internal Medicine
DX: F32.A Depression, unspecified (principal); F41.9 Anxiety disorder, unspecified
CPT/HCPCS: 96127; 99214

== ENCOUNTER 2023-10-02 13:26 | Outpatient (AMB) | payer OTHER, SELFPAY ==
--- NOTE | 2023-10-02 13:28 | MHC.OFFVIS ---
Intake Vital Signs 10/02/23 13:30 Height 5 ft 3 in Weight 206 lb 5.643 oz BMI 36.5 BP 110/60 Blood Pressure Location Lt brachial Position Sitting Pulse 93 Intake Visit Reasons: f/up Intake Note: follow up Mobile Phlebotomist Required: No Accompanied by: Self / Same As Patient Allergies NSAIDS (Non-Steroidal Anti-Inflamma [Nsaids] Allergy (Severe, Verified 10/02/23 13:31) blood in stool diazepam [DIAZEPAM] Allergy (Mild, Verified 10/02/23 13:31) RASH fluoxetine [From Prozac] Allergy (Unknown, Verified 10/02/23 13:31) Unknown ibuprofen [From Motrin] Allergy (Unknown, Verified 10/02/23 13:31) UNKNOWN Penicillins Allergy (Unknown, Verified 10/02/23 13:31) UNKNOWN colchicine Allergy (Verified 10/02/23 13:31) Dizziness gabapentin [From NEURONTIN] Adverse Reaction (Severe, Verified 10/02/23 13:31) HALLUCINATIONS, halluciinations morphine [Morphine] Adverse Reaction (Severe, Verified 10/02/23 13:31) DIFFICULTY BREATHING Sulfa (Sulfonamide Antibiotics) [SULFA (SULFONAMIDE ANTIBIOTICS)] Adverse Reaction (Severe, Verified 10/02/23 13:31) DIFF BREATHING pregabalin Adverse Reaction (Intermediate, Uncoded 10/02/23 13:31) Hallucinations Medication List - Last Reconciled 10/02/23 by Andrews Francois MD albuterol sulfate 2.5 mg (3 mL) inhalation QID PRN 30 days albuterol sulfate 90 mcg/actuation 2 puffs inhalation Q6H PRN aspirin 81 mg PO DAILY atorvastatin 80 mg PO DAILY baclofen 20 mg PO TID PRN 30 days bupropion HCl 150 mg PO QAM 30 days trjrllpjht-mtptdaqunchnm-ieoe 50-325-40 mg 1 tab PO Q6-8H PRN 30 days carvedilol 12.5 mg PO BID cholecalciferol (vitamin D3) 50 mcg PO DAILY 90 days cyanocobalamin (vitamin B-12) 1,000 mcg IM Q2W [ELECTRIC SCOOTER As directed] fenofibrate 160 mg PO DAILY 30 days folic acid 1 mg PO DAILY 90 days furosemide 20 mg PO QAM PRN 15 days [Handicap Shower Head As directed (with long hose as patient can not stand for a long period of time)] hydroxyzine HCl 25 mg PO TID PRN 30 days lamotrigine 150 mg PO DAILY lidocaine HCl 2% 1 appl topical BID-QID PRN lidocaine HCl 3% 1 appl topical BID PRN 30 days magnesium 200 mg PO BEDTIME 30 days melatonin 10 mg PO BEDTIME PRN 14 days miscellaneous medical supply as directed; Medical Recliner miscellaneous medical supply as directed; Cane miscellaneous medical supply 1 ea miscellaneous DAILY miscellaneous medical supply 1 ea miscellaneous DAILY nebulizers As directed every 6 hours as needed nystatin-triamcinolone 100,000-0.1 unit/g-% 1 appl topical BID 10 days omeprazole 20 mg PO DAILY 90 days ondansetron HCl 4 mg PO Q12H PRN 7 days potassium chloride ER 20 mEq PO DAILY 90 days prazosin 3 mg PO BEDTIME prednisone 4 tablets x 2 days, then 3 tablets x 2 days, then 2 tablets x 2 days, then 1 tablet x 2 days 8 days sertraline 50 mg PO DAILY ticagrelor (Brilinta) 90 mg PO BID 90 days tizanidine 4 mg PO Q8H PRN 30 days tramadol 50 mg PO QID PRN 21 days HPI HPI Comments History of Present Illness Details Mariana returns for follow-up regarding coronary disease. To recall, she was originally seen in consultation regarding exertional chest pain. It sounded anginal and hence referred for cardiac catheterization. She underwent LAD PCI but developed resting chest pain and EKG demonstrating lateral ST elevation. Then had another angiogram and PCI of diagonal. Since last seen, she is fine for the most part. Occasionally gets some random chest tightness but no specific patterns. Not clear if it is just from smoking and lung disease. Otherwise, no exertional anginal-type symptoms. States she is compliant with all her medications. Still smokes a few cigarettes a day. [facility] Medical History Hx of ovarian cancer Anxiety Folate deficiency Vitamin D deficiency STEMI (ST elevation myocardial infarction) Coronary atherosclerosis Depression Hematemesis Crohn's disease Avascular necrosis of right talus Chronic pain syndrome Osteoarthritis of right knee Osteoarthritis of left hip Osteoarthritis of right hip Lumbar radiculopathy, right Disc degeneration, lumbar Bony sclerosis Rash Strain of left trapezius muscle Shoulder pain, left Neck pain Mixed hyperlipidemia Pain and swelling of right ankle Swelling of right knee joint Right knee pain Obesity (BMI 30-39.9) Smoker Migraine GERD (gastroesophageal reflux disease) COPD (chronic obstructive pulmonary disease) Right lumbosacral radiculopathy Lumbar degenerative disc disease Surgical History Hx of foot surgery History of esophagogastroduodenoscopy (EGD) Hx of cardiac cath (~11/01/22) Hx of section History of appendectomy Hx of colonoscopy History of hysterectomy History of cholecystectomy Family History Father Hypertension Rheumatoid arthritis Mother Hypertension Diabetes CVD (cardiovascular disease) Multiple sclerosis Sister Liver disease Maternal Grandmother Colon cancer Maternal Aunt Breast cancer Social History Housing: House Are you a primary long term care pharmacist to a significant other at home: No Do you presently have visiting nurse or other home services: No (Children come by to help) Alcohol intake: never Patient Tobacco Use Status: Current everyday Tobacco user Tobacco use type: Cigarette Cigarettes Per Day: 5 Years Smoked: 30 e-Cigarette/Vaping Use: Never Used Second Hand Smoke Exposure: Yes service: No Current occupational status: disabled Cognitive needs: Yes (cane) Hearing needs: No Vision needs: Yes (glasses) Female Reproductive History Menstrual Age of Menarche: 10 Review of Systems Const Denies weakness ENT Denies dizziness Card Denies syncope, Denies rapid heart rate, Denies pedal edema, Denies edema, Denies leg edema, Denies lightheadedness, Denies palpitations and Denies orthopnea Resp Denies cough GI Denies hematochezia and Denies change in stool character Musc Denies abnormal gait, Denies muscle cramps, Denies muscle weakness, Denies numbness, Denies radiating pain into limb and Denies tingling Neuro Denies abnormal gait, Denies dizziness, Denies syncope, Denies numbness, Denies tingling and Denies weakness Endo Denies palpitations Physical Exam Vital Signs: Last Vital Signs Pulse 93 10/02/23 13:30 BP 110/60 10/02/23 13:30 BMI result Body Mass Index 36.5 Const General: comfortable and no acute distress Orientation/consciousness: patient oriented x3 HEENT Other: Unremarkable Head: Yes normal to inspection Neck Neck: Yes normal visual inspection Chest Chest palpation & inspection: normal inspection of the chest Resp Auscultation: rales Cardio Palpation: normal PMI Heart sounds: S1 normal heart sound present, S2 normal heart sound present, no gallops, no murmurs and no rubs GI Palpation (GI): Soft to palpation Back/Spine/Pelvis Other: unremarkable Skin General skin exam: no rashes or lesions noted Neuro General: patient oriented x3 Extrem General: Yes normal to inspection Psych Mental Status: mental status grossly normal Assessment & Plan Assessment & Plan (1) Coronary atherosclerosis: Code(s): I25.10 - Atherosclerotic heart disease of [place] coronary artery without angina pectoris Qualifiers: Associated angina: with stable angina Coronary Disease-Associated Artery/Lesion type: [place] artery [place] vs. transplanted heart: [place] heart Qualified Code(s): I25.118 - Atherosclerotic heart disease of [place] coronary artery with other forms of angina pectoris Plan: Cardiac catheterization data are reviewed. In initial catheterization, underwent stenting of proximal to mid LAD. Circumflex was normal. RCA with mild irregularities. Subsequently, had resting chest pain/lateral ST elevation. Cardiac catheterization then showed ostial diagonal 100% stenosis requiring another PCI. A more recent stress test from July with possible mild ischemia in basal part of anterior wall versus artifactual findings. Echocardiogram then with LVEF of 60-65%. Basal inferior/inferolateral hypokinesis but overall similar to prior study. Continue long-term aspirin. May continue Brilinta till seen again in clinic. Also on beta-blockers. (2) Mixed hyperlipidemia: Code(s): E78.2 - Mixed hyperlipidemia Plan: She is on Atorvastatin 80 mg and Fenofibrate. LDL is still 107 mg/dL. Add Zetia. (3) Smoker: Code(s): F17.200 - Nicotine dependence, unspecified, uncomplicated Plan: Encouraged to stop. Medications: New ezetimibe (Zetia) 10 mg PO DAILY 90 tabs 3RF Coding Level of Care Code Est Pt Level 4 (01490) Diagnoses Atherosclerosis of [place] coronary artery of [place] heart with stable angina pectoris I25.118 Associated angina: with stable angina Coronary Disease-Associated Artery/Lesion type: [place] artery [place] vs. transplanted heart: [place] heart Mixed hyperlipidemia E78.2 Smoker F17.200
[2023-10-02 13:30] VITALS: BP 110/60; PULSE 93; BMI 36.5
== END 2023-10-02 13:43 | disposition home or self-care (01) ==
PROVIDERS: PCP Internal Medicine; Visit Provider Internal Medicine
DX: I25.118 Atherosclerotic heart disease of native coronary artery with other forms of angina pectoris (principal); E78.2 Mixed hyperlipidemia; F17.200 Nicotine dependence, unspecified, uncomplicated
CPT/HCPCS: 99214

== ENCOUNTER → 2023-10-02 13:26 | Outpatient (BNVA) | payer OTHER, SELFPAY | PROVIDERS: Visit Provider Internal Medicine | DX: I25.118 Atherosclerotic heart disease of native coronary artery with other forms of angina pectoris (principal); E78.2 Mixed hyperlipidemia; F17.210 Nicotine dependence, cigarettes, uncomplicated | CPT/HCPCS: 99212 ==

== ENCOUNTER 2023-10-23 11:08 | Outpatient (AMB) | payer OTHER, SELFPAY ==
--- NOTE | 2023-10-23 11:09 | A.OFFPC_ITS ---
Intake Visit Reasons: CAD, hyperlipiOA,chronic pain [phone] Locomotive Operator Required: No Accompanied by: Self / Same As Patient Allergies NSAIDS (Non-Steroidal Anti-Inflamma [Nsaids] Allergy (Severe, Verified 10/23/23 12:36) blood in stool diazepam [DIAZEPAM] Allergy (Mild, Verified 10/23/23 12:36) RASH fluoxetine [From Prozac] Allergy (Unknown, Verified 10/23/23 12:36) Unknown ibuprofen [From Motrin] Allergy (Unknown, Verified 10/23/23 12:36) UNKNOWN Penicillins Allergy (Unknown, Verified 10/23/23 12:36) UNKNOWN colchicine Allergy (Verified 10/23/23 12:36) Dizziness gabapentin [From NEURONTIN] Adverse Reaction (Severe, Verified 10/23/23 12:36) HALLUCINATIONS, halluciinations morphine [Morphine] Adverse Reaction (Severe, Verified 10/23/23 12:36) DIFFICULTY BREATHING Sulfa (Sulfonamide Antibiotics) [SULFA (SULFONAMIDE ANTIBIOTICS)] Adverse Reaction (Severe, Verified 10/23/23 12:36) DIFF BREATHING Zetia/ezetimibe Allergy (Intermediate, Uncoded 10/23/23 12:36) Rash and Swelling R side of face pregabalin Adverse Reaction (Intermediate, Uncoded 10/23/23 12:36) Hallucinations Medication List - Last Reconciled 10/23/23 by Ambrose Feliciano MD albuterol sulfate 2.5 mg (3 mL) inhalation QID PRN 30 days albuterol sulfate 90 mcg/actuation 2 puffs inhalation Q6H PRN aspirin 81 mg PO DAILY atorvastatin 80 mg PO DAILY baclofen 20 mg PO TID PRN 30 days bupropion HCl 150 mg PO QAM 30 days qqxmlydaot-cgqasnoxdxfwz-sfea 50-325-40 mg 1 tab PO Q6-8H PRN 30 days carvedilol 12.5 mg PO BID cholecalciferol (vitamin D3) 50 mcg PO DAILY 90 days cyanocobalamin (vitamin B-12) 1,000 mcg IM Q2W [ELECTRIC SCOOTER As directed] ezetimibe (Zetia) 10 mg PO DAILY fenofibrate 160 mg PO DAILY 30 days folic acid 1 mg PO DAILY 90 days furosemide 20 mg PO QAM PRN 15 days [Handicap Shower Head As directed (with long hose as patient can not stand for a long period of time)] hydroxyzine HCl 25 mg PO TID PRN 30 days lamotrigine 150 mg PO DAILY lidocaine HCl 2% 1 appl topical BID-QID PRN lidocaine HCl 3% 1 appl topical BID PRN 30 days magnesium 200 mg PO BEDTIME 30 days melatonin 10 mg PO BEDTIME PRN 14 days miscellaneous medical supply as directed; Medical Recliner miscellaneous medical supply as directed; Cane miscellaneous medical supply 1 ea miscellaneous DAILY miscellaneous medical supply 1 ea miscellaneous DAILY nebulizers As directed every 6 hours as needed nystatin-triamcinolone 100,000-0.1 unit/g-% 1 appl topical BID 10 days omeprazole 20 mg PO DAILY 90 days ondansetron HCl 4 mg PO Q12H PRN 7 days potassium chloride ER 20 mEq PO DAILY 90 days prazosin 3 mg PO BEDTIME prednisone 4 tablets x 2 days, then 3 tablets x 2 days, then 2 tablets x 2 days, then 1 tablet x 2 days 8 days sertraline 50 mg PO DAILY ticagrelor (Brilinta) 90 mg PO BID 90 days tizanidine 4 mg PO Q8H PRN 30 days tramadol 50 mg PO QID PRN 21 days Tobacco use date assessed: 10/23/23 Dental Screening Dental Screen Date: 10/23/23 Did you have a dental visit in the last 12 months?: Yes Did you have a dental problem in the last 6 months where you did not have access to dental care?: No Was dental information given to patient?: Patient has dentist HPI CAD, hyperlipiOA,chronic pain [phone] HPI Details Patient's follow-up visit / consultation today is done over the phone - this is a Telehealth visit Patient's current medications have been reviewed and verified with patient and / or caregiver / proxy and have been updated accordingly in the medication list Patient states that she tested positive for COVID again this morning and feels congested States that she's had some chest tightness and occasional wheezing lately and would like to get a refill on her oral prednisone taper States that her ankle has been swollen as well recently and she continues to have a lot of pain in her right ankle and her legs and was reportedly told by her utilities ground worker that she would have to be OFF Brilinta for at least 90 days before they can consider doing her foot/ankle surgery as she will be under general anesthesia She is frustrated that cardiology did not take her off Brilinta when she was seen for follow up a couple of weeks ago Was reportedly told that she should still be on the meds for a while and they started her additionally on Ezetimibe as her LDL cholesterol is still not at goal (<70 mg/dl) She was reportedly advised that at some point, they will need to do a follow up cardiac cath to reassess her States that she currently feels very miserable and in pain and does not know what else she can do to deal with her pain She denies any increased headaches or dizziness; denies any fever but her throat feels slightly sore, presumably from her COVID No nausea/vomiting, no abdominal pain No change in bowel habits noted Needs a couple of her Rx refilled, including her handheld shower head - Rx needs a diagnosis attached REPLACED BY [facility] Medical History Hx of ovarian cancer Anxiety Folate deficiency Vitamin D deficiency STEMI (ST elevation myocardial infarction) Coronary atherosclerosis Depression Hematemesis Crohn's disease Avascular necrosis of right talus Chronic pain syndrome Osteoarthritis of right knee Osteoarthritis of left hip Osteoarthritis of right hip Lumbar radiculopathy, right Disc degeneration, lumbar Bony sclerosis Rash Strain of left trapezius muscle Shoulder pain, left Neck pain Mixed hyperlipidemia Pain and swelling of right ankle Swelling of right knee joint Right knee pain Obesity (BMI 30-39.9) Smoker Migraine GERD (gastroesophageal reflux disease) COPD (chronic obstructive pulmonary disease) Right lumbosacral radiculopathy Lumbar degenerative disc disease Surgical History Hx of foot surgery History of esophagogastroduodenoscopy (EGD) Hx of cardiac cath (~11/01/22) Hx of section History of appendectomy Hx of colonoscopy History of hysterectomy History of cholecystectomy Family History Father Hypertension Rheumatoid arthritis Mother Hypertension Diabetes CVD (cardiovascular disease) Multiple sclerosis Sister Liver disease Maternal Grandmother Colon cancer Maternal Aunt Breast cancer Social History Housing: House Are you a primary urgent care physician to a significant other at home: No Do you presently have visiting nurse or other home services: No (Children come by to help) Alcohol intake: never Patient Tobacco Use Status: Current everyday Tobacco user Tobacco use type: Cigarette Cigarettes Per Day: 5 Years Smoked: 30 e-Cigarette/Vaping Use: Never Used Second Hand Smoke Exposure: Yes service: No Current occupational status: disabled Cognitive needs: Yes (cane) Hearing needs: No Vision needs: Yes (glasses) Female Reproductive History Menstrual Age of Menarche: 10 Questionnaire PHQ-9 Over the last 2 weeks, how often have you been bothered by any of the following problems? 1. Little interest or pleasure in doing things: more than half the days 2. Feeling down, depressed, or hopeless: nearly every day 3. Trouble falling or staying asleep, or sleeping too much: nearly every day 4. Feeling tired or having little energy: nearly every day 5. Poor appetite or overeating: nearly every day 6. Feeling bad about yourself - or that you are a failure or have let yourself or your family down: more than half the days 7. Trouble concentrating on things, such as reading the newspaper or watching television: more than half the days 8. Moving or speaking so slowly that other people could have noticed. Or the opposite - being so fidgety or restless that you have been moving around a lot more than usual: more than half the days 9. Thoughts that you would be better off or of hurting yourself in some way: not at all Total score: 20 Depression Screening Interpretation: Positive Depression Screening Follow-up: Existing condition and In treatment Depression Screening Done: Yes [id number] - PHQ-9 Billing: Yes Source: Developed by Drs. Adebayo Lizarraga, Alicia Mata, Avel Blancas and colleagues, with an educational rayshawn from [employer]. Thrive Questionnaire Date Thrive assessed: 10/23/23 I am a: Patient What is your living situation today?: I have a steady place to live Within the past 12 months, did the food you bought not last and you didn't have the money to get more?: Never true Within the past 12 months, did you worry whether your food would run out before you got money to buy more?: Never true Do you have trouble paying for medicines?: Yes Do you have trouble getting transportation to medical appointments?: Yes Do you have trouble paying your heating and electricity bill?: No Do you have trouble taking care of your child, family member or friend?: No Do you have trouble with day-to-day activities such as bathing, preparing meals, shopping, managing finances, etc.?: Yes Are you currently unemployed and looking for a job?: No Are you interested in more education?: No Please select the resources that you would like help with: None Currently or been in a relationship where the following occur: no concerns reported THRIVE Score: 1 AUDIT C Alcohol Use Questionnaire (AUDIT-C) 1. How often do you have a drink containing alcohol?: Never 3. How often do you have six or more drinks on one occasion?: Never Total Score: 0 Score Reviewed/Action Taken: Yes CHANELLE-7 AMB Questionnaire CHANELLE-7 Date CHANELLE - 7 assessed: 10/23/23 Feeling nervous, anxious, or on edge: 3 = Nearly every day Not being able to stop or control worryin = Nearly every day Worrying too much about different things: 3 = Nearly every day Trouble relaxin = Nearly every day Being so restless that it is hard to sit still: 2 = More than half the days Becoming easily annoyed or irritable: 3 = Nearly every day Feeling afraid as if something awful might happen: 0 = Not at all Total CHANELLE-7 score (0-4 normal; 5-9 mild; 10-14 moderate; 15-21 severe): 17 Source: Developed by Drs. Adebayo Lizarraga, Alicia Mata, Avel Blancas and colleagues, with an educational rayshawn from [employer]. CHANELLE-7 Assessment Billing CHANELLE-7 Assessment Tool: CHANELLE-7 Assessment [id number] Review of Systems Const Denies chills, Reports fatigue, Denies fever(s) and Denies headache(s) ENT Denies dysphagia, Denies dizziness, Denies otalgia, Denies headache(s), Reports nasal congestion, Denies neck pain, Denies odynophagia and Reports sore throat (mild) Card Reports chest pain (on and off sharp chest wall pains), Denies rapid heart rate, Denies irregular heart rhythm, Denies palpitations and Reports dyspnea on exertion (mild, at times) Resp Reports chest congestion (mild), Reports cough (on and off), Reports dyspnea on exertion (mild, at times) and Reports wheezing (at times) GI Denies abdominal pain, Denies constipation, Denies dysphagia, Denies heartburn, Denies diarrhea, Denies nausea, Denies odynophagia and Denies vomiting Denies urinary frequency, Denies dysuria, Denies urinary incontinence and Denies urinary urgency Musc Reports back pain (chronic), Reports myalgias (diffuse, frequent), Reports arthralgias (involving multiple joints, including the right knee and right ankle), Denies joint swelling and Denies neck pain Skin/Breast Denies rash Neuro Denies dizziness, Denies headache(s) and Reports paresthesias (of both hands and feet, increasing lately - see HPI) Psych Denies anxiety and Reports depression Endo Reports fatigue and Denies palpitations Han/Lymph Details: hands and feet feel swollen at times Denies easy bruising Aller/Immun Reports wheezing (at times) Physical exam (Primary Care) Vital Signs: Physical examination is not performed as visit / consultation today is done over the phone - Telehealth visit All physical findings indicated here, if present, are as per patient's and / or caregivers / proxy's report Tobacco/Smoking Status: Tobacco use Status Tobacco use date assessed 10/23/23 10/23/23 11:11 Patient Tobacco Use Status Current everyday Tobacco 10/23/23 11:11 Tobacco use type Cigarette 10/23/23 11:11 e-Cigarette/Vaping Use Never Used 10/23/23 11:11 PHQ-9: PHQ-9 Score PHQ-9: Total score 20 10/23/23 11:11 Depression Screening Interpretation: Positive Depression Screening Follow-up: Existing condition and In treatment Thrive Assessment: Date of Thrive Assessment Date Thrive assessed 10/23/23 10/23/23 11:11 Currently or been in a relationship where the following occur: no concerns reported Telehealth Telehealth Location of provider rendering services: practice address Location of patient: address on file Patient Identification confirmed using: Name, : Yes Telehealth method: voice only Patient verbally consented to treatment: Yes Patient verbally consented to billing insurance company: Yes Patient informed of any privacy concerns related to visit: Yes Minutes spent on Phone/Video with Pt.: 25 Assessment and Plan Assessment & Plan (1) COVID-19: Code(s): U07.1 - COVID-19 Plan: Patient states that she tested positive for COVID again this morning Will send in Rx for Paxlovid x 5 days - to take as instructed (2) COPD exacerbation: Code(s): J44.1 - Chronic obstructive pulmonary disease with (acute) exacerbation Plan: Is most likely due to her current COVID infection Will start her again on oral Prednisone taper Continue Spiriva Handihaler inhale contents of 18 mcg capsule QD, Breo Ellipta 200-25 mcg 1 inhalation QD and Albuterol HFA 2 puffs 4 times a day as needed Follow up with pulmonary as scheduled (3) Coronary atherosclerosis: Code(s): I25.10 - Atherosclerotic heart disease of [place] coronary artery without angina pectoris Qualifiers: Coronary Disease-Associated Artery/Lesion type: [place] artery [place] vs. transplanted heart: [place] heart Associated angina: with stable angina Qualified Code(s): I25.118 - Atherosclerotic heart disease of [place] coronary artery with other forms of angina pectoris Plan: S/P cardiac cath and PCI to the mid LAD in October 2022 - had CARA x1 and kissing balloon angioplasty to the bifurcating lesion Continue Aspirin 81 mg QD - will need lifelong antiplatelet therapy Continue aggressive risk reduction with strict BP control and cholesterol reduction She was seen by cardiology for follow up a couple of weeks ago and was advised that she still needs to continue taking Brilinta and all of her other meds for now States that she is very frustrated that this means that she still cannot proceed with the previously recommended interventions for her chronic joint pain and issues as she was supposedly advised that they will only consider scheduling her for surgery if she has been OFF Brilinta for at least 90 days (4) STEMI (ST elevation myocardial infarction): Code(s): I21.3 - ST elevation (STEMI) myocardial infarction of unspecified site Qualifiers: Involved coronary artery: unspecified coronary artery Qualified Code(s): I21.3 - ST elevation (STEMI) myocardial infarction of unspecified site Plan: S/P STEMI post cath and required a second CARA to remove the occlusion in the ostial diagonal, which was thought to be due to dissection from her prior PCI Continue Carvedilol 6.25 mg BID; continue Brilinta 90 mg BID and Aspirin 81 mg QD Follow up with cardiology as scheduled (5) Mixed hyperlipidemia: Code(s): E78.2 - Mixed hyperlipidemia Plan: Reinforced low cholesterol diet - advised again that her goal is an LDL cholesterol of 50 to 70 mg/dl Continue Fenofibrate 160 mg QD and Atorvastatin 80 mg QD She was started additionally on Ezetimibe 10 mg QD by cardiology a couple of weeks ago Will have patient recheck her labs and fasting lipids in 4 months for follow up (6) Chronic pain of right ankle: Code(s): M25.571 - Pain in right ankle and joints of right foot; G89.29 - Other chronic pain Plan: Orthopedics suspected that patient may have AVN of her ankle - right ankle MRI done in January 2022 revealed mild tibiotalar osteoarthritis, with (+) anterior marginal osteophytes as well as an anterior unfused osteophyte versus ossified loose body measuring up to 1.2 cm in ML dimension; small tibiotalar joint effusion; minimal posterior tibialis and flexor digitorum tenosynovitis but no tendon tear although there is some medial subcutaneous edema seen Patient has reportedly been advised that they can only perform surgery on her ankle when she is cleared by Cardiology (which she was not) and after she is OFF Brilinta for at least 90 days Continue Tramadol 50 mg QID PRN for pain Will start her on a trial of Duloxetine 30 mg QD to see if this will help with her chronic pain as well (may also help with her mood) Follow-up with orthopedics as scheduled (7) Osteoarthritis of right knee: Comment: Right knee MRI done on 09/18/2020 showed: 1. Intact menisci. 2. Intact cruciate and collateral ligaments. 3. Preserved tricompartmental articular cartilage. 4. Small joint effusion Code(s): M17.11 - Unilateral primary osteoarthritis, right knee Qualifiers: Osteoarthritis type: unspecified Qualified Code(s): M17.11 - Unilateral primary osteoarthritis, right knee Plan: Was seen previously by [facility] months ago and advised that her knee OA is mild with no other intervention recommended at the time Per request, was referred to orthopedics in [place] for a second opinion and she is now following up with [facility] for her knee issues (8) Lumbar degenerative disc disease: Code(s): M51.36 - Other intervertebral disc degeneration, lumbar region Plan: Reinforced activity and weight-lifting restrictions Continue Tramadol 50 mg QID PRN for pain Have again reminded her that she can take up to 2 tablets of her Tramadol at a time if she feels her pain is severe enough that 1 tablet alone does not help but she should only do this when absolutely necessary and that her total daily dose would still be only at 4 tablets a day maximum - reminded that insurance WILL NOT approve it for any dose more than that irregardless of how she feels Follow up with pain management as scheduled (9) Neuropathy: Code(s): G62.9 - Polyneuropathy, unspecified Plan: She has been advised that her recent hand and feet symptoms appear to be neuropathic symptoms that are progressing Patient relates that she was diagnosed with neuropathy a few years ago and had a nerve test done but could not recall exactly when and where it was done Have discussed with her that if she does have neuropathy and her symptoms are progressing, there may not be much else we can do as she was unable to tolerate Gabapentin and Pregabalin when we trialed her on these medications in the past Have advised that one remaining option may be Duloxetine, and that there is no current existing Rx that has been shown to be very effective in managing neuropathic symptoms, and that these are only managed and NOT cured She has been referred to and is scheduled to be seen by neurology in December 2023, and have advised that neurology will likely repeat EMG and NCV on her for further evaluation (10) Crohn's disease: Code(s): K50.90 - Crohn's disease, unspecified, without complications Qualifiers: Gastrointestinal tract location: unspecified location Digestive disease complication type: unspecified complication Qualified Code(s): K50.919 - Crohn's disease, unspecified, with unspecified complications Plan: Has had no recent GI flare ups Follow up with GI as scheduled (11) Migraine: Code(s): G43.909 - Migraine, unspecified, not intractable, without status migrainosus Qualifiers: Migraine type: unspecified Status migrainosus presence: without status migrainosus Intractability: not intractable Qualified Code(s): G43.909 - Migraine, unspecified, not intractable, without status migrainosus Plan: Stable lately - continue Fioricet 3 to 4 times a day as needed for headaches (12) Vitamin D deficiency: Code(s): E55.9 - Vitamin D deficiency, unspecified Plan: Continue Vitamin D3 2000 units QD (13) GERD (gastroesophageal reflux disease): Code(s): K21.9 - Gastro-esophageal reflux disease without esophagitis Qualifiers: Esophagitis presence: without esophagitis Qualified Code(s): K21.9 - Gastro-esophageal reflux disease without esophagitis Plan: Dietary restrictions reinforced Continue Omeprazole 20 mg QD Follow up with GI as scheduled (14) Anxiety: Code(s): F41.9 - Anxiety disorder, unspecified Plan: Continue Bupropion 150 mg Q AM, Sertraline 50 mg QD and Hydroxyzine 25 mg TID PRN Continue Prazosin 3 mg Q HS (15) Depression: Code(s): F32.A - Depression, unspecified Qualifiers: Depression Type: major depressive disorder Major depression recurrence: recurrent Active/Remission status: currently active Major depression episode severity: unspecified Qualified Code(s): F33.9 - Major depressive disorder, recurrent, unspecified Plan: Continue Sertraline 50 mg QD, Bupropion 150 mg Q AM and Lamictal 150 mg QD She is also being started on Duloxetine 30 mg QD for her chronic pain - advised that this may help with her mood as well Follow up with psychiatry as scheduled (16) Smoker: Code(s): F17.200 - Nicotine dependence, unspecified, uncomplicated Plan: Counseled again on complete smoking cessation, especially with her Hx of coronary disease (17) Obesity (BMI 30-39.9): Code(s): E66.9 - Obesity, unspecified Plan: Reinforced diet; exercise is currently not an option due to her chronic ankle and knee and joint issues Plan Follow up in 4 months Orders: Orders Comprehensive Calmar. Panel Fast 4 Months E78.00 - Pure hypercholesterolemia, unspecified Complete Blood Count Auto Diff 4 Months D64.9 - Anemia, unspecified Lipid Panel 4 Months E78.00 - Pure hypercholesterolemia, unspecified Vitamin B12 and Folate 4 Months E53.8 - Deficiency of other specified B group vitamins Vitamin D 25-OH Total 4 Months E55.9 - Vitamin D deficiency, unspecified UA CC w/rflx Micro + Cult 4 Months R30.0 - Dysuria TSH reflex Free T4 4 Months E78.00 - Pure hypercholesterolemia, unspecified Medications: New duloxetine 30 mg PO DAILY 30 caps 3RF 30 days Changed From aspirin 81 mg PO DAILY To aspirin 81 mg PO DAILY 90 tabs 3RF 90 days Refilled [Handicap Shower Head] As directed (with long hose as patient can not stand for a long period of time) 1 ea 0RF G62.9 - Polyneuropathy, unspecified, M19.90 - Unspecified osteoarthritis, unspecified site, M51.36 - Other intervertebral disc degeneration, lumbar region prednisone 4 tablets x 2 days, then 3 tablets x 2 days, then 2 tablets x 2 days, then 1 tablet x 2 days 20 tabs 0RF 8 days J44.1 - Chronic obstructive pulmonary disease with (acute) exacerbation Coding Level of Care Code Tele Est Pt Level 4 (31859) Diagnoses COVID-19 U07.1 COPD exacerbation J44.1 Atherosclerosis of [place] coronary artery of [place] heart with stable angina pectoris I25.118 Coronary Disease-Associated Artery/Lesion type: [place] artery [place] vs. transplanted heart: [place] heart Associated angina: with stable angina ST elevation myocardial infarction (STEMI), unspecified artery I21.3 Involved coronary artery: unspecified coronary artery Mixed hyperlipidemia E78.2 Chronic pain of right ankle M25.571; G89.29 Osteoarthritis of right knee, unspecified osteoarthritis type M17.11 Osteoarthritis type: unspecified Lumbar degenerative disc disease M51.36 Neuropathy G62.9 Crohn's disease with complication, unspecified gastrointestinal tract location K50.919 Gastrointestinal tract location: unspecified location Digestive disease complication type: unspecified complication Migraine without status migrainosus, not intractable, unspecified migraine type G43.909 Migraine type: unspecified Status migrainosus presence: without status migrainosus Intractability: not intractable Vitamin D deficiency E55.9 Gastroesophageal reflux disease without esophagitis K21.9 Esophagitis presence: without esophagitis Anxiety F41.9 Episode of recurrent major depressive disorder, unspecified depression episode severity F33.9 Depression Type: major depressive disorder Major depression recurrence: recurrent Active/Remission status: currently active Major depression episode severity: unspecified Smoker F17.200 Obesity (BMI 30-39.9) E66.9 Additional Codes CHANELLE-7 Assessment Billing - CHANELLE-7 Assessment Tool: CHANELLE-7 Assessment [id number] ([id number])
== END 2023-10-23 13:11 | disposition home or self-care (01) ==
LOC: HO.HMGH 11:08
PROVIDERS: PCP Internal Medicine; Visit Provider Internal Medicine
DX: U07.1 COVID-19 (principal); J44.1 Chronic obstructive pulmonary disease with (acute) exacerbation; I25.118 Atherosclerotic heart disease of native coronary artery with other forms of angina pectoris; K50.919 Crohn's disease, unspecified, with unspecified complications; F33.9 Major depressive disorder, recurrent, unspecified; I25.2 Old myocardial infarction; E78.2 Mixed hyperlipidemia; M25.571 Pain in right ankle and joints of right foot; G89.29 Other chronic pain; M51.36 Other intervertebral disc degeneration, lumbar region; M17.11 Unilateral primary osteoarthritis, right knee; G62.9 Polyneuropathy, unspecified
CPT/HCPCS: 99443

== ENCOUNTER 2023-11-14 12:14 | Outpatient (REF) | payer OTHER, SELFPAY ==
--- NOTE | ~2023-11-14 | XR_ITS ---
EXAMINATION: XR CHEST CLINICAL INFORMATION: Other specified respiratory disorders Coughing up blood recently COMPARISON: Chest 10/09/2022 TECHNIQUE: 2 views of the chest were obtained. FINDINGS: The lungs are well expanded. Mild patchy opacity at the left lung bases consistent with atelectasis and/or pneumonia. No pleural effusion. No significant abnormality is noted involving the heart, mediastinum, bony thorax or soft tissues. XR/XR chest 2V IMPRESSION: Left lower lobe atelectasis and/or pneumonia.
== END 2023-11-14 12:15 | disposition home or self-care (01) ==
LOC: HO.XRAY 12:14
PROVIDERS: PCP Internal Medicine; Visit Provider Internal Medicine
DX: J98.8 Other specified respiratory disorders (principal)
CPT/HCPCS: 71046; 93005; 99212

== ENCOUNTER 2023-11-14 13:40 | Outpatient (AMB) | payer OTHER, SELFPAY ==
--- NOTE | 2023-11-14 13:41 | MHC.OFFVIS ---
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 Officer Required: No Allergies NSAIDS (Non-Steroidal Anti-Inflamma [Nsaids] Allergy (Severe, Verified 11/14/23 13:44) blood in stool diazepam [DIAZEPAM] Allergy (Mild, Verified 11/14/23 13:44) RASH fluoxetine [From Prozac] Allergy (Unknown, Verified 11/14/23 13:44) Unknown ibuprofen [From Motrin] Allergy (Unknown, Verified 11/14/23 13:44) UNKNOWN Penicillins Allergy (Unknown, Verified 11/14/23 13:44) UNKNOWN colchicine Allergy (Verified 11/14/23 13:44) Dizziness gabapentin [From NEURONTIN] Adverse Reaction (Severe, Verified 11/14/23 13:44) HALLUCINATIONS, halluciinations morphine [Morphine] Adverse Reaction (Severe, Verified 11/14/23 13:44) DIFFICULTY BREATHING Sulfa (Sulfonamide Antibiotics) [SULFA (SULFONAMIDE ANTIBIOTICS)] Adverse Reaction (Severe, Verified 11/14/23 13:44) DIFF BREATHING Zetia/ezetimibe Allergy (Intermediate, Uncoded 11/14/23 13:44) Rash and Swelling R side of face pregabalin Adverse Reaction (Intermediate, Uncoded 11/14/23 13:44) Hallucinations HPI FU/Dizziness & Chest Pain HPI Details Mariana Zepeda is a 48-year-old female past medical history of hyperlipidemia, smoking, obesity, coronary artery disease status post PCI to the LAD and diagonal who presents with report of ongoing chest discomfort. Today she reports that she continues to have chest discomfort when under high stress, with exertional activities and waking her up from sleep. She describes it as a tightness and at times a tearing pain in her left upper chest region. She feels overall it is getting worse with time. When she gets her discomfort she tries to relax and it will gradually improved. Does have some tenderness to palpation of the left upper chest region however states that that is not her discomfort. She says her pain is on the inside. She has some mild shortness of breath with exertion which is not new. No PND, orthopnea or edema. No lightheadedness, presyncope, syncope, falls. She has been taking all her medications. [facility] Medical History Hx of ovarian cancer Anxiety Folate deficiency Vitamin D deficiency STEMI (ST elevation myocardial infarction) Coronary atherosclerosis Depression Hematemesis Crohn's disease Avascular necrosis of right talus Chronic pain syndrome Osteoarthritis of right knee Osteoarthritis of left hip Osteoarthritis of right hip Lumbar radiculopathy, right Disc degeneration, lumbar Bony sclerosis Rash Strain of left trapezius muscle Shoulder pain, left Neck pain Mixed hyperlipidemia Pain and swelling of right ankle Swelling of right knee joint Right knee pain Obesity (BMI 30-39.9) Smoker Migraine GERD (gastroesophageal reflux disease) COPD (chronic obstructive pulmonary disease) Right lumbosacral radiculopathy Lumbar degenerative disc disease Surgical History Hx of foot surgery History of esophagogastroduodenoscopy (EGD) Hx of cardiac cath (~11/01/22) Hx of section History of appendectomy Hx of colonoscopy History of hysterectomy History of cholecystectomy Family History Father Hypertension Rheumatoid arthritis Mother Hypertension Diabetes CVD (cardiovascular disease) Multiple sclerosis Sister Liver disease Maternal Grandmother Colon cancer Maternal Aunt Breast cancer Social History Housing: House Are you a primary patient care provider to a significant other at home: No Do you presently have visiting nurse or other home services: No (Children come by to help) Alcohol intake: never Patient Tobacco Use Status: Current everyday Tobacco user Tobacco use type: Cigarette Cigarettes Per Day: 5 Years Smoked: 30 e-Cigarette/Vaping Use: Never Used Second Hand Smoke Exposure: Yes service: No Current occupational status: disabled Cognitive needs: Yes (cane) Hearing needs: No Vision needs: Yes (glasses) Female Reproductive History Menstrual Age of Menarche: 10 Review of Systems ENT Reports dizziness Card Reports chest pain, Denies chest pain at rest, Denies chest pain with activity, Denies rapid heart rate, Denies pedal edema, Denies edema, Denies leg edema, Denies lightheadedness, Denies palpitations, Reports dyspnea, Denies dyspnea on exertion and Denies orthopnea Resp Denies cough, Reports dyspnea and Denies dyspnea on exertion GI Denies hematochezia and Denies change in stool character Musc Denies abnormal gait, Reports limited range of motion, Reports muscle cramps, Denies muscle weakness, Denies numbness, Denies radiating pain into limb, Denies stiffness and Denies tingling Neuro Denies abnormal gait, Reports dizziness, Denies numbness and Denies tingling Endo Denies palpitations Physical Exam Vital Signs: Last Vital Signs Pulse 91 11/14/23 13:42 BP 140/72 H 11/14/23 13:42 BMI result Body Mass Index 36.6 Office Procedures EKG Details: Today, read by me, sinus rhythm, low-voltage QRS, no acute ST or T-wave abnormalities, rate 84, QTC 413 milliseconds [id number], Complete Assessment & Plan Assessment & Plan (1) Precordial chest pain: Code(s): R07.2 - Precordial pain Plan: Left upper chest discomfort which feels like tightness and at times a tearing pain occurring intermittently, brought on by stress, now with exertional activity and can wake her from sleep. She describes a similar feeling prior to her coronary stents however at that time she was also experiencing left arm and left neck discomfort as well. She does have some tenderness to palpation in the left upper chest but states this is not the feeling she gets with activity. A nuclear stress test was done on 07/17/2023 showing possible mild ischemia in the basal part of the anterior wall also could be artifact, normal EF. A limited echo done 07/15/2023 shows EF 60-65%, basal inferior and basal inferior lateral segments hypokinetic, no significant change from prior study. EKG done today showing normal sinus rhythm, no acute ST or T-wave abnormalities, rate 84. Today she reports chest discomfort as described above. She has a known history of CAD with stents in the LAD and diagonal. Case reviewed with Dr. Francois. Will plan for diagnostic cardiac catheterization to evaluate for obstructive coronary artery disease, stent patency. Patient is agreeable to this plan. Catheterization risks reviewed with her and she states understanding. Will check preprocedure labs including CBC, PT/INR, BMP. Will start on isosorbide 30 mg daily. Continue carvedilol. Continue aspirin and Brilinta as well as atorvastatin and Zetia. Emergency care if needed for worsening of symptoms or symptoms not relieved by rest. Instructed on light physical activity. Cardiology follow-up 2 weeks post cath. (2) Shortness of breath: Code(s): R06.02 - Shortness of breath Plan: Some with exertional activities (3) Coronary artery disease: Code(s): I25.10 - Atherosclerotic heart disease of [place] coronary artery without angina pectoris Qualifiers: Coronary Disease-Associated Artery/Lesion type: [place] artery [place] vs. transplanted heart: [place] heart Associated angina: unspecified whether angina present Qualified Code(s): I25.10 - Atherosclerotic heart disease of [place] coronary artery without angina pectoris Plan: History of coronary artery disease with cardiac catheterization 11/01/2022, PCI to the LAD. She then developed chest discomfort and ST elevations and had PCI of the diagonal artery, same day. She describes her symptom as being left upper chest tightness with radiation to her left arm and left neck area. Tells me her symptoms did resolve after stenting. She now has symptoms as described above. Will check diagnostic catheterization. (4) Abnormal nuclear stress test: Code(s): R94.39 - Abnormal result of other cardiovascular function study Plan: As above Plan Time spent on chart review, documentation, interview and assessment Orders: Orders Basic Metabolic Panel Today I25.10 - Atherosclerotic heart disease of [place] coronary artery without angina pectoris Prothrombin Time INR Today I25.10 - Atherosclerotic heart disease of [place] coronary artery without angina pectoris Complete Blood Count Auto Diff Today I25.10 - Atherosclerotic heart disease of [place] coronary artery without angina pectoris Cardiac Cath LT Diagnostic Today I25.10 - Atherosclerotic heart disease of [place] coronary artery without angina pectoris, R07.2 - Precordial pain, R94.39 - Abnormal result of other cardiovascular function study Medications: New isosorbide mononitrate ER 30 mg PO DAILY 30 tabs 3RF Coding Level of Care Code Est Pt Level 4 (20899) Diagnoses Precordial chest pain R07.2 Shortness of breath R06.02 Coronary artery disease involving [place] coronary artery of [place] heart, unspecified whether angina present I25.10 Coronary Disease-Associated Artery/Lesion type: [place] artery [place] vs. transplanted heart: [place] heart Associated angina: unspecified whether angina present Abnormal nuclear stress test R94.39 CPT Codes EKG - CPT: [id number], Complete ([id number]) Time Spent (min) 30
[2023-11-14 13:42] VITALS: BP 140/72; PULSE 91; BMI 36.6
== END 2023-11-14 14:23 | disposition home or self-care (01) ==
PROVIDERS: PCP Internal Medicine; Visit Provider Nurse Practitioner Family
DX: R07.2 Precordial pain (principal); R06.02 Shortness of breath; I25.10 Atherosclerotic heart disease of native coronary artery without angina pectoris; R94.39 Abnormal result of other cardiovascular function study
CPT/HCPCS: 93010; 99214

== ENCOUNTER 2023-11-20 11:41 | Outpatient (REF) | payer OTHER, SELFPAY ==
[2023-11-20 11:56] LABS: MANUAL DIFF FLAG NO
[2023-11-20 12:33] LABS: Basophils Percent Auto 0.1 % (0-2); Eosinophils Percent Auto 0.1 % (0-4); Hematocrit 35.4 % (37.0-47.0); Imm Gran Abs Auto 0.07 X10*3/uL (0.00-0.03); Imm Gran Pct Auto 0.6 % (0.0-0.4); Lymphocytes Absolute Auto 1.8 X10*3/uL (1.2-4.9); Lymphocytes Percent Auto 14.4 % (20-40); Mean Corpuscular HGB Conc 33.9 g/dl (31.0-35.0); Mean Corpuscular Hemoglobin 30.7 pg (27.0-33.0); Mean Corpuscular Volume 90.5 fL (80.0-98.0); Mean Platelet Volume 10.2 fL (9.4-12.3); Monocytes Absolute Auto 0.2 X10*3/uL (0.1-1.2); Monocytes Percent Auto 1.9 % (2-11); Neutrophils Absolute Auto 10.5 x10*3/uL (2.0-8.3); Neutrophils Percent Auto 82.9 % (45-73); Platelet Count 477 X10*3/uL (160-400); Red Blood Count 3.91 X10*6/uL (4.20-5.50); Red Cell Distribution Width 12.5 % (11.0-16.0); White Blood Count 12.7 X10*3/uL (4.8-10.8)
[2023-11-20 12:52] LABS: INTERNATIONAL NORM RATIO 0.9 (0.9-1.1); Prothrombin Time 10.7 SEC (11.1-13.3)
[2023-11-20 13:17] LABS: Anion Gap 13 (12-20); Blood Urea Nitrogen 19 mg/dL (9-16); Calcium 9.9 mg/dL (8.4-10.2); Carbon Dioxide 20 mmol/L (22-29); Chloride 109 mmol/L (96-108); Estimated Glomerular Filt Rate > 60; Glucose Random 125 mg/dL (60-115); Potassium 3.6 mmol/L (3.3-5.1); Sodium 138 mmol/L (135-145)
== END 2023-11-20 11:42 | disposition home or self-care (01) ==
LOC: HO.LAB 11:41
PROVIDERS: PCP Internal Medicine; Visit Provider Nurse Practitioner Family
DX: I25.10 Atherosclerotic heart disease of native coronary artery without angina pectoris (principal); I10 Essential (primary) hypertension; Z79.01 Long term (current) use of anticoagulants
CPT/HCPCS: 36415; 80048; 85025; 85610

== ENCOUNTER → 2023-11-27 23:59 | Outpatient (BNV) | payer OTHER, SELFPAY | PROVIDERS: PCP Internal Medicine; Visit Provider Internal Medicine Cardiovascular Disease | DX: R93.1 Abnormal findings on diagnostic imaging of heart and coronary circulation (principal); I20.89 Other forms of angina pectoris | CPT/HCPCS: 93458; 99152 ==

== ENCOUNTER 2024-03-12 11:42 | Outpatient (REF) | payer OTHER, SELFPAY ==
[2024-03-12 12:08] LABS: MANUAL DIFF FLAG NO
[2024-03-12 12:16] LABS: Basophils Absolute Auto 0.1 X10*3/uL (0.0-0.2); Basophils Percent Auto 0.9 % (0-2); Eosinophils Absolute Auto 0.4 X10*3/uL (0.0-0.4); Eosinophils Percent Auto 4.4 % (0-4); Hemoglobin 13.7 g/dl (12.0-16.0); Imm Gran Abs Auto 0.03 X10*3/uL (0.00-0.03); Imm Gran Pct Auto 0.3 % (0.0-0.4); Lymphocytes Absolute Auto 3.8 X10*3/uL (1.2-4.9); Lymphocytes Percent Auto 41.1 % (20-40); Mean Corpuscular HGB Conc 33.4 g/dl (31.0-35.0); Mean Corpuscular Hemoglobin 30.3 pg (27.0-33.0); Mean Corpuscular Volume 90.7 fL (80.0-98.0); Mean Platelet Volume 10.1 fL (9.4-12.3); Monocytes Absolute Auto 0.5 X10*3/uL (0.1-1.2); Monocytes Percent Auto 5.7 % (2-11); Neutrophils Absolute Auto 4.4 x10*3/uL (2.0-8.3); Neutrophils Percent Auto 47.6 % (45-73); Platelet Count 361 X10*3/uL (160-400); Red Blood Count 4.52 X10*6/uL (4.20-5.50); Red Cell Distribution Width 12.4 % (11.0-16.0); White Blood Count 9.2 X10*3/uL (4.8-10.8)
[2024-03-12 12:59] LABS: Erythrocyte Sedimentation Rate 20 MM/HR (0-20)
[2024-03-12 13:05] LABS: Alanine Aminotransferase 94 U/L (0-31); Albumin Level 4.4 g/dL (3.5-5.0); Alkaline Phosphatase 142 U/L (39-117); Anion Gap 13 (12-20); Aspartate Amino Transferase 67 U/L (5-31); Bilirubin Total 0.3 mg/dL (0.0-1.0); Blood Urea Nitrogen 15 mg/dL (9-16); C Reactive Protein 1.37 mg/dL (< or = 0.50); Calcium 9.9 mg/dL (8.4-10.2); Carbon Dioxide 25 mmol/L (22-29); Chloride 107 mmol/L (96-108); Cholesterol 199 mg/dL (<200); Estimated Glomerular Filt Rate > 60; Glucose Fasting 90 mg/dL (60-99); HDL Cholesterol 41 mg/dL (>40); LDL Cholesterol Calculated 113 mg/dL (<100); Potassium 4.5 mmol/L (3.3-5.1); Sodium 140 mmol/L (135-145); Total Protein 7.4 g/dL (6.5-8.0); Triglycerides 225 mg/dL (<150)
[2024-03-12 13:22] LABS: TSH reflex Free T4 1.31 uIU/mL (0.32-4.0); Vitamin D 25-OH Total 36.1 ng/mL (>30)
[2024-03-12 13:36] LABS: Folate 7.8 ng/mL (> or = 4.0); Vitamin B12 351 pg/mL (200-900)
[2024-03-12 14:11] LABS: Appearance Urine Clear; Color Urine Yellow; Glucose Urine UA Negative (Negative); Leukocyte Esterase Urine Negative (Negative); Nitrite Urine Positive (Negative); PH 5.5 (5.0-9.0); Specific Gravity - Urine 1.025 (1.005-1.025); UMIC TRIGGER UACC YES; Urine Blood Negative (Negative); Urine Ketones Negative (Negative); Urine Protein Negative (Neg-Trace)
[2024-03-12 14:28] LABS: Bacteria Urine 4+ (None Seen); Hyaline Casts Urine 0-2 /LPF (0-2); RBC Urine 0-2 /HPF (0-2); Squamous Epithelial Cell Urine 0-2 /HPF (0-2); UACC Culture Trigger YES; WBC Urine 0-5 /HPF (0-5)
== END 2024-03-12 11:43 | disposition home or self-care (01) ==
LOC: HO.LAB 11:42
PROVIDERS: PCP Internal Medicine; Visit Provider Internal Medicine
DX: E55.9 Vitamin D deficiency, unspecified (principal); M25.50 Pain in unspecified joint; E78.00 Pure hypercholesterolemia, unspecified; M79.7 Fibromyalgia; D64.9 Anemia, unspecified; E53.8 Deficiency of other specified B group vitamins; R82.90 Unspecified abnormal findings in urine
CPT/HCPCS: 36415; 80053; 80061; 81001; 81003; 82306; 82607; 82746; 84443; 85025; 85652; 86140; 87086; 87088; 87186

== ENCOUNTER 2024-03-12 12:39 | Outpatient (AMB) | payer OTHER, SELFPAY ==
[2024-03-12 12:44] VITALS: BP 150/82; PULSE 85; O2SAT 98; BMI 36.0
--- NOTE | 2024-03-12 12:44 | MHC.PC.OV ---
Vital Signs 03/12/24 12:44 03/12/24 13:21 Height 5 ft 3 in Weight 203 lb BMI 36.0 BP 150/82 H 140/88 H Blood Pressure Location Lt brachial Lt brachial Position Sitting Sitting Pulse 85 Pulse Source Pulse Oximeter Pulse Oximetry (%) 98 Oxygen Delivery Method Room Air Intake Visit Reasons: Follow Up Mill Tender Required: No Agency Sales Representative: Not Required per policy Accompanied by: Self / Same As Patient Allergies NSAIDS (Non-Steroidal Anti-Inflamma [Nsaids] Allergy (Severe, Verified 03/12/24 13:07) blood in stool diazepam [DIAZEPAM] Allergy (Mild, Verified 03/12/24 13:07) RASH fluoxetine [From Prozac] Allergy (Unknown, Verified 03/12/24 13:07) Unknown ibuprofen [From Motrin] Allergy (Unknown, Verified 03/12/24 13:07) UNKNOWN Penicillins Allergy (Unknown, Verified 03/12/24 13:07) UNKNOWN colchicine Allergy (Verified 03/12/24 13:07) Dizziness gabapentin [From NEURONTIN] Adverse Reaction (Severe, Verified 03/12/24 13:07) HALLUCINATIONS, halluciinations morphine [Morphine] Adverse Reaction (Severe, Verified 03/12/24 13:07) DIFFICULTY BREATHING Sulfa (Sulfonamide Antibiotics) [SULFA (SULFONAMIDE ANTIBIOTICS)] Adverse Reaction (Severe, Verified 03/12/24 13:07) DIFF BREATHING Zetia/ezetimibe Allergy (Intermediate, Uncoded 03/12/24 13:07) Rash and Swelling R side of face pregabalin Adverse Reaction (Intermediate, Uncoded 03/12/24 13:07) Hallucinations Medication List - Last Reconciled 03/12/24 by Ambrose Feliciano MD albuterol sulfate 90 mcg/actuation 2 puffs inhalation Q6H PRN albuterol sulfate 2.5 mg (3 mL) inhalation QID PRN 30 days aspirin 81 mg PO DAILY 90 days atorvastatin 80 mg PO DAILY 90 days baclofen 20 mg PO TID PRN 30 days bupropion HCl XL 150 mg PO QAM 30 days mcmscowvpu-vlxehqdlflwnm-mpfi 50-325-40 mg 1 tab PO Q6-8H PRN 30 days carvedilol 12.5 mg PO BID NS cholecalciferol (vitamin D3) 50 mcg PO DAILY 90 days codeine-guaifenesin 10-100 mg/5 mL 5 mL PO BID-TID PRN 7 days cyanocobalamin (vitamin B-12) 1,000 mcg IM Q2W duloxetine 30 mg PO DAILY 30 days [ELECTRIC SCOOTER As directed] ezetimibe (Zetia) 10 mg PO DAILY fenofibrate 160 mg PO DAILY 90 days folic acid 1 mg PO DAILY 90 days furosemide 20 mg PO QAM PRN 15 days [Handicap Shower Head As directed (with long hose as patient can not stand for a long period of time)] hydroxyzine HCl 25 mg PO TID PRN 30 days incontinence pad, liner, disp (Prevail Pant Liner pads) As directed isosorbide mononitrate ER 30 mg PO DAILY lamotrigine 150 mg PO DAILY lidocaine HCl 2% 1 appl topical BID-QID PRN lidocaine HCl 3% 1 appl topical BID PRN 30 days magnesium 200 mg PO BEDTIME 30 days melatonin 10 mg PO BEDTIME PRN 14 days miscellaneous medical supply as directed; Medical Recliner miscellaneous medical supply as directed; Dustin miscellaneous medical supply 1 ea miscellaneous DAILY miscellaneous medical supply 1 ea miscellaneous DAILY nebulizers As directed every 6 hours as needed nystatin-triamcinolone 100,000-0.1 unit/g-% 1 appl topical BID 10 days omeprazole 20 mg PO DAILY 90 days ondansetron HCl 4 mg PO Q12H PRN 7 days potassium chloride ER 20 mEq PO DAILY 90 days prazosin 3 mg PO BEDTIME prednisone 20 mg PO DAILY 5 days sertraline 50 mg PO DAILY ticagrelor (Brilinta) 90 mg PO BID 90 days tizanidine 4 mg PO Q8H PRN 30 days tramadol 50 mg PO QID PRN 21 days Tobacco use date assessed: 10/23/23 Dental Screening Dental Screen Date: 10/23/23 HPI Follow Up HPI Details Patient comes in today for her follow up visit States that she is still experiencing frequent chest congestion and occasional SOB that are only temporarily relieved by her Albuterol inhaler or updraft treatments She recently took the Prednisone 20 mg QD x 5 days that we sent in for her and just finished her last dose last weekend but states that it did not help much She was supposed to also be on Breo Ellipta but states that she has not been on it for a few months now as her insurance declined to cover her Rx Also relates (+) on and off headaches lately but denies any dizziness She denies any fever or sore throat Denies any chest pains; states that her chest feels tight often and she still has a recurrent cough - coughs up thick whitish phlegm at times No nausea/vomiting, no abdominal pain No change in bowel habits noted States that her chronic low back pain and joint pains are adequately controlled on her current Rx States that she has been exercising regularly as much as she can - goes to aquatic therapy a few times a week - and she has lost a few pounds since her last visit Needs her Fioricet Rx refilled today - states that she will be due for refill for this in a couple of days She had her follow up labs done earlier today - to discuss her results [facility] Medical History (Updated 03/12/24 @ 14:19 by Ambrose Feliciano MD) Essential hypertension Hx of ovarian cancer Anxiety Folate deficiency Vitamin D deficiency STEMI (ST elevation myocardial infarction) Coronary atherosclerosis Depression Hematemesis Crohn's disease Avascular necrosis of right talus Chronic pain syndrome Osteoarthritis of right knee Osteoarthritis of left hip Osteoarthritis of right hip Lumbar radiculopathy, right Disc degeneration, lumbar Bony sclerosis Rash Strain of left trapezius muscle Shoulder pain, left Neck pain Mixed hyperlipidemia Pain and swelling of right ankle Swelling of right knee joint Right knee pain Obesity (BMI 30-39.9) Smoker Migraine GERD (gastroesophageal reflux disease) COPD (chronic obstructive pulmonary disease) Right lumbosacral radiculopathy Lumbar degenerative disc disease Surgical History Hx of foot surgery History of esophagogastroduodenoscopy (EGD) Hx of cardiac cath (~11/01/22) Hx of section History of appendectomy Hx of colonoscopy History of hysterectomy History of cholecystectomy Family History Father Hypertension Rheumatoid arthritis Mother Hypertension Diabetes CVD (cardiovascular disease) Multiple sclerosis Sister Liver disease Maternal Grandmother Colon cancer Maternal Aunt Breast cancer Social History Housing: House Are you a primary direct care provider to a significant other at home: No Do you presently have visiting nurse or other home services: No (Children come by to help) Alcohol intake: never Patient Tobacco Use Status: Current everyday Tobacco user Tobacco use type: Cigarette Cigarettes Per Day: 5 Years Smoked: 30 Packs per year/per ci.50 e-Cigarette/Vaping Use: Never Used Second Hand Smoke Exposure: Yes service: No Current occupational status: disabled Cognitive needs: Yes (cane) Hearing needs: No Vision needs: Yes (glasses) Female Reproductive History Menstrual Age of Menarche: 10 Questionnaire Thrive Questionnaire Date Thrive assessed: 10/23/23 CHANELLE-7 AMB Questionnaire CHANELLE-7 Date CHANELLE - 7 assessed: 10/23/23 Source: Developed by Drs. Adebayo Lizarraga, Alicia Mata, Avel Blancas and colleagues, with an educational rayshawn from [email or web address]. Review of Systems Const Denies chills, Reports fatigue, Denies fever(s) and Reports headache(s) (on and off) ENT Denies dysphagia, Denies dizziness, Denies otalgia, Reports headache(s) (on and off), Denies neck pain, Denies odynophagia and Denies sore throat Card Denies chest pain, Denies rapid heart rate, Denies irregular heart rhythm, Denies palpitations and Reports dyspnea on exertion (mild) Resp Reports chest congestion (mild), Reports cough (on and off), Reports dyspnea on exertion (mild) and Denies wheezing GI Denies abdominal pain, Denies constipation, Denies dysphagia, Denies heartburn, Denies diarrhea, Denies nausea, Denies odynophagia and Denies vomiting Denies urinary frequency, Denies dysuria, Denies urinary incontinence and Denies urinary urgency Musc Reports back pain (chronic), Reports myalgias (diffuse, frequent), Reports arthralgias (involving multiple joints, including the right knee and right ankle), Denies joint swelling and Denies neck pain Skin/Breast Denies rash Neuro Denies dizziness, Reports headache(s) (on and off) and Reports paresthesias (of both hands and feet, increasing lately - see HPI) Psych Denies anxiety and Reports depression Endo Reports fatigue and Denies palpitations Han/Lymph Details: hands and feet feel swollen at times Denies easy bruising Aller/Immun Denies wheezing Physical exam (Primary Care) Vital Signs: Last Vital Signs Pulse 85 06/28/24 12:44 BP 150/82 H 03/12/24 12:44 Pulse Ox 98 03/12/24 12:44 Oxygen Delivery Method Room Air 03/12/24 12:44 BMI result Body Mass Index 36.0 Tobacco/Smoking Status: Tobacco use Status Tobacco use date assessed 10/23/23 03/12/24 12:49 Patient Tobacco Use Status Current everyday Tobacco 03/12/24 12:49 Tobacco use type Cigarette 03/12/24 12:49 e-Cigarette/Vaping Use Never Used 03/12/24 12:49 Thrive Assessment: Date of Thrive Assessment Date Thrive assessed 10/23/23 03/12/24 12:49 Const General: no acute distress and alert HENMT Ears: TM's normal bilaterally and EAC's normal Throat: Yes posterior oropharynx normal and Yes tonsils normal (no TP congestion) Neck Neck: Yes no lymphadenopathy and Yes supple Thyroid: Thyroid normal Resp Auscultation: no crackles, no rales, rhonchi (occasional) throughout, no wheezes and diminished lung sounds bilateral Cardio Rate: regular rate Rhythm: regular rhythm Heart sounds: no murmurs GI Palpation (GI): Soft to palpation and nontender Auscultation: normal bowel sounds General: Yes no CVA tenderness Back/Spine/Pelvis Back: no CVA tenderness Cervical Spine: Cervical spine tenderness Thoracic/Lumbar Spine: lumbar spinal tenderness Skin Rashes: no rashes Extrem General: Yes no clubbing, cyanosis or edema Right lower extremity: knee Details: tenderness; no swelling, ankle Details: tenderness; no swelling and foot Details: tenderness Location: of the dorsal foot and edema (mild) Location: of the dorsal foot Results Reviewed Results Reviewed: Laboratory Tests 03/12/24 12:06 WBC 9.2 Hgb 13.7 Hct 41.0 Plt Count 361 ESR 20 Sodium 140 Potassium 4.5 D Creatinine 0.85 Estimated GFR > 60 Fasting Glucose 90 AST 67 H ALT 94 H Alkaline Phosphatase 142 H C-Reactive Protein 1.37 H Triglycerides 225 H Cholesterol 199 LDL Cholesterol, Calc 113 H HDL Cholesterol 41 Laboratory Tests 03/12/24 12:06 Vitamin B12 351 25-OH Vitamin D Total 36.1 TSH 1.31 Assessment and Plan Assessment & Plan (1) COPD exacerbation: Code(s): J44.1 - Chronic obstructive pulmonary disease with (acute) exacerbation Plan: Will start patient again today on a short course of oral Prednisone taper She was supposed to be on BOTH Spiriva Handihaler 18 mcg capsule QD and Breo Ellipta 200-25 mcg 1 inhalation QD for maintenance Tx of her COPD but states that she has not been on these in a few months now as her insurance declined to continue covering her Rx and she has only been using her Albuterol HFA 2 puffs 4 times a day as needed or her Albuterol updraft solution PRN for the past few months She also used to see pulmonary but it does not look like she has been back to see them since her last visit with them in 2021 - have advised her to reach out to pulmonary and schedule a follow up appointment with them ENRIQUE Will start her for now on Arnuity Ellipta 200 mcg 1 inhalation QD as she really does need to be on a controller inhaler for her COPD Have advised patient to let us know ENRIQUE if she cannot get her Arnuity Inhaler Rx filled due to insurance restrictions (2) Coronary atherosclerosis: Code(s): I25.10 - Atherosclerotic heart disease of [place] coronary artery without angina pectoris Qualifiers: Coronary Disease-Associated Artery/Lesion type: [place] artery [place] vs. transplanted heart: [place] heart Associated angina: with stable angina Qualified Code(s): I25.118 - Atherosclerotic heart disease of [place] coronary artery with other forms of angina pectoris Plan: S/P cardiac cath and PCI to the mid LAD in October 2022 - had CARA x1 and kissing balloon angioplasty to the bifurcating lesion Continue Aspirin 81 mg QD - will need lifelong antiplatelet therapy Continue Brilinta 90 mg BID Continue aggressive risk reduction with strict BP control and cholesterol reduction Follow up with cardiology as scheduled (3) STEMI (ST elevation myocardial infarction): Code(s): I21.3 - ST elevation (STEMI) myocardial infarction of unspecified site Qualifiers: Involved coronary artery: unspecified coronary artery Qualified Code(s): I21.3 - ST elevation (STEMI) myocardial infarction of unspecified site Plan: S/P STEMI post cath and required a second CARA to remove the occlusion in the ostial diagonal, which was thought to be due to dissection from her prior PCI Continue Carvedilol 6.25 mg BID; continue Brilinta 90 mg BID and Aspirin 81 mg QD Follow up with cardiology as scheduled (4) Mixed hyperlipidemia: Code(s): E78.2 - Mixed hyperlipidemia Plan: Results of her labs done earlier today reviewed and discussed with patient She is advised that her LDL cholesterol is still elevated on her recent labs at 113 mg/dl - goal should be around 50 to 70 mg/dl given her [place] last year Reinforced low cholesterol diet Continue Fenofibrate 160 mg QD and Ezetimibe 10 mg QD; she is also on Atorvastatin 80 mg QD but her LFTs are also significantly elevated on her recent labs and we may unfortunately have to have her come OFF her Atorvastatin at this time and consider starting her instead on one of the newer PCSK9 inhibitors like Repatha or Praluent, whichever her insurance will cover As she will be seeing Dr. Francois for cardiology follow up in less than 2 weeks (03/25/2024), have advised her that I will leave it up to him to determine what he thinks would be the most appropriate course of action at this time but reminded patient that she should come OFF her Atorvastatin after her cardiology appointment due to her significantly elevated LFTs Will have patient recheck her labs and fasting lipids in 4 months for follow up (5) Essential hypertension: Code(s): I10 - Essential (primary) hypertension Plan: She is advised that her blood pressure also appears to be high today - she was at 150/82 mm initially and her repeat BP came down to 140/88 mm a few minutes later but advised that this is still higher than recommended Goal is systolic BP of 120 mm or less given her comorbidities Reinforced low sodium diet Will go ahead and start her on Losartan 25 mg QD (6) Chronic pain of right ankle: Code(s): M25.571 - Pain in right ankle and joints of right foot; G89.29 - Other chronic pain Plan: Orthopedics suspected that patient may have AVN of her ankle - right ankle MRI done in January 2022 revealed mild tibiotalar osteoarthritis, with (+) anterior marginal osteophytes as well as an anterior unfused osteophyte versus ossified loose body measuring up to 1.2 cm in ML dimension; small tibiotalar joint effusion; minimal posterior tibialis and flexor digitorum tenosynovitis but no tendon tear although there is some medial subcutaneous edema seen Patient has reportedly been advised that they can only perform corrective surgery on her ankle when she is cleared by Cardiology and she is OFF Brilinta for at least 90 days Continue Duloxetine 30 mg QD and Tramadol 50 mg QID PRN for pain Follow-up with orthopedics as scheduled (7) Osteoarthritis of right knee: Comment: Right knee MRI done on 09/18/2020 showed: 1. Intact menisci. 2. Intact cruciate and collateral ligaments. 3. Preserved tricompartmental articular cartilage. 4. Small joint effusion Code(s): M17.11 - Unilateral primary osteoarthritis, right knee Qualifiers: Osteoarthritis type: unspecified Qualified Code(s): M17.11 - Unilateral primary osteoarthritis, right knee Plan: She was seen previously by [facility] and advised that her knee OA is mild with no other intervention recommended at the time Per request, was referred to orthopedics in [place] for a second opinion and she is now following up with [facility] for her knee issues (8) Lumbar degenerative disc disease: Code(s): M51.36 - Other intervertebral disc degeneration, lumbar region Plan: Reinforced activity and weight-lifting restrictions Continue Duloxetine 30 mg QD and Tramadol 50 mg QID PRN for pain Follow up with pain management as scheduled (9) Neuropathy: Code(s): G62.9 - Polyneuropathy, unspecified Plan: She has been advised that her hand and feet symptoms appear to be neuropathic symptoms Patient relates that she was diagnosed with neuropathy a few years ago and had a nerve test done but could not recall exactly when and where it was done Have discussed with her that if she does have neuropathy and her symptoms are progressing, there may not be much else we can do as she was unable to tolerate Gabapentin and Pregabalin when we trialed her on these medications in the past She has been referred to and is scheduled to be seen by neurology in December 2023, and have advised that neurology will likely repeat EMG and NCV on her for further evaluation - so far we have not received anything report-mathews from neurology at this time (10) Migraine: Code(s): G43.909 - Migraine, unspecified, not intractable, without status migrainosus Qualifiers: Migraine type: unspecified Status migrainosus presence: without status migrainosus Intractability: not intractable Qualified Code(s): G43.909 - Migraine, unspecified, not intractable, without status migrainosus Plan: Stable lately - continue Fioricet 3 to 4 times a day as needed for headaches (Rx refilled) (11) Vitamin D deficiency: Code(s): E55.9 - Vitamin D deficiency, unspecified Plan: Continue Vitamin D3 2000 units QD (12) Crohn's disease: Code(s): K50.90 - Crohn's disease, unspecified, without complications Qualifiers: Gastrointestinal tract location: unspecified location Digestive disease complication type: unspecified complication Qualified Code(s): K50.919 - Crohn's disease, unspecified, with unspecified complications Plan: States thar she has had no recent GI flare ups Follow up with GI as scheduled (13) GERD (gastroesophageal reflux disease): Code(s): K21.9 - Gastro-esophageal reflux disease without esophagitis Qualifiers: Esophagitis presence: without esophagitis Qualified Code(s): K21.9 - Gastro-esophageal reflux disease without esophagitis Plan: Dietary restrictions reinforced Continue Omeprazole 20 mg QD Follow up with GI as scheduled (14) Anxiety: Code(s): F41.9 - Anxiety disorder, unspecified Plan: Continue Bupropion 150 mg Q AM, Sertraline 50 mg QD and Hydroxyzine 25 mg TID PRN Continue Prazosin 3 mg Q HS (15) Depression: Code(s): F32.A - Depression, unspecified Qualifiers: Depression Type: major depressive disorder Major depression recurrence: recurrent Active/Remission status: currently active Major depression episode severity: unspecified Qualified Code(s): F33.9 - Major depressive disorder, recurrent, unspecified Plan: Continue Sertraline 50 mg QD, Bupropion 150 mg Q AM, Lamictal 150 mg QD and Duloxetine 30 mg QD Follow up with psychiatry as scheduled (16) Smoker: Code(s): F17.200 - Nicotine dependence, unspecified, uncomplicated Plan: Counseled again on complete smoking cessation, especially with her Hx of coronary disease - states that she is continuing to work on this (17) Obesity (BMI 30-39.9): Code(s): E66.9 - Obesity, unspecified Plan: Reinforced diet; exercise is currently not an option due to her chronic ankle and knee and joint issues Plan Follow up as scheduled in May 2024 Orders: Orders Complete Blood Count Auto Diff 05/15/24 D64.9 - Anemia, unspecified Vitamin D 25-OH Total 05/15/24 E55.9 - Vitamin D deficiency, unspecified Vitamin B12 and Folate 05/15/24 G62.9 - Polyneuropathy, unspecified Comprehensive [place]. Panel Fast 05/15/24 E78.00 - Pure hypercholesterolemia, unspecified Lipid Panel 05/15/24 E78.00 - Pure hypercholesterolemia, unspecified TSH reflex Free T4 05/15/24 E78.00 - Pure hypercholesterolemia, unspecified UA CC w/rflx Micro + Cult 05/15/24 R30.0 - Dysuria Medications: New losartan 25 mg PO DAILY 30 days 30 tabs 3RF fluticasone furoate 200 mcg/actuation (Arnuity Ellipta) 1 inh inhalation DAILY 30 days 30 ea 5RF prednisone 4 tablets x 2 days, then 3 tablets x 2 days, then 2 tablets x 2 days, then 1 tablet x 2 days 8 days 20 tabs 0RF J45.901 - Unspecified asthma with (acute) exacerbation, M25.50 - Pain in unspecified joint Refilled ljpjqxncub-mhgervdrvstnn-ilum 50-325-40 mg 1 tab PO Q6-8H 30 days PRN 90 tabs 0RF headache Coding Level of Care Code Est Pt Level 4 (47129) Complex EM visit Add On G2211 Diagnoses COPD exacerbation J44.1 Atherosclerosis of [place] coronary artery of [place] heart with stable angina pectoris I25.118 Coronary Disease-Associated Artery/Lesion type: [place] artery [place] vs. transplanted heart: [place] heart Associated angina: with stable angina ST elevation myocardial infarction (STEMI), unspecified artery I21.3 Involved coronary artery: unspecified coronary artery Mixed hyperlipidemia E78.2 Essential hypertension I10 Chronic pain of right ankle M25.571; G89.29 Osteoarthritis of right knee, unspecified osteoarthritis type M17.11 Osteoarthritis type: unspecified Lumbar degenerative disc disease M51.36 Neuropathy G62.9 Migraine without status migrainosus, not intractable, unspecified migraine type G43.909 Migraine type: unspecified Status migrainosus presence: without status migrainosus Intractability: not intractable Vitamin D deficiency E55.9 Crohn's disease with complication, unspecified gastrointestinal tract location K50.919 Gastrointestinal tract location: unspecified location Digestive disease complication type: unspecified complication Gastroesophageal reflux disease without esophagitis K21.9 Esophagitis presence: without esophagitis Anxiety F41.9 Episode of recurrent major depressive disorder, unspecified depression episode severity F33.9 Depression Type: major depressive disorder Major depression recurrence: recurrent Active/Remission status: currently active Major depression episode severity: unspecified Smoker F17.200 Obesity (BMI 30-39.9) E66.9
[2024-03-12 13:21] VITALS: BP 140/88
== END 2024-03-12 15:45 | disposition home or self-care (01) ==
PROVIDERS: PCP Internal Medicine; Visit Provider Internal Medicine
DX: J44.1 Chronic obstructive pulmonary disease with (acute) exacerbation (principal); I25.118 Atherosclerotic heart disease of native coronary artery with other forms of angina pectoris; K50.919 Crohn's disease, unspecified, with unspecified complications; F33.9 Major depressive disorder, recurrent, unspecified; I25.2 Old myocardial infarction; Z68.36 Body mass index [BMI] 36.0-36.9, adult; E78.2 Mixed hyperlipidemia; I10 Essential (primary) hypertension; M25.571 Pain in right ankle and joints of right foot; E66.9 Obesity, unspecified; G89.29 Other chronic pain; M17.11 Unilateral primary osteoarthritis, right knee
CPT/HCPCS: 99214; G2211

== ENCOUNTER 2024-03-25 13:34 | Outpatient (AMB) | payer OTHER, SELFPAY ==
[2024-03-25 13:39] VITALS: BP 132/70; PULSE 90; BMI 35.5
--- NOTE | 2024-03-25 13:39 | A.OFFVIS_ITS ---
Vital Signs 03/25/24 13:39 Height 5 ft 3 in Weight 200 lb 9.93 oz BMI 35.5 BP 132/70 Blood Pressure Location Lt brachial Position Sitting Pulse 90 Pulse Source Pulse Oximeter Intake Visit Reasons: 6 mth fu Tire Adjuster Required: No Accompanied by: Self / Same As Patient Allergies NSAIDS (Non-Steroidal Anti-Inflamma [Nsaids] Allergy (Severe, Verified 03/12/24 13:07) blood in stool diazepam [DIAZEPAM] Allergy (Mild, Verified 03/12/24 13:07) RASH fluoxetine [From Prozac] Allergy (Unknown, Verified 03/12/24 13:07) Unknown ibuprofen [From Motrin] Allergy (Unknown, Verified 03/12/24 13:07) UNKNOWN Penicillins Allergy (Unknown, Verified 03/12/24 13:07) UNKNOWN colchicine Allergy (Verified 03/12/24 13:07) Dizziness gabapentin [From NEURONTIN] Adverse Reaction (Severe, Verified 03/12/24 13:07) HALLUCINATIONS, halluciinations morphine [Morphine] Adverse Reaction (Severe, Verified 03/12/24 13:07) DIFFICULTY BREATHING Sulfa (Sulfonamide Antibiotics) [SULFA (SULFONAMIDE ANTIBIOTICS)] Adverse Reaction (Severe, Verified 03/12/24 13:07) DIFF BREATHING Zetia/ezetimibe Allergy (Intermediate, Uncoded 03/12/24 13:07) Rash and Swelling R side of face pregabalin Adverse Reaction (Intermediate, Uncoded 03/12/24 13:07) Hallucinations Medication List - Last Reconciled 03/25/24 by Andrews Francois MD albuterol sulfate 90 mcg/actuation 2 puffs inhalation Q6H PRN albuterol sulfate 2.5 mg (3 mL) inhalation QID PRN 30 days aspirin 81 mg PO DAILY 90 days atorvastatin 80 mg PO DAILY 90 days baclofen 20 mg PO TID PRN 30 days bupropion HCl XL 150 mg PO QAM 30 days llkrlfflmr-cbtvcflzoxmpp-pkxk 50-325-40 mg 1 tab PO Q6-8H PRN 30 days carvedilol 12.5 mg PO BID NS cholecalciferol (vitamin D3) 50 mcg PO DAILY 90 days codeine-guaifenesin 10-100 mg/5 mL 5 mL PO BID-TID PRN 7 days cyanocobalamin (vitamin B-12) 1,000 mcg IM Q2W duloxetine 30 mg PO DAILY 30 days [ELECTRIC SCOOTER As directed] ezetimibe (Zetia) 10 mg PO DAILY fenofibrate 160 mg PO DAILY 90 days fluticasone furoate 200 mcg/actuation (Arnuity Ellipta) 1 inh inhalation DAILY 30 days folic acid 1 mg PO DAILY 90 days furosemide 20 mg PO QAM PRN 15 days [Handicap Shower Head As directed (with long hose as patient can not stand for a long period of time)] hydroxyzine HCl 25 mg PO TID PRN 30 days incontinence pad, liner, disp (Prevail Pant Liner pads) As directed isosorbide mononitrate ER 30 mg PO DAILY lamotrigine 150 mg PO DAILY lidocaine HCl 2% 1 appl topical BID-QID PRN lidocaine HCl 3% 1 appl topical BID PRN 30 days losartan 25 mg PO DAILY 30 days magnesium 200 mg PO BEDTIME 30 days melatonin 10 mg PO BEDTIME PRN 14 days miscellaneous medical supply as directed; Medical Recliner miscellaneous medical supply as directed; Dustin miscellaneous medical supply 1 ea miscellaneous DAILY miscellaneous medical supply 1 ea miscellaneous DAILY nebulizers As directed every 6 hours as needed nystatin-triamcinolone 100,000-0.1 unit/g-% 1 appl topical BID 10 days omeprazole 20 mg PO DAILY 90 days ondansetron HCl 4 mg PO Q12H PRN 7 days potassium chloride ER 20 mEq PO DAILY 90 days prazosin 3 mg PO BEDTIME prednisone 20 mg PO DAILY 5 days prednisone 4 tablets x 2 days, then 3 tablets x 2 days, then 2 tablets x 2 days, then 1 tablet x 2 days 8 days sertraline 50 mg PO DAILY ticagrelor (Brilinta) 90 mg PO BID 90 days tizanidine 4 mg PO Q8H PRN 30 days tramadol 50 mg PO QID PRN 21 days HPI Comments Details: Mariana returns for follow-up regarding coronary disease. To recall, she was originally seen in consultation regarding exertional chest pain. It sounded anginal and hence referred for cardiac catheterization. She underwent LAD PCI but developed resting chest pain and EKG demonstrating lateral ST elevation. Then had another angiogram and PCI of diagonal. More recently, again was complaining of chest pains which led to and other catheterization. However, no new interventions. She states she feels okay for the most part. No clear angina. Possibly some smoking related atypical pains off and on. Otherwise, some leg swelling intermittently which could indicate either dependent swelling or possible cor pulmonale. Today, it looks fine. [facility] Medical History (Updated 03/25/24 @ 14:08 by Andrews Francois MD) Essential hypertension Hx of ovarian cancer Anxiety Folate deficiency Vitamin D deficiency STEMI (ST elevation myocardial infarction) Coronary atherosclerosis Depression Hematemesis Crohn's disease Avascular necrosis of right talus Chronic pain syndrome Osteoarthritis of right knee Osteoarthritis of left hip Osteoarthritis of right hip Lumbar radiculopathy, right Disc degeneration, lumbar Bony sclerosis Rash Strain of left trapezius muscle Shoulder pain, left Neck pain Mixed hyperlipidemia Pain and swelling of right ankle Swelling of right knee joint Right knee pain Obesity (BMI 30-39.9) Smoker Migraine GERD (gastroesophageal reflux disease) COPD (chronic obstructive pulmonary disease) Right lumbosacral radiculopathy Lumbar degenerative disc disease Surgical History Hx of foot surgery History of esophagogastroduodenoscopy (EGD) Hx of cardiac cath (~11/01/22) Hx of section History of appendectomy Hx of colonoscopy History of hysterectomy History of cholecystectomy Family History Father Hypertension Rheumatoid arthritis Mother Hypertension Diabetes CVD (cardiovascular disease) Multiple sclerosis Sister Liver disease Maternal Grandmother Colon cancer Maternal Aunt Breast cancer Social History Housing: House Are you a primary residential child care counselor to a significant other at home: No Do you presently have visiting nurse or other home services: No (Children come by to help) Alcohol intake: never Patient Tobacco Use Status: Current everyday Tobacco user Tobacco use type: Cigarette Cigarettes Per Day: 5 Years Smoked: 30 e-Cigarette/Vaping Use: Never Used Second Hand Smoke Exposure: Yes service: No Current occupational status: disabled Cognitive needs: Yes (cane) Hearing needs: No Vision needs: Yes (glasses) Female Reproductive History Menstrual Age of Menarche: 10 Review of Systems Const Denies chills, Denies fatigue, Denies fever(s), Denies weight gain and Denies weight loss ENT Denies dizziness Card Denies chest pain, Reports leg edema, Denies lightheadedness, Denies palpitations, Reports dyspnea on exertion, Denies orthopnea and Denies other Resp Denies cough and Reports dyspnea on exertion GI Denies hematochezia and Denies change in stool character Musc Denies abnormal gait, Denies muscle weakness, Denies numbness, Denies radiating pain into limb and Denies tingling Neuro Denies abnormal gait, Denies dizziness, Denies numbness and Denies tingling Endo Denies fatigue and Denies palpitations Physical Exam Vital Signs: Last Vital Signs Pulse 90 03/25/24 13:39 BP 132/70 03/25/24 13:39 BMI result Body Mass Index 35.5 Const General: comfortable and no acute distress Orientation/consciousness: patient oriented x3 HEENT Other: Unremarkable Head: Yes normal to inspection Neck Neck: Yes normal visual inspection Chest Chest palpation & inspection: normal inspection of the chest Resp Auscultation: clear to auscultation bilaterally Cardio Palpation: normal PMI Heart sounds: S1 normal heart sound present, S2 normal heart sound present, no gallops, no murmurs and no rubs GI Palpation (GI): Soft to palpation Back/Spine/Pelvis Other: unremarkable Skin General skin exam: no rashes or lesions noted Neuro General: patient oriented x3 Extrem General: Yes normal to inspection Psych Mental Status: mental status grossly normal Assessment & Plan Assessment & Plan (1) Coronary atherosclerosis: Code(s): I25.10 - Atherosclerotic heart disease of [place] coronary artery without angina pectoris Category: Medical Qualifiers: Associated angina: with stable angina Coronary Disease-Associated Artery/Lesion type: [place] artery [place] vs. transplanted heart: [place] heart Qualified Code(s): I25.118 - Atherosclerotic heart disease of [place] coronary artery with other forms of angina pectoris Plan: Most recent cardiac catheterization reviewed from 11/2023. Mild ISR in the LAD/diagonal stents but otherwise no significant findings. She can continue aspirin. Stop the Brilinta as it has been more than a year and she also has some nosebleed history. Beta-blockers. (2) Mixed hyperlipidemia: Code(s): E78.2 - Mixed hyperlipidemia Category: Medical Plan: She is on atorvastatin as well as Zetia. She was on fenofibrate but she states PCP stopped it because of abnormal liver enzymes. LFTs are on the higher side. We can start Repatha. If the insurance approves, then maintain a low dose of statins and probably stop Zetia too. Advised her to contact us if she has collecting the Repatha or not. (3) Leg swelling: Code(s): M79.89 - Other specified soft tissue disorders Category: Medical Plan: Possibly multifactorial. In the past, her cardiac BNP was well within normal limits at 10 and 40. In the cardiac catheterization, LVEDP was elevated. Overall, could be some combination of dependent edema from venous insufficiency; possible cor pulmonale related to lung disease from smoking. She has on a small dose of Lasix. Today, do not see any obvious leg swelling. (4) Smoker: Code(s): F17.200 - Nicotine dependence, unspecified, uncomplicated Category: Social Hx Plan: Strongly encouraged to stop. Medications: New evolocumab (Repatha Syringe) 140 mg subcut Q2W 2 mL 5RF Discontinued fenofibrate Discontinued Reason: Patient no longer taking 160 mg PO DAILY 90 days 90 tabs 1RF E78.2 - Mixed hyperlipidemia ticagrelor (Brilinta) Discontinued Reason: Doctor's Order 90 mg PO BID 90 days 180 tabs 3RF Coding Level of Care Code Est Pt Level 4 (99283) Diagnoses Atherosclerosis of [place] coronary artery of [place] heart with stable angina pectoris I25.118 Associated angina: with stable angina Coronary Disease-Associated Artery/Lesion type: [place] artery [place] vs. transplanted heart: [place] heart Mixed hyperlipidemia E78.2 Leg swelling M79.89 Smoker F17.200
== END 2024-03-25 14:00 | disposition home or self-care (01) ==
PROVIDERS: PCP Internal Medicine; Visit Provider Internal Medicine
DX: I25.118 Atherosclerotic heart disease of native coronary artery with other forms of angina pectoris (principal); E78.2 Mixed hyperlipidemia; M79.89 Other specified soft tissue disorders; F17.200 Nicotine dependence, unspecified, uncomplicated
CPT/HCPCS: 99214

== ENCOUNTER → 2024-03-25 13:34 | Outpatient (BNVA) | payer OTHER, SELFPAY | PROVIDERS: PCP Internal Medicine; Visit Provider Internal Medicine | DX: I25.118 Atherosclerotic heart disease of native coronary artery with other forms of angina pectoris (principal); E78.2 Mixed hyperlipidemia; M79.89 Other specified soft tissue disorders; F17.210 Nicotine dependence, cigarettes, uncomplicated | CPT/HCPCS: 99212 ==

== ENCOUNTER 2024-04-29 16:00 | Emergency (ER) | payer OTHER, SELFPAY ==
--- NOTE | ~2024-04-29 | XR_ITS ---
EXAMINATION: XR LUMBOSACRAL SPINE CLINICAL INFORMATION: Status post fall. COMPARISON: None available. TECHNIQUE: Three views of the lumbosacral spine. FINDINGS: There are 5 nonrib bearing lumbar vertebrae. Lumbar spinal alignment is anatomic in the sagittal projection. The vertebral bodies demonstrate preserved stature. No compression deformity. There is mild narrowing of the L4-L5 and L5-S1 intervertebral disc spaces. There is no acute fracture. The sacroiliac joints are intact. There are cholecystectomy clips. XR/XR lumbar spine 2-3V IMPRESSION: No acute osseous lumbar spine abnormality. Mild degenerative disc disease at L4-L5 and L5-S1.
--- NOTE | ~2024-04-29 | XR_ITS ---
EXAMINATION: XR SACRUM AND COCCYX CLINICAL INFORMATION: Fall. Pain. COMPARISON: None available. TECHNIQUE: 3 views of the sacrum / coccyx were obtained. FINDINGS: There is no fracture or dislocation. The sacroiliac joints and symphysis pubis are intact. Hip joints are grossly maintained. XR/XR sacrum coccyx min 2V IMPRESSION: No fracture or dislocation.
[2024-04-29 16:12] VITALS: BP 157/92; PULSE 88; RESP 16; TEMP 37.1; O2SAT 97; BMI 36.1
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
[2024-04-29 17:17] VITALS: BP 176/87; PULSE 82; RESP 18; TEMP 36.8; O2SAT 98
[2024-04-29] MEDS: Lidocaine 4 % Patch ADH..PATCH 1 PATCH TRANSDERMA (17:32)
[2024-04-29] MEDS: predniSONE 20 MG TABLET PO (17:32)
[2024-04-29] MEDS: HYDROcodone Bit/Acetam 5/325 TABLET 1 TAB PO (17:32)
[2024-04-29 17:37] VITALS: BP 176/87; PULSE 82; RESP 18; TEMP 36.8; O2SAT 98
== END 2024-04-29 17:38 | disposition home or self-care (01) ==
PROVIDERS: Emergency Provider Internal Medicine; PCP Internal Medicine
DX: S39.012A Strain of muscle, fascia and tendon of lower back, initial encounter (principal); S30.0XXA Contusion of lower back and pelvis, initial encounter; W18.2XXA Fall in (into) shower or empty bathtub, initial encounter; Y93.89 Activity, other specified; Y92.091 Bathroom in other non-institutional residence as the place of occurrence of the external cause; Y99.8 Other external cause status
CPT/HCPCS: 72100; 72220; 99283

== ENCOUNTER 2024-05-05 13:15 | Outpatient (AMB) | payer OTHER, SELFPAY ==
[2024-05-05 13:15] VITALS: BP 166/80; PULSE 96; O2SAT 98; BMI 36.9
--- NOTE | 2024-05-05 13:15 | A.OFFPC_ITS ---
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 Required: No Accompanied by: Self / Same As Patient Allergies NSAIDS (Non-Steroidal Anti-Inflamma [Nsaids] Allergy (Severe, Verified 05/05/24 14:15) blood in stool diazepam [DIAZEPAM] Allergy (Mild, Verified 05/05/24 14:15) RASH fluoxetine [From Prozac] Allergy (Unknown, Verified 05/05/24 14:15) Unknown ibuprofen [From Motrin] Allergy (Unknown, Verified 05/05/24 14:15) UNKNOWN Penicillins Allergy (Unknown, Verified 05/05/24 14:15) UNKNOWN colchicine Allergy (Verified 05/05/24 14:15) Dizziness gabapentin [From NEURONTIN] Adverse Reaction (Severe, Verified 05/05/24 14:15) HALLUCINATIONS, halluciinations morphine [Morphine] Adverse Reaction (Severe, Verified 05/05/24 14:15) DIFFICULTY BREATHING Sulfa (Sulfonamide Antibiotics) [SULFA (SULFONAMIDE ANTIBIOTICS)] Adverse Reaction (Severe, Verified 05/05/24 14:15) DIFF BREATHING Zetia/ezetimibe Allergy (Intermediate, Uncoded 05/05/24 14:15) Rash and Swelling R side of face pregabalin Adverse Reaction (Intermediate, Uncoded 05/05/24 14:15) Hallucinations Medication List - Last Reconciled 05/05/24 by Mitch Haskins MD albuterol sulfate 90 mcg/actuation 2 puffs inhalation Q6H PRN albuterol sulfate 2.5 mg (3 mL) inhalation QID PRN 30 days aspirin 81 mg PO DAILY 90 days atorvastatin 80 mg PO DAILY 90 days baclofen 20 mg PO TID PRN 30 days bupropion HCl XL 150 mg PO QAM 30 days khdszwzutq-ukbuaojpvowln-cwqg 50-325-40 mg 1 tab PO Q6-8H PRN 30 days carvedilol 12.5 mg PO BID NS cholecalciferol (vitamin D3) 50 mcg PO DAILY 90 days codeine-guaifenesin 10-100 mg/5 mL 5 mL PO BID-TID PRN 7 days cyanocobalamin (vitamin B-12) 1,000 mcg IM Q2W duloxetine 30 mg PO DAILY 30 days [ELECTRIC SCOOTER As directed] evolocumab (Repatha Syringe) 140 mg subcut Q2W ezetimibe (Zetia) 10 mg PO DAILY fluticasone furoate 200 mcg/actuation (Arnuity Ellipta) 1 inh inhalation DAILY 30 days folic acid 1 mg PO DAILY 90 days furosemide 20 mg PO QAM PRN 15 days [Handicap Shower Head As directed (with long hose as patient can not stand for a long period of time)] hydroxyzine HCl 25 mg PO TID PRN 30 days incontinence pad, liner, disp (Prevail Pant Liner pads) As directed isosorbide mononitrate ER 30 mg PO DAILY lamotrigine 150 mg PO DAILY lidocaine HCl 2% 1 appl topical BID-QID PRN lidocaine HCl 3% 1 appl topical BID PRN 30 days losartan 25 mg PO DAILY 30 days magnesium 200 mg PO BEDTIME 30 days melatonin 10 mg PO BEDTIME PRN 14 days miscellaneous medical supply as directed; Medical Recliner miscellaneous medical supply as directed; Cane miscellaneous medical supply 1 ea miscellaneous DAILY miscellaneous medical supply 1 ea miscellaneous DAILY nebulizers As directed every 6 hours as needed nystatin-triamcinolone 100,000-0.1 unit/g-% 1 appl topical BID 10 days omeprazole 20 mg PO DAILY 90 days ondansetron HCl 4 mg PO Q12H PRN 7 days oxycodone-acetaminophen 5-325 mg (Percocet) 1 tab PO Q8H PRN potassium chloride ER 20 mEq PO DAILY 90 days prazosin 3 mg PO BEDTIME prednisone 20 mg PO DAILY prednisone 20 mg PO DAILY 5 days prednisone 4 tablets x 2 days, then 3 tablets x 2 days, then 2 tablets x 2 days, then 1 tablet x 2 days 8 days prednisone 4 tablets x 2 days, then 3 tablets x 2 days, then 2 tablets x 2 days, then 1 tablet x 2 days 8 days sertraline 50 mg PO DAILY tizanidine 4 mg PO Q8H PRN 30 days tramadol 50 mg PO QID PRN 21 days Tobacco use date assessed: 05/05/24 Dental Screening Dental Screen Date: 05/05/24 Did you have a dental visit in the last 12 months?: Yes Did you have a dental problem in the last 6 months where you did not have access to dental care?: No Was dental information given to patient?: Patient has dentist HPI HTN and Pain HPI Details 49-year-old [facility]. Her primary care provider is away and I am covering for him. Patient had a fall last week at home. She slipped in the tub in her bathroom. Was able to get up on her own and was evaluated in the emergency room. X-rays were unremarkable. Patient was discharged on oxycodone for a few days. Patient continues to have discomfort on the left side of the hip radiating into the leg. She is able to walk without a limp. No urinary incontinence. [facility] Medical History (Updated 04/30/24 @ 00:01 by Elana Mccall) Essential hypertension Hx of ovarian cancer Anxiety Folate deficiency Vitamin D deficiency STEMI (ST elevation myocardial infarction) Coronary atherosclerosis Depression Hematemesis Crohn's disease Avascular necrosis of right talus Chronic pain syndrome Osteoarthritis of right knee Osteoarthritis of left hip Osteoarthritis of right hip Lumbar radiculopathy, right Disc degeneration, lumbar Bony sclerosis Rash Strain of left trapezius muscle Shoulder pain, left Neck pain Mixed hyperlipidemia Pain and swelling of right ankle Swelling of right knee joint Right knee pain Obesity (BMI 30-39.9) Smoker Migraine GERD (gastroesophageal reflux disease) COPD (chronic obstructive pulmonary disease) Right lumbosacral radiculopathy Lumbar degenerative disc disease Surgical History Hx of foot surgery History of esophagogastroduodenoscopy (EGD) Hx of cardiac cath (~11/01/22) Hx of section History of appendectomy Hx of colonoscopy History of hysterectomy History of cholecystectomy Family History Father Hypertension Rheumatoid arthritis Mother Hypertension Diabetes CVD (cardiovascular disease) Multiple sclerosis Sister Liver disease Maternal Grandmother Colon cancer Maternal Aunt Breast cancer Social History Housing: House Are you a primary manager care management to a significant other at home: No Do you presently have visiting nurse or other home services: No (Children come by to help) Alcohol intake: never Patient Tobacco Use Status: Current everyday Tobacco user Tobacco use type: Cigarette Cigarettes Per Day: 5 Years Smoked: 30 e-Cigarette/Vaping Use: Never Used Second Hand Smoke Exposure: Yes service: No Current occupational status: disabled Cognitive needs: Yes (cane) Hearing needs: No Vision needs: Yes (glasses) Female Reproductive History Menstrual Age of Menarche: 10 Questionnaire PHQ-9 Over the last 2 weeks, how often have you been bothered by any of the following problems? 1. Little interest or pleasure in doing things: more than half the days 2. Feeling down, depressed, or hopeless: nearly every day 3. Trouble falling or staying asleep, or sleeping too much: nearly every day 4. Feeling tired or having little energy: nearly every day 5. Poor appetite or overeating: nearly every day 6. Feeling bad about yourself - or that you are a failure or have let yourself or your family down: more than half the days 7. Trouble concentrating on things, such as reading the newspaper or watching television: more than half the days 8. Moving or speaking so slowly that other people could have noticed. Or the opposite - being so fidgety or restless that you have been moving around a lot more than usual: more than half the days 9. Thoughts that you would be better off or of hurting yourself in some way: not at all Total score: 20 Depression Screening Interpretation: Positive Depression Screening Follow-up: Existing condition and In treatment Depression Screening Done: Yes [id number] - PHQ-9 Billing: Yes Source: Developed by Drs. Adebayo Lizarraga, Alicia Mata, Avel Blancas and colleagues, with an educational rayshawn from [employer]. Thrive Questionnaire Date Thrive assessed: 05/05/24 I am a: Patient What is your living situation today?: I have a steady place to live Within the past 12 months, did the food you bought not last and you didn't have the money to get more?: Never true Within the past 12 months, did you worry whether your food would run out before you got money to buy more?: Never true Do you have trouble paying for medicines?: No Do you have trouble getting transportation to medical appointments?: No Do you have trouble paying your heating and electricity bill?: No Do you have trouble taking care of your child, family member or friend?: No Do you have trouble with day-to-day activities such as bathing, preparing meals, shopping, managing finances, etc.?: No Are you currently unemployed and looking for a job?: No Are you interested in more education?: No Please select the resources that you would like help with: None Currently or been in a relationship where the following occur: No concerns reported THRIVE Score: 0 AUDIT C Alcohol Use Questionnaire (AUDIT-C) 1. How often do you have a drink containing alcohol?: Never 3. How often do you have six or more drinks on one occasion?: Never Total Score: 0 Score Reviewed/Action Taken: Yes CHANELLE-7 AMB Questionnaire CHANELLE-7 Date CHAENLLE - 7 assessed: 05/05/24 Feeling nervous, anxious, or on edge: 0 = Not at all Not being able to stop or control worryin = Not at all Worrying too much about different things: 0 = Not at all Trouble relaxin = Not at all Being so restless that it is hard to sit still: 0 = Not at all Becoming easily annoyed or irritable: 0 = Not at all Feeling afraid as if something awful might happen: 0 = Not at all Total CHANELLE-7 score (0-4 normal; 5-9 mild; 10-14 moderate; 15-21 severe): 0 Source: Developed by Drs. Adebayo Lizarraga, Alicia Mata, Avel Blancas and colleagues, with an educational rayshawn from [employer]. Physical exam (Primary Care) Vital Signs: Last Vital Signs Pulse 96 05/05/24 13:15 BP 166/80 H 05/05/24 13:15 Pulse Ox 98 05/05/24 13:15 Oxygen Delivery Method Room Air 05/05/24 13:15 BMI result Body Mass Index 36.9 Tobacco/Smoking Status: Tobacco use Status Tobacco use date assessed 05/05/24 05/05/24 13:27 Patient Tobacco Use Status Current everyday Tobacco 05/05/24 13:27 Tobacco use type Cigarette 05/05/24 13:27 e-Cigarette/Vaping Use Never Used 05/05/24 13:27 PHQ-9: PHQ-9 Score PHQ-9: Total score 20 05/05/24 13:27 Depression Screening Interpretation: Positive Depression Screening Follow-up: Existing condition and In treatment Thrive Assessment: Date of Thrive Assessment Date Thrive assessed 05/05/24 05/05/24 13:27 Currently or been in a relationship where the following occur: No concerns reported Back/Spine/Pelvis Other: No paraspinal spasm or tenderness. Right and left hip: Full internal and external rotation. Assessment and Plan Assessment & Plan (1) Lumbar degenerative disc disease: Code(s): M51.36 - Other intervertebral disc degeneration, lumbar region Plan: ER note reviewed. Patient is taking tramadol and her prescription was recently filled. No extra pain medications are needed. Patient was reassured that symptoms should subside soon. Coding Level of Care Code Est Pt Level 3 (18567) Complex EM visit Add On G2211 Diagnoses Lumbar degenerative disc disease M51.36
== END 2024-05-05 15:45 | disposition home or self-care (01) ==
PROVIDERS: PCP Internal Medicine; Visit Provider Internal Medicine
DX: M51.36 Other intervertebral disc degeneration, lumbar region (principal)
CPT/HCPCS: 99213; G2211

== ENCOUNTER 2024-05-19 12:28 | Outpatient (REF) | payer OTHER, SELFPAY ==
[2024-05-19 12:38] LABS: MANUAL DIFF FLAG NO
[2024-05-19 13:38] LABS: Basophils Absolute Auto 0.1 X10*3/uL (0.0-0.2); Basophils Percent Auto 0.5 % (0-2); Eosinophils Absolute Auto 0.3 X10*3/uL (0.0-0.4); Eosinophils Percent Auto 2.7 % (0-4); Hematocrit 39.4 % (37.0-47.0); Hemoglobin 13.4 g/dl (12.0-16.0); Imm Gran Abs Auto 0.04 X10*3/uL (0.00-0.03); Imm Gran Pct Auto 0.4 % (0.0-0.4); Lymphocytes Absolute Auto 3.8 X10*3/uL (1.2-4.9); Lymphocytes Percent Auto 36.7 % (20-40); Mean Corpuscular Hemoglobin 31.1 pg (27.0-33.0); Mean Corpuscular Volume 91.4 fL (80.0-98.0); Mean Platelet Volume 10.8 fL (9.4-12.3); Monocytes Absolute Auto 0.6 X10*3/uL (0.1-1.2); Monocytes Percent Auto 5.6 % (2-11); Neutrophils Absolute Auto 5.5 x10*3/uL (2.0-8.3); Neutrophils Percent Auto 54.1 % (45-73); Platelet Count 362 X10*3/uL (160-400); Red Blood Count 4.31 X10*6/uL (4.20-5.50); Red Cell Distribution Width 13.2 % (11.0-16.0); White Blood Count 10.2 X10*3/uL (4.8-10.8)
[2024-05-19 14:04] LABS: Alanine Aminotransferase 26 U/L (0-31); Alkaline Phosphatase 147 U/L (39-117); Anion Gap 14 (12-20); Aspartate Amino Transferase 21 U/L (5-31); Bilirubin Total 0.2 mg/dL (0.0-1.0); Blood Urea Nitrogen 13 mg/dL (9-16); Calcium 10.2 mg/dL (8.4-10.2); Carbon Dioxide 25 mmol/L (22-29); Chloride 108 mmol/L (96-108); Cholesterol 128 mg/dL (<200); Estimated Glomerular Filt Rate > 60; Glucose Fasting 90 mg/dL (60-99); HDL Cholesterol 32 mg/dL (>40); LDL Cholesterol Calculated 28 mg/dL (<100); Potassium 4.2 mmol/L (3.3-5.1); Sodium 143 mmol/L (135-145); Total Protein 6.9 g/dL (6.5-8.0); Triglycerides 342 mg/dL (<150)
[2024-05-19 14:22] LABS: Appearance Urine Clear; Color Urine Yellow; Glucose Urine UA Negative (Negative); Leukocyte Esterase Urine Negative (Negative); Nitrite Urine Negative (Negative); PH 5.5 (5.0-9.0); Specific Gravity - Urine 1.025 (1.005-1.025); TSH reflex Free T4 2.51 uIU/mL (0.32-4.0); Urine Blood Negative (Negative); Urine Ketones Negative (Negative); Urine Protein Negative (Neg-Trace); Vitamin D 25-OH Total 38.9 ng/mL (>30)
[2024-05-19 14:28] LABS: Folate 8.9 ng/mL (> or = 4.0); Vitamin B12 269 pg/mL (200-900)
== END 2024-05-19 12:29 | disposition home or self-care (01) ==
LOC: HO.LAB 12:28
PROVIDERS: PCP Internal Medicine; Visit Provider Internal Medicine
DX: D64.9 Anemia, unspecified (principal); E78.00 Pure hypercholesterolemia, unspecified; M25.50 Pain in unspecified joint; R30.0 Dysuria; G62.9 Polyneuropathy, unspecified; E55.9 Vitamin D deficiency, unspecified
CPT/HCPCS: 36415; 80053; 80061; 81003; 82306; 82607; 82746; 84443; 85025

== ENCOUNTER 2024-05-19 13:46 | Outpatient (AMB) | payer OTHER, SELFPAY ==
--- NOTE | 2024-05-19 14:57 | MHC.PC.OV ---
Vital Signs 05/19/24 15:13 Height 5 ft 3 in Weight 210 lb BMI 37.2 BP 152/90 H Blood Pressure Location Lt brachial Position Sitting Pulse 102 H Pulse Source Pulse Oximeter Pulse Oximetry (%) 96 Oxygen Delivery Method Room Air Intake Visit Reasons: 4 month f/u Mid Level Clinician Required: No Accompanied by: Self / Same As Patient Allergies NSAIDS (Non-Steroidal Anti-Inflamma [Nsaids] Allergy (Severe, Verified 05/19/24 15:56) blood in stool diazepam [DIAZEPAM] Allergy (Mild, Verified 05/19/24 15:56) RASH fluoxetine [From Prozac] Allergy (Unknown, Verified 05/19/24 15:56) Unknown ibuprofen [From Motrin] Allergy (Unknown, Verified 05/19/24 15:56) UNKNOWN Penicillins Allergy (Unknown, Verified 05/19/24 15:56) UNKNOWN colchicine Allergy (Verified 05/19/24 15:56) Dizziness gabapentin [From NEURONTIN] Adverse Reaction (Severe, Verified 05/19/24 15:56) HALLUCINATIONS, halluciinations morphine [Morphine] Adverse Reaction (Severe, Verified 05/19/24 15:56) DIFFICULTY BREATHING Sulfa (Sulfonamide Antibiotics) [SULFA (SULFONAMIDE ANTIBIOTICS)] Adverse Reaction (Severe, Verified 05/19/24 15:56) DIFF BREATHING Zetia/ezetimibe Allergy (Intermediate, Uncoded 05/19/24 15:56) Rash and Swelling R side of face pregabalin Adverse Reaction (Intermediate, Uncoded 05/19/24 15:56) Hallucinations Medication List - Last Reconciled 05/19/24 by Ambrose Feliciano MD albuterol sulfate 90 mcg/actuation 2 puffs inhalation Q6H PRN albuterol sulfate 2.5 mg (3 mL) inhalation QID PRN 30 days aspirin 81 mg PO DAILY 90 days atorvastatin 80 mg PO DAILY 90 days baclofen 20 mg PO TID PRN 30 days bupropion HCl XL 150 mg PO QAM 30 days hztjeimvci-xconmiumxtaiv-icww 50-325-40 mg 1 tab PO Q6-8H PRN 30 days carvedilol 12.5 mg PO BID NS cholecalciferol (vitamin D3) 50 mcg PO DAILY 90 days codeine-guaifenesin 10-100 mg/5 mL 5 mL PO BID-TID PRN 7 days cyanocobalamin (vitamin B-12) 1,000 mcg IM Q2W duloxetine 30 mg PO DAILY 30 days [ELECTRIC SCOOTER As directed] evolocumab (Repatha Syringe) 140 mg subcut Q2W ezetimibe (Zetia) 10 mg PO DAILY fluticasone furoate 200 mcg/actuation (Arnuity Ellipta) 1 inh inhalation DAILY 30 days folic acid 1 mg PO DAILY 90 days furosemide 20 mg PO QAM PRN 15 days [Handicap Shower Head As directed (with long hose as patient can not stand for a long period of time)] hydroxyzine HCl 25 mg PO TID PRN 30 days incontinence pad, liner, disp (Prevail Pant Liner pads) As directed isosorbide mononitrate ER 30 mg PO DAILY lamotrigine 150 mg PO DAILY lidocaine HCl 2% 1 appl topical BID-QID PRN lidocaine HCl 3% 1 appl topical BID PRN 30 days losartan 25 mg PO DAILY 30 days magnesium 200 mg PO BEDTIME 30 days melatonin 10 mg PO BEDTIME PRN 14 days miscellaneous medical supply as directed; Medical Recliner miscellaneous medical supply as directed; Cane miscellaneous medical supply 1 ea miscellaneous DAILY miscellaneous medical supply 1 ea miscellaneous DAILY nebulizers As directed every 6 hours as needed nystatin-triamcinolone 100,000-0.1 unit/g-% 1 appl topical BID 10 days omeprazole 20 mg PO DAILY 90 days ondansetron HCl 4 mg PO Q12H PRN 7 days oxycodone-acetaminophen 5-325 mg (Percocet) 1 tab PO Q8H PRN potassium chloride ER 20 mEq PO DAILY 90 days prazosin 3 mg PO BEDTIME prednisone 20 mg PO DAILY prednisone 20 mg PO DAILY 5 days prednisone 4 tablets x 2 days, then 3 tablets x 2 days, then 2 tablets x 2 days, then 1 tablet x 2 days 8 days prednisone 4 tablets x 2 days, then 3 tablets x 2 days, then 2 tablets x 2 days, then 1 tablet x 2 days 8 days sertraline 50 mg PO DAILY tizanidine 4 mg PO Q8H PRN 30 days tramadol 50 mg PO QID PRN 21 days Tobacco use date assessed: 05/19/24 Dental Screening Dental Screen Date: 05/19/24 Did you have a dental visit in the last 12 months?: No Did you have a dental problem in the last 6 months where you did not have access to dental care?: No Was dental information given to patient?: No HPI 4 month f/u HPI Details Patient comes in today for her follow up visit States that she has been experiencing significantly increased pain over her lower back ever since she fell in her bathtub about a week ago when her right knee gave out on her States that none of her current meds have helped with the pain so far and she is requesting for something stronger to help give her some relief for just a few days She is also still experiencing recurrent chest congestion and on and off coughing that seem to be relieved for a while with oral Prednisone - states that she just finished her last course of oral Prednisone taper less than 2 weeks ago She is scheduled to see pulmonary at [facility] for initial consultation She denies any fever, headaches or dizziness Denies any chest pains No nausea/vomiting, no abdominal pain No change in bowel habits noted She had her follow up labs done earlier today - to discuss her results [facility] Medical History Essential hypertension Hx of ovarian cancer Anxiety Folate deficiency Vitamin D deficiency STEMI (ST elevation myocardial infarction) Coronary atherosclerosis Depression Hematemesis Crohn's disease Avascular necrosis of right talus Chronic pain syndrome Osteoarthritis of right knee Osteoarthritis of left hip Osteoarthritis of right hip Lumbar radiculopathy, right Disc degeneration, lumbar Bony sclerosis Rash Strain of left trapezius muscle Shoulder pain, left Neck pain Mixed hyperlipidemia Pain and swelling of right ankle Swelling of right knee joint Right knee pain Obesity (BMI 30-39.9) Smoker Migraine GERD (gastroesophageal reflux disease) COPD (chronic obstructive pulmonary disease) Right lumbosacral radiculopathy Lumbar degenerative disc disease Surgical History Hx of foot surgery History of esophagogastroduodenoscopy (EGD) Hx of cardiac cath (~11/01/22) Hx of section History of appendectomy Hx of colonoscopy History of hysterectomy History of cholecystectomy Family History Father Hypertension Rheumatoid arthritis Mother Hypertension Diabetes CVD (cardiovascular disease) Multiple sclerosis Sister Liver disease Maternal Grandmother Colon cancer Maternal Aunt Breast cancer Social History Housing: House Are you a primary career placement services counselor to a significant other at home: No Do you presently have visiting nurse or other home services: No (Children come by to help) Alcohol intake: never Patient Tobacco Use Status: Current everyday Tobacco user Tobacco use type: Cigarette Cigarettes Per Day: 5 Years Smoked: 30 e-Cigarette/Vaping Use: Never Used Second Hand Smoke Exposure: Yes service: No Current occupational status: disabled Cognitive needs: Yes (cane) Hearing needs: No Vision needs: Yes (glasses) Female Reproductive History Menstrual Age of Menarche: 10 Questionnaire PHQ-9 Over the last 2 weeks, how often have you been bothered by any of the following problems? 1. Little interest or pleasure in doing things: more than half the days 2. Feeling down, depressed, or hopeless: nearly every day 3. Trouble falling or staying asleep, or sleeping too much: nearly every day 4. Feeling tired or having little energy: nearly every day 5. Poor appetite or overeating: nearly every day 6. Feeling bad about yourself - or that you are a failure or have let yourself or your family down: more than half the days 7. Trouble concentrating on things, such as reading the newspaper or watching television: more than half the days 8. Moving or speaking so slowly that other people could have noticed. Or the opposite - being so fidgety or restless that you have been moving around a lot more than usual: more than half the days 9. Thoughts that you would be better off or of hurting yourself in some way: not at all Total score: 20 Depression Screening Interpretation: Positive Depression Screening Follow-up: Existing condition and In treatment Depression Screening Done: Yes 86108 - PHQ-9 Billing: Yes Source: Developed by Drs. Adebayo Lizarraga, Alicia Mata, Avel Blancas and colleagues, with an educational rayshawn from [employer]. Thrive Questionnaire Date Thrive assessed: 05/19/24 I am a: Patient What is your living situation today?: I have a steady place to live Within the past 12 months, did the food you bought not last and you didn't have the money to get more?: Never true Within the past 12 months, did you worry whether your food would run out before you got money to buy more?: Never true Do you have trouble paying for medicines?: No Do you have trouble getting transportation to medical appointments?: No Do you have trouble paying your heating and electricity bill?: No Do you have trouble taking care of your child, family member or friend?: No Do you have trouble with day-to-day activities such as bathing, preparing meals, shopping, managing finances, etc.?: No Are you currently unemployed and looking for a job?: No Are you interested in more education?: No Please select the resources that you would like help with: None Currently or been in a relationship where the following occur: No concerns reported THRIVE Score: 0 AUDIT C Alcohol Use Questionnaire (AUDIT-C) 1. How often do you have a drink containing alcohol?: Never 3. How often do you have six or more drinks on one occasion?: Never Total Score: 0 Score Reviewed/Action Taken: Yes CHANELLE-7 AMB Questionnaire CHANELLE-7 Date CHANELLE - 7 assessed: 05/19/24 Feeling nervous, anxious, or on edge: 0 = Not at all Not being able to stop or control worryin = Not at all Worrying too much about different things: 0 = Not at all Trouble relaxin = Not at all Being so restless that it is hard to sit still: 0 = Not at all Becoming easily annoyed or irritable: 0 = Not at all Feeling afraid as if something awful might happen: 0 = Not at all Total CHANELLE-7 score (0-4 normal; 5-9 mild; 10-14 moderate; 15-21 severe): 0 Source: Developed by Drs. Adebayo Lizarraga, Alicia Mata, Avel Blancas and colleagues, with an educational rayshawn from [employer]. Review of Systems Const Denies chills, Reports fatigue, Denies fever(s) and Denies headache(s) ENT Denies dysphagia, Denies dizziness, Denies otalgia, Denies headache(s), Denies neck pain, Denies odynophagia and Denies sore throat Card Denies chest pain, Denies rapid heart rate, Denies irregular heart rhythm, Denies palpitations and Reports dyspnea on exertion (mild) Resp Reports chest congestion (on and off), Reports cough (on and off), Reports dyspnea on exertion (mild) and Denies wheezing GI Denies abdominal pain, Denies constipation, Denies dysphagia, Denies heartburn, Denies diarrhea, Denies nausea, Denies odynophagia and Denies vomiting Denies urinary frequency, Denies dysuria, Denies urinary incontinence and Denies urinary urgency Musc Reports back pain (chronic - increased since she fell a week ago), Reports myalgias (diffuse, frequent), Reports arthralgias (involving multiple joints, including the right knee and right ankle), Denies joint swelling and Denies neck pain Skin/Breast Denies rash Neuro Denies dizziness, Denies headache(s) and Reports paresthesias (of both hands and feet, increasing lately - see HPI) Psych Denies anxiety and Reports depression Endo Reports fatigue and Denies palpitations Han/Lymph Details: hands and feet feel swollen at times Denies easy bruising Aller/Immun Denies wheezing Physical exam (Primary Care) Vital Signs: Last Vital Signs Pulse 102 H 05/19/24 15:13 BP 152/90 H 05/19/24 15:13 Pulse Ox 96 05/19/24 15:13 Oxygen Delivery Method Room Air 05/19/24 15:13 BMI result Body Mass Index 37.2 Tobacco/Smoking Status: Tobacco use Status Tobacco use date assessed 05/19/24 05/19/24 15:32 Patient Tobacco Use Status Current everyday Tobacco 05/19/24 14:59 Tobacco use type Cigarette 05/19/24 14:59 e-Cigarette/Vaping Use Never Used 05/19/24 14:59 PHQ-9: PHQ-9 Score PHQ-9: Total score 20 05/21/24 03:22 Depression Screening Interpretation: Positive Depression Screening Follow-up: Existing condition and In treatment Thrive Assessment: Date of Thrive Assessment Date Thrive assessed 05/19/24 05/19/24 15:32 Currently or been in a relationship where the following occur: No concerns reported Const General: no acute distress and alert HENMT Ears: TM's normal bilaterally and EAC's normal Throat: Yes posterior oropharynx normal and Yes tonsils normal (no TP congestion) Neck Neck: Yes no lymphadenopathy and Yes supple Thyroid: Thyroid normal Resp Auscultation: no crackles, no rales, rhonchi (occasional) throughout, no wheezes and diminished lung sounds bilateral Cardio Rate: regular rate Rhythm: regular rhythm Heart sounds: no murmurs GI Palpation (GI): Soft to palpation and nontender Auscultation: normal bowel sounds General: Yes no CVA tenderness Back/Spine/Pelvis Back: no CVA tenderness Cervical Spine: Cervical spine tenderness Thoracic/Lumbar Spine: paraspinal muscle tenderness bilaterally in the mid lumbar and in the lower lumbar and lumbar spinal tenderness Skin Rashes: no rashes Extrem General: Yes no clubbing, cyanosis or edema Right lower extremity: knee Details: tenderness; no swelling, ankle Details: tenderness; no swelling and foot Details: tenderness Location: of the dorsal foot and edema (mild) Location: of the dorsal foot Results Reviewed Results Reviewed: Laboratory Tests 05/19/24 12:36 WBC 10.2 Hgb 13.4 Hct 39.4 Plt Count 362 Sodium 143 Potassium 4.2 Creatinine 0.77 Estimated GFR > 60 Fasting Glucose 90 Calcium 10.2 AST 21 ALT 26 Triglycerides 342 H Cholesterol 128 LDL Cholesterol, Calc 28 HDL Cholesterol 32 L Vitamin B12 269 25-OH Vitamin D Total 38.9 TSH 2.51 Ur Specific [place] 1.025 Urine Protein Negative Urine Glucose (UA) Negative Urine Blood Negative Urine Nitrite Negative Ur Leukocyte Esterase Negative Assessment and Plan Assessment & Plan (1) COPD (chronic obstructive pulmonary disease): Code(s): J44.9 - Chronic obstructive pulmonary disease, unspecified Qualifiers: COPD type: emphysema Emphysema type: unspecified Qualified Code(s): J43.9 - Emphysema, unspecified Plan: Have advised patient that based on how her lungs sound on exam today, her COPD is still not adequately controlled on her current Rx She was supposed to be on BOTH Spiriva Handihaler 18 mcg capsule QD and Breo Ellipta 200-25 mcg 1 inhalation QD for maintenance Tx of her COPD but her insurance reportedly declined to continue covering her Rx We started her on Arnuity Ellipta 200 mcg 1 inhalation QD at her last visit and she states that she has been using it regularly - it appears that this is not effective enough for her Will try switching her from Arnuity to Trelegy 200-62.5-25 mcg 1 inhalation QD Continue Albuterol HFA 2 puffs 4 times a day as needed or her Albuterol updraft solution PRN for more severe symptoms She used to see pulmonary but has not followed up with them since 2021 and was advised that she needs to see them ENRIQUE - she is now scheduled to be seen by [facility] next month (June 2024) (2) Coronary atherosclerosis: Code(s): I25.10 - Atherosclerotic heart disease of [place] coronary artery without angina pectoris Qualifiers: Associated angina: with stable angina Coronary Disease-Associated Artery/Lesion type: [place] artery [place] vs. transplanted heart: [place] heart Qualified Code(s): I25.118 - Atherosclerotic heart disease of [place] coronary artery with other forms of angina pectoris Plan: S/P cardiac cath and PCI to the mid LAD in October 2022 - had CARA x1 and kissing balloon angioplasty to the bifurcating lesion Continue Aspirin 81 mg QD - will need lifelong antiplatelet therapy S/P Brilinta 90 mg BID x 1 year - this was discontinued by cardiology when she was last seen in March 2024 Continue aggressive risk reduction with strict BP control and cholesterol reduction Follow up with cardiology as scheduled (3) STEMI (ST elevation myocardial infarction): Code(s): I21.3 - ST elevation (STEMI) myocardial infarction of unspecified site Qualifiers: Involved coronary artery: unspecified coronary artery Qualified Code(s): I21.3 - ST elevation (STEMI) myocardial infarction of unspecified site Plan: S/P STEMI post cath and required a second CARA to remove the occlusion in the ostial diagonal, which was thought to be due to dissection from her prior PCI Continue Carvedilol 6.25 mg BID and Aspirin 81 mg QD; S/P Brilinta x 1 year (Rx was discontinued in March 2024 by cardiology) Follow up with cardiology as scheduled (4) Mixed hyperlipidemia: Code(s): E78.2 - Mixed hyperlipidemia Plan: Results of her labs done earlier today reviewed and discussed with patient - her cholesterol levels have improved significantly from previous Reinforced low cholesterol diet Continue Atorvastatin 80 mg QD and Repatha 140 mg SQ Q 2 weeks; Ezetimibe and Fenofibrate were both discontinued when Repatha was started by cardiology Will have patient recheck her labs and fasting lipids in 4 months for follow up (5) Essential hypertension: Code(s): I10 - Essential (primary) hypertension Plan: She is advised that her blood pressure is still high today - goal is systolic BP of 120 mm or less given her comorbidities Reinforced low sodium diet Continue Losartan 25 mg QD and Carvedilol 12.5 mg BID (6) Chronic pain of right ankle: Code(s): M25.571 - Pain in right ankle and joints of right foot; G89.29 - Other chronic pain Plan: Orthopedics suspected that patient may have AVN of her ankle - right ankle MRI done in January 2022 revealed mild tibiotalar osteoarthritis, with (+) anterior marginal osteophytes as well as an anterior unfused osteophyte versus ossified loose body measuring up to 1.2 cm in ML dimension; small tibiotalar joint effusion; minimal posterior tibialis and flexor digitorum tenosynovitis but no tendon tear although there is some medial subcutaneous edema seen Patient has reportedly been advised that they can only perform corrective surgery on her ankle when she is cleared by Cardiology and she is OFF Brilinta for at least 90 days Continue Duloxetine 30 mg QD and Tramadol 50 mg QID PRN for pain Follow-up with orthopedics as scheduled (7) Osteoarthritis of right knee: Comment: Right knee MRI done on 09/18/2020 showed: 1. Intact menisci. 2. Intact cruciate and collateral ligaments. 3. Preserved tricompartmental articular cartilage. 4. Small joint effusion Code(s): M17.11 - Unilateral primary osteoarthritis, right knee Qualifiers: Osteoarthritis type: unspecified Qualified Code(s): M17.11 - Unilateral primary osteoarthritis, right knee Plan: She was seen previously by [facility] and advised that her knee OA is mild with no other intervention recommended at the time Per request, was referred to orthopedics in [place] for a second opinion and she is now following up with [facility] for her knee issues (8) Lumbar degenerative disc disease: Code(s): M51.36 - Other intervertebral disc degeneration, lumbar region Plan: Reinforced activity and weight-lifting restrictions She reports experiencing significantly increased low back pain since her fall in her bathtub about a week ago, and that her current meds have not helped much Will agree to give her Rx for a few Percocet 5-325 mg to take BID-TID PRN at this time but only as needed for severe pain Continue Duloxetine 30 mg QD and Tramadol 50 mg QID PRN for pain Follow up with pain management as scheduled (9) Neuropathy: Code(s): G62.9 - Polyneuropathy, unspecified Plan: She has been advised that her hand and feet symptoms appear to be neuropathic symptoms Patient relates that she was diagnosed with neuropathy a few years ago and had a nerve test done but could not recall exactly when and where it was done Have discussed with her that if she does have neuropathy and her symptoms are progressing, there may not be much else we can do as she was unable to tolerate Gabapentin and Pregabalin when we trialed her on these medications in the past She has been referred to and is scheduled to be seen by neurology in December 2023, and have advised that neurology will likely repeat EMG and NCV on her for further evaluation - so far we have not received any report from neurology at this time (10) Migraine: Code(s): G43.909 - Migraine, unspecified, not intractable, without status migrainosus Qualifiers: Intractability: not intractable Migraine type: unspecified Status migrainosus presence: without status migrainosus Qualified Code(s): G43.909 - Migraine, unspecified, not intractable, without status migrainosus Plan: Stable lately - continue Fioricet 3 to 4 times a day as needed for headaches (11) Vitamin D deficiency: Code(s): E55.9 - Vitamin D deficiency, unspecified Plan: Continue Vitamin D3 2000 units QD (12) Crohn's disease: Code(s): K50.90 - Crohn's disease, unspecified, without complications Qualifiers: Digestive disease complication type: unspecified complication Gastrointestinal tract location: unspecified location Qualified Code(s): K50.919 - Crohn's disease, unspecified, with unspecified complications Plan: States thar she has had no recent GI flare ups Follow up with GI as scheduled (13) GERD (gastroesophageal reflux disease): Code(s): K21.9 - Gastro-esophageal reflux disease without esophagitis Qualifiers: Esophagitis presence: without esophagitis Qualified Code(s): K21.9 - Gastro-esophageal reflux disease without esophagitis Plan: Dietary restrictions reinforced Continue Omeprazole 20 mg QD Follow up with GI as scheduled (14) Anxiety: Code(s): F41.9 - Anxiety disorder, unspecified Plan: Continue Bupropion 150 mg Q AM, Sertraline 50 mg QD and Hydroxyzine 25 mg TID PRN Continue Prazosin 3 mg Q HS (15) Depression: Code(s): F32.A - Depression, unspecified Qualifiers: Active/Remission status: currently active Depression Type: major depressive disorder Major depression episode severity: unspecified Major depression recurrence: recurrent Qualified Code(s): F33.9 - Major depressive disorder, recurrent, unspecified Plan: Continue Sertraline 50 mg QD, Bupropion 150 mg Q AM, Lamictal 150 mg QD and Duloxetine 30 mg QD Follow up with psychiatry as scheduled (16) Smoker: Code(s): F17.200 - Nicotine dependence, unspecified, uncomplicated Plan: Counseled again on complete smoking cessation, especially with her Hx of coronary disease - states that she is continuing to work on this (17) Obesity (BMI 30-39.9): Code(s): E66.9 - Obesity, unspecified Plan: Reinforced diet; exercise is currently not an option due to her chronic ankle and knee and joint issues Plan Follow up in 4 months Orders: Orders Comprehensive [place]. Panel Fast 4 Months E78.00 - Pure hypercholesterolemia, unspecified Lipid Panel 4 Months E78.00 - Pure hypercholesterolemia, unspecified Complete Blood Count Auto Diff 4 Months D64.9 - Anemia, unspecified Medications: New vtyucxjjqph-tkfmvutzc-cgkdeesq 200-62.5-25 mcg (Trelegy Ellipta) 1 inh inhalation DAILY 60 ea 3RF J43.9 - Emphysema, unspecified Changed From oxycodone-acetaminophen 5-325 mg (Percocet) Partial Fill upon patient request. 1 tab PO Q8H PRN 6 tabs 0RF severe pain (scale score 7-10) To oxycodone-acetaminophen 5-325 mg (Percocet) Take only as needed for severe pain 1 tab PO Q8H 21 tabs 0RF severe pain (scale score 7-10) 7 days Coding Level of Care Code Est Pt Level 4 (91365) Diagnoses Pulmonary emphysema, unspecified emphysema type J43.9 COPD type: emphysema Emphysema type: unspecified Atherosclerosis of [place] coronary artery of [place] heart with stable angina pectoris I25.118 Associated angina: with stable angina Coronary Disease-Associated Artery/Lesion type: [place] artery [place] vs. transplanted heart: [place] heart ST elevation myocardial infarction (STEMI), unspecified artery I21.3 Involved coronary artery: unspecified coronary artery Mixed hyperlipidemia E78.2 Essential hypertension I10 Chronic pain of right ankle M25.571; G89.29 Osteoarthritis of right knee, unspecified osteoarthritis type M17.11 Osteoarthritis type: unspecified Lumbar degenerative disc disease M51.36 Neuropathy G62.9 Migraine without status migrainosus, not intractable, unspecified migraine type G43.909 Intractability: not intractable Migraine type: unspecified Status migrainosus presence: without status migrainosus Vitamin D deficiency E55.9 Crohn's disease with complication, unspecified gastrointestinal tract location K50.919 Digestive disease complication type: unspecified complication Gastrointestinal tract location: unspecified location Gastroesophageal reflux disease without esophagitis K21.9 Esophagitis presence: without esophagitis Anxiety F41.9 Episode of recurrent major depressive disorder, unspecified depression episode severity F33.9 Active/Remission status: currently active Depression Type: major depressive disorder Major depression episode severity: unspecified Major depression recurrence: recurrent Smoker F17.200 Obesity (BMI 30-39.9) E66.9
[2024-05-19 15:13] VITALS: BP 152/90; PULSE 102; O2SAT 96; BMI 37.2
== END 2024-05-19 16:20 | disposition home or self-care (01) ==
PROVIDERS: PCP Internal Medicine; Visit Provider Internal Medicine
DX: J43.9 Emphysema, unspecified (principal); I25.118 Atherosclerotic heart disease of native coronary artery with other forms of angina pectoris; F33.9 Major depressive disorder, recurrent, unspecified; K50.919 Crohn's disease, unspecified, with unspecified complications; I25.2 Old myocardial infarction; E78.2 Mixed hyperlipidemia; I10 Essential (primary) hypertension; M25.571 Pain in right ankle and joints of right foot; G89.29 Other chronic pain; M17.11 Unilateral primary osteoarthritis, right knee; M51.36 Other intervertebral disc degeneration, lumbar region; G62.9 Polyneuropathy, unspecified
CPT/HCPCS: 99214

== ENCOUNTER → 2024-06-03 14:24 | Outpatient (BNVA) | payer OTHER, SELFPAY | PROVIDERS: PCP Internal Medicine ==

== ENCOUNTER 2024-08-31 12:45 | Outpatient (AMB) | payer OTHER, SELFPAY ==
[2024-08-31 12:47] VITALS: BP 126/82; PULSE 90; O2SAT 96; BMI 37.4
--- NOTE | 2024-08-31 12:47 | MHC.PC.OV ---
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 Accompanied by: Self / Same As Patient Allergies NSAIDS (Non-Steroidal Anti-Inflamma [Nsaids] Allergy (Severe, Verified 09/05/24 20:19) blood in stool diazepam [DIAZEPAM] Allergy (Mild, Verified 09/05/24 20:19) RASH fluoxetine [From Prozac] Allergy (Unknown, Verified 09/05/24 20:19) Unknown ibuprofen [From Motrin] Allergy (Unknown, Verified 09/05/24 20:19) UNKNOWN Penicillins Allergy (Unknown, Verified 09/05/24 20:19) UNKNOWN colchicine Allergy (Verified 09/05/24 20:19) Dizziness gabapentin [From NEURONTIN] Adverse Reaction (Severe, Verified 09/05/24 20:19) HALLUCINATIONS, halluciinations morphine [Morphine] Adverse Reaction (Severe, Verified 09/05/24 20:19) DIFFICULTY BREATHING Sulfa (Sulfonamide Antibiotics) [SULFA (SULFONAMIDE ANTIBIOTICS)] Adverse Reaction (Severe, Verified 09/05/24 20:19) DIFF BREATHING Zetia/ezetimibe Allergy (Intermediate, Uncoded 09/05/24 20:19) Rash and Swelling R side of face pregabalin Adverse Reaction (Intermediate, Uncoded 09/05/24 20:19) Hallucinations Medication List - Last Reconciled 09/05/24 by Ambrose Feliciano MD albuterol sulfate 2.5 mg (3 mL) inhalation QID PRN 30 days albuterol sulfate 90 mcg/actuation 2 puffs inhalation Q6H PRN aspirin 81 mg PO DAILY 90 days atorvastatin 80 mg PO DAILY 90 days baclofen 20 mg PO TID PRN 30 days bupropion HCl XL 150 mg PO QAM 30 days lykttzhrlv-kqhjgdajimlbn-qlht 50-325-40 mg 1 tab PO Q6-8H PRN 30 days carvedilol 12.5 mg PO BID NS cholecalciferol (vitamin D3) 50 mcg PO DAILY 90 days codeine-guaifenesin 10-100 mg/5 mL 5 mL PO BID-TID PRN 7 days cyanocobalamin (vitamin B-12) 1,000 mcg IM Q2W duloxetine 30 mg PO DAILY 30 days [ELECTRIC SCOOTER As directed] evolocumab (Repatha Syringe) 140 mg subcut Q2W ezetimibe (Zetia) 10 mg PO DAILY fluticasone furoate 200 mcg/actuation (Arnuity Ellipta) 1 inh inhalation DAILY 30 days feimpwmfxtg-mxmwwgguj-hqzrdrfr 200-62.5-25 mcg (Trelegy Ellipta) 1 inh inhalation DAILY folic acid 1 mg PO DAILY 90 days furosemide 20 mg PO QAM PRN 15 days [Handicap Shower Head As directed (with long hose as patient can not stand for a long period of time)] hydroxyzine HCl 25 mg PO TID PRN 30 days incontinence pad, liner, disp (Prevail Pant Liner pads) As directed isosorbide mononitrate ER 30 mg PO DAILY lamotrigine 150 mg PO DAILY lidocaine HCl 2% 1 appl topical BID-QID PRN lidocaine HCl 3% 1 appl topical BID PRN 30 days losartan 25 mg PO DAILY 30 days magnesium 200 mg PO BEDTIME 30 days melatonin 10 mg PO BEDTIME PRN 14 days miscellaneous medical supply as directed; Medical Recliner miscellaneous medical supply as directed; Dustin miscellaneous medical supply 1 ea miscellaneous DAILY miscellaneous medical supply 1 ea miscellaneous DAILY nebulizers As directed every 6 hours as needed nystatin-triamcinolone 100,000-0.1 unit/g-% 1 appl topical BID 10 days omeprazole 20 mg PO DAILY 90 days ondansetron HCl 4 mg PO Q12H PRN 7 days oxycodone-acetaminophen 10-325 mg 1 tab PO Q8H PRN 7 days potassium chloride ER 20 mEq PO DAILY 90 days prazosin 3 mg PO BEDTIME prednisone 20 mg PO DAILY prednisone 20 mg PO DAILY 5 days prednisone 4 tablets x 2 days, then 3 tablets x 2 days, then 2 tablets x 2 days, then 1 tablet x 2 days 8 days prednisone 4 tablets x 2 days, then 3 tablets x 2 days, then 2 tablets x 2 days, then 1 tablet x 2 days 8 days sertraline 50 mg PO DAILY tizanidine 4 mg PO Q8H PRN 30 days tramadol 50 mg PO QID PRN 21 days Tobacco use date assessed: 08/31/24 Dental Screening Dental Screen Date: 08/31/24 Did you have a dental visit in the last 12 months?: Yes Did you have a dental problem in the last 6 months where you did not have access to dental care?: No Was dental information given to patient?: Patient has dentist HPI concerns in regards to surgery HPI Details Patient comes in today for her follow-up visit She will reportedly be undergoing robotic removal of the left ovary and MRV and vulvar colposcopy; there were also reportedly concerns for vulvar dysplasia and she is going to undergo wide local excision of multiple lesions as well once she is cleared by both Pulmonary and Cardiology Patient states that she has an appointment with [facility] tomorrow and Cardiology appointment with Dr. Francois next month in September 2024 She did have a cardiac catheterization done last October 2023 due to STEMI and require PCI/ stenting States that she has been doing well since with no acute cardiac issues Patient also states that she has a hernia that may require surgical correction and was supposedly advised of the possibility of a mass or other lesion on her colon - these will all supposedly be evaluated further when she undergoes surgery soon She is concerned about her pain management going forward, and is worried that her current medication will not be enough to cover her pain when she undergo surgery and in the immediate postop period She denies any fever, headaches or dizziness Denies any chest pains, no increased shortness of breath No nausea/vomiting, she continues to complain of persistent LLQ abdominal pain that appear to be related to the aforementioned issues that she will be going for surgery for No change in bowel habits noted COUNT INCLUDES THE [facility] Medical History (Updated 09/05/24 @ 21:11 by Ambrose Feliciano MD) Essential hypertension Hx of ovarian cancer Anxiety Folate deficiency Vitamin D deficiency STEMI (ST elevation myocardial infarction) Coronary atherosclerosis Depression Hematemesis Crohn's disease Avascular necrosis of right talus Chronic pain syndrome Osteoarthritis of right knee Osteoarthritis of left hip Osteoarthritis of right hip Lumbar radiculopathy, right Disc degeneration, lumbar Bony sclerosis Rash Strain of left trapezius muscle Shoulder pain, left Neck pain Mixed hyperlipidemia Pain and swelling of right ankle Swelling of right knee joint Right knee pain Obesity (BMI 30-39.9) Smoker Migraine GERD (gastroesophageal reflux disease) COPD (chronic obstructive pulmonary disease) Right lumbosacral radiculopathy Lumbar degenerative disc disease Surgical History (Updated 09/05/24 @ 20:54 by Ambrose Feliciano MD) History of right oophorectomy Hx of foot surgery History of esophagogastroduodenoscopy (EGD) Hx of cardiac cath (~11/01/22) Hx of section History of appendectomy Hx of colonoscopy History of hysterectomy History of cholecystectomy Family History Father Hypertension Rheumatoid arthritis Mother Hypertension Diabetes CVD (cardiovascular disease) Multiple sclerosis Sister Liver disease Maternal Grandmother Colon cancer Maternal Aunt Breast cancer Social History Housing: House Are you a primary director of managed care to a significant other at home: No Do you presently have visiting nurse or other home services: No (Children come by to help) Alcohol intake: never Patient Tobacco Use Status: Current everyday Tobacco user Tobacco use type: Cigarette Cigarettes Per Day: 5 Years Smoked: 30 e-Cigarette/Vaping Use: Never Used Second Hand Smoke Exposure: Yes service: No Current occupational status: disabled Cognitive needs: Yes (cane) Hearing needs: No Vision needs: Yes (glasses) Female Reproductive History Menstrual Age of Menarche: 10 Questionnaire PHQ-9 Over the last 2 weeks, how often have you been bothered by any of the following problems? 1. Little interest or pleasure in doing things: more than half the days 2. Feeling down, depressed, or hopeless: nearly every day 3. Trouble falling or staying asleep, or sleeping too much: nearly every day 4. Feeling tired or having little energy: nearly every day 5. Poor appetite or overeating: nearly every day 6. Feeling bad about yourself - or that you are a failure or have let yourself or your family down: more than half the days 7. Trouble concentrating on things, such as reading the newspaper or watching television: more than half the days 8. Moving or speaking so slowly that other people could have noticed. Or the opposite - being so fidgety or restless that you have been moving around a lot more than usual: more than half the days 9. Thoughts that you would be better off or of hurting yourself in some way: not at all Total score: 20 Depression Screening Interpretation: Positive Depression Screening Follow-up: Existing condition and In treatment Depression Screening Done: Yes 20680 - PHQ-9 Billing: Yes Source: Developed by Drs. Adebayo Lizarraga, Alicia Mata, Avel Blancas and colleagues, with an educational rayshawn from [employer]. Thrive Questionnaire Date Thrive assessed: 08/31/24 I am a: Patient What is your living situation today?: I have a steady place to live Within the past 12 months, did the food you bought not last and you didn't have the money to get more?: Never true Within the past 12 months, did you worry whether your food would run out before you got money to buy more?: Never true Do you have trouble paying for medicines?: No Do you have trouble getting transportation to medical appointments?: No Do you have trouble paying your heating and electricity bill?: No Do you have trouble taking care of your child, family member or friend?: No Do you have trouble with day-to-day activities such as bathing, preparing meals, shopping, managing finances, etc.?: No Are you currently unemployed and looking for a job?: No Are you interested in more education?: No Please select the resources that you would like help with: None Currently or been in a relationship where the following occur: No concerns reported THRIVE Score: 0 AUDIT C Alcohol Use Questionnaire (AUDIT-C) 1. How often do you have a drink containing alcohol?: Never 3. How often do you have six or more drinks on one occasion?: Never Total Score: 0 Score Reviewed/Action Taken: Yes CHANELLE-7 AMB Questionnaire CHANELLE-7 Date CHANELLE - 7 assessed: 08/31/24 Feeling nervous, anxious, or on edge: 0 = Not at all Not being able to stop or control worryin = Not at all Worrying too much about different things: 0 = Not at all Trouble relaxin = Not at all Being so restless that it is hard to sit still: 0 = Not at all Becoming easily annoyed or irritable: 0 = Not at all Feeling afraid as if something awful might happen: 0 = Not at all Total CHANELLE-7 score (0-4 normal; 5-9 mild; 10-14 moderate; 15-21 severe): 0 Source: Developed by Alicia CervantesW. Adolfo, Avel Blancas and colleagues, with an educational rayshawn from [employer]. Review of Systems Const Denies chills, Reports fatigue, Denies fever(s) and Denies headache(s) ENT Denies dysphagia, Denies dizziness, Denies otalgia, Denies headache(s), Denies neck pain, Denies odynophagia and Denies sore throat Card Denies chest pain, Denies rapid heart rate, Denies irregular heart rhythm, Denies palpitations and Reports dyspnea on exertion (mild) Resp Denies chest congestion, Reports cough (on and off), Reports dyspnea on exertion (mild) and Denies wheezing GI Reports abdominal pain (persistent, over the LLQ), Denies constipation, Denies dysphagia, Denies heartburn, Denies diarrhea, Denies nausea, Denies odynophagia and Denies vomiting Denies urinary frequency, Denies dysuria, Denies urinary incontinence and Denies urinary urgency Musc Reports back pain (chronic), Reports myalgias (diffuse, frequent), Reports arthralgias (involving multiple joints, including the right knee and right ankle), Denies joint swelling and Denies neck pain Skin/Breast Denies rash Neuro Denies dizziness, Denies headache(s) and Reports paresthesias (of both hands and feet) Psych Reports anxiety and Reports depression Endo Reports fatigue and Denies palpitations Han/Lymph Details: hands and feet feel swollen at times Denies easy bruising Aller/Immun Denies wheezing Physical exam (Primary Care) Vital Signs: Last Vital Signs Pulse 90 08/31/24 12:47 BP 126/82 08/31/24 12:47 Pulse Ox 96 08/31/24 12:47 Oxygen Delivery Method Room Air 08/31/24 12:47 BMI result Body Mass Index 37.4 Tobacco/Smoking Status: Tobacco use Status Tobacco use date assessed 08/31/24 08/31/24 12:51 Patient Tobacco Use Status Current everyday Tobacco 08/31/24 12:51 Tobacco use type Cigarette 08/31/24 12:51 e-Cigarette/Vaping Use Never Used 08/31/24 12:51 PHQ-9: PHQ-9 Score PHQ-9: Total score 20 08/31/24 13:39 Depression Screening Interpretation: Positive Depression Screening Follow-up: Existing condition and In treatment Thrive Assessment: Date of Thrive Assessment Date Thrive assessed 08/31/24 08/31/24 12:51 Currently or been in a relationship where the following occur: No concerns reported Const General: no acute distress and alert HENMT Ears: TM's normal bilaterally and EAC's normal Throat: Yes posterior oropharynx normal and Yes tonsils normal (no TP congestion) Neck Neck: Yes supple and No lymphadenopathy Thyroid: Thyroid normal Resp Auscultation: no crackles, no rales, rhonchi (occasional) throughout, no wheezes and diminished lung sounds bilateral Cardio Rate: regular rate Rhythm: regular rhythm Heart sounds: no murmurs GI Palpation (GI): Soft to palpation, Tenderness to palpation present (GI) in the LLQ, no guarding, not rigid and No Rebound tenderness present Auscultation: normal bowel sounds General: Yes no CVA tenderness Back/Spine/Pelvis Back: no CVA tenderness Cervical Spine: Cervical spine tenderness Thoracic/Lumbar Spine: paraspinal muscle tenderness bilaterally in the mid lumbar and in the lower lumbar and lumbar spinal tenderness Skin Rashes: no rashes Extrem General: Yes no clubbing, cyanosis or edema Right lower extremity: knee Details: tenderness; no swelling, ankle Details: tenderness; no swelling and foot Details: tenderness Location: of the dorsal foot and edema (mild) Location: of the dorsal foot Coding Level of Care Code Est Pt Level 4 (54487) Diagnoses 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 transplanted heart: [place] heart Associated angina: with stable angina ST elevation myocardial infarction (STEMI), unspecified artery I21.3 Involved coronary artery: unspecified coronary artery Mixed hyperlipidemia E78.2 Essential hypertension I10 Chronic pain of right ankle M25.571; G89.29 Osteoarthritis of right knee, unspecified osteoarthritis type M17.11 Osteoarthritis type: unspecified Degeneration of intervertebral disc of lumbar region with discogenic back pain M51.360 Disc-related pain type: discogenic back pain only Neuropathy G62.9 Migraine without status migrainosus, not intractable, unspecified migraine type G43.909 Migraine type: unspecified Status migrainosus presence: without status migrainosus Intractability: not intractable Vitamin D deficiency E55.9 Crohn's disease with complication, unspecified gastrointestinal tract location K50.919 Gastrointestinal tract location: unspecified location Digestive disease complication type: unspecified complication Gastroesophageal reflux disease without esophagitis K21.9 Esophagitis presence: without esophagitis Anxiety F41.9 Episode of recurrent major depressive disorder, unspecified depression episode severity F33.9 Depression Type: major depressive disorder Major depression recurrence: recurrent Active/Remission status: currently active Major depression episode severity: unspecified Smoker F17.200 Obesity (BMI 30-39.9) E66.9 Additional Codes PHQ-9 - 97534 - PHQ-9 Billing: Yes ([id number]) Assessment & Plan Assessment & Plan (1) Vulvar dysplasia: Code(s): 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 - Dysplasia of vulva, unspecified Category: Medical Plan: Patient will reportedly be undergoing vulvar colposcopy; there were reportedly concerns for vulvar dysplasia and she is going to undergo wide local excision of multiple lesions as well once she is cleared by both Pulmonary and Cardiology (2) LLQ abdominal pain: Code(s): R10.32 - Left lower quadrant pain Category: Medical Plan: She will undergo robotic removal of the left ovary and MRV in addition to her vulvar colposcopy as soon as she is cleared by both pulmonary and cardiology Patient states that she has an appointment with [facility] tomorrow and Cardiology appointment with Dr. Francois next month in September 2024 (3) COPD (chronic obstructive pulmonary disease): Code(s): J44.9 - Chronic obstructive pulmonary disease, unspecified Category: Medical Qualifiers: COPD type: emphysema Emphysema type: unspecified Qualified Code(s): J43.9 - Emphysema, unspecified Plan: Appears controlled/stable at present Continue Trelegy Ellipta 200-62.5-25 mcg 1 inhalation QD and Albuterol HFA 1 to 2 inhalations Q 6 hours PRN Follow up with [facility] as scheduled - she has appt tomorrow for clearance (4) Coronary atherosclerosis: Code(s): I25.10 - Atherosclerotic heart disease of [place] coronary artery without angina pectoris Category: Medical Qualifiers: Coronary Disease-Associated Artery/Lesion type: [place] artery [place] vs. transplanted heart: [place] heart Associated angina: with stable angina Qualified Code(s): I25.118 - Atherosclerotic heart disease of [place] coronary artery with other forms of angina pectoris Plan: S/P cardiac cath and PCI to the mid LAD in October 2022 - had CARA x1 and kissing balloon angioplasty to the bifurcating lesion Continue Aspirin 81 mg QD - will need lifelong antiplatelet therapy S/P Brilinta 90 mg BID x 1 year - this was discontinued by cardiology when she was last seen in March 2024 Continue aggressive risk reduction with strict BP control and cholesterol reduction Follow up with cardiology as scheduled - has appt with Dr. Francois next month (5) STEMI (ST elevation myocardial infarction): Code(s): I21.3 - ST elevation (STEMI) myocardial infarction of unspecified site Category: Medical Qualifiers: Involved coronary artery: unspecified coronary artery Qualified Code(s): I21.3 - ST elevation (STEMI) myocardial infarction of unspecified site Plan: S/P STEMI post cath and required a second CARA to remove the occlusion in the ostial diagonal, which was thought to be due to dissection from her prior PCI Continue Carvedilol 6.25 mg BID and Aspirin 81 mg QD; S/P Brilinta x 1 year (Rx was discontinued in March 2024 by cardiology) Follow up with cardiology as scheduled (6) Mixed hyperlipidemia: Code(s): E78.2 - Mixed hyperlipidemia Category: Medical Plan: Reinforced low cholesterol diet Continue Atorvastatin 80 mg QD and Repatha 140 mg SQ Q 2 weeks; Ezetimibe and Fenofibrate were both discontinued when Repatha was started by cardiology Will have patient recheck her labs and fasting lipids in a couple of months before her next appointment for follow up (7) Essential hypertension: Code(s): I10 - Essential (primary) hypertension Category: Medical Plan: She is advised that her blood pressure is still high today - goal is systolic BP of 120 mm or less given her comorbidities Reinforced low sodium diet Continue Losartan 25 mg QD and Carvedilol 12.5 mg BID (8) Chronic pain of right ankle: Code(s): M25.571 - Pain in right ankle and joints of right foot; G89.29 - Other chronic pain Category: Medical Plan: Orthopedics suspected that patient may have AVN of her ankle - right ankle MRI done in January 2022 revealed mild tibiotalar osteoarthritis, with (+) anterior marginal osteophytes as well as an anterior unfused osteophyte versus ossified loose body measuring up to 1.2 cm in ML dimension; small tibiotalar joint effusion; minimal posterior tibialis and flexor digitorum tenosynovitis but no tendon tear although there is some medial subcutaneous edema seen Patient has reportedly been advised that they can only perform corrective surgery on her ankle when she is cleared by Cardiology and she is OFF Brilinta for at least 90 days Continue Duloxetine 30 mg QD and Tramadol 50 mg QID PRN for pain Follow-up with orthopedics as scheduled (9) Osteoarthritis of right knee: Comment: Right knee MRI done on 09/18/2020 showed: 1. Intact menisci. 2. Intact cruciate and collateral ligaments. 3. Preserved tricompartmental articular cartilage. 4. Small joint effusion Code(s): M17.11 - Unilateral primary osteoarthritis, right knee Category: Medical Qualifiers: Osteoarthritis type: unspecified Qualified Code(s): M17.11 - Unilateral primary osteoarthritis, right knee Plan: She was seen previously by [facility] and advised that her knee OA is mild with no other intervention recommended at the time Per request, she was referred to orthopedics in [place] for a second opinion and she is now following up with [facility] for her knee issues (10) Lumbar degenerative disc disease: Code(s): M51.36 - Other intervertebral disc degeneration, lumbar region Category: Medical Qualifiers: Disc-related pain type: discogenic back pain only Qualified Code(s): M51.360 - Other intervertebral disc degeneration, lumbar region with discogenic back pain only Plan: Reinforced activity and weight-lifting restrictions She has expressed her concerns that her current pain med (Percocet 5-325 mg BID-TID PRN may not be enough to help with her pain when she goes for her surgery soon I have agreed to increase her Rx for Percocet to 10-325 mg to take BID-TID only as needed for severe pain - will send in Rx when she is due for her next refill Continue Duloxetine 30 mg QD and Tramadol 50 mg QID PRN for pain Follow up with pain management as scheduled (11) Neuropathy: Code(s): G62.9 - Polyneuropathy, unspecified Category: Medical Plan: She has been advised that her hand and feet symptoms appear to be neuropathic symptoms Patient relates that she was diagnosed with neuropathy a few years ago and had a nerve test done but could not recall exactly when and where it was done Have discussed with her that if she does have neuropathy and her symptoms are progressing, there may not be much else we can do as she was unable to tolerate Gabapentin and Pregabalin when we trialed her on these medications in the past She has been referred to and is scheduled to be seen by neurology in December 2023, and have advised that neurology will likely repeat EMG and NCV on her for further evaluation - so far we have not received any report from neurology at this time (12) Migraine: Code(s): G43.909 - Migraine, unspecified, not intractable, without status migrainosus Category: Medical Qualifiers: Migraine type: unspecified Status migrainosus presence: without status migrainosus Intractability: not intractable Qualified Code(s): G43.909 - Migraine, unspecified, not intractable, without status migrainosus Plan: Stable lately - continue Fioricet 3 to 4 times a day as needed for headaches (13) Vitamin D deficiency: Code(s): E55.9 - Vitamin D deficiency, unspecified Category: Medical Plan: Continue Vitamin D3 2000 units QD (14) Crohn's disease: Code(s): K50.90 - Crohn's disease, unspecified, without complications Category: Medical Qualifiers: Gastrointestinal tract location: unspecified location Digestive disease complication type: unspecified complication Qualified Code(s): K50.919 - Crohn's disease, unspecified, with unspecified complications Plan: States thar she has had no recent GI flare ups Follow up with GI as scheduled (15) GERD (gastroesophageal reflux disease): Code(s): K21.9 - Gastro-esophageal reflux disease without esophagitis Category: Medical Qualifiers: Esophagitis presence: without esophagitis Qualified Code(s): K21.9 - Gastro-esophageal reflux disease without esophagitis Plan: Dietary restrictions reinforced Continue Omeprazole 20 mg QD Follow up with GI as scheduled (16) Anxiety: Code(s): F41.9 - Anxiety disorder, unspecified Category: Medical Plan: Continue Bupropion 150 mg Q AM, Sertraline 50 mg QD and Hydroxyzine 25 mg TID PRN Continue Prazosin 3 mg Q HS (17) Depression: Code(s): F32.A - Depression, unspecified Category: Medical Qualifiers: Depression Type: major depressive disorder Major depression recurrence: recurrent Active/Remission status: currently active Major depression episode severity: unspecified Qualified Code(s): F33.9 - Major depressive disorder, recurrent, unspecified Plan: Continue Sertraline 50 mg QD, Bupropion 150 mg Q AM, Lamictal 150 mg QD and Duloxetine 30 mg QD Follow up with psychiatry as scheduled (18) Smoker: Code(s): F17.200 - Nicotine dependence, unspecified, uncomplicated Category: Social Hx Plan: Patient is counseled again on smoking cessation (19) Obesity (BMI 30-39.9): Code(s): E66.9 - Obesity, unspecified Category: Medical Plan: Reinforced diet; exercise is currently not an option due to her chronic ankle and knee and joint issues Plan Follow up in late October 2024 Medications: Discontinued oxycodone-acetaminophen 5-325 mg (Percocet) Take only as needed for severe pain Discontinued Reason: Doctor's Order 1 tab PO Q8H 7 days 21 tabs 0RF severe pain (scale score 7-10)
--- OUTSIDE RECORDS SUMMARY | 2024-08-31 12:48 | XMS_ITS | Continuity of Care Document ---
Author Organization [facility] y Address [address] [place] [address]- Support Name Relationship Address Phone ROSEMARY, VIKAS mother Unknown Unavailable ODONNELL, RYAN LAYNE Personal Relationship Unknown U navailable ODONNELL, RYAN DEE Personal Relationship Unknown U navailable ODONNELL, RYAN DEE Personal Relationship Unknown U navailable ODONNELL, RYAN DEE Personal Relationship Unknown U navailable ODONNELL, RYAN DEE Personal Relationship Unknown U navailable ODONNELL, RYAN DEE Personal Relationship Unknown U navailable RASHMI, TON spouse Unknown Unavailable GALLANT, FLORA sibling Unknown Unavailable ODONNELL, RYAN LAYNE Personal Relationship Unknown U navailable ODONNELL, RYAN LAYNE Personal Relationship Unknown U navailable GALLANT, NATHAN Other Unknown Unavailable ODONNELL, RYAN LAYNE Personal Relationship Unknown U navailable ODONNELL, RYAN LAYNE Personal Relationship Unknown U navailable ODONNELL, RYAN LAYNE Personal Relationship Unknown U navailable ODONNELL, RYAN LAYNE Personal Relationship Unknown U navailable BENITEZ, LASHAYA child Unknown Unavailable ODONNELL, RYAN LAYNE Personal Relationship Unknown U navailable ODONNELL, RYAN LAYNE Personal Relationship Unknown U navailable ROSEMARY, VIKAS mother Unknown Unavailable ODONNELL, RYAN LAYNE Personal Relationship Unknown U navailable ODONNELL, RYAN LAYNE Personal Relationship Unknown U navailable ODONNELL, RYAN LAYNE Personal Relationship Unknown U navailable RAMOS, MARIE Other Unknown Unavailable ODONNELL, RYAN LAYNE Personal Relationship Unknown U navailable ODONNELL, RYAN LAYNE Personal Relationship Unknown U navailable ODONNELL, RYAN LAYNE Personal Relationship Unknown U navailable ODONNELL, RYAN LAYNE Personal Relationship Unknown U navailable ODONNELL, KYLE child Unknown Unavailable ODONNELL, RYAN LAYNE Personal Relationship Unknown U navailable ODONNELL, RYAN LAYNE Personal Relationship Unknown U navailable ODONNELL, RYAN LAYNE Personal Relationship Unknown U navailable RASHMI, PARAS Other Unknown Unavailable Care Team Providers 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 Name Role Phone Braden ALMEIDA, Ambrose Chao Primary Care Physician [place] [facility] [place]/27[place]24 - 08/26/24 [facility] [address], [place] [address] Encounter Type: Triage Allergies, Adverse Reactions, Alerts Substance Criticality Severity Reaction Reaction Severity Status penicillin anaphylaxis Active aspirin bleeding Active morphine 1 anaphylaxis Active cortisone HIVES Active NSAIDs BLEEDING IN STOMACH Active sulfa drugs anaphylaxis Active Motrin bleeding Active Neurontin Hallucinations Activ e Bee Stings Unable to assess criticality Persistent Severe Active Latex hives Active Egg Allergy Active FLUoxetine Active 1Per Dr. Pool - pt tolerates hydromorphone Immunizations Given and Recorded Vaccine Date Status Refusal Reason influenza virus vaccine, inactivated 06/25/22 Taj rded influenza virus vaccine, inactivated 10/21/19 Taj rded influenza virus vaccine, inactivated 07/09/13 Taj rded pneumococcal 23-valent vaccine 10/21/19 Recorded tetanus-diphtheria toxoids (Td) 03/14/16 Recorded tetanus-diphtheria toxoids (Td) 09/15/91 Recorded tetanus/diphtheria/pertussis, acel(Tdap) 08/26/13 Recorded tetanus/diphtheria/pertussis, acel(Tdap) 09/18/10 Given Medications acetaminophen/butalbital/caffeine 325 mg-50 mg-40 mg oral tablet TAKE 1 TAB ORALLY EVERY 6 TO 8 HOURS NEEDED FOR HEADACHE FOR 30 DAYS Start Date: 11/01/22 Status: Ordered Repeat number: 1 Albuterol 0 Refills, Maintenance, 06/22/14 2:59:35 PM EDT Start Date: 06/22/14 Status: Ordered Repeat number: 1 Albuterol (Eqv-ProAir HFA) 90 mcg/inh inhalation aerosol 0 Refills, Maintenance, 11/01/22 6:44:00 AM EST, Partial fill upon patient request if the prescription is for a schedule II opioid drug. Start Date: 11/01/22 Status: Ordered Repeat number: 1 aspirin 81 mg oral delayed release tablet 81 mg, 1, tablet, By Mouth, Daily, # 90 tablet, Refills 3, Tot. Refills 3, Maintenance, 11/01/22 10:21:00 AM EST, Route to Pharmacy Electronically, [facility], Partial fill upon patient request if the prescription is for a schedule II opioid drug., 160, cm, 11/01/22 7:18:00 EST, Height, 90.1, kg, 11/01/22 7:18:00 EST, Dry Weight Start Date: 11/01/22 Status: Ordered Quantity: 90.0 Unit: tablet Repeat number: 4 atorvastatin 10 mg oral tablet TAKE 1 TABLET BY MOUTH EVERY DAY AT BEDTIME FOR 90 DAYS Start Date: 11/01/22 Status: Ordered Repeat number: 1 atorvastatin 80 mg oral tablet 1 tablet = 80 mg, By Mouth, Daily, # 90 tablet, 3 Refills, Maintenance, 11/01/22 10:20:00 AM EST, Tablet, [facility], Partial fill upon patient request if the prescription is for a schedule II opioid drug., 160, cm, 11/01/22 7:18:00 EST, Height, 90.1, kg, 11/01/22 7:18:00 EST, Dry Weight Start Date: 11/01/22 Status: Ordered Quantity: 90.0 Unit: tablet Repeat number: 4 buPROPion 150 mg/24 hours (XL) oral tablet, extended release TAKE 1 TABLET BY MOUTH EVERY MORNING Start Date: 11/27/23 Status: Ordered Repeat number: 1 Coreg 6.25 mg oral tablet 6.25 mg, 1, tablet, By Mouth, 2 times a day, # 60 tablet, Refills 3, Tot. Refills 3, Maintenance, 11/03/22 9:00:00 AM EST, Route to Pharmacy Electronically, [facility], Partial fill uponpatient request if the prescription is for a schedule II opioid drug., 160, cm, 11/01/22 7:18:00 EST, Height, 90.1, kg, 11/01/22 7:18:00 EST, Dry Weight Start Date: 11/03/22 Status: Ordered Quantity: 60.0 Unit: tablet Repeat number: 4 docusate sodium 100 mg oral capsule 1 capsule = 100 mg, By Mouth, 2 times a day, PRN for constipation, # 20 capsule, 0 Refills, Maintenance, 03/20/15 3:05:31 AM EDT, Capsule Start Date: 03/20/15 Status: Ordered Quantity: 20.0 Unit: capsule Repeat number: 1 Fioricet Tablet By Mouth, Every 4 hours, 0 Refills, Maintenance, 06/22/14 3:00:14 PM EDT Start Date: 06/22/14 Status: Ordered Repeat number: 1 Lasix 20 mg oral tablet 20 mg, 1, tablet, By Mouth, Daily, # 90 tablet, Refills 1, Tot. Refills 1, Maintenance, 11/27/23 9:48:00 AM EDT, Route to Pharmacy Electronically, [facility], Partial fill upon patient request if the prescription is for a schedule II opioid drug., 160, cm, 11/27/23 8:12:00 EDT, Height,94.9, kg, 11/27/23 8:12:00 EDT, Dry Weight Start Date: 11/27/23 Status: Ordered Quantity: 90.0 Unit: tablet Repeat number: 2 NICOTINE KRISTINA MARVIN 4MG MINT Maintenance, 03/25/22 10:16:00 AM EDT, Supply Start Date: 03/25/22 Status: Ordered Repeat number: 1 nystatin-triamcinolone topical [id number] u/gm-0.1% cream 0 Refills, Maintenance, 03/25/22 10:16:00 AM EDT, Partial fill upon patient request if the prescription is for a schedule II opioid drug. Start Date: 03/25/22 Status: Ordered Repeat number: 1 omeprazole 20 mg oral enteric coated capsule 1 capsule = 20 mg, By Mouth, Daily, # 30 capsule, 0 Refills, Maintenance, 11/01/22 6:44:00 AM EST, EC Capsule, Partial fill upon patient request if the prescription is for a schedule II opioid drug. Start Date: 11/01/22 Status: Ordered Quantity: 30.0 Unit: capsule Repeat number: 1 predniSONE 10 mg oral tablet 1 tablet = 10 mg, By Mouth, Daily, # 10 tablet, 0 Refills, Maintenance, 11/01/22 6:44:00 AM EST, Tablet, Partial fill upon patient request if the prescription is for a schedule II opioid drug. Start Date: 11/01/22 Status: Ordered Quantity: 10.0 Unit: tablet Repeat number: 1 Prilosec OTC = 20 mg, By Mouth, Daily, 0 Refills, Maintenance, 06/22/14 2:59:50 PM EDT Start Date: 06/22/14 Status: Ordered Repeat number: 1 Scopolamine Topically, Once, 0 Refills, Maintenance, 03/25/22 11:18:00 AM EDT, Partial fill upon patient requestif the prescription is for a schedule II opioid drug. Start Date: 03/25/22 Status: Ordered Repeat number: 1 ticagrelor 90 mg oral tablet 1 tablet = 90 mg, By Mouth, 2 times a day, # 180 tablet, 3 Refills, Maintenance, 11/01/22 10:20:00 AM EST, Tablet, [facility], Partial fill upon patient request if the prescription is for a schedule II opioid drug., 160, cm, 11/01/22 7:18:00 EST, Height, 90.1, kg, 11/01/22 7:18:00 EST,Dry Weight Start Date: 11/01/22 Status: Ordered Quantity: 180.0 Unit: tablet Repeat number: 4 tiZANidine 2 mg oral tablet TAKE 1 TABLET BY MOUTH 2 TIMES A DAY NEEDED FOR MUSCLE SPASTICITY Start Date: 11/01/22 Status: Ordered Repeat number: 1 Tramadol By Mouth, 0 Refills, Maintenance, 03/20/22 4:10:00 PM EDT, Partial fill upon patient request if the prescription is for a schedule II opioid drug. Start Date: 03/20/22 Status: Ordered Repeat number: 1 traMADol 50 mg oral tablet TAKE 1 TABLET BY MOUTH 3 TO 4 TIMES A DAY ONLY NEEDED FOR INCREASED PAIN Start Date: 11/01/22 Status: Ordered Repeat number: 1 Vitamin D3 oral liquid 1 mL = 400 International_Units, By Mouth, Daily, with food, # 50 mL, 0 Refills, Maintenance, 06/22/14 3:13:03 PM EDT, Liquid Start Date: 06/22/14 Status: Ordered Quantity: 50.0 Unit: mL Repeat number: 1 Zofran ODT 4 mg oral tablet, disintegrating See Instructions, PRN Nausea & Vomiting, 1 tablet By Mouth Every 4 hours as needed. May substitute for oral tablets if required by insurance, # 16 Doses, 0 Refills, Maintenance, 03/20/15 3:05:38 AMEDT, Tablet Start Date: 03/20/15 Status: Ordered Quantity: 16.0 Unit: Doses Repeat number: 1 Problem List Condition Confirmation Course Effective Dates Status Health St atus Informant Breast pain Confirmed Active Chronic pain Confirmed Active Crohns disease of small intestine Confirmed Active Cystocele with rectocele Confirmed Active Lumbar disc disease Confirmed Active Chronic GERD Confirmed Active Right hip pain s/p fracture Confirmed Active S/P CABG x 2 Confirmed Active History of AR (myocardial infarction) Confirmed Active LLQ abdominal pain Confirmed Active Leukocytosis Confirmed Active Lump or Mass in Breast Confirmed 01/27/12 Active Major Depressive Disorder, Recurrent Episode, Severe Degree, without Mention of Psychotic Behavior Confirmed 09/29/11 Active Migraine Confirmed Active Pulmonary nodules Confirmed Active Neuropathy Confirmed Active Obesity Confirmed Active Post-traumatic stress disorder (PTSD) Confirmed 09/29/11 Active Pulmonary emphysema Confirmed Active Severe obesity (BMI 35.0-39.9) with comorbidity Confirmed Active Smoker Confirmed Active Social History Social History Type Response Smoking Status Current every day armida urbina entered on: 06/22/14 Sex Sex Representation Female (finding) Patient Care team information Care Team Personnel Name: Ambrose Feliciano MD Position: Reference Physician Member Role: PCP Address: [address] [place] [address] Telecom: Care Team Related Persons Name: PARAS CARABALLO Name: VIKAS RILEY Name: VIKAS RILEY Name: KYLE ODONNELL Insurance Providers Guarantor name: RYAN ODONNELL Health Plan Information #: 1 Payer: [facility] [employer] Member Number: NA Policy Number: NA Group Number: [id number]
== END 2024-08-31 13:43 | disposition home or self-care (01) ==
PROVIDERS: PCP Internal Medicine; Visit Provider Internal Medicine
DX: J43.9 Emphysema, unspecified (principal); I25.118 Atherosclerotic heart disease of native coronary artery with other forms of angina pectoris; I21.3 ST elevation (STEMI) myocardial infarction of unspecified site; K50.919 Crohn's disease, unspecified, with unspecified complications; F33.9 Major depressive disorder, recurrent, unspecified; N90.3 Dysplasia of vulva, unspecified; R10.32 Left lower quadrant pain; E78.2 Mixed hyperlipidemia; I10 Essential (primary) hypertension; G89.29 Other chronic pain; M25.571 Pain in right ankle and joints of right foot; M17.11 Unilateral primary osteoarthritis, right knee

== ENCOUNTER → 2024-08-31 12:45 | Outpatient (BNVA) | payer OTHER, SELFPAY | PROVIDERS: PCP Internal Medicine; Visit Provider Internal Medicine | DX: N90.3 Dysplasia of vulva, unspecified (principal); J43.9 Emphysema, unspecified; I25.118 Atherosclerotic heart disease of native coronary artery with other forms of angina pectoris; I21.3 ST elevation (STEMI) myocardial infarction of unspecified site; E78.2 Mixed hyperlipidemia; I10 Essential (primary) hypertension; M25.571 Pain in right ankle and joints of right foot; G89.29 Other chronic pain; M17.11 Unilateral primary osteoarthritis, right knee; M51.360 Other intervertebral disc degeneration, lumbar region with discogenic back pain only; G62.9 Polyneuropathy, unspecified; G43.909 Migraine, unspecified, not intractable, without status migrainosus; E55.9 Vitamin D deficiency, unspecified; K50.919 Crohn's disease, unspecified, with unspecified complications; K21.9 Gastro-esophageal reflux disease without esophagitis; F41.9 Anxiety disorder, unspecified; F33.9 Major depressive disorder, recurrent, unspecified; E66.9 Obesity, unspecified; F17.200 Nicotine dependence, unspecified, uncomplicated; Z71.6 Tobacco abuse counseling; Z71.3 Dietary counseling and surveillance | CPT/HCPCS: 96127; 99212 ==

== ENCOUNTER 2024-09-23 12:20 | Outpatient (AMB) | payer OTHER, SELFPAY ==
[2024-09-23 12:35] VITALS: BP 130/62; PULSE 70; BMI 37.5
--- NOTE | 2024-09-23 12:35 | MHC.OFFVIS ---
Vital Signs 09/23/24 12:35 Height 5 ft 3 in Weight 211 lb 10.3 oz BMI 37.5 BP 130/62 Blood Pressure Location Lt brachial Position Sitting Pulse 70 Pulse Source Monitor Intake Visit Reasons: 6 mth fu and clearance for manager apple surgery Allergies NSAIDS (Non-Steroidal Anti-Inflamma [Nsaids] Allergy (Severe, Verified 09/05/24 20:19) blood in stool diazepam [DIAZEPAM] Allergy (Mild, Verified 09/05/24 20:19) RASH fluoxetine [From Prozac] Allergy (Unknown, Verified 09/05/24 20:19) Unknown ibuprofen [From Motrin] Allergy (Unknown, Verified 09/05/24 20:19) UNKNOWN Penicillins Allergy (Unknown, Verified 09/05/24 20:19) UNKNOWN colchicine Allergy (Verified 09/05/24 20:19) Dizziness gabapentin [From NEURONTIN] Adverse Reaction (Severe, Verified 09/05/24 20:19) HALLUCINATIONS, halluciinations morphine [Morphine] Adverse Reaction (Severe, Verified 09/05/24 20:19) DIFFICULTY BREATHING Sulfa (Sulfonamide Antibiotics) [SULFA (SULFONAMIDE ANTIBIOTICS)] Adverse Reaction (Severe, Verified 09/05/24 20:19) DIFF BREATHING Zetia/ezetimibe Allergy (Intermediate, Uncoded 09/05/24 20:19) Rash and Swelling R side of face pregabalin Adverse Reaction (Intermediate, Uncoded 09/05/24 20:19) Hallucinations Medication List - Last Reconciled 09/23/24 by Andrews Francois MD albuterol sulfate 2.5 mg (3 mL) inhalation QID PRN 30 days albuterol sulfate 90 mcg/actuation 2 puffs inhalation Q6H PRN aspirin 81 mg PO DAILY 90 days atorvastatin 80 mg PO DAILY 90 days baclofen 20 mg PO TID PRN 30 days bupropion HCl XL 150 mg PO QAM 30 days ahqswawlea-oolffbalncovt-pvgy 50-325-40 mg 1 tab PO Q6-8H PRN 30 days carvedilol 12.5 mg PO BID NS cholecalciferol (vitamin D3) 50 mcg PO DAILY 90 days codeine-guaifenesin 10-100 mg/5 mL 5 mL PO BID-TID PRN 7 days cyanocobalamin (vitamin B-12) 1,000 mcg IM Q2W duloxetine 30 mg PO DAILY 30 days [ELECTRIC SCOOTER As directed] evolocumab (Repatha Syringe) 140 mg subcut Q2W ezetimibe (Zetia) 10 mg PO DAILY fluticasone furoate 200 mcg/actuation (Arnuity Ellipta) 1 inh inhalation DAILY 30 days udobynpmmng-yegfgdoca-wvuwfrgz 200-62.5-25 mcg (Trelegy Ellipta) 1 inh inhalation DAILY folic acid 1 mg PO DAILY 90 days furosemide 20 mg PO QAM PRN 15 days [Handicap Shower Head As directed (with long hose as patient can not stand for a long period of time)] hydroxyzine HCl 25 mg PO TID PRN 30 days incontinence pad, liner, disp (Prevail Pant Liner pads) As directed isosorbide mononitrate ER 30 mg PO DAILY lamotrigine 150 mg PO DAILY lidocaine HCl 2% 1 appl topical BID-QID PRN lidocaine HCl 3% 1 appl topical BID PRN 30 days losartan 25 mg PO DAILY 30 days magnesium 200 mg PO BEDTIME 30 days melatonin 10 mg PO BEDTIME PRN 14 days miscellaneous medical supply as directed; Medical Recliner miscellaneous medical supply as directed; Cane miscellaneous medical supply 1 ea miscellaneous DAILY miscellaneous medical supply 1 ea miscellaneous DAILY nebulizers As directed every 6 hours as needed nystatin-triamcinolone 100,000-0.1 unit/g-% 1 appl topical BID 10 days omeprazole 20 mg PO DAILY 90 days ondansetron HCl 4 mg PO Q12H PRN 7 days oxycodone-acetaminophen 10-325 mg 1 tab PO Q8H PRN 7 days potassium chloride ER 20 mEq PO DAILY 90 days prazosin 3 mg PO BEDTIME prednisone 20 mg PO DAILY prednisone 20 mg PO DAILY 5 days prednisone 4 tablets x 2 days, then 3 tablets x 2 days, then 2 tablets x 2 days, then 1 tablet x 2 days 8 days prednisone 4 tablets x 2 days, then 3 tablets x 2 days, then 2 tablets x 2 days, then 1 tablet x 2 days 8 days sertraline 50 mg PO DAILY tizanidine 4 mg PO Q8H PRN 30 days tramadol 50 mg PO QID PRN 21 days HPI Comments Details: Mariana returns for follow-up regarding coronary disease. She also needs preoperative risk stratification for gynecological surgery. To recall, she was originally seen in consultation regarding exertional chest pain. It sounded anginal and hence referred for cardiac catheterization. She underwent LAD PCI but developed resting chest pain and EKG demonstrating lateral ST elevation. Then had another angiogram and PCI of diagonal. In 2023, again was complaining of chest pains which led to another catheterization. However, no new interventions. No new cardiac symptoms. She is concerned about this upcoming surgery and quite tearful. [facility] Medical History (Updated 09/23/24 @ 14:14 by Andrews Francois MD) Essential hypertension Hx of ovarian cancer Anxiety Folate deficiency Vitamin D deficiency STEMI (ST elevation myocardial infarction) Coronary atherosclerosis Depression Hematemesis Crohn's disease Avascular necrosis of right talus Chronic pain syndrome Osteoarthritis of right knee Osteoarthritis of left hip Osteoarthritis of right hip Lumbar radiculopathy, right Disc degeneration, lumbar Bony sclerosis Rash Strain of left trapezius muscle Shoulder pain, left Neck pain Mixed hyperlipidemia Pain and swelling of right ankle Swelling of right knee joint Right knee pain Obesity (BMI 30-39.9) Smoker Migraine GERD (gastroesophageal reflux disease) COPD (chronic obstructive pulmonary disease) Right lumbosacral radiculopathy Lumbar degenerative disc disease Surgical History (Updated 09/05/24 @ 20:54 by Ambrose Feliciano MD) History of right oophorectomy Hx of foot surgery History of esophagogastroduodenoscopy (EGD) Hx of cardiac cath (~11/01/22) Hx of section History of appendectomy Hx of colonoscopy History of hysterectomy History of cholecystectomy Family History Father Hypertension Rheumatoid arthritis Mother Hypertension Diabetes CVD (cardiovascular disease) Multiple sclerosis Sister Liver disease Maternal Grandmother Colon cancer Maternal Aunt Breast cancer Social History Housing: House Are you a primary home child care provider to a significant other at home: No Do you presently have visiting nurse or other home services: No (Children come by to help) Alcohol intake: never Patient Tobacco Use Status: Current everyday Tobacco user Tobacco use type: Cigarette Cigarettes Per Day: 5 Years Smoked: 30 e-Cigarette/Vaping Use: Never Used Second Hand Smoke Exposure: Yes service: No Current occupational status: disabled Cognitive needs: Yes (cane) Hearing needs: No Vision needs: Yes (glasses) Female Reproductive History Menstrual Age of Menarche: 10 Review of Systems Const Denies weakness ENT Denies dizziness Card Denies chest pain, Denies chest pain with activity, Denies syncope, Denies rapid heart rate, Denies pedal edema, Denies edema, Denies leg edema, Denies lightheadedness, Denies palpitations, Denies dyspnea, Denies dyspnea on exertion and Denies orthopnea Resp Denies cough, Denies dyspnea and Denies dyspnea on exertion GI Denies hematochezia and Denies change in stool character Musc Denies abnormal gait, Denies muscle cramps, Denies muscle weakness, Denies numbness, Denies radiating pain into limb and Denies tingling Neuro Denies abnormal gait, Denies dizziness, Denies syncope, Denies numbness, Denies tingling and Denies weakness Endo Denies palpitations Physical Exam Vital Signs: Last Vital Signs Pulse 70 09/23/24 12:35 BP 130/62 09/23/24 12:35 BMI result Body Mass Index 37.5 Const General: comfortable and no acute distress Orientation/consciousness: patient oriented x3 HEENT Other: Unremarkable Head: Yes normal to inspection Neck Neck: Yes normal visual inspection Chest Chest palpation & inspection: normal inspection of the chest Resp Auscultation: clear to auscultation bilaterally Cardio Palpation: normal PMI Heart sounds: S1 normal heart sound present, S2 normal heart sound present, no gallops, no murmurs and no rubs GI Palpation (GI): Soft to palpation Back/Spine/Pelvis Other: unremarkable Skin General skin exam: no rashes or lesions noted Neuro General: patient oriented x3 Extrem General: Yes normal to inspection Psych Mental Status: mental status grossly normal Office Procedures EKG Details: EKG with underlying sinus rhythm at 70/Min; cannot exclude old septal infarct but more likely from body habitus; [place] [id number], Complete Assessment & Plan Assessment & Plan (1) Coronary atherosclerosis: Code(s): I25.10 - Atherosclerotic heart disease of [place] coronary artery without angina pectoris Category: Medical Qualifiers: Associated angina: with stable angina Coronary Disease-Associated Artery/Lesion type: [place] artery [place] vs. transplanted heart: [place] heart Qualified Code(s): I25.118 - Atherosclerotic heart disease of [place] coronary artery with other forms of angina pectoris Plan: Most recent cardiac catheterization reviewed from 11/2023. Mild ISR in the LAD/diagonal stents but otherwise no significant findings. She can continue aspirin. Continue beta-blockers. (2) Mixed hyperlipidemia: Code(s): E78.2 - Mixed hyperlipidemia Category: Medical Plan: She is on statins, Zetia, Repatha. Most recently LDL 28 mg/dL. Significantly improved. (3) Leg swelling: Code(s): M79.89 - Other specified soft tissue disorders Category: Medical Plan: Possibly multifactorial. In the past, her cardiac BNP was well within normal limits at 10 and 40. In the cardiac catheterization, LVEDP was elevated. Overall, could be some combination of dependent edema from venous insufficiency; possible cor pulmonale related to lung disease from smoking. She has on a small dose of Lasix. Today, do not see any obvious leg swelling. (4) Smoker: Code(s): F17.200 - Nicotine dependence, unspecified, uncomplicated Category: Social Hx Plan: Strongly encouraged to stop. (5) Preoperative cardiovascular examination: Code(s): Z01.810 - Encounter for preprocedural cardiovascular examination Category: Medical Plan: Intermediate cardiac risks for the proposed gynecological surgery. Yesenia-operative risks including myocardial infarction and its consequences discussed. Unmodifiable. Coding Level of Care Code Est Pt Level 4 (87823) Diagnoses Atherosclerosis of [place] coronary artery of [place] heart with stable angina pectoris I25.118 Associated angina: with stable angina Coronary Disease-Associated Artery/Lesion type: [place] artery [place] vs. transplanted heart: [place] heart Mixed hyperlipidemia E78.2 Leg swelling M79.89 Smoker F17.200 Preoperative cardiovascular examination Z01.810 CPT Codes EKG - CPT: 97531-[id number], Complete ([id number])
== END 2024-09-23 12:56 | disposition home or self-care (01) ==
PROVIDERS: PCP Internal Medicine; Visit Provider Internal Medicine
DX: I25.118 Atherosclerotic heart disease of native coronary artery with other forms of angina pectoris (principal); E78.2 Mixed hyperlipidemia; M79.89 Other specified soft tissue disorders; F17.200 Nicotine dependence, unspecified, uncomplicated; Z01.810 Encounter for preprocedural cardiovascular examination
CPT/HCPCS: 93010; 99214

== ENCOUNTER → 2024-09-23 12:20 | Outpatient (BNVA) | payer OTHER, SELFPAY | PROVIDERS: PCP Internal Medicine; Visit Provider Internal Medicine | DX: Z01.810 Encounter for preprocedural cardiovascular examination (principal); I25.118 Atherosclerotic heart disease of native coronary artery with other forms of angina pectoris; E78.2 Mixed hyperlipidemia; M79.89 Other specified soft tissue disorders; F17.210 Nicotine dependence, cigarettes, uncomplicated | CPT/HCPCS: 93005; 99212 ==

== ENCOUNTER 2024-11-08 12:07 | Outpatient (REF) | payer OTHER, SELFPAY ==
[2024-11-08 12:39] LABS: MANUAL DIFF FLAG NO
[2024-11-08 12:47] LABS: Basophils Absolute Auto 0.1 X10*3/uL (0.0-0.2); Basophils Percent Auto 0.5 % (0-2); Eosinophils Absolute Auto 0.2 X10*3/uL (0.0-0.4); Eosinophils Percent Auto 1.5 % (0-4); Hematocrit 41.8 % (37.0-47.0); Hemoglobin 13.8 g/dl (12.0-16.0); Imm Gran Abs Auto 0.05 X10*3/uL (0.00-0.03); Imm Gran Pct Auto 0.4 % (0.0-0.4); Lymphocytes Absolute Auto 3.4 X10*3/uL (1.2-4.9); Lymphocytes Percent Auto 29.5 % (20-40); Mean Corpuscular Hemoglobin 29.7 pg (27.0-33.0); Mean Corpuscular Volume 90.1 fL (80.0-98.0); Mean Platelet Volume 9.5 fL (9.4-12.3); Monocytes Absolute Auto 0.5 X10*3/uL (0.1-1.2); Monocytes Percent Auto 3.9 % (2-11); Neutrophils Absolute Auto 7.5 x10*3/uL (2.0-8.3); Neutrophils Percent Auto 64.2 % (45-73); Platelet Count 406 X10*3/uL (160-400); Red Blood Count 4.64 X10*6/uL (4.20-5.50); Red Cell Distribution Width 12.7 % (11.0-16.0); White Blood Count 11.7 X10*3/uL (4.8-10.8)
[2024-11-08 13:28] LABS: Alanine Aminotransferase 38 U/L (0-31); Albumin Level 4.3 g/dL (3.5-5.0); Alkaline Phosphatase 147 U/L (39-117); Anion Gap 11 (12-20); Aspartate Amino Transferase 30 U/L (5-31); Bilirubin Total 0.2 mg/dL (0.0-1.0); Blood Urea Nitrogen 11 mg/dL (9-16); Calcium 9.9 mg/dL (8.4-10.2); Carbon Dioxide 26 mmol/L (22-29); Chloride 110 mmol/L (96-108); Cholesterol 122 mg/dL (<200); Estimated Glomerular Filt Rate > 60; Glucose Fasting 100 mg/dL (60-99); HDL Cholesterol 34 mg/dL (>40); LDL Cholesterol Calculated 45 mg/dL (<100); Potassium 4.6 mmol/L (3.3-5.1); Sodium 142 mmol/L (135-145); Total Protein 7.9 g/dL (6.5-8.0); Triglycerides 215 mg/dL (<150)
[2024-11-08 13:30] LABS: Appearance Urine Clear; Color Urine Yellow; Glucose Urine UA Negative (Negative); Leukocyte Esterase Urine Trace (Negative); Nitrite Urine Negative (Negative); PH 6.5 (5.0-9.0); Specific Gravity - Urine <= 1.005 (1.005-1.025); UMIC TRIGGER UACC YES; Urine Blood Negative (Negative); Urine Ketones Negative (Negative); Urine Protein Negative (Neg-Trace)
[2024-11-08 13:35] LABS: Bacteria Urine None Seen (None Seen); Hyaline Casts Urine 0-2 /LPF (0-2); RBC Urine 0-2 /HPF (0-2); Squamous Epithelial Cell Urine 0-2 /HPF (0-2); WBC Urine 0-5 /HPF (0-5)
[2024-11-08 13:44] LABS: TSH reflex Free T4 0.54 uIU/mL (0.32-4.0); Vitamin D 25-OH Total 27.5 ng/mL (>30)
[2024-11-08 13:51] LABS: Folate 6.2 ng/mL (> or = 4.0); Vitamin B12 239 pg/mL (200-900)
--- OUTSIDE RECORDS SUMMARY | 2024-11-08 13:58 | XMS_ITS | Data Portability ---
Author Organization [facility] Documents Address [address] [facility] [place] [address] Assessment No assessment recorded. Plan of Treatment Reminders Order Date Submit Date Provider Last Modified By Organization Details Last Modified Time Details Appointments None recorded. Lab bacterial vaginosis + vaginitis panel, vaginal 2018 019 [place] [id number] [facility] ([email or web address]), [address] [place] [address], [id number], 9 11:35:13 chlamydia + gonorrhea DNA panel, unspecified specimen 2018 019 [place] [address] [facility] ([facility]), [address] [place] [address], [id number], 9 11:35:14 trichomonas vaginalis RNA 2018 019 [place] [address] [facility] ([email or web address]), [address] [place] [address], [id number], 9 11:35:14 streptococc us group B, culture, unspecified specimen 2018 019 [place] [address] [facility] ([email or web address]), [address] [place] [address], [id number], 9 11:35:14 bartolo panel, vulvovagina l 2018 019 [place] [address] [facility] ([email or web address]), [address] [place] [address], [id number], 9 11:35:14 Referral None recorded. Procedures None recorded. Surgeries None recorded. Imaging None recorded. Medication Orders None recorded. Patient Targets Encounter Date Encounter Id Patient Goals Patient Target Last Modified By Organization Details Last Modified Time Would Like to be checked for STDs itasia Not available 03/17/2019 16:25:36 Patient Instructions Encounter Date Encounter Id Patient Instructions Last Modified By Organization Details Last Modified Time 03/17/2019 [id number] A healthy lifestyle: care instructions itasia Not available 03/17/2019 16:59:21 Advised patient that I will not treat unless the culture report is back She can finish taking the Flagyl that she has Use protection or do not sleep with the same boyfriend Since she seems to know that she did have its recurrent Trichomonas from him itasia Not available 03/17/2019 16:26:16 Explained no sexual activity until we get the report and after she is treated //if she needs to be treated. We will follow up with the left lower quadrant pain but she does not need an ultrasound again she had one 2 months ago/left ovary was normal If she doesn't feel better and get better we might request a colonoscopy Advised change eating habits in the meantime Light diet /low fiber/she has runny stools and some rectal incontinence with [email or web address] Not available 03/17/2019 16:27:40 Reason for Referral None Reported. Results Created Date Observation Date Name Description Value Unit Range Abnormal Flag Note LastModifiedBy Organization Detail LastModifiedTime 03/17/2003/20/2019 CT + NG DNA, PCR, unspe cifie d speci men chlamydia trachomatis by real-time PCR (reflex to azithromycin resistance by pyrosequenci ng) Negati ve normal Swab- 1 Vagin al Not Available [facility] ([facility]) [address] [place] [address], [id number], 03/24/2019 18:00:02 03/17/20 19 03/20/2019 CT + NG DNA, PCR, unspe cifie d speci men neisseria gonorrhoeae by real-time PCR (reflex to antibiotic resistance by molecular analysis) Negati ve normal Swab- 1 Vagin al Not Available [facility] ([facility]) [address] [place] [address], [id number], 03/24/2019 18:00:02 03/17/2003/24/2019 trich omona s vagin roxanne DNA, PCR, unspe cifie d speci men trichomonas vaginalis by real-time PCR (reflex to metronidazol e resistance) Positi ve abnormal Swab- 1 Vagin al Tvntr 6 K80ST OP mutat ion not detec kavon. Canno t deter mine [facility] [place] susce ptibi lity or resis tance . *Swab -1 111:T richo monas vagin roxanne by Real- Time PCR (Refl ex to [facility] [place] resis tance ) - The Tvntr 6 K80ST OP mutat ion predi cts [facility] resis tance with 40% sensi tivit y and 96% speci ficit y. The prese nce of the mutat ion has a posit yamile predi ctive value (PPV) for [facility] [place] resis tance of 91%. A negat yamile resul t is incon clusi ve and does not indic ate susce ptibi lity or resis tance to [facility]. This assay was devel oped by testi ng 100 well- yoni cteri zed metro [facility] [place]-s ensit yamile and resis tant isola capri provi ded by the Cente rs for Disea se Contr ol and Preve ntion (CDC) . Not Available [facility] ([facility]) [address] [place] [address], [id number], 03/24/2019 18:00:02 03/17/2003/20/2019 strep tococ cus group B Ag, vagin al group B streptococcu s (gbs) by real-time PCR Positi ve abnormal Swab- 1 Vagin al Not Available [facility] ([facility]) [address] [place] [address], [id number], 03/24/2019 18:00:03 03/17/2003/20/2019 bacte rial vagin osis panel , vagin al gardnerella vaginalis by real-time PCR Positi ve abnormal Swab- 1 Vagin al Not Available [facility] ([facility]) [address] [place] [address], [id number], 03/24/2019 18:00:03 03/17/2003/20/2019 bacte rial vagin osis panel , vagin al atopobium vaginae by real-time PCR Positi ve abnormal Swab- 1 Vagin al Not Available [facility] ([facility]) [address] [place] [address], [id number], 03/24/2019 18:00:03 03/17/2003/20/2019 bacte rial vagin osis panel , vagin al bacterial vaginosis associated bacterium 2 (bvab2) by real-time PCR Positi ve abnormal Swab- 1 Vagin al Not Available [facility] ([facility]) [address] [place] [address], [id number], 03/24/2019 18:00:03 03/17/2003/21/2019 bacte rial vagin osis panel , vagin al megasphaera species (type 1 and type 2) by real-time PCR Negati ve normal Swab- 1 Vagin al Type1 :Nega tive Type2 :Nega tive. Not Available [facility] ([facility]) [address] [place] [address], [id number], 03/24/2019 18:00:03 03/17/2003/21/2019 bacte rial vagin osis panel , vagin al lactobacillu s (bv & av panel) by real time PCR See Commen t normal Swab- 1 Vagin al L.cri spatu s: Negat yamile L.jodi senii : Negat yamile L.gas seri : Negat yamile L.ine rs : Negat yamile. Not Available [facility] ([facility]) [address] [place] [address], [id number], 03/24/2019 18:00:03 03/17/2003/20/2019 bonifacio da sp DNA, vagin al bartolo albicans by real-time PCR Negati ve normal Swab- 1 Vagin al Not Available [facility] ([facility]) [address] [place] [address], [id number], 03/24/2019 18:00:04 03/17/20 19 03/20/2019 bonifacio da sp DNA, vagin al bartolo tropicalis by real-time PCR Negati ve normal Swab- 1 Vagin al Not Available [facility] ([facility]) [address] [place] [address], [id number], 03/24/2019 18:00:04 03/17/20 19 03/20/2019 bonifacio da sp DNA, vagin al bartolo parapsilosis by real-time PCR Negati ve normal Swab- 1 Vagin al Not Available [facility] ([facility]) [address] [place] [address], [id number], 03/24/2019 18:00:04 03/17/20 19 03/20/2019 bonifacio da sp DNA, vagin al bartolo glabrata by real-time PCR Negati ve normal Swab- 1 Vagin al Not Available [facility] ([facility]) [address] [place] [address], [id number], 03/24/2019 18:00:04 Result Notes None recorded. Procedures Surgical History Date Name Laterality Status Provider Name and Address Organization Details Recorded Time 08/15/20 18 Date of Last Pap Smear completed [facility] 03/17/2019 15:07:41 09/15/19 17 Most Recent Mammogram completed [facility] 03/17/2019 15:07:48 09/15/19 17 Colonoscopy completed [facility] 03/17/2019 15:07:52 09/15/19 17 Gallbladder Surgery completed [facility] 03/17/2019 15:10:53 09/15/19 15 Hysterectomy-Par tial completed [facility] 03/17/2019 15:11:05 09/15/19 03 Appendectomy completed Daisha [facility] 03/17/2019 15:11:21 09/15/19 02 Laparoscopy completed Daisha [facility] 03/17/2019 15:11:47 09/15/18 99 Laparoscopy completed Daisha In[facility] 03/17/2019 15:11:42 09/15/18 95 Laparoscopy completed Daisha In[facility] 03/17/2019 15:11:38 Imaging Results None recorded. Procedure Notes None recorded. Medical Equipment None Reported. Allergies Allergen ID Allergen Name Allergen Category Reaction Reaction Severity Criticality Documentation Date Start Date Code Code System Note Provider Name and Address Organization Details Recorded Time 11833 Product containin g penicilli n (product) medicatio n Not available Not available Not available 03/17/2019 73370 8001 SNOMED Daisha Ino [facility] 9 15:06:19 15755 Substance with sulfonami de structure and antibacte rial mechanism of action (substanc e) medicatio n Not available Not available Not available 03/17/2019 39151 8003 SNOMED Daisha Ino [facility] 9 15:06:32 09532 ibuprofen medicatio n Not available Not available Not available 03/17/2019 5640 RxNorm Daisha Ino [facility] 9 15:06:50 Medications Name Sig Start Date Stop Date Status Note LastModified by Organization Details LastModified Time methocarbam ol 500 mg tablet active Not Available Not Available Not Available bupropion HCl SR 150 mg tablet,12 hr sustained-r elease active Not Available Not Available Not Available butalbital- acetaminoph en-caffeine 50 mg-325 mg-40 mg capsule active Not Available Not Available Not Available fluconazole 150 mg tablet 03/17 completed Not Available Not Available Not Available metronidazo le 0.75 % (37.5 mg/5 gram) vaginal gel Insert 1 applicato rful every day by vaginal route for 7 days. active Not Available Not Available No t Available metronidazo le 500 mg tablet Take 1 tablet every 12 hours by oral route as directed for 7 days. active Not Available Not Available No t Available ciprofloxac in 500 mg tablet active Not Available Not Available Not Available hydrocodone 10 mg-acetamin ophen 325 mg tablet active Not Available Not Available No t Available butalbital- acetaminoph en-caffeine 50 mg-325 mg-40 mg tablet active Not Available Not Available Not Available verapamil ER 180 mg 24 hr capsule,ext ended release active Not Available Not Available Not Available azithromyci n 500 mg tablet Take 2 tablets every day by oral route for 1 day. active Not Available Not Available No t Available topiramate 50 mg tablet active Not Available Not Available Not Available Vitals Date Recorded Body height Body mass index (BMI) Body weight Systolic blood pressure Diastolic blood pressure Provider Name and Address Organization Details Last Updated DateTime 03/17/2019 160.02 cm 29.4 kg/m2 74569.33 g 134 mm[Hg] 78 mm[Hg] Daisha [facility] 9 15:24:23 Social History Question Answer Notes LastModified by [employer] Details LastModified Time Tobacco Smoking Status Current Every Day Smoker Daishaamara McdermottIno [facility] 03/17/2019 15:10:17 How Many Days In The Past Year Have You Had A Heavy Drinking Consumption (4+ Female, 5+ Male)? 0 [place] [address] Information not available 03/17/2019 What Was The Date Of Your Most Recent Tobacco Screening? 03/17/2019 Information not available 04/09/2019 How Much Tobacco Do You Smoke? 0.5 PPD [place] [address] Information not available 03/17/2019 How Many Years Have You Smoked Tobacco? 25 [email or web address] Information not available 03/17/2019 Sex: Unknown Functional Status Question Answer Note LastModified by [employer] Details LastModified Time Urinary incontinence assessment performed? Yes [place] [address] Information not available 03/17/2019 Mental Status None recorded. Family History Relationship Description Onset Age of this Age Resolved Age Notes LastModified by Organization Details LastModified Time Mother Family history of malignant neoplasm [id number] Not available 2018 15:09:28 Mother Heart disease [email or web address] Not available 2018 15:09:52 Mother Thyroiditis [place] [address] Not avail able 03/17/2019 15:10:08 Maternal Grandmother Family history of malignant neoplasm [email or web address] Not available 2018 15:09:28 Daughter Heart disease [email or web address] Not available 2018 15:09:52 Medical History Condition Response Depression Y Stroke/TIA Y Asthma Y Gynecological History Statement/Question Response Total # of Births 4 Date of LMP 08/15/2002 Total # of Pregnancies 5 Date of Last Pap Smear 08/15/2018 Age at Menarche 10 Current Control Method None Most Recent Mammogram 09/15/2016 Colonoscopy 09/15/2016 Obstetrics History GPAL:G 5 P 0 0 0 4 Type Value Living 4 Total 5 Past Encounters Encounter ID Performer Location Encounter Start Date Encounter Closed Date Diagnosis/Indication Diagnosis SNOMED-CT Code Diagnosis ICD10 Code Diagnosis Note [id number] Slava Scott MD [facility] [address] [facility],[address] [place] [address] 03/17/2019 13:58:10 03/17/2019 16:59:21 Body mass index 25-29 - overweight 726267401 Z68.29 Vaginitis 48951443 N76.0 Cystocele without uterine prolapse 29541557 N81.10 Wait and see and follow-up/ no incontinen ce symptoms with it/she does not see a bulge Health Concerns Section Related Observation LastModified by Organization Detai ls LastModified Time None Recorded Concern Status LastModified by Organization Details LastModified Time None Recorded Advance Directives Directive None Recorded Payers Encounter Date Sequence Insurance Name Policy Number Policy Alford Covered Member ID Alford Member ID Guarantor Name 03/17/2019 1 [place] Mariana Vela [id number] Mariana Vela 03/17/2019 2 [facility] (MEDICAID REPLACEMENT - HMO) [id number] Mariana Vela [id number] Mariana Vela Notes Date Note Type Note Provider Name and Address Organization Details Recorded Time 03/17/2019 text/html 43-year-old female is here for left lower quadrant pain Complaining of vaginal discharge/concern ed about STDs /Trichomonas/ Has been treated for PID and is on medication at this time: Has taken Diflucan 3 doses/and is on Flagyl generic/and some other antibiotic that [place] did [place] [address] [place], [address], [facility] 03/17/2019 16:29:06 OBGyn Episode No OBEpisode recorded.
--- OUTSIDE RECORDS SUMMARY | 2024-11-08 13:58 | XMS_ITS | Continuity of Care Document ---
Author Organization [facility] Address [address] [place] [address]- Support Name Relationship Address Phone ELI MATHEWS child Unknown Unavailable ROSEMARY, VIKAS mother Unknown Unavailable ODONNELL, RYAN LAYNE Personal Relationship Unknown U navailable ODONNELL, RYAN LAYNE Personal Relationship Unknown U navailable ODONNELL, ODONNELL child Unknown Unavailable ODONNELL, RYAN LAYNE Personal Relationship Unknown U navailable ODONNELL, RYAN LAYNE Personal Relationship Unknown U navailable ODONNELL, RYAN LAYNE Personal Relationship Unknown U navailable ODONNELL, RYAN LAYNE Personal Relationship Unknown U navailable RASHMI, TON [...] RYAN LAYNE Personal Relationship Unknown U navailable ELI, BISI child Unknown Unavailable ODONNELL, RYAN LAYNE Personal [...] ODONNELL, RYAN LAYNE Personal Relationship Unknown U navailPARAS Rich Other Unknown Unavailable Care Team Providers Care Machine Stamper Name Role Phone Braden ALMEIDA, Ambrose Chao Primary Care Physician [place] [facility] [place]21[place] - 10/21/[address] [place] [address]- Encounter Type: Triage Allergies, Adverse Reactions, Alerts Substance Criticality Severity Reaction Reaction Severity Status penicillin anaphylaxis Active aspirin bleeding Active morphine 1 anaphylaxis Active cortisone HIVES Active sulfa drugs anaphylaxis Active Motrin bleeding Active Neurontin Hallucinations Activ e Bee Stings Unable to assess criticality Persistent Severe Active Latex hives Active Egg Allergy Active NSAIDs BLEEDING IN STOMACH Active FLUoxetine Active 1Per Dr. Pool - [...] 10:21:00 AM EST, Route to Pharmacy Electronically, [facility], Partial fill upon patient request if the prescription is for a schedule II opioid drug., 160, cm, 11/01/22 7:18:00 EST, Height, 90.1, kg, 11/01/22 7:18:00 EST, Dry Weight Start Date: 11/01/22 Status: Ordered Quantity: 90.0 Unit: tablet Repeat number: 4 atorvastatin 80 mg oral tablet 1 tablet = 80 mg, By Mouth, Daily, # 90 tablet, 3 Refills, Maintenance, 11/01/22 10:20:00 AM EST, Tablet, [facility], Partial fill upon patient request [...] Date: 11/27/23 Status: Ordered Repeat number: 1 codeine-guaifenesin 10 mg-100 mg/5 mL oral syrup 0 Refills, Maintenance, 09/01/24 7:53:00 AM EST, Partial fill upon patient request if the prescription is for a schedule II opioid drug. Start Date: 09/01/24 Status: Ordered Repeat number: 1 Coreg 6.25 mg oral tablet 6.25 mg, 1, tablet, By Mouth, 2 times a day, # 60 tablet, Refills 3, Tot. Refills 3, Maintenance, 11/03/22 9:00:00 AM EST, Route to Pharmacy Electronically, [facility], Partial fill uponpatient request if [...] Quantity: 20.0 Unit: capsule Repeat number: 1 Lasix 20 mg oral tablet 20 mg, 1, tablet, By Mouth, Daily, # 90 tablet, Refills 1, Tot. Refills 1, Maintenance, 11/27/23 9:48:00 AM EDT, Route to Pharmacy Electronically, [facility], Partial fill upon patient request if the prescription is for a schedule II opioid drug., 160, cm, 11/27/23 8:12:00 EDT, Height,94.9, kg, 11/27/23 8:12:00 EDT, Dry Weight Start Date: 11/27/23 Status: Ordered Quantity: 90.0 Unit: tablet Repeat number: 2 nystatin-triamcinolone topical 782395 u/gm-0.1% cream 0 Refills, Maintenance, 03/25/22 10:16:00 [...] Quantity: 30.0 Unit: capsule Repeat number: 1 Percocet 10 mg-325 mg oral tablet 1 tablet, By Mouth, 3 times a day, PRN Pain , Moderate, 0 Refills, Maintenance, 09/02/24 8:34:00 AMEST, Partial fill upon patient request if the prescription is for a schedule II opioid drug. Start Date: 09/02/24 Status: Ordered Repeat number: 1 predniSONE 10 mg oral tablet 1 tablet = 10 mg, By Mouth, Daily, # 10 tablet, 0 Refills, Maintenance, 11/01/22 6:44:00 AM EST, Tablet, Partial fill upon patient request if the prescription is for a schedule II opioid drug. Start Date: 11/01/22 Status: Ordered Quantity: 10.0 Unit: tablet Repeat number: 1 Readi-Cat 2 Smoothie Gaitan 2% oral suspension See Instructions, If scan in Am drink 1 bottle before bed and 2nd bottle 90 min before the scan If scan after 12PM drink 1 bottle at 8am and 2nd bottle 90 min before scan If scan after 4pm drink 1 bottle 6 hours before the scan and 2nd bottle 90 min before scan, # 900 mL, 0 Refills, Maintenance, 09/17/24 4:53:00 PM EST, [id number], Partial fill upon patient request if the prescription is for a schedule II opioid drug., If scan in Am drink 1 bottle before bed and 2nd bottle 90 min before the scan; If scan after 12PM drink 1 bottle at 8am and 2nd bottle 90 min before scan; If scan after 4pm drink 1 bottle 6 hours before the scan and 2nd bottle 90 min before scan, 160, cm, 09/02/24 8:24:00 EST, Height, 95.6, kg, 08/24/24 11:17:00 EST, Dry Weight Start Date: 09/17/24 Status: Ordered Quantity: 900.0 Unit: mL Repeat number: 1 Scopolamine Topically, Once, 0 Refills, Maintenance, 03/25/22 11:18:00 AM EDT, Partial fill upon patient requestif the prescription is for a schedule II opioid drug. Start Date: 03/25/22 Status: Ordered Repeat number: 1 ticagrelor 90 mg oral tablet 1 tablet = 90 mg, By Mouth, 2 times a day, # 180 tablet, 3 Refills, Maintenance, 11/01/22 10:20:00 AM EST, Tablet, [facility], Partial fill upon patient request if [...] Date: 11/01/22 Status: Ordered Repeat number: 1 traMADol 50 mg oral tablet TAKE 1 TABLET BY MOUTH 3 TO 4 TIMES A DAY ONLY NEEDED FOR INCREASED PAIN Start Date: 11/01/22 Status: Ordered Repeat number: 1 Trelegy Ellipta 200 mcg-62.5 mcg-25 mcg/inh inhalation powder 1 inhalation, Inhalation, Daily, 0 Refills, Maintenance, 09/01/24 7:52:00 AM EST, Partial fill uponpatient request if the prescription is for a schedule II opioid drug. Start Date: 09/01/24 Status: Ordered Repeat number: 1 Vitamin D3 [...] CABG x 2 Confirmed Active History of DE (myocardial infarction) Confirmed Active LLQ abdominal pain [...] History Social History Type Response Smoking Status 10 or more cigarette s (1/2 pack or more)/day in last 30 days entered on: 09/01/24 Sex Sex Representation Female (finding) Patient Care team information Care Team Personnel Name: Ambrose Feliciano MD Position: Reference Physician Member Role: PCP Address: [address] [place] [address] Drive [address] [place] [address]- Telecom: Care Team Related Persons Name: ELI MATHEWS Name: PARAS CARABALLO Name: VIKAS RILEY Name: VIKAS RILEY Name: BELLE ODONNELL Insurance Providers Guarantor name: RYAN ODONNELL Health Plan Information #: 1 Payer: [facility] [employer] Member Number: NA Policy Number: NA Group Number: NA
--- OUTSIDE RECORDS SUMMARY | 2024-11-08 13:58 | XMS_ITS | Continuity of Care Document ---
Author Organization [facility] Address [address] [place] [address]- Support Name Relationship Address Phone ELI MATHEWS child Unknown Unavailable ROSEMARY, VIKAS mother Unknown Unavailable ODONNELL, RYAN LAYNE Personal Relationship Unknown U navailable ODONNELL, RYAN LAYNE Personal Relationship Unknown U navailable ODONNELL, ODONNELL child Unknown Unavailable ODONNELL, RYAN LAYNE Personal Relationship Unknown U navailable ODONNELL, RYAN LAYNE Personal Relationship Unknown U navailable ODONNELL, RYAN LAYNE Personal Relationship Unknown U navailable OODNNELL, RYAN LAYNE Personal Relationship Unknown U navailable RASHMI, TON spouse Unknown Unavailable GALLANT, FLORA sibling Unknown Unavailable ODONNELL, RYAN LAYNE Personal Relationship Unknown U navailable ODONNELL, RYAN LAYNE Personal Relationship Unknown U navailable GALLANT, NATHAN Other Unknown Unavailable ODONNELL, RYAN LAYNE Personal Relationship Unknown U navailable ODONNELL, YRAN LAYNE Personal Relationship Unknown U navailable ODONNELL, RYAN LAYNE Personal Relationship Unknown U navailable ODONNELL, RYAN LAYNE Personal Relationship Unknown U navailable BENITEZ, BISI child Unknown Unavailable ODONNELL, RYAN LAYNE [...] Other Unknown Unavailable Care Team Providers Care Gas Fitter Apprentice Name Role Phone Ambrose Feliciano MD Primary Care Physician [phone] Encounter [facility] Date(s): 09/20/24 - 10/23/[address] [address]- Attending Physician: Kirill Sarmiento MD Admitting Physician: Kirill Sarmiento MD Referring Physician: Kirill Sarmiento MD Encounter Type: Pre-Outpt Allergies, Adverse Reactions, Alerts Substance Criticality Severity [...] 10:21:00 AM EST, Route to Pharmacy Electronically, [facility], Partial fill upon patient request [...] Refills, Maintenance, 11/01/22 10:20:00 AM EST, Tablet, [facility], Partial fill upon patient request [...] 9:00:00 AM EST, Route to Pharmacy Electronically, [facility], Partial fill uponpatient request if [...] 9:48:00 AM EDT, Route to Pharmacy Electronically, [facility], Partial fill upon patient request if the prescription is for a schedule II opioid drug., 160, cm, 11/27/23 8:12:00 EDT, Height,94.9, kg, 11/27/23 8:12:00 EDT, Dry Weight Start Date: 11/27/23 Status: Ordered Quantity: 90.0 Unit: tablet Repeat number: 2 nystatin-triamcinolone topical [id number] u/gm-0.1% cream 0 Refills, Maintenance, 03/25/22 10:16:00 [...] 0 Refills, Maintenance, 09/17/24 4:53:00 PM EST, [facility]/pharmacy #[id number], Partial fill upon patient request [...] Refills, Maintenance, 11/01/22 10:20:00 AM EST, Tablet, [facility], Partial fill upon [...] CABG x 2 Confirmed Active History of [place] (myocardial infarction) Confirmed Active LLQ abdominal pain [...] Position: Reference Physician Member Role: PCP Address: [address] [place] [address] [place] [address]- Telecom: Care Team Related Persons Name: ELI MATHEWS Name: PARAS CARABALLO Name: VIKAS RILEY Name: VIKAS RILEY Name: BELLE ODONNELL Insurance Providers Guarantor name: RYAN TILLMAN ODONNELL Health Plan Information #: 1 Payer: [facility] CARE ALLIANCE/ONE CARE Member Number: [id number] Policy Number: NA Group Number: [facility] [employer] Plan Information #: 2 Payer: [facility] CARE ALLIANCE/ONE CARE Member Number: [id number] Policy Number: NA Group Number: NA
--- OUTSIDE RECORDS SUMMARY | 2024-11-08 13:58 | XMS_ITS | Continuity of Care Document ---
Author Organization [facility] Address [address] [place] [address]- Support Name Relationship Address Phone ELI MATHEWS [...] Other Unknown Unavailable Care Team Providers Care Sorter Packer Name Role Phone Ambrose Feliciano MD Primary Care Physician Encounter [facility] Date(s): 09/11/24 - 10/21/[address] [address]- Attending Physician: Augustine Batista MD Admitting Physician: Augustine Batista MD Referring Physician: Ambrose Calderon DO Encounter Type: Pre-Outpt Allergies, Adverse Reactions, Alerts Substance Criticality Severity Reaction Reaction Severity Status penicillin anaphylaxis Active cortisone HIVES Active Egg Allergy Active NSAIDs BLEEDING IN STOMACH Active aspirin bleeding Active morphine 1 anaphylaxis Active sulfa drugs anaphylaxis Active Motrin bleeding Active Neurontin Hallucinations Activ e Bee Stings Unable to assess criticality Persistent Severe Active Latex hives Active FLUoxetine Active 1Per Dr. Pool - [...] 10:21:00 AM EST, Route to Pharmacy Electronically, [facility], Partial fill upon patient [...] Refills, Maintenance, 11/01/22 10:20:00 AM EST, Tablet, [facility], Partial fill upon patient [...] 9:00:00 AM EST, Route to Pharmacy Electronically, [facility], Partial fill uponpatient request if the [...] 9:48:00 AM EDT, Route to Pharmacy Electronically, [facility], Partial fill upon patient request if the prescription is for a schedule II opioid drug., 160, cm, 11/27/23 8:12:00 EDT, Height,94.9, kg, 11/27/23 8:12:00 EDT, Dry Weight Start Date: 11/27/23 Status: Ordered Quantity: 90.0 Unit: tablet Repeat number: 2 nystatin-triamcinolone topical [id number] u/gm-0.1% cream 0 Refills, Maintenance, 03/25/22 10:16:00 [...] 0 Refills, Maintenance, 09/17/24 4:53:00 PM EST, [facility]/pharmacy #[id number], Partial fill upon patient request if [...] Refills, Maintenance, 11/01/22 10:20:00 AM EST, Tablet, [facility], Partial fill upon patient request [...] CABG x 2 Confirmed Active History of [place] (myocardial infarction) Confirmed Active LLQ abdominal pain [...] Position: Reference Physician Member Role: PCP Address: [address] [place] [address] Drive [address] [place] [address]- Telecom: Care Team Related Persons Name: ELI MATHEWS Name: PARAS CARABALLO Name: VIKAS RILEY Name: VIKAS RILEY Name: BELLE ODONNELL Insurance Providers Guarantor name: RYAN TILLMAN ODONNELL Health Plan Information #: 1 Payer: [facility] CARE ALLIANCE/ONE CARE Member Number: [id number] Policy Number: NA Group Number: [facility] Fin[facility] Plan Information #: 2 Payer: [facility]/ONE C[facility] Member Number: [id number] Policy Number: NA Group Number: NA
--- OUTSIDE RECORDS SUMMARY | 2024-11-08 13:58 | XMS_ITS | Continuity of Care Document ---
Author Organization [facility] Address [address] [place] [address]- Support Name Relationship Address Phone ELI MATHEWS child Unknown Unavailable ROSEMARY, VIKAS mother Unknown Unavailable ODONNELL, RYAN LAYNE Personal Relationship Unknown U navailable ODONNELL, RYAN LAYNE Personal Relationship Unknown U navailable ODONNELL, ODONNELL child Unknown Unavailable ODONNELL, RYAN DEE Personal Relationship Unknown U [...] Other Unknown Unavailable Care Team Providers Care Lighting Fixtures Decorator Name Role Phone Braden ALMEIDA, Ambrose Chao Primary Care Physician En[place] [facility] [place] Date(s): 09/17/24 - 10/17/24 [facility] [address] [place] [address]- Encounter Type: Triage Allergies, Adverse Reactions, Alerts Substance Criticality Severity Reaction Reaction Severity Status penicillin anaphylaxis Active Egg Allergy Active FLUoxetine Active aspirin bleeding Active morphine 1 anaphylaxis Active cortisone HIVES Active NSAIDs BLEEDING IN STOMACH Active sulfa drugs anaphylaxis Active Motrin bleeding Active Neurontin Hallucinations Activ e Bee Stings Unable to assess criticality Persistent Severe Active Latex hives Active 1Per Dr. Pool - pt tolerates [...] 10:21:00 AM EST, Route to Pharmacy Electronically, [facility], Partial fill upon patient [...] Refills, Maintenance, 11/01/22 10:20:00 AM EST, Tablet, [facility], Partial fill upon patient [...] 9:00:00 AM EST, Route to Pharmacy Electronically, [facility], Partial fill uponpatient request [...] 9:48:00 AM EDT, Route to Pharmacy Electronically, [facility], Partial fill upon patient request if the prescription is for a schedule II opioid drug., 160, cm, 11/27/23 8:12:00 EDT, Height,94.9, kg, 11/27/23 8:12:00 EDT, Dry Weight Start Date: 11/27/23 Status: Ordered Quantity: 90.0 Unit: tablet Repeat number: 2 nystatin-triamcinolone topical [id number] u/gm-0.1% cream 0 Refills, Maintenance, 03/25/22 10:16:00 [...] 0 Refills, Maintenance, 09/17/24 4:53:00 PM EST, [facility]/pharmacy #[id number], Partial fill upon patient request if [...] Refills, Maintenance, 11/01/22 10:20:00 AM EST, Tablet, [facility] 3, Partial fill upon patient [...] CABG x 2 Confirmed Active History of [place] (myocardial infarction) Confirmed Active LLQ abdominal pain [...] Position: Reference Physician Member Role: PCP Address: [address] [place] [address] Drive [address] [place] [address]- Telecom: Care Team Related Persons Name: ELI MATHEWS Name: PARAS CARABALLO Name: VIKAS RILEY Name: VIKAS RILEY Name: BELLE ODONNELL Insurance Providers Guarantor name: RYAN ODONNELL Health Plan Information #: 1 Payer: [facility] CARE ALLIANCE/[facility] CARE Member Number: NA Policy Number: NA Group Number: NA
--- OUTSIDE RECORDS SUMMARY | 2024-11-08 13:58 | XMS_ITS | Continuity of Care Document ---
Author Organization [facility] Address [address] [facility] [address] [place] [address]- Support Name Relationship Address Phone ELI MATHEWS [...] ODONNELL, RYAN LAYNE Personal Relationship Unknown U rogerPARAS Nguyen Other Unknown Unavailable Care Team Providers Care Sales Agent Pest Control Service Name Role Phone Braden ALMEIDA, Ambrose Chao Primary Care Physician [phone] Encounter [facility] Date(s): 10/01/24 - 10/08/[address] [place] [address]- Encounter Diagnosis Incisional hernia with obstruction(Discharge Diagnosis) - 10/01/24 Attending Physician: Jax Rodriguez MD Referring Physician: Kirill Sarmiento MD Encounter Type: Office Visit Allergies, Adverse Reactions, Alerts Substance Criticality Severity [...] 10:21:00 AM EST, Route to Pharmacy Electronically, [facility], Partial fill upon patient request [...] Refills, Maintenance, 11/01/22 10:20:00 AM EST, Tablet, [facility], Partial fill upon patient request if [...] 9:00:00 AM EST, Route to Pharmacy Electronically, [facility], Partial fill uponpatient request if the [...] 9:48:00 AM EDT, Route to Pharmacy Electronically, [facility], Partial fill upon patient request if the prescription is for a schedule II opioid drug., 160, cm, 11/27/23 8:12:00 EDT, Height,94.9, kg, 11/27/23 8:12:00 EDT, Dry Weight Start Date: 11/27/23 Status: Ordered Quantity: 90.0 Unit: tablet Repeat number: 2 nystatin-triamcinolone topical [id number] u/gm-0.1% cream 0 Refills, Maintenance, 03/25/22 10:16:00 [...] 0 Refills, Maintenance, 09/17/24 4:53:00 PM EST, [facility]/pharmacy #[id number], Partial fill upon patient [...] Refills, Maintenance, 11/01/22 10:20:00 AM EST, Tablet, [facility], Partial fill upon patient request if [...] CABG x 2 Confirmed Active History of [place] (myocardial infarction) Confirmed Active LLQ abdominal pain [...] with comorbidity Confirmed Active Smoker Confirmed Active Diagnosis Diagnosis Type Effective Dates Health Status Clinical Service Informant Incisional hernia with obstruction Discharge Diagnosis 10/01/24 Vital Signs Most recent to oldest [Reference Range]: 1 Height 160 cm (10/01/24 2:45 PM) Weight 95.4 kg (10/01/24 2:45 PM) Pulse Rate [55-90 bpm] 99 bpm *H* (10/01/24 2:45 PM) Body Mass Index [18.5-24.99 kg/m2] 37.27 kg/m2 *>HHI* (10/01/24 2:45 PM) Blood Pressure [90-138/55-84 mm Hg] 149/ 89mm Hg *H* (10/01/24 2:45 PM) Temperature [96.8-100.4 DegF] 96.7 DegF *L* (10/01/24 2:45 PM) Blood pressure sites Arm, left (10/01/24 2:45 PM) Temperature Route Temporal (10/01/24 2:45 PM) Weight Obtained Via Standing scale (10/01/24 2:45 PM) Social History Social History Type Response Smoking Status 10 or more cigarette s (1/2 pack or more)/day in last 30 days entered on: 09/01/24 Sex Sex Representation Female (finding) Patient Care team information Care Team Personnel Name: Ambrose Feliciano MD Position: Reference Physician Member Role: PCP Address: [address] [place] [address] Telecom: Care Team Related Persons Name: ELI MATHEWS Name: PARAS CARABALLO Name: VIKAS RILEY Name: VIKAS RILEY Name: BELLE ODONNELL Insurance Providers Guarantor name: RYAN ODONNELL Health Plan Information #: 1 Payer: [facility] [employer]/ONE CARE Member Number: [id number] Policy Number: NA Group Number: [facility] Health Plan Information #: 2 Payer: [facility] [employer]/ONE CARE Member Number: [id number] Policy Number: NA Group Number: NA
== END 2024-11-08 12:08 | disposition home or self-care (01) ==
LOC: HO.LAB 12:07
PROVIDERS: PCP Internal Medicine; Visit Provider Internal Medicine
DX: N90.3 Dysplasia of vulva, unspecified (principal); R10.32 Left lower quadrant pain; J43.9 Emphysema, unspecified; I25.118 Atherosclerotic heart disease of native coronary artery with other forms of angina pectoris; E78.2 Mixed hyperlipidemia; I10 Essential (primary) hypertension; M25.571 Pain in right ankle and joints of right foot; G89.29 Other chronic pain; M17.11 Unilateral primary osteoarthritis, right knee; M51.360 Other intervertebral disc degeneration, lumbar region with discogenic back pain only; G62.9 Polyneuropathy, unspecified; G43.909 Migraine, unspecified, not intractable, without status migrainosus; E55.9 Vitamin D deficiency, unspecified; K50.919 Crohn's disease, unspecified, with unspecified complications; K21.9 Gastro-esophageal reflux disease without esophagitis; F41.9 Anxiety disorder, unspecified; F33.9 Major depressive disorder, recurrent, unspecified; E66.9 Obesity, unspecified; D64.9 Anemia, unspecified; E78.00 Pure hypercholesterolemia, unspecified; F17.200 Nicotine dependence, unspecified, uncomplicated; I25.2 Old myocardial infarction; Z79.82 Long term (current) use of aspirin; Z79.899 Other long term (current) drug therapy
CPT/HCPCS: 36415; 80053; 80061; 81001; 81003; 82306; 82607; 82746; 84443; 85025; 96127; 99212

== ENCOUNTER 2024-11-08 13:28 | Outpatient (AMB) | payer OTHER, SELFPAY ==
[2024-11-08 15:13] VITALS: BP 128/84; PULSE 86; O2SAT 98; BMI 37.2
--- NOTE | 2024-11-08 15:13 | MHC.PC.OV ---
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 Accompanied by: Self / Same As Patient Allergies NSAIDS (Non-Steroidal Anti-Inflamma [Nsaids] Allergy (Severe, Verified 11/08/24 15:40) blood in stool diazepam [DIAZEPAM] Allergy (Mild, Verified 11/08/24 15:40) RASH fluoxetine [From Prozac] Allergy (Unknown, Verified 11/08/24 15:40) Unknown ibuprofen [From Motrin] Allergy (Unknown, Verified 11/08/24 15:40) UNKNOWN Penicillins Allergy (Unknown, Verified 11/08/24 15:40) UNKNOWN colchicine Allergy (Verified 11/08/24 15:40) Dizziness gabapentin [From NEURONTIN] Adverse Reaction (Severe, Verified 11/08/24 15:40) HALLUCINATIONS, halluciinations morphine [Morphine] Adverse Reaction (Severe, Verified 11/08/24 15:40) DIFFICULTY BREATHING Sulfa (Sulfonamide Antibiotics) [SULFA (SULFONAMIDE ANTIBIOTICS)] Adverse Reaction (Severe, Verified 11/08/24 15:40) DIFF BREATHING Zetia/ezetimibe Allergy (Intermediate, Uncoded 11/08/24 15:40) Rash and Swelling R side of face pregabalin Adverse Reaction (Intermediate, Uncoded 11/08/24 15:40) Hallucinations Medication List - Last Reconciled 11/08/24 by Ambrose Feliciano MD albuterol sulfate 2.5 mg (3 mL) inhalation QID PRN 30 days albuterol sulfate 90 mcg/actuation 2 puffs inhalation Q6H PRN aspirin 81 mg PO DAILY 90 days atorvastatin 80 mg PO DAILY 90 days baclofen 20 mg PO TID PRN 30 days bupropion HCl XL 150 mg PO QAM 30 days fujcfojqan-wcjbjtiawinnq-zbgw 50-325-40 mg 1 tab PO Q6-8H PRN 30 days carvedilol 12.5 mg PO BID NS cholecalciferol (vitamin D3) 50 mcg PO DAILY 90 days codeine-guaifenesin 10-100 mg/5 mL 5 mL PO BID-TID PRN 7 days cyanocobalamin (vitamin B-12) 1,000 mcg IM Q2W duloxetine 30 mg PO DAILY 30 days [ELECTRIC SCOOTER As directed] evolocumab (Repatha Syringe) 140 mg subcut Q2W ezetimibe (Zetia) 10 mg PO DAILY fluticasone furoate 200 mcg/actuation (Arnuity Ellipta) 1 inh inhalation DAILY 30 days yxqigyngjma-yqguruhpq-evikrbye 200-62.5-25 mcg (Trelegy Ellipta) 1 inh inhalation DAILY folic acid 1 mg PO DAILY 90 days furosemide 20 mg PO QAM PRN 15 days [Handicap Shower Head As directed (with long hose as patient can not stand for a long period of time)] hydroxyzine HCl 25 mg PO TID PRN 30 days incontinence pad, liner, disp (Prevail Pant Liner pads) As directed isosorbide mononitrate ER 30 mg PO DAILY lamotrigine 150 mg PO DAILY lidocaine HCl 2% 1 appl topical BID-QID PRN lidocaine HCl 3% 1 appl topical BID PRN 30 days losartan 25 mg PO DAILY 30 days magnesium 200 mg PO BEDTIME 30 days melatonin 10 mg PO BEDTIME PRN 14 days miscellaneous medical supply as directed; Medical Recliner miscellaneous medical supply as directed; Dustin miscellaneous medical supply 1 ea miscellaneous DAILY miscellaneous medical supply 1 ea miscellaneous DAILY nebulizers As directed every 6 hours as needed nicotine (polacrilex) (Nicorette) 4 mg buccal Q2H PRN nystatin-triamcinolone 100,000-0.1 unit/g-% 1 appl topical BID 10 days omeprazole 20 mg PO DAILY 90 days ondansetron HCl 4 mg PO Q12H PRN 7 days oxycodone-acetaminophen 10-325 mg 1 tab PO Q8H PRN 7 days potassium chloride ER 20 mEq PO DAILY 90 days prazosin 3 mg PO BEDTIME prednisone 20 mg PO DAILY prednisone 20 mg PO DAILY 5 days prednisone 4 tablets x 2 days, then 3 tablets x 2 days, then 2 tablets x 2 days, then 1 tablet x 2 days 8 days prednisone 4 tablets x 2 days, then 3 tablets x 2 days, then 2 tablets x 2 days, then 1 tablet x 2 days 8 days sertraline 50 mg PO DAILY tizanidine 4 mg PO Q8H PRN 30 days tramadol 50 mg PO QID PRN 21 days Tobacco use date assessed: 11/08/24 Dental Screening Dental Screen Date: 11/08/24 Did you have a dental visit in the last 12 months?: Yes Did you have a dental problem in the last 6 months where you did not have access to dental care?: No Was dental information given to patient?: Patient has dentist HPI Follow Up HPI Details Patient comes in today for her follow up visit States that she is finally cleared by both pulmonary and cardiology for surgery and is now scheduled for her surgeries at [facility] next month on 12/10/2024 She will be reportedly be undergoing multiple concurrent procedures, including robotic removal of the left ovary and MRV and vulvar colposcopy; there were also reportedly concerns for vulvar dysplasia and she is going to undergo wide local excision of these multiple lesions She was advised any other additional treatment, including chemotherapy and radiation therapy, will be determined if pathology reveals any malignancy Patient also has a hernia that may require surgical correction and was supposedly advised of the possibility of a mass or other lesion on her colon - these will all supposedly be evaluated further when she undergoes surgery soon She denies any headaches or dizziness Denies any chest pains, no increased shortness of breath No nausea/vomiting but she still has the persistent LLQ abdominal pain that she's had for a while now and is hoping that this will be resolved with her upcoming surgery No change in bowel habits noted States that she needs her pain medication Rx refilled and would also like to try getting an Rx for a recliner to use following her surgery [facility] Medical History (Updated 11/15/24 @ 04:21 by Ambrose Feliciano MD) Essential hypertension Hx of ovarian cancer Anxiety Folate deficiency Vitamin D deficiency STEMI (ST elevation myocardial infarction) Coronary atherosclerosis Depression Hematemesis Crohn's disease Avascular necrosis of right tal[place] Chronic pain syndrome Osteoarthritis of right knee Osteoarthritis of left hip Osteoarthritis of right hip Lumbar radiculopathy, right Disc degeneration, lumbar Bony sclerosis Rash Strain of left trapezius muscle Shoulder pain, left Neck pain Mixed hyperlipidemia Pain and swelling of right ankle Swelling of right knee joint Right knee pain Obesity (BMI 30-39.9) Smoker Migraine GERD (gastroesophageal reflux disease) COPD (chronic obstructive pulmonary disease) Right lumbosacral radiculopathy Lumbar degenerative disc disease Surgical History (Updated 11/15/24 @ 04:20 by Ambrose Feliciano MD) History of right oophorectomy Hx of foot surgery History of esophagogastroduodenoscopy (EGD) Hx of cardiac cath (~11/01/22) Hx of section History of appendectomy Hx of colonoscopy History of hysterectomy History of cholecystectomy Family History Father Hypertension Rheumatoid arthritis Mother Hypertension Diabetes CVD (cardiovascular disease) Multiple sclerosis Sister Liver disease Maternal Grandmother Colon cancer Maternal Aunt Breast cancer Social History Housing: House Are you a primary healthcare representative to a significant other at home: No Do you presently have visiting nurse or other home services: No (Children come by to help) Alcohol intake: never Patient Tobacco Use Status: Current everyday Tobacco user Tobacco use type: Cigarette Cigarettes Per Day: 5 Years Smoked: 30 e-Cigarette/Vaping Use: Never Used Second Hand Smoke Exposure: Yes service: No Current occupational status: disabled Cognitive needs: Yes (cane) Hearing needs: No Vision needs: Yes (glasses) Female Reproductive History Menstrual Age of Menarche: 10 Questionnaire PHQ-9 Over the last 2 weeks, how often have you been bothered by any of the following problems? 1. Little interest or pleasure in doing things: more than half the days 2. Feeling down, depressed, or hopeless: nearly every day 3. Trouble falling or staying asleep, or sleeping too much: nearly every day 4. Feeling tired or having little energy: nearly every day 5. Poor appetite or overeating: nearly every day 6. Feeling bad about yourself - or that you are a failure or have let yourself or your family down: more than half the days 7. Trouble concentrating on things, such as reading the newspaper or watching television: more than half the days 8. Moving or speaking so slowly that other people could have noticed. Or the opposite - being so fidgety or restless that you have been moving around a lot more than usual: more than half the days 9. Thoughts that you would be better off or of hurting yourself in some way: not at all Total score: 20 Depression Screening Interpretation: Positive Depression Screening Follow-up: Existing condition and In treatment Depression Screening Done: Yes 31398 - PHQ-9 Billing: Yes Source: Developed by Drs. Adebayo Lizarraga, Alicia Mata, Avel Blancas and colleagues, with an educational rayshawn from [employer]. Thrive Questionnaire Date Thrive assessed: 11/08/24 I am a: Patient What is your living situation today?: I have a steady place to live Within the past 12 months, did the food you bought not last and you didn't have the money to get more?: Never true Within the past 12 months, did you worry whether your food would run out before you got money to buy more?: Never true Do you have trouble paying for medicines?: No Do you have trouble getting transportation to medical appointments?: No Do you have trouble paying your heating and electricity bill?: No Do you have trouble taking care of your child, family member or friend?: No Do you have trouble with day-to-day activities such as bathing, preparing meals, shopping, managing finances, etc.?: No Are you currently unemployed and looking for a job?: No Are you interested in more education?: No Please select the resources that you would like help with: None Currently or been in a relationship where the following occur: No concerns reported THRIVE Score: 0 AUDIT C Alcohol Use Questionnaire (AUDIT-C) 1. How often do you have a drink containing alcohol?: Never 3. How often do you have six or more drinks on one occasion?: Never Total Score: 0 Score Reviewed/Action Taken: Yes CHANELLE-7 AMB Questionnaire CHANELLE-7 Date CHANELLE - 7 assessed: 11/08/24 Feeling nervous, anxious, or on edge: 0 = Not at all Not being able to stop or control worryin = Not at all Worrying too much about different things: 0 = Not at all Trouble relaxin = Not at all Being so restless that it is hard to sit still: 0 = Not at all Becoming easily annoyed or irritable: 0 = Not at all Feeling afraid as if something awful might happen: 0 = Not at all Total CHANELLE-7 score (0-4 normal; 5-9 mild; 10-14 moderate; 15-21 severe): 0 Source: Developed by Alicia Cervantes Kurt Kroenke and colleagues, with an educational rayshawn from [employer]. Review of Systems Const Denies chills, Reports fatigue, Denies fever(s) and Denies headache(s) ENT Denies dysphagia, Denies dizziness, Denies otalgia, Denies headache(s), Denies neck pain, Denies odynophagia and Denies sore throat Card Denies chest pain, Denies rapid heart rate, Denies irregular heart rhythm, Denies palpitations and Reports dyspnea on exertion (mild) Resp Denies chest congestion, Reports cough (on and off), Reports dyspnea on exertion (mild) and Denies wheezing GI Reports abdominal pain (persistent, over the LLQ), Denies constipation, Denies dysphagia, Denies heartburn, Denies diarrhea, Denies nausea, Denies odynophagia and Denies vomiting Denies urinary frequency, Denies dysuria, Denies urinary incontinence and Denies urinary urgency Musc Reports back pain (chronic), Reports myalgias (diffuse, frequent), Reports arthralgias (involving multiple joints, including the right knee and right ankle), Denies joint swelling and Denies neck pain Skin/Breast Denies rash Neuro Denies dizziness, Denies headache(s) and Reports paresthesias (of both hands and feet) Psych Reports anxiety and Reports depression Endo Reports fatigue and Denies palpitations Han/Lymph Details: hands and feet feel swollen at times Denies easy bruising Aller/Immun Denies wheezing Physical exam (Primary Care) Vital Signs: Last Vital Signs Pulse 86 11/08/24 15:13 BP 128/84 11/08/24 15:13 Pulse Ox 98 11/08/24 15:13 Oxygen Delivery Method Room Air 11/08/24 15:13 BMI result Body Mass Index 37.2 Tobacco/Smoking Status: Tobacco use Status Tobacco use date assessed 11/08/24 11/08/24 15:21 Patient Tobacco Use Status Current everyday Tobacco 11/08/24 15:21 Tobacco use type Cigarette 11/08/24 15:21 e-Cigarette/Vaping Use Never Used 11/08/24 15:21 PHQ-9: PHQ-9 Score PHQ-9: Total score 20 11/08/24 15:42 Depression Screening Interpretation: Positive Depression Screening Follow-up: Existing condition and In treatment Thrive Assessment: Date of Thrive Assessment Date Thrive assessed 11/08/24 11/08/24 15:21 Currently or been in a relationship where the following occur: No concerns reported Const General: no acute distress and alert HENMT Ears: TM's normal bilaterally and EAC's normal Throat: Yes posterior oropharynx normal and Yes tonsils normal (no TP congestion) Neck Neck: Yes supple and No lymphadenopathy Thyroid: Thyroid normal Resp Auscultation: no crackles, no rales, rhonchi (occasional) throughout, no wheezes and diminished lung sounds (slightly) bilateral Cardio Rate: regular rate Rhythm: regular rhythm Heart sounds: no murmurs GI Palpation (GI): Soft to palpation, Tenderness to palpation present (GI) in the LLQ, no guarding, not rigid and No Rebound tenderness present Auscultation: normal bowel sounds General: Yes no CVA tenderness Back/Spine/Pelvis Back: no CVA tenderness Cervical Spine: Cervical spine tenderness Thoracic/Lumbar Spine: paraspinal muscle tenderness bilaterally in the mid lumbar and in the lower lumbar and lumbar spinal tenderness Skin Rashes: no rashes Extrem General: Yes no clubbing, cyanosis or edema Right lower extremity: knee Details: tenderness; no swelling, ankle Details: tenderness; no swelling and foot Details: tenderness Location: of the dorsal foot and edema (mild) Location: of the dorsal foot Results Reviewed Results Reviewed: Laboratory Tests 11/08/24 11/08/24 12:25 12:34 WBC 11.7 H Hgb 13.8 Hct 41.8 Plt Count 406 H Sodium 142 Potassium 4.6 Creatinine 0.75 Estimated GFR > 60 Fasting Glucose 100 H Calcium 9.9 AST 30 ALT 38 H Triglycerides 215 H Cholesterol 122 LDL Cholesterol, Calc 45 HDL Cholesterol 34 L Vitamin B12 239 25-OH Vitamin D Total 27.5 L TSH 0.54 Ur Specific Cascade <= 1.005 Urine Protein Negative Urine Glucose (UA) Negative Urine Blood Negative Urine Nitrite Negative Ur Leukocyte Esterase Trace H Coding Level of Care Code Est Pt Level 4 (28962) Diagnoses 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 transplanted heart: [place] heart Associated angina: with stable angina ST elevation myocardial infarction (STEMI), unspecified artery I21.3 Involved coronary artery: unspecified coronary artery Mixed hyperlipidemia E78.2 Essential hypertension I10 Chronic pain of right ankle M25.571; G89.29 Osteoarthritis of right knee, unspecified osteoarthritis type M17.11 Osteoarthritis type: unspecified Degeneration of intervertebral disc of lumbar region with discogenic back pain M51.360 Disc-related pain type: discogenic back pain only Neuropathy G62.9 Migraine without status migrainosus, not intractable, unspecified migraine type G43.909 Migraine type: unspecified Status migrainosus presence: without status migrainosus Intractability: not intractable Vitamin D deficiency E55.9 Crohn's disease with complication, unspecified gastrointestinal tract location K50.919 Gastrointestinal tract location: unspecified location Digestive disease complication type: unspecified complication Gastroesophageal reflux disease without esophagitis K21.9 Esophagitis presence: without esophagitis Anxiety F41.9 Episode of recurrent major depressive disorder, unspecified depression episode severity F33.9 Depression Type: major depressive disorder Major depression recurrence: recurrent Active/Remission status: currently active Major depression episode severity: unspecified Smoker F17.200 Obesity (BMI 30-39.9) E66.9 Additional Codes PHQ-9 - 93265 - PHQ-9 Billing: Yes ([id number]) Assessment & Plan Assessment & Plan (1) Vulvar dysplasia: Code(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 - Dysplasia of vulva, unspecified Category: Medical Plan: Patient will reportedly be undergoing vulvar colposcopy; there were reportedly concerns for vulvar dysplasia and she is going to undergo wide local excision of multiple lesions as well She is now cleared by both Pulmonary and Cardiology and is scheduled for surgery on 12/10/2024 (2) LLQ abdominal pain: Code(s): R10.32 - Left lower quadrant pain Category: Medical Plan: She will undergo robotic removal of the left ovary and MRV in addition to her vulvar colposcopy also on 12/10/2024 as she is now cleared for surgery by both cardiology and pulmonary Further treatments, including potential chemotherapy and/or radiation therapy, will be determined if pathology reveals any malignancy (3) COPD (chronic obstructive pulmonary disease): Code(s): J44.9 - Chronic obstructive pulmonary disease, unspecified Category: Medical Qualifiers: COPD type: emphysema Emphysema type: unspecified Qualified Code(s): J43.9 - Emphysema, unspecified Plan: Appears controlled/stable at present Continue Trelegy Ellipta 200-62.5-25 mcg 1 inhalation QD and Albuterol HFA 1 to 2 inhalations Q 6 hours PRN Follow up with [facility] as scheduled (4) Coronary atherosclerosis: Code(s): I25.10 - Atherosclerotic heart disease of [place] coronary artery without angina pectoris Category: Medical Qualifiers: Coronary Disease-Associated Artery/Lesion type: [place] artery [place] vs. transplanted heart: [place] heart Associated angina: with stable angina Qualified Code(s): I25.118 - Atherosclerotic heart disease of [place] coronary artery with other forms of angina pectoris Plan: S/P cardiac cath and PCI to the mid LAD in October 2022 - had CARA x1 and kissing balloon angioplasty to the bifurcating lesion Continue Aspirin 81 mg QD - will need lifelong antiplatelet therapy S/P Brilinta 90 mg BID x 1 year - this was discontinued by cardiology when she was last seen in March 2024 Continue aggressive risk reduction with strict BP control and cholesterol reduction Follow up with cardiology as scheduled (5) STEMI (ST elevation myocardial infarction): Comment: 11/01/2022 Code(s): I21.3 - ST elevation (STEMI) myocardial infarction of unspecified site Category: Medical Qualifiers: Involved coronary artery: unspecified coronary artery Qualified Code(s): I21.3 - ST elevation (STEMI) myocardial infarction of unspecified site Plan: S/P STEMI post cath and required a second CARA to remove the occlusion in the ostial diagonal, which was thought to be due to dissection from her prior PCI, in October 2022 She had a second cardiac cath done in November 2023 due to recurrence of her chest pains - cath revealed mild ISR in the LAD/diagonal stents but otherwise no significant findings. Continue Carvedilol 6.25 mg BID and Aspirin 81 mg QD; S/P Brilinta x 1 year (Rx was discontinued in November 2023 by cardiology) Follow up with cardiology as scheduled (6) Mixed hyperlipidemia: Code(s): E78.2 - Mixed hyperlipidemia Category: Medical Plan: Results of her labs done earlier today reviewed and discussed with patient Reinforced low cholesterol diet Continue Atorvastatin 80 mg QD and Repatha 140 mg SQ Q 2 weeks; Ezetimibe and Fenofibrate were both discontinued when Repatha was started by cardiology Will have patient recheck her labs and fasting lipids in 3 months for follow up (7) Essential hypertension: Code(s): I10 - Essential (primary) hypertension Category: Medical Plan: Her blood pressure appears much better controlled today - goal is systolic BP of 120 mm or less given her comorbidities Reinforced low sodium diet Continue Losartan 25 mg QD and Carvedilol 12.5 mg BID (8) Chronic pain of right ankle: Code(s): M25.571 - Pain in right ankle and joints of right foot; G89.29 - Other chronic pain Category: Medical Plan: Orthopedics suspected that patient may have AVN of her ankle - right ankle MRI done in January 2022 revealed mild tibiotalar osteoarthritis, with (+) anterior marginal osteophytes as well as an anterior unfused osteophyte versus ossified loose body measuring up to 1.2 cm in ML dimension; small tibiotalar joint effusion; minimal posterior tibialis and flexor digitorum tenosynovitis but no tendon tear although there is some medial subcutaneous edema seen Patient has reportedly been advised that they can only perform corrective surgery on her ankle when she is cleared by Cardiology and she is OFF Brilinta for at least 90 days Continue Duloxetine 30 mg QD and Tramadol 50 mg QID PRN for pain Follow-up with orthopedics as scheduled - patient states that she plans to have this issue addressed once her upcoming surgeries next month are all done and resolved Rx for recliner printed out and handed to patient today (9) Osteoarthritis of right knee: Comment: Right knee MRI done on 09/18/2020 showed: 1. Intact menisci. 2. Intact cruciate and collateral ligaments. 3. Preserved tricompartmental articular cartilage. 4. Small joint effusion Code(s): M17.11 - Unilateral primary osteoarthritis, right knee Category: Medical Qualifiers: Osteoarthritis type: unspecified Qualified Code(s): M17.11 - Unilateral primary osteoarthritis, right knee Plan: She was seen previously by [facility] and advised that her knee OA is mild with no other intervention recommended at the time Per request, she was referred to orthopedics in [place] for a second opinion and she is now following up with [facility] for her knee issues (10) Lumbar degenerative disc disease: Code(s): M51.36 - Other intervertebral disc degeneration, lumbar region Category: Medical Qualifiers: Disc-related pain type: discogenic back pain only Qualified Code(s): M51.360 - Other intervertebral disc degeneration, lumbar region with discogenic back pain only Plan: Reinforced activity and weight-lifting restrictions She has expressed her concerns that her current pain med (Percocet 5-325 mg BID-TID PRN may not be enough to help with her pain when she goes for her surgery soon I have agreed to increase her Rx for Percocet to 10-325 mg to take BID-TID only as needed for severe pain until her current issues have been resolved following her surgery next month - Rx refilled today Continue Duloxetine 30 mg QD and Tramadol 50 mg QID PRN for pain Follow up with pain management as scheduled (11) Neuropathy: Code(s): G62.9 - Polyneuropathy, unspecified Category: Medical Plan: She has been advised that her hand and feet symptoms appear to be neuropathic symptoms Patient relates that she was diagnosed with neuropathy a few years ago and had a nerve test done but could not recall exactly when and where it was done Have discussed with her that if she does have neuropathy and her symptoms are progressing, there may not be much else we can do as she was unable to tolerate Gabapentin and Pregabalin when we trialed her on these medications in the past Follow up with neurology as scheduled (12) Migraine: Code(s): G43.909 - Migraine, unspecified, not intractable, without status migrainosus Category: Medical Qualifiers: Migraine type: unspecified Status migrainosus presence: without status migrainosus Intractability: not intractable Qualified Code(s): G43.909 - Migraine, unspecified, not intractable, without status migrainosus Plan: Stable lately - continue Fioricet 3 to 4 times a day as needed for headaches (13) Vitamin D deficiency: Code(s): E55.9 - Vitamin D deficiency, unspecified Category: Medical Plan: Continue Vitamin D3 2000 units QD (14) Crohn's disease: Code(s): K50.90 - Crohn's disease, unspecified, without complications Category: Medical Qualifiers: Gastrointestinal tract location: unspecified location Digestive disease complication type: unspecified complication Qualified Code(s): K50.919 - Crohn's disease, unspecified, with unspecified complications Plan: States thar she has had no recent GI flare ups Follow up with GI as scheduled (15) GERD (gastroesophageal reflux disease): Code(s): K21.9 - Gastro-esophageal reflux disease without esophagitis Category: Medical Qualifiers: Esophagitis presence: without esophagitis Qualified Code(s): K21.9 - Gastro-esophageal reflux disease without esophagitis Plan: Dietary restrictions reinforced Continue Omeprazole 20 mg QD Follow up with GI as scheduled (16) Anxiety: Code(s): F41.9 - Anxiety disorder, unspecified Category: Medical Plan: Continue Bupropion 150 mg Q AM, Sertraline 50 mg QD and Hydroxyzine 25 mg TID PRN Continue Prazosin 3 mg Q HS (17) Depression: Code(s): F32.A - Depression, unspecified Category: Medical Qualifiers: Depression Type: major depressive disorder Major depression recurrence: recurrent Active/Remission status: currently active Major depression episode severity: unspecified Qualified Code(s): F33.9 - Major depressive disorder, recurrent, unspecified Plan: Continue Sertraline 50 mg QD, Bupropion 150 mg Q AM, Lamictal 150 mg QD and Duloxetine 30 mg QD Follow up with psychiatry as scheduled (18) Smoker: Code(s): F17.200 - Nicotine dependence, unspecified, uncomplicated Category: Social Hx Plan: Patient is counseled again on complete smoking cessation (19) Obesity (BMI 30-39.9): Code(s): E66.9 - Obesity, unspecified Category: Medical Plan: Reinforced diet; exercise is currently not an option due to her chronic ankle and knee and joint issues Plan Follow-up in 3 months Orders: Orders Complete Blood Count Auto Diff 3 Months D64.9 - Anemia, unspecified TSH reflex Free T4 3 Months E78.00 - Pure hypercholesterolemia, unspecified UA CC w/rflx Micro + Cult 3 Months R30.0 - Dysuria Hemoglobin A1c 3 Months E11.9 - Type 2 diabetes mellitus without complications Lipid Panel 3 Months E78.00 - Pure hypercholesterolemia, unspecified Comprehensive [place]. Panel Fast 3 Months E78.00 - Pure hypercholesterolemia, unspecified Medications: New [RECLINER] As directed 1 ea 0RF M54.16 - Radiculopathy, lumbar region Refilled oxycodone-acetaminophen 10-325 mg Partial Fill upon patient request - take only as needed for severe pain 1 tab PO Q8H 7 days PRN 21 tabs 0RF severe pain
== END 2024-11-08 15:54 | disposition home or self-care (01) ==
PROVIDERS: PCP Internal Medicine; Visit Provider Internal Medicine
DX: J43.9 Emphysema, unspecified (principal); I25.118 Atherosclerotic heart disease of native coronary artery with other forms of angina pectoris; K50.919 Crohn's disease, unspecified, with unspecified complications; F33.9 Major depressive disorder, recurrent, unspecified; I25.2 Old myocardial infarction; N90.3 Dysplasia of vulva, unspecified; R10.32 Left lower quadrant pain; E78.2 Mixed hyperlipidemia; I10 Essential (primary) hypertension; M25.571 Pain in right ankle and joints of right foot; G89.29 Other chronic pain; M17.11 Unilateral primary osteoarthritis, right knee

== ENCOUNTER 2025-01-25 14:36 | Outpatient (AMB) | payer OTHER, SELFPAY ==
[2025-01-25 15:18] VITALS: BP 132/70; PULSE 85; BMI 36.0
--- NOTE | 2025-01-25 15:18 | A.OFFVIS_ITS ---
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 Present Allergies NSAIDS (Non-Steroidal Anti-Inflamma [Nsaids] Allergy (Severe, Verified 01/25/25 15:21) blood in stool diazepam [DIAZEPAM] Allergy (Mild, Verified 01/25/25 15:21) RASH fluoxetine [From Prozac] Allergy (Unknown, Verified 01/25/25 15:21) Unknown ibuprofen [From Motrin] Allergy (Unknown, Verified 01/25/25 15:21) UNKNOWN Penicillins Allergy (Unknown, Verified 01/25/25 15:21) UNKNOWN colchicine Allergy (Verified 01/25/25 15:21) Dizziness gabapentin [From NEURONTIN] Adverse Reaction (Severe, Verified 01/25/25 15:21) HALLUCINATIONS, halluciinations morphine [Morphine] Adverse Reaction (Severe, Verified 01/25/25 15:21) DIFFICULTY BREATHING Sulfa (Sulfonamide Antibiotics) [SULFA (SULFONAMIDE ANTIBIOTICS)] Adverse R eaction (Severe, Verified 01/25/25 15:21) DIFF BREATHING Zetia/ezetimibe Allergy (Intermediate, Uncoded 01/25/25 15:21) Rash and Swelling R side of face pregabalin Adverse Reaction (Intermediate, Uncoded 01/25/25 15:21) Hallucinations Medication List - Last Reconciled 01/25/25 by Stephane Gardner NP albuterol sulfate 2.5 mg (3 mL) inhalation QID PRN 30 days albuterol sulfate 90 mcg/actuation 2 puffs inhalation Q6H PRN aspirin 81 mg PO DAILY 90 days atorvastatin 80 mg PO DAILY 90 days baclofen 20 mg PO TID PRN 30 days bupropion HCl XL 150 mg PO QAM 30 days suwpeycofc-miiusesvtjzcv-stzb 50-325-40 mg 1 tab PO Q6-8H PRN 30 days carvedilol 12.5 mg PO BID NS cholecalciferol (vitamin D3) 50 mcg PO DAILY 90 days codeine-guaifenesin 10-100 mg/5 mL 5 mL PO BID-TID PRN 7 days cyanocobalamin (vitamin B-12) 1,000 mcg IM Q2W duloxetine 30 mg PO DAILY 30 days [ELECTRIC SCOOTER As directed] evolocumab (Repatha Syringe) 140 mg subcut Q2W ezetimibe (Zetia) 10 mg PO DAILY fluticasone furoate 200 mcg/actuation (Arnuity Ellipta) 1 inh inhalation DAILY 30 days miqvvufyyrh-jeeqlsvcz-vdekjufh 200-62.5-25 mcg (Trelegy Ellipta) 1 inh inhalation DAILY folic acid 1 mg PO DAILY 90 days furosemide 20 mg PO QAM PRN 15 days [Handicap Shower Head As directed (with long hose as patient can not stand for a long period of time)] hydroxyzine HCl 25 mg PO TID PRN 30 days incontinence pad, liner, disp (Prevail Pant Liner pads) As directed isosorbide mononitrate ER 30 mg PO DAILY lamotrigine 150 mg PO DAILY lidocaine HCl 2% 1 appl topical BID-QID PRN lidocaine HCl 3% 1 appl topical BID PRN 30 days losartan 25 mg PO DAILY 30 days magnesium 200 mg PO BEDTIME 30 days melatonin 10 mg PO BEDTIME PRN 14 days miscellaneous medical supply as directed; Medical Recliner miscellaneous medical supply as directed; Cane miscellaneous medical supply 1 ea miscellaneous DAILY miscellaneous medical supply 1 ea miscellaneous DAILY nebulizers As directed every 6 hours as needed nicotine (polacrilex) (Nicorette) 4 mg buccal Q2H PRN nystatin-triamcinolone 100,000-0.1 unit/g-% 1 appl topical BID 10 days omeprazole 20 mg PO DAILY 90 days ondansetron HCl 4 mg PO Q12H PRN 7 days oxycodone-acetaminophen 10-325 mg 1 tab PO Q6H PRN 7 days potassium chloride ER 20 mEq PO DAILY 90 days prazosin 3 mg PO BEDTIME prednisone 20 mg PO DAILY prednisone 20 mg PO DAILY 5 days prednisone 4 tablets x 2 days, then 3 tablets x 2 days, then 2 tablets x 2 days, then 1 tablet x 2 days 8 days prednisone 4 tablets x 2 days, then 3 tablets x 2 days, then 2 tablets x 2 days, then 1 tablet x 2 days 8 days [RECLINER As directed] sertraline 50 mg PO DAILY tizanidine 4 mg PO Q8H PRN 30 days tramadol 50 mg PO QID PRN 21 days HPI Comments Details: This is a 49-year-old female patient presenting with complaints of chest pain and shortness of breath. Patient with medical history significant for hyperlipidemia, COPD, smoking, obesity, and coronary artery disease status post PCI to LAD and diagonal. The patient reports that since undergoing her gynecologic surgery in November, she has been experiencing persistent left-sided chest pain radiating to her left shoulder and neck. The pain is variable sometimes worsening with exertion and at other times with positional changes. She also reports associated shortness of breath when the symptoms are worse. Patient states that she has tried prednisone therapy however has been ineffective. She denies any orthopnea, PND, leg edema, dizziness, palpitations, presyncope, or syncope. No reports of leg swelling, redness, or discomfort. She states that she has been compliant with her medications. [facility] Medical History Essential hypertension Hx of ovarian cancer Anxiety Folate deficiency Vitamin D deficiency STEMI (ST elevation myocardial infarction) Coronary atherosclerosis Depression Hematemesis Crohn's disease Avascular necrosis of right talus Chronic pain syndrome Osteoarthritis of right knee Osteoarthritis of left hip Osteoarthritis of right hip Lumbar radiculopathy, right Disc degeneration, lumbar Bony sclerosis Rash Strain of left trapezius muscle Shoulder pain, left Neck pain Mixed hyperlipidemia Pain and swelling of right ankle Swelling of right knee joint Right knee pain Obesity (BMI 30-39.9) Smoker Migraine GERD (gastroesophageal reflux disease) COPD (chronic obstructive pulmonary disease) Right lumbosacral radiculopathy Lumbar degenerative disc disease Surgical History History of right oophorectomy Hx of foot surgery History of esophagogastroduodenoscopy (EGD) Hx of cardiac cath (~11/01/22) Hx of section History of appendectomy Hx of colonoscopy History of hysterectomy History of cholecystectomy Family History Father Hypertension Rheumatoid arthritis Mother Hypertension Diabetes CVD (cardiovascular disease) Multiple sclerosis Sister Liver disease Maternal Grandmother Colon cancer Maternal Aunt Breast cancer Social History Housing: House Are you a primary child care assistant to a significant other at home: No Do you presently have visiting nurse or other home services: No (Children come by to help) Alcohol intake: never Patient Tobacco Use Status: Current everyday Tobacco user Tobacco use type: Cigarette Cigarettes Per Day: 5 Years Smoked: 30 e-Cigarette/Vaping Use: Never Used Second Hand Smoke Exposure: Yes service: No Current occupational status: disabled Cognitive needs: Yes (cane) Hearing needs: No Vision needs: Yes (glasses) Female Reproductive History Menstrual Age of Menarche: 10 Physical Exam Vital Signs: Last Vital Signs Pulse 85 01/25/25 15:18 BP 132/70 01/25/25 15:18 BMI result Body Mass Index 36.0 Const General: cooperative, healthy appearing, comfortable and no acute distress Orientation/consciousness: patient oriented x3 HEENT Head: Yes normal to inspection Neck Neck: Yes normal visual inspection, Yes trachea midline and Yes supple Chest Chest palpation & inspection: normal inspection of the chest Resp Effort & Inspection: normal respiratory effort Auscultation: clear to auscultation bilaterally, no crackles, no rales, no rhonchi and no wheezes Cardio Jugular venous distension: no JVD Palpation: normal PMI Rate: regular rate Rhythm: regular rhythm Heart sounds: S1 normal heart sound present, S2 normal heart sound present, no click, no gallops, no murmurs and no rubs Peripheral pulses: Peripheral pulses 2+ throughout GI Inspection: Yes normal to inspection Palpation (GI): Soft to palpation Auscultation: normal bowel sounds Skin General skin exam: no rashes or lesions noted Neuro General: patient oriented x3 Extrem General: Yes normal to inspection, No no pedal edema and No calf tenderness Psych Appearance: grossly normal Mental Status: mental status grossly normal Speech and movement: Normal speech and movement present Office Procedures EKG Details: EKG today showed normal sinus rhythm, rate 85 beats per minute, [place], [place] [address]-[id number], Complete Assessment & Plan Assessment & Plan (1) Chest pain: Code(s): R07.9 - Chest pain, unspecified Category: Medical Qualifiers: Chest pain type: unspecified Qualified Code(s): R07.9 - Chest pain, unspecified Plan: Patient's symptoms of chest pain has both typical and atypical features. Given her significant cardiovascular history, we will proceed with a comprehensive evaluation to assess for potential ischemia or other cardiopulmonary causes. We will get a vasodilator myocardial perfusion imaging to assess for ischemic laura es. Patient is unable to walk on the treadmill and therefore we will pursue Lexiscan. We will also get an echocardiogram to look for wall motion abnormalities and valvular disease. Given ongoing chest pain and shortness of breath since her surgery, PE remains a consideration and therefore we will get a D-dimer and an chest x-ray. Continue current regimen including aspirin, carvedilol, isosorbide, atorvastatin, losartan, Lasix, and Zetia therapy. Advised to seek ER care in case of chest pain that is worsening and persistent and not relieved with rest. (2) Shortness of breath: Code(s): R06.02 - Shortness of breath Category: Medical Plan: As above. (3) Hx of cardiac cath: Onset Date: ~11/01/22 Comment: x 2 --- 11/01/2022 - stenting (CARA) of mid-LAD; REPEAT cath done a few hours later resulted in CARA into the ostial diagonal - [facility]; 11/17/2023 - mild ISR in the LAD/diagonal stents but otherwise no significant findings Code(s): Z98.890 - Other specified postprocedural states Category: Surgical Plan: 11/27/2023-patient underwent cardiac catheterization that showed minimal disease in the circumflex and RCA with patent stents in LAD and diagonal with mild ISR. Most recent LDL at 45. Continue statin and Zetia therapy. Ideally, LDL goal less than 70. (4) Coronary artery disease: Code(s): I25.10 - Atherosclerotic heart disease of prairie band coronary artery without angina pectoris Category: Medical Qualifiers: Associated angina: unspecified whether angina present Coronary Disease- Associated Artery/Lesion type: pra[place] artery [place] vs. transplanted heart: prairie band heart Qualified Code(s): I25.10 - Atherosclerotic heart disease of prairie band coronary artery without angina pectoris Plan: As above. Advised heart healthy diet, med compliance, and aggressive management of vascular risk factors. We will follow-up with the completion of test. In the interim, patient will ca ll the office with any concerns or change in symptoms. This note was generated using voice recognition software. While every effort has been made to ensure accuracy and proper silver wrapper, there may be occasional errors that could affect the content or meaning of the described symptoms. Orders: Orders CA lexiscan stress w jass Today R06.02 - Shortness of breath, R07.9 - Chest pain, unspecified XR chest 1V Today R06.02 - Shortness of breath NM cardiolite stress test Today R06.02 - Shortness of breath, R07.9 - Chest pain, unspecified D Dimer High Sensitivity Today R06.02 - Shortness of breath, R07.9 - Chest pain, unspecified CA echo transthoracic complete Today R06.02 - Shortness of breath AMB EKG-In Office Today R07.2 - Precordial pain Coding Level of Care Code Est Pt Level 4 (11736) Complex EM visit Add On G2211 Diagnoses Chest pain, unspecified type R07.9 Chest pain type: unspecified Shortness of breath R06.02 Hx of cardiac cath Z98.890 Coronary artery disease involving prairie band coronary artery of prairie band heart, unspecified whether angina present I25.10 Associated angina: unspecified whether angina present Coronary Disease-Associated Artery/Lesion type: pra[place] artery [place] vs. transplanted heart: prairie band heart CPT Codes EKG - CPT: 49105-Nxnooawlxcnyglsnc, Complete ([id number]) Time Spent (min) 32 Comment Time spent in reviewing the chart, test results, assessment, counseling and documentation.
--- OUTSIDE RECORDS SUMMARY | 2025-01-25 15:46 | XMS_ITS | Continuity of Care Document ---
Author Organization [facility] As sociates Address [address] [place] [address]- Support Name Relationship Address Phone ELI MATHEWS [...] GALLANT, FLORA sibling Unknown Unavailable ODONNELL, RYAN LAYEN Personal Relationship Unknown U navailable ODONNELL, RYAN [...] ODONNELL, RYAN LAYNE Personal Relationship Unknown U estevan PARAS CARABALLO Other Unknown Unavailable Care Team Providers Care Bog Cutter Name Role Phone Ambrose Feliciano MD Primary Care Physician Encounter [facility] Date(s): 12/22/24 - 01/21/[address] Encounter Type: Triage Allergies, Adverse Reactions, Alerts Substance Criticality Severity Reaction Reaction Severity Status penicillin anaphylaxis Active cortisone HIVES Active Neurontin Hallucinations Activ e NSAIDs BLEEDING IN STOMACH Active aspirin bleeding Active morphine 1 Unable to assess criticality Persistent Moderate hives Active sulfa drugs anaphylaxis Active Motrin bleeding Active Bee Stings Unable to assess criticality Persistent Severe Active Latex Anaphylaxis Active Egg Allergy Active FLUoxetine Active 1Per [...] 08/26/13 Recorded tetanus/diphtheria/pertussis, acel(Tdap) 09/18/10 Given Medications acetaminophen 325 mg oral tablet 975 mg, By Mouth, Every 6 hours, # 100 tablet, Refills 1, Tot. Refills 1, Maintenance, 12/10/24 8:26:00 PM EDT, Route to Pharmacy Electronically, [facility]/pharmacy #[id number], Partial fill upon patient request if the prescription is for a schedule II opioid drug., 160.02, cm, 12/10/24 10:38:00 EDT, Height, 95.91, kg, 12/07/24 15:33:00 EDT, Dry Weight Start Date: 12/10/24 Status: Ordered Quantity: 100.0 Unit: tablet Repeat number: 2 acetaminophen/butalbital/caffeine 325 mg-50 mg-40 mg oral tablet TAKE 1 TAB ORALLY EVERY 6 TO 8 HOURS NEEDED FOR HEADACHE FOR 30 DAYS Start Date: 11/01/22 Status: Ordered Repeat number: 1 Albuterol (Eqv-ProAir [...] 10:21:00 AM EST, Route to Pharmacy Electronically, [facility], Partial fill upon patient [...] Refills, Maintenance, 11/01/22 10:20:00 AM EST, Tablet, [facility], Partial fill upon patient [...] 9:00:00 AM EST, Route to Pharmacy Electronically, [facility], Partial fill uponpatient request [...] Quantity: 20.0 Unit: capsule Repeat number: 1 Dulcolax 5 mg oral enteric coated tablet 1 tablet = 5 mg, By Mouth, Daily, Take as directed, # 4 tablet, 0 Refills, Maintenance, 11/23/24 12:26:00 PM EDT, [facility]/pharmacy #[id number], Partial fill upon patient request if the prescription is for a schedule II opioid drug., 160, cm, 11/23/24 11:38:00 EDT, Height, 95.7, kg, 11/23/24 11:38:00 EDT, Dry Weight Start Date: 11/23/24 Status: Ordered Quantity: 4.0 Unit: tablet Repeat number: 1 Lasix 20 mg oral tablet 20 mg, 1, tablet, By Mouth, Daily, # 90 tablet, Refills 1, Tot. Refills 1, Maintenance, 11/27/23 9:48:00 AM EDT, Route to Pharmacy Electronically, [facility], Partial fill upon patient request if the prescription is for a schedule II opioid drug., 160, cm, 11/27/23 8:12:00 EDT, Height,94.9, kg, 11/27/23 8:12:00 EDT, Dry Weight Start Date: 11/27/23 Status: Ordered Quantity: 90.0 Unit: tablet Repeat number: 2 lidocaine 5% topical cream 1 application, Topically, 3 times a day, # 45 Gm, 0 Refills, Maintenance, 12/11/24 6:30:00 AM EDT, Cream, [facility]/pharmacy #[id number], Partial fill upon patient request if the prescription is for a schedule IIopioid drug., 1 application Topically 3 times a day, 160.02, cm, 12/10/24 20:35:00 EDT, Height, 95.91, kg, 12/07/24 15:33:00 EDT, Dry Weight Start Date: 12/11/24 Status: Ordered Quantity: 45.0 Unit: g Repeat number: 1 lidocaine 5% topical ointment 1 application, Topically, 3 times a day, # 50 Gm, 1 Refills, Maintenance, 12/12/24 10:28:00 AM EDT, Ointment, [facility]/pharmacy #[id number], Partial fill upon patient request if the prescription is for a schedule II opioid drug., 1 application Topically 3 times a day, 160.02, cm, 12/10/24 20:35:00 EDT, Height,95.91, kg, 12/07/24 15:33:00 EDT, Dry Weight Start Date: 12/12/24 Status: Ordered Quantity: 50.0 Unit: g Repeat number: 2 -Gastroview 66%-10% oral and rectal solution See Instructions, follow instructions provided, # 30 mL, 0 Refills, Maintenance, 11/01/24 4:11:00 [facility], [facility], Partial fill upon patient request if the prescription is for a schedule II opioid drug., follow instructions provided, 160, cm, 10/01/24 14:45:00 EST, Height, 95.6, kg, 08/24/24 11:17:00 EST, Dry Weight Start Date: 11/01/24 Status: Ordered Quantity: 30.0 Unit: mL Repeat number: 1 MiraLax oral powder for reconstitution = 17 Gm, By Mouth, Daily, dissolve in water before taking, # 255 Gm, 0 Refills, Maintenance, 12/10/24 8:27:00 PM EDT, REC Powder, [facility]/pharmacy #[id number], Partial fill upon patient request if the prescription is for a schedule II opioid drug., 17 Gm By Mouth Daily,Instr:dissolve in water before taking, 160.02, cm, 12/10/24 10:38:00 EDT, Height, 95.91, kg, 12/07/24 15:33:00 EDT, Dry Weight Start Date: 12/10/24 Status: Ordered Quantity: 255.0 Unit: g Repeat number: 1 nystatin-triamcinolone topical [id number] u/gm-0.1% cream 0 Refills, Maintenance, 03/25/22 10:16:00 [...] Quantity: 30.0 Unit: capsule Repeat number: 1 ondansetron 4 mg oral tablet 1 tablet = 4 mg, By Mouth, Every 8 hours, to use prior to CT scan contrast, # 2 tablet, 0 Refills, Maintenance, 11/01/24 4:12:00 PM EST, Tablet, [facility], Partial fill upon patient request if the prescription is for a schedule II opioid drug., 160, cm, 10/01/24 14:45:00 EST, Height, 95.6, kg, 08/24/24 11:17:00 EST, Dry Weight Start Date: 11/01/24 Status: Ordered Quantity: 2.0 Unit: tablet Repeat number: 1 oxyCODONE 5 mg oral tablet 10 mg, 2, tablet, By Mouth, Every 8 hours, PRN, # 56 tablet, Refills 0, Tot. Refills 0, Maintenance, Pain , Severe, 01/12/25 2:49:00 PM EDT, Route to Pharmacy Electronically, [facility]/pharmacy #[id number], Partial fill upon patient request if the prescription is for a schedule II opioid drug., 160.02, cm, 12/24/24 9:55:00 EDT, Height, 92.3, kg, 12/24/24 10:13:00 EDT, Dry Weight Start Date: 01/12/25 Stop Date: 01/19/25 Status: Ordered Quantity: 56.0 Unit: tablet Repeat number: 1 Indication: Other acute postprocedural pain senna - oral tablet 2 tablet, By Mouth, Daily at bedtime, PRN for constipation, # 60 tablet, 0 Refills, Maintenance, 12/10/24 8:27:00 PM EDT, Tablet, [facility]/pharmacy #[id number], Partial fill upon patient request if the prescription is for a schedule II opioid drug., 160.02, cm, 12/10/24 10:38:00 EDT, Height, 95.91, kg, 12/07/24 15:33:00 EDT, Dry Weight Start Date: 12/10/24 Status: Ordered Quantity: 60.0 Unit: tablet Repeat number: 1 simethicone 80 mg oral tablet, chewable 80 mg, 1, tablet, Chew, 4 times a day, PRN, # 48 tablet, Refills 0, Tot. Refills 0, Maintenance, asneeded for gas, 12/10/24 8:27:00 PM EDT, Route to Pharmacy Electronically, [facility]/pharmacy #[id number], Partial fill upon patient request if the prescription is for a schedule II opioid drug., 160.02, cm, 12/10/24 10:38:00 EDT, Height, 95.91, kg, 12/07/24 15:33:00 EDT, Dry Weight Start Date: 12/10/24 Status: Ordered Quantity: 48.0 Unit: tablet Repeat number: 1 traMADol 50 mg oral [...] Quantity: 50.0 Unit: mL Repeat number: 1 Problem List Condition Confirmation Course Effective Dates Status H ealth Status Informant Breast pain Confirmed Active Chronic pain Confirmed Active Crohns disease of small intestine Confirmed Active Cystocele with rectocele Confirmed Active Lumbar disc disease Confirmed Active Chronic GERD Confirmed Active Ventral hernia Confirmed Active Right hip pain s/p fracture Confirmed Active S/P CABG x 2 Confirmed Active History of NH (myocardial infarction) Confirmed Active LLQ abdominal pain [...] with comorbidity Confirmed Active Smoker Confirmed Active Follow-up examination after gynecological surgery Confirmed Active Vulvar intraepithelial neoplasia (MAYDA) grade 3 Confirmed Active Social History Social History Type Response Smoking Status 10 or more cigarette s (1/2 pack or more)/day in last 30 days entered on: 09/01/24 Sex Sex Representation Female (finding) Patient Care team information Care Team Personnel Name: Ambrose Feliciano MD Position: Reference Physician Member Role: PCP Address: [address] [place] [address] Telecom: Name: Sherri Gallagher RN Position: S RN Member Role: Primary Care Nurse Name: Christine Sheth Position: S RN Member Role: Primary Care Nurse Name: Nathaniel Hutchinson LPN Position: S RN Member Role: Primary Care Nurse Name: Manisha Salter RN Position: S RN Member Role: Primary Care Nurse Care Team Related Persons Name: PARAS CARABALLO Name: VIKAS RILEY Name: VIKAS RILEY Name: BISI BENITEZ Name: BELLE ODONNELL Insurance Providers Guarantor name: RYAN ODONNELL Health Plan Information #: 1 Payer: [facility] Member Number: NA Policy Number: NA Group Number: NA
--- OUTSIDE RECORDS SUMMARY | 2025-01-25 15:46 | XMS_ITS | Continuity of Care Document ---
Author Organization [facility] As sociates Address [address] [place] [address]- Support Name Relationship Address Phone ELI MATHEWS [...] navailable GALLANT, NATHAN Other Unknown Unavailable ODONNELL, RYNA LAYNE Personal Relationship Unknown U navailable ODONNELL, [...] ODONNELL, RYAN LAYNE Personal Relationship Unknown U PARAS Blair Other Unknown Unavailable Care Team Providers Care Ordnance Mechanic Name Role Phone Ambrose Feliciano MD Primary Care Physician [place] [facility] [place] - 01/21/[address] Attending Physician: Olivia Garcia MD Referring Physician: Ambrose Feliciano MD Encounter Type: Pre Office Visit Allergies, Adverse Reactions, Alerts Substance Criticality Severity Reaction Reaction Severity Status penicillin anaphylaxis Active aspirin bleeding Active morphine 1 Unable to assess criticality Persistent Moderate hives Active cortisone HIVES Active sulfa drugs anaphylaxis Active Motrin bleeding Active Neurontin Hallucinations Activ e Bee Stings Unable to assess criticality Persistent Severe Active Latex Anaphylaxis Active Egg Allergy Active NSAIDs BLEEDING IN [...] 8:26:00 PM EDT, Route to Pharmacy Electronically, [facility]/pharmacy #[id number], Partial fill upon patient request if the [...] 10:21:00 AM EST, Route to Pharmacy Electronically, [facility], Partial fill upon patient request if [...] Refills, Maintenance, 11/01/22 10:20:00 AM EST, Tablet, [facility], Partial fill upon patient request if [...] 9:00:00 AM EST, Route to Pharmacy Electronically, [facility], Partial fill uponpatient request if the [...] 0 Refills, Maintenance, 11/23/24 12:26:00 PM EDT, [facility]/pharmacy #[id number], Partial fill upon patient request if [...] 9:48:00 AM EDT, Route to Pharmacy Electronically, [facility], Partial fill upon patient request if the prescription is for a schedule II opioid drug., 160, cm, 11/27/23 8:12:00 EDT, Height,94.9, kg, 11/27/23 8:12:00 EDT, Dry Weight Start Date: 11/27/23 Status: Ordered Quantity: 90.0 Unit: tablet Repeat number: 2 lidocaine 5% topical cream 1 application, Topically, 3 times a day, # 45 Gm, 0 Refills, Maintenance, 12/11/24 6:30:00 AM EDT, Cream, [facility]/pharmacy #[id number], Partial fill upon patient request if [...] Refills, Maintenance, 12/12/24 10:28:00 AM EDT, Ointment, [facility]/pharmacy #[id number], Partial fill upon patient request if the prescription is for a schedule II opioid drug., 1 application Topically 3 times a day, 160.02, cm, 12/10/24 20:35:00 EDT, Height,95.91, kg, 12/07/24 15:33:00 EDT, Dry Weight Start Date: 12/12/24 Status: Ordered Quantity: 50.0 Unit: g Repeat number: 2 MD-Gastroview 66%-10% oral and rectal solution See Instructions, follow instructions provided, # 30 mL, 0 Refills, Maintenance, 11/01/24 4:11:00 PMEST, [facility], Partial fill upon patient [...] Maintenance, 12/10/24 8:27:00 PM EDT, REC Powder, [facility]/pharmacy #[id number], Partial fill upon patient request if the prescription is for a schedule II opioid drug., 17 Gm By Mouth Daily,Instr:dissolve in water before taking, 160.02, cm, 12/10/24 10:38:00 EDT, Height, 95.91, kg, 12/07/24 15:33:00 EDT, Dry Weight Start Date: 12/10/24 Status: Ordered Quantity: 255.0 Unit: g Repeat number: 1 nystatin-triamcinolone topical 660156 u/gm-0.1% cream 0 Refills, Maintenance, 03/25/22 10:16:00 [...] Refills, Maintenance, 11/01/24 4:12:00 PM EST, Tablet, [facility], Partial fill upon patient [...] 2:49:00 PM EDT, Route to Pharmacy Electronically, [facility]/pharmacy #[id number], Partial fill upon patient request if the [...] Refills, Maintenance, 12/10/24 8:27:00 PM EDT, Tablet, [facility]/pharmacy #0693, Partial fill upon patient request if [...] 8:27:00 PM EDT, Route to Pharmacy Electronically, [facility]/pharmacy #[id number], Partial fill upon patient request if [...] CABG x 2 Confirmed Active History of SD (myocardial infarction) Confirmed Active LLQ abdominal pain [...] Position: Reference Physician Member Role: PCP Address: [address] [place] [address] Telecom: Name: Sherri Gallagher RN Position: S [...] ODONNELL Health Plan Information #: 1 Payer: [facility]ONE CARE Member Number: [id number] Policy Number: NA Group Number: [facility] Health Plan Information #: 2 Payer: [facility] C[employer] Member Number: [id number] Policy Number: NA Group Number: [id number]
--- OUTSIDE RECORDS SUMMARY | 2025-01-25 15:46 | XMS_ITS | Data Portability ---
Author Organization [facility] Documents Address [address] [place] [address] Assessment No assessment recorded. Plan of Treatment Reminders Order Date Submit Date Provider Last Modified By Organization Details Last Modified Time Details Appointments None recorded. Lab bacterial vaginosis + vaginitis panel, vaginal 2018 019 [place] [address] [facility] [address] [place] [address], [id number], 9 11:35:13 chlamydia + gonorrhea DNA panel, unspecified specimen 2018 019 [place] [address] [facility] [address] [place] [address], [id number], 9 11:35:14 trichomonas vaginalis RNA 2018 019 [place] [address] [facility] [address] [place] [address], [id number], 9 11:35:14 streptococc us group B, culture, unspecified specimen 2018 019 [place] [address] [facility] [address] [place] [address], [id number], 9 11:35:14 bartolo panel, vulvovagina l 2018 019 [place] [address] [facility] [address] [place] [address], [id number], 9 11:35:14 Referral None recorded. Procedures None [...] By Organization Details Last Modified Time 03/17/2019 [id number] A healthy lifestyle: care instructions itasia Not [...] al Not Available [facility] [address] [place] [address], [id number], 03/24/2019 18:00:02 03/17/20 19 03/20/2019 CT + NG DNA, PCR, unspe cifie d speci men neisseria gonorrhoeae by real-time PCR (reflex to antibiotic resistance by molecular analysis) Negati ve normal Swab- 1 Vagin al Not Available [facility] [address] [place] [address], [id number], 03/24/2019 18:00:02 03/17/2003/24/2019 trich omona s vagin [...] . Not Available [facility] [address] [place] [address], [id number], 03/24/2019 18:00:02 03/17/2003/20/2019 strep tococ cus group B Ag, vagin al group B streptococcu s (gbs) by real-time PCR Positi ve abnormal Swab- 1 Vagin al Not Available [facility] [address] [place] [address], [id number], 03/24/2019 18:00:03 03/17/2003/20/2019 bacte rial vagin osis panel , vagin al gardnerella vaginalis by real-time PCR Positi ve abnormal Swab- 1 Vagin al Not Available [facility] [address] [place] [address], [id number], 03/24/2019 18:00:03 03/17/2003/20/2019 bacte rial vagin osis panel , vagin al atopobium vaginae by real-time PCR Positi ve abnormal Swab- 1 Vagin al Not Available [facility] [address] [place] [address], [id number], 03/24/2019 18:00:03 03/17/2003/20/2019 bacte rial vagin osis panel , vagin al bacterial vaginosis associated bacterium 2 (bvab2) by real-time PCR Positi ve abnormal Swab- 1 Vagin al Not Available [facility] [address] [place] [address], [address], 03/24/2019 18:00:03 03/17/2003/21/2019 bacte rial vagin osis panel , vagin al megasphaera species (type 1 and type 2) by real-time PCR Negati ve normal Swab- 1 Vagin al Type1 :Nega tive Type2 :Nega tive. Not Available [facility] [address] [place] [address], [id number], 03/24/2019 18:00:03 03/17/2003/21/2019 bacte rial vagin osis panel , vagin al lactobacillu s (bv & av panel) by real time PCR See Commen t normal Swab- 1 Vagin al L.cri spatu s: Negat yamile L.jodi senii : Negat yamile L.gas seri : Negat yamile L.ine rs : Negat yamile. Not Available [facility] [address] [place] [address], [id number], 03/24/2019 18:00:03 03/17/2003/20/2019 bonifacio da sp DNA, vagin al bartolo albicans by real-time PCR Negati ve normal Swab- 1 Vagin al Not Available [facility] [address] [place] [address], [id number], 03/24/2019 18:00:04 03/17/20 19 03/20/2019 bonifacio da sp DNA, vagin al bartolo tropicalis by real-time PCR Negati ve normal Swab- 1 Vagin al Not Available [facility] [address] [place] [address], [id number], 03/24/2019 18:00:04 03/17/20 19 03/20/2019 bonifacio da sp DNA, vagin al bartolo parapsilosis by real-time PCR Negati ve normal Swab- 1 Vagin al Not Available [facility] [address] [place] [address], [address], 03/24/2019 18:00:04 03/17/20 19 03/20/2019 bonifacio da sp DNA, vagin al bartolo glabrata by real-time PCR Negati ve normal Swab- 1 Vagin al Not Available [facility] [address] [place] [address], [id number], 03/24/2019 18:00:04 Result Notes None recorded. Procedures Surgical History Date Name Laterality Status Provider Name and Address Organization Details Recorded Time 08/15/20 18 Date of Last Pap Smear completed [facility] 03/17/2019 15:07:41 09/15/19 17 Most Recent Mammogram completed [facility] 03/17/2019 15:07:48 09/15/19 17 Colonoscopy completed [facility] 03/17/2019 15:07:52 09/15/19 17 Gallbladder Surgery completed [facility] 03/17/2019 15:10:53 09/15/19 15 Hysterectomy-Par tial completed [facility] 03/17/2019 15:11:05 09/15/19 03 Appendectomy completed Daisha Ino [facility] 03/17/2019 15:11:21 09/15/19 02 Laparoscopy completed Daisha Ino [facility] 03/17/2019 15:11:47 09/15/18 99 Laparoscopy completed Daisha Ino [facility] 03/17/2019 15:11:42 09/15/18 95 Laparoscopy completed Daisha Ino [facility] 03/17/2019 15:11:38 Imaging Results None recorded. Procedure Notes None recorded. Medical Equipment None Reported. Allergies Allergen ID Allergen Name Allergen Category Reaction Reaction Severity Criticality Documentation Date Start Date Code Code System Note Provider Name and Address Organization Details Recorded Time 21014 Product containin g penicilli n (product) medicatio n Not available Not available Not available 03/17/2019 01190 8001 SNOMED Daisha Ino [facility] 9 15:06:19 27283 Substance with sulfonami de structure and antibacte rial mechanism of action (substanc e) medicatio n Not available Not available Not available 03/17/2019 36064 8003 SNOMED Daisha Ino [facility] 9 15:06:32 17029 ibuprofen medicatio n Not available Not available Not available 03/17/2019 5640 RxNorm Daisha Ino [facility] 9 15:06:50 Medications Name Sig Start Date [...] Updated DateTime 03/17/2019 160.02 cm 29.4 kg/m2 58252.33 g 134 mm[Hg] 78 mm[Hg] Daisha Mckinnon [facility] 9 15:24:23 Social History Question Answer Notes LastModified by [employer] Details LastModified Time Tobacco Smoking Status Current Every Day Smoker Daishaamara McdermottIno [facility] 03/17/2019 15:10:17 How Many Days In The Past Year Have You Had A Heavy Drinking Consumption (4+ Female, 5+ Male)? 0 [place] [address] Information not available 03/17/2019 What Was The Date Of Your Most Recent Tobacco Screening? 03/17/2019 Information not available 04/09/2019 How Much Tobacco Do You Smoke? 0.5 PPD [place] [address] Information not available 03/17/2019 How Many Years Have You Smoked Tobacco? 25 [email or web address] Information not available 03/17/2019 Sex: Unknown Functional Status Question Answer Note LastModified by [employer] Details LastModified Time Urinary incontinence assessment performed? Yes [place] [address] Information not available 03/17/2019 Mental Status None recorded. Family History Relationship Description Onset Age of this Age Resolved Age Notes LastModified by Organization Details LastModified Time Mother Family history of malignant neoplasm [email or web address] Not available 2018 15:09:28 Mother Heart disease [email or web address] Not available 2018 15:09:52 Mother Thyroiditis [place] [address] Not avail able 03/17/2019 15:10:08 Maternal Grandmother Family history of malignant neoplasm [email or web address] Not available 2018 15:09:28 Daughter Heart disease Not available 2018 15:09:52 Medical History Condition [...] SNOMED-CT Code Diagnosis ICD10 Code Diagnosis Note [id number] Slava Scott MD [id number] - OBGYN [address] [place] [address] 03/17/2019 13:58:10 03/17/2019 16:59:21 Body mass index 25-29 - overweight 563753631 Z68.29 Vaginitis 69574710 N76.0 Cystocele without uterine prolapse 00939259 N81.10 Wait and see and follow-up/ no incontinen ce symptoms with it/she does not see a bulge Health Concerns Section Related Observation LastModified by Organization Detai ls LastModified Time None Recorded Concern Status LastModified by Organization Details LastModified Time None Recorded Advance Directives Directive None Recorded Payers Insurance Date Sequence Insurance Name Policy Number Policy Alford Covered Member ID Alford Member ID Guarantor Name 02/22/2021 1 [place] Mariana Vela [id number] Mariana Vela 06/21/2019 2 [place] [facility] (SECONDARY TO MEDICARE) Mariana Vela [id number] Mariana Vela 06/21/2019 2 [facility] [place] (MEDICAID REPLACEMENT - HMO) [id number] Mariana Vela [id number] Mariana Vela Notes Date Note Type Note [...] that she did not have with [place] [address] [place], [address], [facility] 03/17/2019 16:29:06 OBGyn Episode No OBEpisode recorded.
--- OUTSIDE RECORDS SUMMARY | 2025-01-25 15:47 | XMS_ITS | Continuity of Care Document ---
Author Organization [facility] Address [address], [place] [address]- Support Name Relationship Address Phone ELI MATHEWS [...] RYAN LAYNE Personal Relationship Unknown U navailable ODONNELLRYAN Personal Relationship Unknown U navailable PARAS CARABALLO Other Unknown Unavailable Care Team Providers Care Bonsai Culturist Name Role Phone Ambrose Feliciano MD Primary Care Physician [phone] Encounter [facility] [place] Date(s): 12/24/24 - 01/23/25 [facility] [address] [place] [address], [address] Attending Physician: Admtr, [id number] Admitting Physician: Admtr, Juliana Referring Physician: Admtr, Ar8 Encounter Type: Triage Allergies, Adverse Reactions, Alerts [...] 8:26:00 PM EDT, Route to Pharmacy Electronically, [facility]/pharmacy #[id number], Partial fill upon patient request if the [...] 10:21:00 AM EST, Route to Pharmacy Electronically, [facility], Partial fill upon patient [...] Refills, Maintenance, 11/01/22 10:20:00 AM EST, Tablet, [facility], Partial fill upon patient [...] 9:00:00 AM EST, Route to Pharmacy Electronically, [facility], Partial fill uponpatient request if [...] 0 Refills, Maintenance, 11/23/24 12:26:00 PM EDT, [facility]/pharmacy #[id number], Partial fill upon patient request [...] 9:48:00 AM EDT, Route to Pharmacy Electronically, [facility] 3, Partial fill upon patient [...] Refills, Maintenance, 12/11/24 6:30:00 AM EDT, Cream, [facility]/pharmacy #0693, Partial fill upon patient request [...] Refills, Maintenance, 12/12/24 10:28:00 AM EDT, Ointment, [facility]/pharmacy #[id number], Partial fill upon patient request [...] 30 mL, 0 Refills, Maintenance, 11/01/24 4:11:00 [facility], Partial fill upon patient [...] Maintenance, 12/10/24 8:27:00 PM EDT, REC Powder, [facility]/pharmacy #0693, Partial fill upon patient request if the prescription is for a schedule II opioid drug., 17 Gm By Mouth Daily,Instr:dissolve in water before taking, 160.02, cm, 12/10/24 10:38:00 EDT, Height, 95.91, kg, 12/07/24 15:33:00 EDT, Dry Weight Start Date: 12/10/24 Status: Ordered Quantity: 255.0 Unit: g Repeat number: 1 nystatin-triamcinolone topical 603988 u/gm-0.1% cream 0 Refills, Maintenance, 03/25/22 10:16:00 [...] Refills, Maintenance, 11/01/24 4:12:00 PM EST, Tablet, [facility], Partial fill upon patient [...] 2:49:00 PM EDT, Route to Pharmacy Electronically, [facility]/pharmacy #[id number], Partial fill upon patient request if the [...] Refills, Maintenance, 12/10/24 8:27:00 PM EDT, Tablet, [facility]/pharmacy #0693, Partial fill upon patient request [...] 8:27:00 PM EDT, Route to Pharmacy Electronically, [facility]/pharmacy #[id number], Partial fill upon patient request [...] CABG x 2 Confirmed Active History of HI (myocardial infarction) Confirmed Active LLQ abdominal pain [...] Reference Physician Member Role: PCP Address: [address] [place] [address] [place] [address] Telecom: Name: Sherri Gallagher RN Position: S [...] ODONNELL Health Plan Information #: 1 Payer: [facility] [employer]/ONE CARE Member Number: NA Policy Number: NA Group Number: NA
--- OUTSIDE RECORDS SUMMARY | 2025-01-25 15:47 | XMS_ITS | Data Portability ---
Author Organization [employer], [employer] Address [address] [place] [address] Care Team Providers Care Brand Advisor Name Role Phone HIM CCA Referring Provider Assessment Encounter Date Assessment Date Assessment LastModified by Organization Details LastModified Time 11/19/2023 11/19/2023 I provided real -time medical direction via phone for this encounter and was available for additional phone-based assistance as needed. I have reviewed and agree with the Assessment and Plan as documented by the Automobile Appraiser. Patient given the opportunity to ask questions. This service was called for an assessment of bronchitis As per above, patient with recent ED visit where she was diagnosed with CAP vs. bronchitis. She was started on a Z-pack and has 2 doses remaining. She is also using her Duo-nebs regularly but ran out and her [employer] MACHINE TENDER went to go get more for her. She says she is better but not improving as fast as she thought she would. She denies CP, SOB at rest. + LOUISE. Per principle industrial hygienist on the scene, patient? s vitals are stable. She is wheezing and is tight although moving enough air to maintain good O2 sats. No increased WOB. Impression: Asthmatic bronchitis +/- CAP Plan: Complete abx course, continue with nebs as prescribed. Added Prednisone with 40 mg po times one with the principle industrial hygienist and I called in a prescription for a 4-day supply. We discussed the diagnostic uncertainty of home visits and the risk associated with this. In this case, the patient and I felt this to be an acceptable and reasonable amount of risk given the benefit of avoiding an ED visit. We discussed the need to seek care urgently/emerge ntly in the setting of any new or worsening serious symptoms, particularly fever chills [email or web address] Not available 11/19/2023 15:21:04 Plan of Treatment Reminders Order Date Submit Date Provider Last Modified By Organization Details Last Modified Time Details Appointments None recorded. Lab None recorded. Referral None recorded. Procedures None recorded. Surgeries None recorded. Imaging None recorded. Medication Orders prednisone 10 mg tablet 2023 024 [facility] #[id number], [address], [place], [address], 4 14:15:21 prednisone [address] mg tablet [address] [facility], [address], [place], [phone], 4 17:21:59 Patient TargetsNo targets recorded. Patient InstructionsNo instructions recorded. Reason for Referral None Reported. Medical Equipment None Reported. Allergies Allergen ID Allergen Name Allergen Category Reaction Reaction Severity Criticality Documentation Date Start Date Code Code System Note Provider Name and Address Organization Details Recorded Time 9725 egg extract food,medi cation Not available Not available Not available 07/13/2024 35066 15 RxNorm Not Available [facility] - [facility] 4 04:15:04 9726 latex environme nt,medica tion Not available Not available Not available 07/13/2024 36853 91 RxNorm Not Available [facility] - [facility] 4 04:15:04 9727 morphine medicatio n Not available Not available Not available 07/13/2024 7052 RxNorm Not Available [facility] - [facility] 4 04:15:04 9728 Product containin g penicilli n (product) medicatio n Not available Not available Not available 07/13/2024 39516 8001 SNOMED Not Available [facility] - [facility] 4 04:15:04 Medications Name Sig Start Date Stop Date Status Note LastModified by Organization Details LastModified Time atorvastatin 80 mg tablet TAKE 1 TABLET BY MOUTH ONCE DAILY active Not Available Not Available No t Available carvedilol 6.25 mg tablet TAKE 1 TABLET BY MOUTH TWICE A DAY active Not Available Not Available No t Available prednisone 10 mg tablet TAKE 2 TABS DAILY X3 DAYS THEN 1 TAB DAILY X3 DAYS THEN STOP active Not Available Not Available No t Available carvedilol 12.5 mg tablet TAKE 1 TABLET BY MOUTH TWICE DAILY active Not Available Not Available No t Available albuterol sulfate 2.5 mg/3 mL (0.083 %) solution for nebulization INHALE 1 AMPULE USING A NEBULIZER FOUR TIMES DAILY NEEDED FOR WHEEZING OR SHORTNESS OF BREATH active Not Available Not Available No t Available atorvastatin 10 mg tablet TAKE 1 TABLET BY MOUTH AT BEDTIME active Not Available Not Available No t Available azithromycin 250 mg tablet TAKE 2 TABLETS BY MOUTH ON DAY 1, THEN TAKE 1 TABLET DAILY ON DAYS 2-5 active Not Available Not Available No t Available tizanidine 4 mg tablet TAKE 1 TABLET BY MOUTH EVERY 8 HOURS NEEDED FOR MUSCLE SPASMS active Not Available Not Available No t Available fluconazole 150 mg tablet active Not Available Not Available Not Available ondansetron HCl 4 mg tablet TAKE 1 TAB ORALLY EVERY 12 HOURS NEEDED FOR NAUSEA AND VOMITING FOR 7 DAYS active Not Available Not Available N ot Available prednisone 20 mg tablet TAKE 1 TABLET BY MOUTH EVERY DAY active Not Available Not Available No t Available isosorbide mononitrate ER 30 mg tablet,exten ded release 24 hr TAKE 1 TABLET BY MOUTH EVERY DAY active Not Available Not Available No t Available cyanocobalam in (vit B-12) 1,000 mcg tablet TAKE 1 TABLET BY MOUT EVERY DAY active Not Available Not Available No t Available aspirin 81 mg tablet,delay ed release TAKE 1 TABLET BY MOUTH EVERY DAY active Not Available Not Available No t Available tramadol 50 mg tablet TAKE 1 TABLET BY MOUTH THREE OR FOUR TIMES DAILY ONLY NEEDED FOR increased PAIN active Not Available Not Available No t Available butalbital-a cetaminophen -caffeine 50 mg-325 mg-40 mg tablet TAKE 1 TABLET BY MOUTH EVERY 6 TO 8 HOURS NEEDED FOR HEADACHE FOR 30 DAYS active Not Available Not Available Not Available baclofen 20 mg tablet TAKE 1 TABLET BY MOUTH THREE TIMES DAILY NEEDED LOWER BACK PAIN active Not Available Not Available No t Available oxycodone-ac etaminophen 5 mg-325 mg tablet TAKE 1 TAB ORALLY EVERY 8 HOURS NEEDED FOR SEVERE PAIN (SCALE SCORE 7-10) active Not Available Not Available Not Available cyanocobalam in (vit B-12) 1,000 mcg/mL injection solution INJECT 1ML INTRAMUSCUL GLENN EVERY 2 WEEKS active Not Available Not Available No t Available prednisone 50 mg tablet TAKE 1 TABLET BY MOUTH EVERY DAY FOR 5 DAYS active Not Available Not Available No t Available losartan 25 mg tablet TAKE 1 TABLET BY MOUTH EVERY DAY active Not Available Not Available No t Available omeprazole 20 mg capsule,ivctor manuel yed release TAKE 1 CAPSULE BY MOUTH DAILY active Not Available Not Available Not Available folic acid 1 mg tablet TAKE 1 TABLET BY MOUTH EVERY DAY active Not Available Not Available No t Available hydroxyzine HCl 25 mg tablet TAKE 1 TABLET BY MOUTH 3 TIMES A DAY NEEDED FOR ANXIETY, TAKE ONLY NEEDED active Not Available Not Available No t Available codeine 10 mg-guaifenes in 100 mg/5 mL oral liquid GIVE 5 ML BY MOUTH 2 TO 3 TIMES DAILY NEEDED FOR SEVERE coughing FOR 7 DAYS, TAKE ONLY FOR SEVERE coughing active Not Available Not Available No t Available furosemide 20 mg tablet TAKE 1 TABLET BY MOUTH EVERY MORNING FOR 15 DAYS NEEDED FOR EDEMA active Not Available Not Available No t Available levofloxacin 500 mg tablet TAKE 1 TABLET BY MOUTH EVERY DAY active Not Available Not Available No t Available levofloxacin 750 mg tablet TAKE 1 TABLET BY MOUTH EVERY DAY FOR 5 DAYS active Not Available Not Available No t Available albuterol sulfate HFA 90 mcg/actuatio n aerosol inhaler INHALE 2 PUFFS BY MOUTH EVERY 6 HOURS NEEDED FOR WHEEZING active Not Available Not Available No t Available sertraline 50 mg tablet TAKE 1 TABLET BY MOUTH EVERY DAY active Not Available Not Available No t Available doxycycline hyclate 100 mg tablet TAKE 1 TAB 2 TIMES A DAY FOR 7 DAYS active Not Available Not Available No t Available oxycodone 5 mg tablet TAKE 1 TABLET BY MOUTH 2 TO 3 TIMES A DAY NEEDED FOR SEVERE PAIN active Not Available Not Available Not Available magnesium 200 mg tablet TAKE 1 TABLET BY MOUTH DAILY AT BEDTIME active Not Available Not Available N ot Available ezetimibe 10 mg tablet TAKE 1 TABLET BY MOUTH EVERY DAY active Not Available Not Available No t Available bupropion HCl XL 150 mg 24 hr tablet, extended release TAKE 1 TABLET BY MOUTH EVERY DAY IN THE MORNING active Not Available Not Available No t Available duloxetine 30 mg capsule,victor manuel yed release TAKE 1 CAPSULE BY MOUTH EVERY DAY active Not Available Not Available No t Available fenofibrate 160 mg tablet TAKE 1 TABLET BY MOUTH EVERY DAY active Not Available Not Available No t Available Vitamin D3 50 mcg (2,000 unit) capsule TAKE 1 CAPSULE BY MOUTH DAILY active Not Available Not Available Not Available Brilinta 90 mg tablet TAKE 1 TABLET BY MOUTH TWICE DAILY FOR 90 DAYS active Not Available Not Available No t Available melatonin 10 mg capsule TAKE 1 CAPSULE BY MOUTH EVERY DAY AT BEDTIME NEEDED FOR SLEEP FOR 14 DAYS active Not Available Not Available No t Available potassium chloride ER 20 mEq tablet,exten ded release TAKE 1 TAB ORALLY DAILY FOR 90 DAYS active Not Available Not Available No t Available Arnuity Ellipta 200 mcg/actuatio n powder for inhalation INHALE 1 PUFF BY MOUTH EVERY DAY active Not Available Not Available No t Available Repatha Syringe 140 mg/mL subcutaneous syringe INJECT 140 MG SUBCUTANEOU SLY EVERY 2 WEEKS DIRECTED active Not Available Not Available No t Available Vitals Date Recorded Heart rate Oxygen saturation Oxygen saturation in Arterial blood by Pulse oximetry Body temperature Respiratory rate Systolic blood pressure Diastolic blood pressure Provider Name and Address Organization Details Last Updated DateTime 4 67 /min 99 % 99 % 98.4 [degF] 18 /min 116 mm[Hg] 74 mm[Hg] Not Available [employer] - [facility] 4 15:12:54 Date Recorded Body temperature Heart rate Respiratory rate Oxygen saturation Oxygen saturation in Arterial blood by Pulse oximetry Systolic blood pressure Diastolic blood pressure Provider Name and Address Organization Details Last Updated DateTime 4 97.8 [degF] 88 /min 20 /min 100 % 100 % 160 mm[Hg] 88 mm[Hg] Not Available [facility] [employer] 4 14:11:02 Social History None recorded. Functional Status None recorded. Mental Status None recorded. Family History Nothing Reported. Medical History No medical history recorded. Gynecological HistoryNo gynecological history recorded. Obstetrics History GPAL:G 0 P 0 0 0 0 Past Encounters Encounter ID Performer Location Encounter Start Date Encounter Closed Date Diagnosis/Indication Diagnosis SNOMED-CT Code Diagnosis ICD10 Code Diagnosis Note [id number] Jessica Dang MD [facility] [address] [place] [id number] 11/19/2023 15:12:52 11/20/2023 09:56:00 Acute bronchitis 87588969 J20.9 [id number] Remington Kyle MD Main - [address] [phone] 05/01/2024 14:10:59 05/01/2024 19:03:45 Acute low back pain 922412709 M54.50 As noted, we were called to see this patient regarding concerns of low back pain due to fall and spasm. Evaluation in the field was performed by my principle industrial hygienist colleague, as noted above, I provided real-time direction and supervisio n for this visit. The evaluation revealed HTN but otherwise reassuring VS. Reports hx GI bleed. Reports told not to take tylenol due to cholestero l med raising liver enzymes. Unable to correlate in record. No distal weakness, numbness, no bowel/blad eduardo control problems. Impression :Low back pain, most c/w muscle strain vs disc. Not a good nsaid candidate. Good response to prednisone plus some Rx pain meds. Plan:Exten d course of pred - 20 x 4 + 10 x 3 taperCall PCP for pain adviceCoun seled on red flags Primary care, considerch sara in call Friday Dispositio n:We discussed the diagnostic uncertaint y of home visits and the risk associated with this. In this case, the patient and I felt this to be an acceptable and reasonable amount of risk given the benefit of avoiding an ED visit. We discussed the need to seek care urgently/e mergently in the setting of any new or worsening serious symptoms, particular ly worsening symptoms. Health Concerns Section Related Observation LastModified by Organization Detai ls LastModified Time None Recorded Concern Status LastModified by Organization Details LastModified Time None Recorded Advance Directives Directive None Recorded Payers Insurance Date Sequence Insurance Name Policy Number Policy Alford Covered Member ID Alford Member ID Guarantor Name 05/01/2024 1 [facility] - DOS ON OR AFTER 2022 - DUAL ELIGIBLE - PENITENTIARY OPTIONS AND ONE CARE (MEDICARE REPLACEMENT/ADV ANTAGE - HMO) Mariana Vela [id number] Mariana Vela Notes Date Note Type Note Provider Name and Address Organization Details Recorded Time 11/19/2023 text/html HPI: MSR transferred call to this CRU RN due to member having acute medical issues and reported to MSR that she was diagnosed with PNA. River tony 48 yo female with hx of COPD, asthma, Migraines, Bilateral OA of hips, OA right knee, Crohn? s Disease, Radiculopathy of lumbar and sacral regions, low back pain, Cervicalgia, Myalgia, right foot and right ankle pain, HLD, rash and localized swelling, mass lump on trunk. Allergies to Fluoxetine, Eggs, Morphine, Hydromorphone, Neurontin, ASA, PCN, Motrin, Latex, NSAIDS, Cortisone, and Lyrica. River reported she went to the Hospital a week ago for resp s/s and had tests, xrays done. River reported that she was told a few days ago that xray showed PNA. River just started zpac yesterday and states she feels terrible and taking neb treatments every four hours. States neg treatments help a little. River does not have home O2 or sat monitoring device. River weepy at times and coughing on and off. Mbr very upset with PCP and would like call back from CP today at her earliest convenience to discuss her issues w/PCP. Offered [facility] and she agreed. Instructed Mblesvia to call 91`1 and go back to ER if sghe develops worsening s/s. Reports on/off fever but no chest pain however has a cath lab radiology technician appt on the of this month. Confirmed address and the best number to reach River is [phone]. .................... .................... .................... .................... .................... .................... .................... . [facility] Nurse Triage Notes (Angelica Browne): Comments: HPI reviewed. No further information required to process visit. .................... .................... .................... .................... .................... .................... .................... . Automobile Appraiser Note From Anand Galeas: Dispatched to the call address for the female with SoB. Pt states she was seen in the ED the other day and diagnosed with pneumonia. Pt was given abx and advised to use nebulizer every 4 hours. Pt states she has taken 2 doses of the abx and is using her nebulizer every four hours except she has not used it since 5am as she ran out of albuterol but her PSA is picking up her script today. Pt states she isn't really feeling much better. Pt was found opening door, CAOx4, airway open and patent, breathing non labored, able to speak in full sentences, -JVD, -HEENT, skin PWD with good turgor, abd soft non tender/distended, pupils PERRL, +CMSx4, lung sounds slightly diminished throughout. [facility] consulted. Pt given DuoNeb and 40mg PO prednisone. Script called into preferred pharmacy. Red flags discussed. ALL times are approx. .................... .................... .................... .................... .................... .................... .................... . Disposition: Fulfilled Jessica Dang MD [address] [place] [address],[address], [place], [phone], [employer] 11/19/2023 15:21:15 05/01/2024 text/html HPI: Member recently had a fall and hurt her back. Seen in ER 3 days ago and diagnosed to back muscle sprain. Member also has L4and L5 herniated disc was given 3 days of Prednisone. Member calling because pain is intolerable again and states she can't move due to pain. .................... .................... .................... .................... .................... .................... .................... . [facility] Nurse Triage Notes (Mildred Schroeder): Chief Complaints: Pain Allergies: Penicillin, Egg, Latex, Morphine Other Allergies: sulfa, Lyrica, Benadryl Comments: Reviewed HPI, no further info needed to process visitConsent on Stefania CARDONA .................... .................... .................... .................... .................... .................... .................... . Automobile Appraiser Note From Katelynn Cuevas: Dispatched for the 48 yo female chief complaint of lower back pain. U/a pt is found seated upright in living room chair accompanied by economics consultant x1. Pt presents CA&Ox4, patent airway, normal breathing and skin signs warm, pink and dry. Pt states she fell about a week ago and was seen at the ED for lower back pain. Pt states diagnoses of L5-S1 degeneration, and was sent home with Percocet 5mg/325mg and Prednisone 20mg. Pt states she has ran out of pain management and her doctor is on vacation and pt preferred pharmacy closed on weekends. Pt is seeking pain management until she is able to see her PCP. Pt vitals obtained, CSM intact all extremities. Pt unable to take NSAID's due to hx of GI bleeds. [facility] contacted and prescribed pt Prednisone. [facility] instructs [facility] administer 20mg Prednisone at this time, complete without incident. Pt advised of all red flags and to follow up with PCP for further treatment. End of report. .................... .................... .................... .................... .................... .................... .................... . Disposition: Fulfilled Remington Kyle MD [address] [place] [address],[address], [place], [address], [email or web address] 05/01/2024 14:31:19 OBGyn Episode No OBEpisode recorded.
== END 2025-01-25 15:43 | disposition home or self-care (01) ==
LOC: HO.HCS 14:37
PROVIDERS: PCP Internal Medicine
DX: R07.9 Chest pain, unspecified (principal); R06.02 Shortness of breath; Z98.890 Other specified postprocedural states; I25.10 Atherosclerotic heart disease of native coronary artery without angina pectoris
CPT/HCPCS: 93010; 99214; G2211

== ENCOUNTER → 2025-01-25 14:36 | Outpatient (BNVA) | payer OTHER, SELFPAY | PROVIDERS: PCP Internal Medicine | DX: I25.10 Atherosclerotic heart disease of native coronary artery without angina pectoris (principal); R07.9 Chest pain, unspecified; R06.02 Shortness of breath; Z98.890 Other specified postprocedural states | CPT/HCPCS: 93005; 99212 ==

== ENCOUNTER 2025-02-02 13:35 | Outpatient (AMB) | payer OTHER, SELFPAY ==
[2025-02-02 13:42] VITALS: BP 136/82; PULSE 87; O2SAT 97; BMI 35.8
--- NOTE | 2025-02-02 13:42 | A.OFFPC_ITS ---
Vital Signs 02/02/25 13:42 Height 5 ft 3 in Weight 202 lb 2 oz BMI 35.8 BP 136/82 Blood Pressure Location Lt brachial Position Sitting Pulse 87 Pulse Source Pulse Oximeter Pulse Oximetry (%) 97 Oxygen Delivery Method Room Air Intake Visit Reasons: 3 months Manager Decision Support Required: No Accompanied by: Self / Same As Patient Allergies NSAIDS (Non-Steroidal Anti-Inflamma [Nsaids] Allergy (Severe, Verified 02/02/25 14:13) blood in stool diazepam [DIAZEPAM] Allergy (Mild, Verified 02/02/25 14:13) RASH fluoxetine [From Prozac] Allergy (Unknown, Verified 02/02/25 14:13) Unknown ibuprofen [From Motrin] Allergy (Unknown, Verified 02/02/25 14:13) UNKNOWN Penicillins Allergy (Unknown, Verified 02/02/25 14:13) UNKNOWN colchicine Allergy (Verified 02/02/25 14:13) Dizziness gabapentin [From NEURONTIN] Adverse Reaction (Severe, Verified 02/02/25 14:13) HALLUCINATIONS, halluciinations morphine [Morphine] Adverse Reaction (Severe, Verified 02/02/25 14:13) DIFFICULTY BREATHING Sulfa (Sulfonamide Antibiotics) [SULFA (SULFONAMIDE ANTIBIOTICS)] Adverse Reaction (Severe, Verified 02/02/25 14:13) DIFF BREATHING Zetia/ezetimibe Allergy (Intermediate, Uncoded 02/02/25 14:13) Rash and Swelling R side of face pregabalin Adverse Reaction (Intermediate, Uncoded 02/02/25 14:13) Hallucinations Medication List - Last Reconciled 02/02/25 by Ambrose Feliciano MD albuterol sulfate 2.5 mg (3 mL) inhalation QID PRN 30 days albuterol sulfate 90 mcg/actuation 2 puffs inhalation Q6H PRN aspirin 81 mg PO DAILY 90 days atorvastatin 80 mg PO DAILY 90 days baclofen 20 mg PO TID PRN 30 days bupropion HCl XL 150 mg PO QAM 30 days gulpoerevq-qbsiopokryqgq-czfn 50-325-40 mg 1 tab PO Q6-8H PRN 30 days carvedilol 12.5 mg PO BID NS cholecalciferol (vitamin D3) 50 mcg PO DAILY 90 days codeine-guaifenesin 10-100 mg/5 mL 5 mL PO BID-TID PRN 7 days cyanocobalamin (vitamin B-12) 1,000 mcg IM Q2W duloxetine 30 mg PO DAILY 30 days [ELECTRIC SCOOTER As directed] evolocumab (Repatha Syringe) 140 mg subcut Q2W ezetimibe (Zetia) 10 mg PO DAILY fluticasone furoate 200 mcg/actuation (Arnuity Ellipta) 1 inh inhalation DAILY 30 days pkjvdoxruze-pnshlhhvf-ddgupetk 200-62.5-25 mcg (Trelegy Ellipta) 1 inh inhalatio n DAILY folic acid 1 mg PO DAILY 90 days furosemide 20 mg PO QAM PRN 15 days [Handicap Shower Head As directed (with long hose as patient can not stand for a long period of time)] hydroxyzine HCl 25 mg PO TID PRN 30 days incontinence pad, liner, disp (Prevail Pant Liner pads) As directed isosorbide mononitrate ER 30 mg PO DAILY lamotrigine 150 mg PO DAILY lidocaine HCl 2% 1 appl topical BID-QID PRN lidocaine HCl 3% 1 appl topical BID PRN 30 days losartan 25 mg PO DAILY 30 days magnesium 200 mg PO BEDTIME 30 days melatonin 10 mg PO BEDTIME PRN 14 days miscellaneous medical supply as directed; Medical Recliner miscellaneous medical supply as directed; Greye miscellaneous medical supply 1 ea miscellaneous DAILY miscellaneous medical supply 1 ea miscellaneous DAILY nebulizers As directed every 6 hours as needed nicotine (polacrilex) (Nicorette) 4 mg buccal Q2H PRN nystatin-triamcinolone 100,000-0.1 unit/g-% 1 appl topical BID 10 days omeprazole 20 mg PO DAILY 90 days ondansetron HCl 4 mg PO Q12H PRN 7 days oxycodone-acetaminophen 10-325 mg 1 tab PO Q6H PRN 7 days potassium chloride ER 20 mEq PO DAILY 90 days prazosin 3 mg PO BEDTIME prednisone 20 mg PO DAILY prednisone 20 mg PO DAILY 5 days prednisone 4 tablets x 2 days, then 3 tablets x 2 days, then 2 tablets x 2 days, then 1 tablet x 2 days 8 days prednisone 4 tablets x 2 days, then 3 tablets x 2 days, then 2 tablets x 2 days, then 1 tablet x 2 days 8 days [RECLINER As directed] sertraline 50 mg PO DAILY tizanidine 4 mg PO Q8H PRN 30 days tramadol 50 mg PO QID PRN 21 days Tobacco use date assessed: 02/02/25 Dental Screening Dental Screen Date: 02/02/25 Did you have a dental visit in the last 12 months?: Yes Did you have a dental problem in the last 6 months where you did not have access to dental care?: No Was dental information given to patient?: Patient has dentist HPI 3 months HPI Details Patient comes in today for her follow up visit States that she is still experiencing on and off left-sided chest pains, which she feels have been going on since her gynecologic surgery a couple of months ago She was seen by cardiology for follow up last week and is currently awaiting scheduling for further cardiac evaluation, including echocardiogram and Lexiscan stress testing Adds that she has been experiencing recurrent sensations of brain fog since her surgery a couple of months ago Feels that she sleeps well enough at night and has not had any significant issues with her sleep States that she accidentally smashed her left hand on a slide a couple of weeks ago when she was trying to get to her granddaughter and states that she's had left hand pain and swelling since, mostly over the dorsal/ulnar side of the hand; states that she has a hard time making a fist with her hand lately She denies any headaches or dizziness Denies any increased SOB No nausea/vomiting, no abdominal pain No change in bowel habits noted She has not yet been able to get her follow up labs done - states that she will try to get these done [facility] Medical History Essential hypertension Hx of ovarian cancer Anxiety Folate deficiency Vitamin D deficiency STEMI (ST elevation myocardial infarction) Coronary atherosclerosis Depression Hematemesis Crohn's disease Avascular necrosis of right talus Chronic pain syndrome Osteoarthritis of right knee Osteoarthritis of left hip Osteoarthritis of right hip Lumbar radiculopathy, right Disc degeneration, lumbar Bony sclerosis Rash Strain of left trapezius muscle Shoulder pain, left Neck pain Mixed hyperlipidemia Pain and swelling of right ankle Swelling of right knee joint Right knee pain Obesity (BMI 30-39.9) Smoker Migraine GERD (gastroesophageal reflux disease) COPD (chronic obstructive pulmonary disease) Right lumbosacral radiculopathy Lumbar degenerative disc disease Surgical History History of right oophorectomy Hx of foot surgery History of esophagogastroduodenoscopy (EGD) Hx of cardiac cath (~11/01/22) Hx of section History of appendectomy Hx of colonoscopy History of hysterectomy History of cholecystectomy Family History Father Hypertension Rheumatoid arthritis Mother Hypertension Diabetes CVD (cardiovascular disease) Multiple sclerosis Sister Liver disease Maternal Grandmother Colon cancer Maternal Aunt Breast cancer Social History Housing: House Are you a primary acute care occupational therapist to a significant other at home: No Do you presently have visiting nurse or other home services: No (Children come by to help) Alcohol intake: never Patient Tobacco Use Status: Current everyday Tobacco user Tobacco use type: Cigarette Cigarettes Per Day: 5 Years Smoked: 30 e-Cigarette/Vaping Use: Never Used Second Hand Smoke Exposure: Yes service: No Current occupational status: disabled Cognitive needs: Yes (cane) Hearing needs: No Vision needs: Yes (glasses) Female Reproductive History Menstrual Age of Menarche: 10 Questionnaire PHQ-9 Over the last 2 weeks, how often have you been bothered by any of the following problems? 1. Little interest or pleasure in doing things: several days 2. Feeling down, depressed, or hopeless: several days 3. Trouble falling or staying asleep, or sleeping too much: several days 4. Feeling tired or having little energy: nearly every day 5. Poor appetite or overeating: more than half the days 6. Feeling bad about yourself - or that you are a failure or have let yourself or your family down: several days 7. Trouble concentrating on things, such as reading the newspaper or watching television: nearly every day 8. Moving or speaking so slowly that other people could have noticed. Or the opposite - being so fidgety or restless that you have been moving around a lot more than usual: more than half the days 9. Thoughts that you would be better off or of hurting yourself in some way: not at all Total score: 14 Depression Screening Interpretation: Positive Depression Screening Follow-up: Existing condition and In treatment Depression Screening Done: Yes 34456 - PHQ-9 Billing: Yes Source: Developed by Drs. Adebayo Lizarraga, Alicia Mata, Avel Blancas and colleagues, with an educational rayshawn from [employer]. Thrive Questionnaire Date Thrive assessed: 02/02/25 I am a: Patient What is your living situation today?: I have a place to live, but I am worried about losing it in the future Within the past 12 months, did the food you bought not last and you didn't have the money to get more?: Sometimes True Within the past 12 months, did you worry whether your food would run out before you got money to buy more?: Sometimes True Do you have trouble paying for medicines?: Yes Do you have trouble getting transportation to medical appointments?: No Do you have trouble paying your heating and electricity bill?: Yes Do you have trouble taking care of your child, family member or friend?: I choose not to answer this question Do you have trouble with day-to-day activities such as bathing, preparing meals, shopping, managing finances, etc.?: Yes Are you currently unemployed and looking for a job?: No Are you interested in more education?: No Please select the resources that you would like help with: None Currently or been in a relationship where the following occur: No concerns reported THRIVE Score: 4 AUDIT C Alcohol Use Questionnaire (AUDIT-C) 1. How often do you have a drink containing alcohol?: Never 3. How often do you have six or more drinks on one occasion?: Never Total Score: 0 Score Reviewed/Action Taken: Yes CHANELLE-7 AMB Questionnaire CHANELLE-7 Date CHANELLE - 7 assessed: 02/02/25 Feeling nervous, anxious, or on edge: 1 = Several days Not being able to stop or control worryin = Several days Worrying too much about different things: 1 = Several days Trouble relaxin = Several days Being so restless that it is hard to sit still: 1 = Several days Becoming easily annoyed or irritable: 1 = Several days Feeling afraid as if something awful might happen: 1 = Several days Total CHANELLE-7 score (0-4 normal; 5-9 mild; 10-14 moderate; 15-21 severe): 7 Source: Developed by Alicia Cervantes Kurt Kroenke and colleagues, with an educational rayshawn from [employer]. Review of Systems Const Denies chills, Denies difficulty sleeping, Reports fatigue, Denies fever(s) and Denies headache(s) ENT Denies dysphagia, Denies dizziness, Denies otalgia, Denies headache(s), Denies neck pain, Denies odynophagia and Denies sore throat Card Reports chest pain (on and off, left-sided), Denies rapid heart rate, Denies irregular heart rhythm, Denies palpitations and Reports dyspnea on exertion (mild) Resp Denies chest congestion, Reports cough (on and off) and Reports dyspnea on exertion (mild) GI Denies abdominal pain, Denies constipation, Denies dysphagia, Denies heartburn, Denies diarrhea, Denies nausea, Denies odynophagia and Denies vomiting Denies difficulty voiding, Denies nocturia, Denies dysuria, Denies urinary incontinence and Denies urinary urgency Musc Details: (+) swelling and pain on the left hand - see HPI Reports back pain (chronic), Reports myalgias (diffuse, frequent), Reports arthralgias (involving multiple joints, including the right knee and right ankle), Denies joint swelling and Denies neck pain Skin/Breast Denies rash Neuro Denies dizziness, Denies headache(s), Denies memory loss (but reports frequent sensation of brain fog) and Reports paresthesias (of both hands and feet) Psych Reports anxiety, Reports depression and Denies memory loss (but reports frequent sensation of brain fog) Endo Reports fatigue and Denies palpitations Han/Lymph Details: hands and feet feel swollen at times Denies easy bruising Physical exam (Primary Care) Vital Signs: Last Vital Signs Pulse 87 02/02/25 13:42 BP 136/82 02/02/25 13:42 Pulse Ox 97 02/02/25 13:42 Oxygen Delivery Method Room Air 02/02/25 13:42 BMI result Body Mass Index 35.8 Tobacco/Smoking Status: Tobacco use Status Tobacco use date assessed 02/02/25 02/02/25 13:48 Patient Tobacco Use Status Current everyday Tobacco 02/02/25 13:48 Tobacco use type Cigarette 02/02/25 13:48 e-Cigarette/Vaping Use Never Used 02/02/25 13:48 PHQ-9: PHQ-9 Score PHQ-9: Total score 14 02/02/25 14:17 Depression Screening Interpretation: Positive Depression Screening Follow-up: Existing condition and In treatment Thrive Assessment: Date of Thrive Assessment Date Thrive assessed 02/02/25 02/02/25 14:03 Currently or been in a relationship where the following occur: No concerns reported Const General: no acute distress and alert HENMT Ears: TM's normal bilaterally and EAC's normal Throat: Yes posterior oropharynx normal and Yes tonsils normal (no TP congestion) Neck Neck: Yes supple and No lymphadenopathy Thyroid: Thyroid normal Resp Auscultation: no crackles, no rales, no wheezes and diminished lung sounds (slightly) bilateral Cardio Rate: regular rate Rhythm: regular rhythm Heart sounds: no murmurs GI Palpation (GI): Soft to palpation and nontender Auscultation: normal bowel sounds General: Yes no CVA tenderness Back/Spine/Pelvis Back: no CVA tenderness Cervical Spine: Cervical spine tenderness Thoracic/Lumbar Spine: paraspinal muscle tenderness bilaterally in the mid lumbar and in the lower lumbar and lumbar spinal tenderness Skin Rashes: no rashes Extrem General: Yes no clubbing, cyanosis or edema Left upper extremity: hand Details: swelling Right lower extremity: knee Details: tenderness; no swelling, ankle Details: tenderness; no swelling and foot Details: tenderness Location: of the dorsal foot and edema (mild) Location: of the dorsal foot Coding Level of Care Code Est Pt Level 4 (21512) Complex EM visit Add On G2211 Diagnoses Swelling of left hand M79.89 Left-sided chest pain R07.9 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 transplanted heart: [place] heart Associated angina: with stable angina ST elevation myocardial infarction (STEMI), unspecified artery I21.3 Involved coronary artery: unspecified coronary artery Mixed hyperlipidemia E78.2 Essential hypertension I10 Chronic pain of right ankle M25.571; G89.29 Osteoarthritis of right knee, unspecified osteoarthritis type M17.11 Osteoarthritis type: unspecified Degeneration of intervertebral disc of lumbar region with discogenic back pain M51.360 Disc-related pain type: discogenic back pain only Neuropathy G62.9 Migraine without status migrainosus, not intractable, unspecified migraine type G43.909 Migraine type: unspecified Status migrainosus presence: without status migrainosus Intractability: not intractable Vitamin D deficiency E55.9 Crohn's disease with complication, unspecified gastrointestinal tract location K50.919 Gastrointestinal tract location: unspecified location Digestive disease complication type: unspecified complication Gastroesophageal reflux disease without esophagitis K21.9 Esophagitis presence: without esophagitis Anxiety F41.9 Episode of recurrent major depressive disorder, unspecified depression episode severity F33.9 Depression Type: major depressive disorder Major depression recurrence: recurrent Active/Remission status: currently active Major depression episode severity: unspecified Smoker F17.200 Obesity (BMI 30-39.9) E66.9 Additional Codes PHQ-9 - 88650 - PHQ-9 Billing: Yes ([id number]) Assessment & Plan Assessment & Plan (1) Swelling of left hand: Code(s): M79.89 - Other specified soft tissue disorders Category: Medical Plan: Will send patient for x-rays of her left hand for further evaluation (2) Left-sided chest pain: Code(s): R07.9 - Chest pain, unspecified Category: Medical Plan: Patient reports experiencing this since her gynecologic surgery done a couple of months ago She was seen by cardiology last week and is currently awaiting scheduling for further cardiac evaluation, including echocardiogram and Lexiscan stress testing (3) Vulvar dysplasia: Code(s): N90.3 - Dysplasia of vulva, unspecified Category: Medical Plan: Patient initially underwent vulvar colposcopy which revealed (+) findings concerning for vulvar dysplasia She subsequently underwent a wide local excision of multiple lesions on 12/10/2024 Follow up with gynecology as scheduled (4) LLQ abdominal pain: Code(s): R10.32 - Left lower quadrant pain Category: Medical Plan: She also underwent robotic removal of the left ovary and MRV in addition to her vulvar colposcopy on 12/10/2024 Further treatments, including potential chemotherapy and/or radiation therapy, will be recommended only if her pathology revealed any malignancy (5) COPD (chronic obstructive pulmonary disease): Code(s): J44.9 - Chronic obstructive pulmonary disease, unspecified Category: Medical Qualifiers: COPD type: emphysema Emphysema type: unspecified Qualified Code(s): J43.9 - Emphysema, unspecified Plan: Controlled/stable at present Continue Trelegy Ellipta 200-62.5-25 mcg 1 inhalation QD and Albuterol HFA 1 to 2 inhalations Q 6 hours PRN Follow up with [facility] as scheduled (6) Coronary atherosclerosis: Code(s): I25.10 - Atherosclerotic heart disease of [place] coronary artery without angina pectoris Category: Medical Qualifiers: Coronary Disease-Associated Artery/Lesion type: [place] artery [place] vs. transplanted heart: [place] heart Associated angina: with stable angina Qualified Code(s): I25.118 - Atherosclerotic heart disease of [place] coronary artery with other forms of angina pectoris Plan: S/P cardiac cath and PCI to the mid LAD in October 2022 - had CARA x1 and kissing balloon angioplasty to the bifurcating lesion Continue Aspirin 81 mg QD - will need lifelong antiplatelet therapy S/P Brilinta 90 mg BID x 1 year - this was discontinued by cardiology when she was last seen in March 2024 Continue aggressive risk reduction with strict BP control and cholesterol reduction Follow up with cardiology as scheduled (7) STEMI (ST elevation myocardial infarction): Comment: 11/01/2022 Code(s): I21.3 - ST elevation (STEMI) myocardial infarction of unspecified site Category: Medical Qualifiers: Involved coronary artery: unspecified coronary artery Qualified Code(s): I21.3 - ST elevation (STEMI) myocardial infarction of unspecified site Plan: S/P STEMI post cath and required a second CARA to remove the occlusion in the ostial diagonal, which was thought to be due to dissection from her prior PCI, in October 2022 She had a second cardiac cath done in November 2023 due to recurrence of her chest pains - cath revealed mild ISR in the LAD/diagonal stents but otherwise no significant findings. Continue Carvedilol 6.25 mg BID and Aspirin 81 mg QD; S/P Brilinta x 1 year (Rx was discontinued in November 2023 by cardiology) Follow up with cardiology as scheduled (8) Mixed hyperlipidemia: Code(s): E78.2 - Mixed hyperlipidemia Category: Medical Plan: She has not had any follow up labs done since October 2024 Reinforced low cholesterol diet Continue Atorvastatin 80 mg QD and Repatha 140 mg SQ Q 2 weeks; Ezetimibe and Fenofibrate were both discontinued when Repatha was started by cardiology Will have patient recheck her labs and fasting lipids in 3 months for follow up (9) Essential hypertension: Code(s): I10 - Essential (primary) hypertension Category: Medical Plan: Her blood pressure appears much better controlled today - goal is systolic BP of 120 mm or less given her comorbidities Reinforced low sodium diet Continue Losartan 25 mg QD and Carvedilol 12.5 mg BID (10) Chronic pain of right ankle: Code(s): M25.571 - Pain in right ankle and joints of right foot; G89.29 - Other chronic pain Category: Medical Plan: Orthopedics suspected that patient may have AVN of her ankle - right ankle MRI done in January 2022 revealed mild tibiotalar osteoarthritis, with (+) anterior marginal osteophytes as well as an anterior unfused osteophyte versus ossified loose body measuring up to 1.2 cm in ML dimension; small tibiotalar joint effusion; minimal posterior tibialis and flexor digitorum tenosynovitis but no tendon tear although there is some medial subcutaneous edema seen Patient has reportedly been advised that they can only perform corrective surgery on her ankle when she is cleared by Cardiology and she is OFF Brilinta for at least 90 days Continue Duloxetine 30 mg QD and Tramadol 50 mg QID PRN for pain Follow-up with orthopedics as scheduled - patient states that she plans to have this issue addressed once her upcoming surgeries next month are all done and resolved Rx for recliner printed out and handed to patient today (11) Osteoarthritis of right knee: Comment: Right knee MRI done on 09/18/2020 showed: 1. Intact menisci. 2. Intact cruciate and collateral ligaments. 3. Preserved tricompartmental articular cartilage. 4. Small joint effusion Code(s): M17.11 - Unilateral primary osteoarthritis, right knee Category: Medical Qualifiers: Osteoarthritis type: unspecified Qualified Code(s): M17.11 - Unilateral primary osteoarthritis, right knee Plan: She was seen previously by [facility] and advised that her knee OA is mild with no other intervention recommended at the time Per request, she was referred to orthopedics in [place] for a second opinion and she is now following up with [facility] for her knee issues (12) Lumbar degenerative disc disease: Code(s): M51.36 - Other intervertebral disc degeneration, lumbar region Category: Medical Qualifiers: Disc-related pain type: discogenic back pain only Qualified Code(s): M51.360 - Other intervertebral disc degeneration, lumbar region with discogenic back pain only Plan: Reinforced activity and weight-lifting restrictions She has expressed her concerns that her current pain med (Percocet 5-325 mg BID- TID PRN may not be enough to help with her pain when she goes for her surgery soon I have agreed to increase her Rx for Percocet to 10-325 mg to take BID-TID only as needed for severe pain until her current issues have been resolved following her surgery next month - Rx refilled today Continue Duloxetine 30 mg QD and Tramadol 50 mg QID PRN for pain Follow up with pain management as scheduled (13) Neuropathy: Code(s): G62.9 - Polyneuropathy, unspecified Category: Medical Plan: She has been advised that her hand and feet symptoms appear to be neuropathic symptoms Patient relates that she was diagnosed with neuropathy a few years ago and had a nerve test done but could not recall exactly when and where it was done Have discussed with her that if she does have neuropathy and her symptoms are progressing, there may not be much else we can do as she was unable to tolerate Gabapentin and Pregabalin when we trialed her on these medications in the past Follow up with neurology as scheduled (14) Migraine: Code(s): G43.909 - Migraine, unspecified, not intractable, without status migrainosus Category: Medical Qualifiers: Migraine type: unspecified Status migrainosus presence: without status migrainosus Intractability: not intractable Qualified Code(s): G43.909 - Migraine, unspecified, not intractable, without status migrainosus Plan: Stable lately - continue Fioricet 3 to 4 times a day as needed for headaches (15) Vitamin D deficiency: Code(s): E55.9 - Vitamin D deficiency, unspecified Category: Medical Plan: Continue Vitamin D3 2000 units QD (16) Crohn's disease: Code(s): K50.90 - Crohn's disease, unspecified, without complications Category: Medical Qualifiers: Gastrointestinal tract location: unspecified location Digestive disease complication type: unspecified complication Qualified Code(s): K50.919 - Crohn's disease, unspecified, with unspecified complications Plan: States thar she has had no recent GI flare ups Follow up with GI as scheduled (17) GERD (gastroesophageal reflux disease): Code(s): K21.9 - Gastro-esophageal reflux disease without esophagitis Category: Medical Qualifiers: Esophagitis presence: without esophagitis Qualified Code(s): K21.9 - Gastro-esophageal reflux disease without esophagitis Plan: Dietary restrictions reinforced Continue Omeprazole 20 mg QD Follow up with GI as scheduled (18) Anxiety: Code(s): F41.9 - Anxiety disorder, unspecified Category: Medical Plan: Continue Bupropion 150 mg Q AM, Sertraline 50 mg QD and Hydroxyzine 25 mg TID PRN Continue Prazosin 3 mg Q HS (19) Depression: Code(s): F32.A - Depression, unspecified Category: Medical Qualifiers: Depression Type: major depressive disorder Major depression recurrence: recurrent Active/Remission status: currently active Major depression episode severity: unspecified Qualified Code(s): F33.9 - Major depressive disorder, recurrent, unspecified Plan: Continue Sertraline 50 mg QD, Bupropion 150 mg Q AM, Lamictal 150 mg QD and Duloxetine 30 mg QD Follow up with psychiatry as scheduled (20) Smoker: Code(s): F17.200 - Nicotine dependence, unspecified, uncomplicated Category: Social Hx Plan: Patient is counseled again on complete smoking cessation (21) Obesity (BMI 30-39.9): Code(s): E66.9 - Obesity, unspecified Category: Medical Plan: Reinforced diet; exercise is currently not an option due to her chronic ankle and knee and joint issues Plan Follow up in 3 months Orders: Orders Vitamin D 25-OH Total 3 Months E55.9 - Vitamin D deficiency, unspecified TSH reflex Free T4 3 Months E78.00 - Pure hypercholesterolemia, unspecified UA CC w/rflx Micro + Cult 3 Months R30.0 - Dysuria XR hand LT min 3V 02/02/25 M79.642 - Pain in left hand, M79.89 - Other specified soft tissue disorders Complete Blood Count Auto Diff 3 Months D64.9 - Anemia, unspecified Lipid Panel 3 Months E78.00 - Pure hypercholesterolemia, unspecified Comprehensive [place]. Panel Fast 3 Months E78.00 - Pure hypercholesterolemia, unspecified
--- OUTSIDE RECORDS SUMMARY | 2025-02-02 14:10 | XMS_ITS | Continuity of Care Document ---
Author Organization [facility] . Address [address] [place] [phone] Phone Care Team Providers Care Manager Merchandising Name Role Phone Ernie Muniz MD Unavailable Unavailable Allergies, Adverse Reactions, Alerts Substance Reaction Status Criticality No Known Allergies Active No Inform ation Procedures Procedure Date EYE EXAM, NEW PATIENT Advance Directives Directive Yes / No Effective Date File Name No Information Encounters Encounter Description Practice Location Reason(s) For Visit Diagnoses Date Provider Providers Copied on Encounter [facility] [address] [place] [address], [id number], tel:[phone] [facility] [address] No Information Cristy Klein. [address], [place], [place], [id number], [place]. tel:[phone] [facility] [address] [place] [address], [id number], tel:[phone] [facility] [address] orbital fracture (chief complaint) Closed fracture of right orbital floor, initial encounter Cristy Klein. [address], [place], [place], [id number], [place]. tel:[phone] Referring Provider: Ernie Muniz [address], [place], [place], [id number]. tel:[phone] Family History Family Member Type Diagnosis Age [...] Arthritis Payers Payer name Insurance type Covered alliance party ID Authoriza tion(s) MEDICARE [place] PART B [id number] MEDICAID [facility] [id number] Social History Type Description Quantity Date Captured [...] exam including dilation (per the patient) at [facility]. Endorses V2 hypoesthesia and blurry vision. Denies diplopia. Instructions Date Instruction Additional Infor lizett Impression/Plan - mi nimally displaced, full EOMs and no enopthalmos. Non operative at this time. Counseled that hypoesthesias will persist for up to 6 months. No nose blowing x 2 weeks. RTC 4-6 weeks. Assessments Type Assessment Date No Information
--- OUTSIDE RECORDS SUMMARY | 2025-02-02 14:10 | XMS_ITS | Data Portability ---
Author Organization [facility] Documents Address [address] [facility] [place] [address] Assessment No assessment recorded. Plan of Treatment Reminders Order Date Submit Date Provider Last Modified By Organization Details Last Modified Time Details Appointments None recorded. Lab bacterial vaginosis + vaginitis panel, vaginal 2018 [address] [place] [address] [facility] [address] [place] [address], [id number], 9 11:35:13 chlamydia + gonorrhea DNA panel, unspecified specimen 2018 [address]19 [place] [address] [facility] [address] [place] [address], [id number], 9 11:35:14 trichomonas vaginalis RNA 2018 019 [place] [address] [facility] [address] [place] [address], [address], 9 11:35:14 streptococc us group B, culture, unspecified specimen 2018 [address] [place] [address] [facility] [address] [place] [address], [address], 9 11:35:14 bartolo panel, vulvovagina l 2018 [address] [place] [address] [facility] [address] [place] [address], [address], 9 11:35:14 Referral None recorded. Procedures None [...] By Organization Details Last Modified Time 03/17/2019 [id number] A healthy lifestyle: care instructions itasia Not [...] al Not Available [facility] [address] [place] [address], [id number], 03/24/2019 18:00:02 03/17/20 19 03/20/2019 CT + NG DNA, PCR, unspe cifie d speci men neisseria gonorrhoeae by real-time PCR (reflex to antibiotic resistance by molecular analysis) Negati ve normal Swab- 1 Vagin al Not Available [facility] [address] [place] [address], [address], 03/24/2019 18:00:02 03/17/2003/24/2019 trich omona s vagin [...] . Not Available [facility] [address] [place] [address], [id number], 03/24/2019 18:00:02 03/17/2003/20/2019 strep tococ cus group B Ag, vagin al group B streptococcu s (gbs) by real-time PCR Positi ve abnormal Swab- 1 Vagin al Not Available [facility] [address] [place] [address], [address], 03/24/2019 18:00:03 03/17/2003/20/2019 bacte rial vagin osis panel , vagin al gardnerella vaginalis by real-time PCR Positi ve abnormal Swab- 1 Vagin al Not Available [facility] [address] [place] [address], [address], 03/24/2019 18:00:03 03/17/2003/20/2019 bacte rial vagin osis panel , vagin al atopobium vaginae by real-time PCR Positi ve abnormal Swab- 1 Vagin al Not Available [facility] [address] [place] [address], [address], 03/24/2019 18:00:03 03/17/2003/20/2019 bacte rial vagin osis panel , vagin al bacterial vaginosis associated bacterium 2 (bvab2) by real-time PCR Positi ve abnormal Swab- 1 Vagin al Not Available [facility] [address] [place] [address], [address], 03/24/2019 18:00:03 03/17/2003/21/2019 bacte rial vagin osis panel , vagin al megasphaera species (type 1 and type 2) by real-time PCR Negati ve normal Swab- 1 Vagin al Type1 :Nega tive Type2 :Nega tive. Not Available [facility] [address] [place] [address], [address], 03/24/2019 18:00:03 03/17/2003/21/2019 bacte rial vagin osis panel , vagin al lactobacillu s (bv & av panel) by real time PCR See Commen t normal Swab- 1 Vagin al L.cri spatu s: Negat yamile L.jodi senii : Negat yamile L.gas seri : Negat yamile L.ine rs : Negat yamile. Not Available [facility] [address] [place] [address], [address], 03/24/2019 18:00:03 03/17/2003/20/2019 bonifacio da sp DNA, vagin al bartolo albicans by real-time PCR Negati ve normal Swab- 1 Vagin al Not Available [facility] [address] [place] [address], [address], 03/24/2019 18:00:04 03/17/20 19 03/20/2019 bonifacio da sp DNA, vagin al bartolo tropicalis by real-time PCR Negati ve normal Swab- 1 Vagin al Not Available [facility] [address] [place] [address], [id number], 03/24/2019 18:00:04 03/17/20 19 03/20/2019 bonifacio da sp DNA, vagin al bartolo parapsilosis by real-time PCR Negati ve normal Swab- 1 Vagin al Not Available [facility] [address] [place] [address], [address], 03/24/2019 18:00:04 03/17/20 19 03/20/2019 bonifacio da sp DNA, vagin al bartolo glabrata by real-time PCR Negati ve normal Swab- 1 Vagin al Not Available [facility] [address] [place] [address], [address], 03/24/2019 18:00:04 Result Notes None recorded. Procedures Surgical History Date Name Laterality Status Provider Name and Address Organization Details Recorded Time 08/15/20 18 Date of Last Pap Smear completed [facility] 03/17/2019 15:07:41 09/15/19 17 Most Recent Mammogram completed [facility] 03/17/2019 15:07:48 09/15/19 17 Colonoscopy completed [facility] 03/17/2019 15:07:52 09/15/19 17 Gallbladder Surgery completed [facility] 03/17/2019 15:10:53 09/15/19 15 Hysterectomy-Par tial completed [facility] 03/17/2019 15:11:05 09/15/19 03 Appendectomy completed Daisha Ino [facility] 03/17/2019 15:11:21 09/15/19 02 Laparoscopy completed Daisha Ino [facility] 03/17/2019 15:11:47 09/15/18 99 Laparoscopy completed Daisha Ino [facility] 03/17/2019 15:11:42 09/15/18 95 Laparoscopy completed Daisha Ino [facility] 03/17/2019 15:11:38 Imaging Results None recorded. Procedure Notes None recorded. Medical Equipment None Reported. Allergies Allergen ID Allergen Name Allergen Category Reaction Reaction Severity Criticality Documentation Date Start Date Code Code System Note Provider Name and Address Organization Details Recorded Time 58515 Product containin g penicilli n (product) medicatio n Not available Not available Not available 03/17/2019 70983 8001 SNOMED Daisha Ino [facility] 9 15:06:19 66806 Substance with sulfonami de structure and antibacte rial mechanism of action (substanc e) medicatio n Not available Not available Not available 03/17/2019 85271 8003 SNOMED Daisha Ino [facility] 9 15:06:32 36848 ibuprofen medicatio n Not available Not available Not available 03/17/2019 5640 RxNorm Daisha Ino [facility] 9 15:06:50 Medications Name Sig Start Date [...] Updated DateTime 03/17/2019 160.02 cm 29.4 kg/m2 63964.33 g 134 mm[Hg] 78 mm[Hg] Daisha Mckinnon [facility] 9 15:24:23 Social History Question Answer Notes LastModified by Coub Details LastModified Time Tobacco Smoking Status Current Every Day Smoker Daishaamara McdermottIno [facility] 03/17/2019 15:10:17 How Many Days In The Past Year Have You Had A Heavy Drinking Consumption (4+ Female, 5+ Male)? [address] [place] [address] Information not available 03/17/2019 What Was The Date Of Your Most Recent Tobacco Screening? 03/17/2019 Information not available 04/09/2019 How Much Tobacco Do You Smoke? 0.5 PPD [place] [address] Information not available 03/17/2019 How Many Years Have You Smoked Tobacco? 25 [email or web address] Information not available 03/17/2019 Sex: Unknown Functional Status Question Answer Note LastModified by Coub Details LastModified Time Urinary incontinence assessment performed? Yes [place] [address] Information not available 03/17/2019 Mental Status None recorded. Family History Relationship Description Onset Age of this Age Resolved Age Notes LastModified by Organization Details LastModified Time Mother Family history of malignant neoplasm [email or web address] Not available 2018 15:09:28 Mother Heart disease [email or web address] Not available 2018 15:09:52 Mother Thyroiditis [place] [address] Not avail able 03/17/2019 15:10:08 Maternal Grandmother Family history of malignant neoplasm [email or web address] Not available 2018 15:09:28 Daughter Heart disease [...] SNOMED-CT Code Diagnosis ICD10 Code Diagnosis Note [id number] Slava Scott MD [id number] [address] [facility] [place] [address] 03/17/2019 13:58:10 03/17/2019 16:59:21 Body mass index 25-29 - overweight 621821250 Z68.29 Vaginitis 67996966 N76.0 Cystocele without uterine prolapse 43180858 N81.10 Wait and see and follow-up/ no [...] Name 02/22/2021 1 [place] Mariana Vela [id number] Mariana Vela 06/21/2019 2 [place] [facility] (SECONDARY TO MEDICARE) Mariana Vela [id number] Mariana Vela 06/21/2019 2 [facility] [place] (MEDICAID REPLACEMENT - HMO) [id number] Mariana Vela [id number] Mariana Vela Notes Date Note Type Note [...] have [place] [address] [place], [address], [facility] 03/17/2019 16:29:06 OBGyn Episode No OBEpisode recorded.
--- OUTSIDE RECORDS SUMMARY | 2025-02-02 14:10 | XMS_ITS | Continuity of Care Document ---
Author Organization [facility] Address [address] [place] [address]- Support Name Relationship Address Phone ELI MATHEWS [...] RYAN LAYNE Personal Relationship Unknown U estevan CARABALLO PARAS Other Unknown Unavailable Care Team Providers Care News Cameraman Name Role Phone Braden ALMEIDA, Ambrose Chao Primary Care Physician [phone] Encounter [facility] Date(s): 12/29/24 - 01/28/25 [facility] [address] [place], [place] [address] Encounter Type: Triage Allergies, Adverse Reactions, Alerts Substance Criticality Severity Reaction Reaction Severity Status penicillin anaphylaxis Active Neurontin Hallucinations Activ e Egg Allergy Active NSAIDs BLEEDING IN STOMACH Active aspirin bleeding Active morphine 1 Unable to assess criticality Persistent Moderate hives Active cortisone HIVES Active sulfa drugs anaphylaxis Active Motrin bleeding Active Bee Stings Unable to assess criticality Persistent Severe Active Latex Anaphylaxis Active FLUoxetine Active 1Per Dr. Pool - [...] 8:26:00 PM EDT, Route to Pharmacy Electronically, [facility]/pharmacy #[id number], Partial fill upon patient request if the [...] 10:21:00 AM EST, Route to Pharmacy Electronically, [facility], Partial fill upon patient [...] Refills, Maintenance, 11/01/22 10:20:00 AM EST, Tablet, [facility], Partial fill upon patient [...] 9:00:00 AM EST, Route to Pharmacy Electronically, [facility], Partial fill uponpatient request if [...] 0 Refills, Maintenance, 11/23/24 12:26:00 PM EDT, [facility]/pharmacy #[id number], Partial fill upon patient request if the [...] 9:48:00 AM EDT, Route to Pharmacy Electronically, [facility], Partial fill upon patient request if the prescription is for a schedule II opioid drug., 160, cm, 11/27/23 8:12:00 EDT, Height,94.9, kg, 11/27/23 8:12:00 EDT, Dry Weight Start Date: 11/27/23 Status: Ordered Quantity: 90.0 Unit: tablet Repeat number: 2 lidocaine 5% topical cream 1 application, Topically, 3 times a day, # 45 Gm, 0 Refills, Maintenance, 12/11/24 6:30:00 AM EDT, Cream, [facility]/pharmacy #0681, Partial fill upon patient request if the [...] Refills, Maintenance, 12/12/24 10:28:00 AM EDT, Ointment, [facility]/pharmacy #[id number], Partial fill upon patient request [...] 30 mL, 0 Refills, Maintenance, 11/01/24 4:11:00 [facility], [facility], Partial fill upon patient [...] Maintenance, 12/10/24 8:27:00 PM EDT, REC Powder, [facility]/pharmacy #0693, Partial fill upon patient request if the prescription is for a schedule II opioid drug., 17 Gm By Mouth Daily,Instr:dissolve in water before taking, 160.02, cm, 12/10/24 10:38:00 EDT, Height, 95.91, kg, 12/07/24 15:33:00 EDT, Dry Weight Start Date: 12/10/24 Status: Ordered Quantity: 255.0 Unit: g Repeat number: 1 nystatin-triamcinolone topical 751854 u/gm-0.1% cream 0 Refills, Maintenance, 03/25/22 10:16:00 [...] Refills, Maintenance, 11/01/24 4:12:00 PM EST, Tablet, [facility], Partial fill upon patient [...] 2:49:00 PM EDT, Route to Pharmacy Electronically, [facility]/pharmacy #[id number], Partial fill upon patient request if the [...] Refills, Maintenance, 12/10/24 8:27:00 PM EDT, Tablet, [facility]/pharmacy #0693, Partial fill upon patient request [...] 8:27:00 PM EDT, Route to Pharmacy Electronically, [facility]/pharmacy #0693, Partial fill upon patient request [...] CABG x 2 Confirmed Active History of IN (myocardial infarction) Confirmed Active LLQ abdominal pain [...] Position: Reference Physician Member Role: PCP Address: [address] [place] [address] Telecom: Name: Sherri Gallagher RN Position: [facility] RN Member Role: Primary Care Nurse Name: Christine Sheth Position: S RN Member Role: Primary Care Nurse Name: Nathaniel Hutchinson LPN Position: S RN Member Role: Primary Care Nurse Name: Manisha Salter RN Position: [facility] RN Member Role: Primary Care Nurse Care Team Related Persons Name: PARAS CARABALLO Name: VIKAS RILEY Name: VIKAS RILEY Name: BISI BENITEZ Name: BELLE ODONNELL Insurance Providers Guarantor name: RYAN ODONNELL Health Plan Information #: 1 Payer: [facility] Member Number: NA Policy Number: NA Group Number: NA
--- OUTSIDE RECORDS SUMMARY | 2025-02-02 14:10 | XMS_ITS | Patient Health Record ---
Author Organization [facility] Address [address] [place], [place] [phone] Allergies Allergen (clinical drug ingredient) Drug/Non Drug Allergy documented on EMR Reaction Allergy Type Onset Date Status aspirin Aspirin Unknown Drug Allergy Active diphenhydramine Benadryl Unknown Drug Allergy A ctive codeine Codeine Sulfate Unknown Drug Allergy A ctive ibuprofen Ibuprofen Unknown Drug Allergy Active morphine Morphine Sulfate Unknown Drug Allergy Active tramadol Tramadol HCl Unknown Drug Allergy Acti ve Latex Unknown Drug Allergy Active Penicillin Unknown Drug Allergy Active Sulfa Unknown Drug Allergy Active toradol Unknown Drug Allergy Active Reason For Referral No Information Medications Medication SIG (Take, Route, Frequency, Duration) Notes Start Date End Date Status PriLOSEC Active Bock Active Zofran Active Baclofen Active albuterol 1 tab Oral Active Bentyl Active Fioricet 50-300-40 MG 1 capsule as neede d Orally every 4 hrs Active Fluticasone Furoate-Vilanterol Active Colace Active Neurontin Active Social History Tobacco Use: Social History Observation Description Date Details (start date - stop date) Current Smoker NA - NA Tobacco Use/Smoking Question Answer Notes Patient is a current smoker Are you interested in quitting? Thinking about q uitting How many cigarettes a day do you smoke? 6-10 How soon after you wake up d o you smoke your first cigarette? after 60 minutes How often do you smoke cigarettes? every day Tobacco use other than smoking: Question Answer Notes Are you an other tobacco user? No Problems Problem Type SNOMED Code ICD Code Onset Dates Problem Status W/U Status Risk Notes Problem Displacement of lumbar intervertebral disc without myelopathy (20020621) Other intervertebral disc displacement, lumbar region (M51.26) Active confirmed Problem Displacement of lumbar intervertebral disc without myelopathy (20020621) Other intervertebral disc displacement, lumbosacral region (M51.27) Active confirmed Problem Radiculopathy, lumbar region (M54.16) Active confirmed Problem Lumbosacral radiculopathy (1438684) Radiculopathy, lumbosacral region (M54.17) Active confirmed Plan Of Treatment No Information Medical (General) History Medical History History ICD Code asthma - mild persistent migraine headaches Positive PPD
--- OUTSIDE RECORDS SUMMARY | 2025-02-02 14:10 | XMS_ITS | Data Portability ---
Author Organization [facility] Address [address] [place] [address] Care Team Providers Care Mid Teacher Name Role Phone HIM CCA Referring Provider Assessment Encounter Date Assessment Date Assessment LastModified by Organization Details LastModified Time 11/19/2023 11/19/2023 I provided real -time medical direction via phone for this encounter and was available for additional phone-based assistance as needed. I have reviewed and agree with the Assessment and Plan as documented by the Third Officer. Patient given the opportunity to ask questions. This service was called for an assessment of bronchitis As per above, patient with recent ED visit where she was diagnosed with CAP vs. bronchitis. She was started on a Z-pack and has 2 doses remaining. She is also using her Duo-nebs regularly but ran out and her INTAKE MANAGER went to go get more for her. She says she is better but not improving as fast as she thought she would. She denies CP, SOB at rest. + LOUISE. Per coil spring assembler on the scene, patient? s vitals are stable. She is wheezing and is tight although moving enough air to maintain good O2 sats. No increased WOB. Impression: Asthmatic bronchitis +/- CAP Plan: Complete abx course, continue with nebs as prescribed. Added Prednisone with 40 mg po times one with the coil spring assembler and I called in a prescription for [...] Orders prednisone 10 mg tablet 2023 024 [id number], [address], [place], [address], 4 14:15:21 prednisone 20 mg tablet 2023 024 [facility], [address], [place], [id number], 4 17:21:59 Patient TargetsNo targets recorded. Patient InstructionsNo instructions recorded. Reason for Referral None Reported. Medical Equipment None Reported. Allergies Allergen ID Allergen Name Allergen Category Reaction Reaction Severity Criticality Documentation Date Start Date Code Code System Note Provider Name and Address Organization Details Recorded Time 9725 egg extract food,medi cation Not available Not available Not available 07/13/2024 45464 15 RxNorm Not Available [facility] - production 4 04:15:04 9726 latex environme nt,medica tion Not available Not available Not available 07/13/2024 18511 91 RxNorm Not Available [facility] - production 4 04:15:04 9727 morphine medicatio n Not available Not available Not available 07/13/2024 7052 RxNorm Not Available [facility] - production 4 04:15:04 9728 Product containin g penicilli n (product) medicatio n Not available Not available Not available 07/13/2024 45428 8001 SNOMED Not Available [facility] - production [...] Available No t Available omeprazole 20 mg capsule,victor manuel yed release TAKE 1 [...] /min 116 mm[Hg] 74 mm[Hg] Not Available [facility] - production 4 15:12:54 Date Recorded Body temperature Heart rate Respiratory rate Oxygen saturation Oxygen saturation in Arterial blood by Pulse oximetry Systolic blood pressure Diastolic blood pressure Provider Name and Address Organization Details Last Updated DateTime 4 97.8 [degF] 88 /min 20 /min 100 % 100 % 160 mm[Hg] 88 mm[Hg] Not Available [facility] 4 14:11:02 Social History None recorded. Functional Status None recorded. Mental Status None recorded. Family History Nothing Reported. Medical History No medical history recorded. Gynecological HistoryNo gynecological history recorded. Obstetrics History GPAL:G 0 P 0 0 0 0 Past Encounters Encounter ID Performer Location Encounter Start Date Encounter Closed Date Diagnosis/Indication Diagnosis SNOMED-CT Code Diagnosis ICD10 Code Diagnosis Note [id number] Jessica Dang MD Main - [facility] [address] [place] [address] 11/19/2023 15:12:52 11/20/2023 09:56:00 Acute bronchitis 32995936 J20.9 [id number] Remington Kyle MD Main - [address] [address] 05/01/2024 14:10:59 05/01/2024 19:03:45 Acute low back pain 184471114 M54.50 As noted, we were called to see this patient regarding concerns of low back pain due to fall and spasm. Evaluation in the field was performed by my coil spring assembler colleague, as noted above, I provided real-time [...] Alford Member ID Guarantor Name 05/01/2024 1 [facility] - DOS ON OR AFTER 2022 - DUAL ELIGIBLE - [facility] [employer] AND [facility] (MEDICARE REPLACEMENT/ADV ANTAGE - HMO) Mariana Vela [id number] Mariana Vela Notes Date Note Type Note [...] but no chest pain however has a r and d lab technician appt on the of this month. Confirmed address and the best number to reach [place] is [phone]. .................... .................... .................... .................... .................... .................... .................... . [facility] Nurse Triage Notes (Angelica Browne): Comments: HPI reviewed. No further information required to process visit. .................... .................... .................... .................... .................... .................... .................... . Third Officer Note From Anand Galeas: Dispatched to the [...] .................... . Disposition: Fulfilled Jessica Dang MD [address] [place] [address],[address], [place], [address], [facility] 11/19/2023 15:21:15 05/01/2024 text/html HPI: Member recently [...] .................... .................... .................... .................... .................... .................... . Third Officer Note From Katelynn Cuevas: Dispatched for the 48 yo female chief complaint of lower back pain. U/a pt is found seated upright in living room chair accompanied by master [place] x1. Pt presents CA&Ox4, patent airway, normal [...] NSAID's due to hx of GI bleeds. [facility] contacted and prescribed pt Prednisone. [facility] instructs [facility] administer 20mg Prednisone at this time, complete without incident. Pt advised of all red flags and to follow up with PCP for further treatment. End of report. .................... .................... .................... .................... .................... .................... .................... . Disposition: Fulfilled Remington Kyle MD [address] [place] [address],[address], [place], [address], [facility] 05/01/2024 14:31:19 OBGyn Episode No OBEpisode recorded.
== END 2025-02-02 14:24 | disposition home or self-care (01) ==
LOC: HO.HMCH 13:40
PROVIDERS: PCP Internal Medicine; Visit Provider Internal Medicine
DX: J43.9 Emphysema, unspecified (principal); K50.919 Crohn's disease, unspecified, with unspecified complications; I25.2 Old myocardial infarction; M79.89 Other specified soft tissue disorders; R07.9 Chest pain, unspecified; N90.3 Dysplasia of vulva, unspecified; R10.32 Left lower quadrant pain; I25.118 Atherosclerotic heart disease of native coronary artery with other forms of angina pectoris; E78.2 Mixed hyperlipidemia; I10 Essential (primary) hypertension; M25.571 Pain in right ankle and joints of right foot; G89.29 Other chronic pain

== ENCOUNTER → 2025-02-02 13:35 | Outpatient (BNVA) | payer OTHER, SELFPAY | PROVIDERS: PCP Internal Medicine; Visit Provider Internal Medicine | DX: M79.642 Pain in left hand (principal); M79.89 Other specified soft tissue disorders; R07.9 Chest pain, unspecified; N90.3 Dysplasia of vulva, unspecified; R10.32 Left lower quadrant pain; J43.9 Emphysema, unspecified; I25.118 Atherosclerotic heart disease of native coronary artery with other forms of angina pectoris; I21.3 ST elevation (STEMI) myocardial infarction of unspecified site; E78.2 Mixed hyperlipidemia; I10 Essential (primary) hypertension; M25.571 Pain in right ankle and joints of right foot; G89.29 Other chronic pain; M17.11 Unilateral primary osteoarthritis, right knee; M51.360 Other intervertebral disc degeneration, lumbar region with discogenic back pain only; G62.9 Polyneuropathy, unspecified; G43.909 Migraine, unspecified, not intractable, without status migrainosus; E55.9 Vitamin D deficiency, unspecified; K50.919 Crohn's disease, unspecified, with unspecified complications; K21.9 Gastro-esophageal reflux disease without esophagitis; F41.9 Anxiety disorder, unspecified; F33.9 Major depressive disorder, recurrent, unspecified; F17.210 Nicotine dependence, cigarettes, uncomplicated; E66.9 Obesity, unspecified; E78.00 Pure hypercholesterolemia, unspecified; R30.0 Dysuria; D64.9 Anemia, unspecified; Z68.35 Body mass index [BMI] 35.0-35.9, adult | CPT/HCPCS: 96127; 99212 ==

== ENCOUNTER → 2025-03-03 12:45 | Outpatient (REF) | payer OTHER, SELFPAY ==
--- NOTE | 2025-03-03 12:48 | CA_ITS ---
Transthoracic Echocardiogram Patient (Last, First, Middle): Mariana Vela Dee Gender: Female Date of : 1975 Age: 49 Procedure Date: 03/03/2025 Procedure Type: Transthoracic Echocardiogram Location: OP Height: 160.02 cm Weight: 91.63 kg BSA: 1.94 m2 Heart Rate: bpm BP: 136 / 82 mmHg Airport Shuttle Driver: ANUJ Referring MD: Stephane Gardner PIPER INSTALLER Symptoms: R06.02 - Shortness of breath Study Quality: Adequate Conclusions: - Normal left ventricular size, thickness, and systolic function. The visually estimated ejection fraction is between 60-65%. - E/E prime ratio is between 8 and 15 consistent with indeterminate filling pressures. - The basal inferior segment is akinetic. - Normal right ventricular cavity size and systolic function. Findings Left Ventricle Normal left ventricular size, thickness, and systolic function. The visually estimated ejection fraction is between 60-65%. There is evidence of regional wall motion abnormalities. Abnormal diastolic function is noted. Spectral Doppler is indicative of an impaired relaxation filling pattern. E/E prime ratio is between 8 and 15 consistent with indeterminate filling pressures. GLS normal -18.6%. Wall Motion Rest Echo Findings The basal inferior segment is akinetic. Right Ventricle Normal right ventricular cavity size and systolic function. Atria The left atrium is normal in size. The right atrium is normal in size. Aortic Valve Normal aortic valve structure and function. There is no aortic valve stenosis. There is no aortic valve regurgitation. Mitral Valve The mitral valve appears normal. There is no mitral valve regurgitation. There is no mitral valve stenosis. Pulmonic Valve The pulmonic valve is likely normal. Tricuspid Valve Normal tricuspid valve structure. There is no tricuspid valve regurgitation. Tricuspid regurgitation envelope is inadequate for calculation of right ventricular systolic pressure. Normal right atrial pressure. Great Vessels There is mild dilatation of the ascending aorta measuring 3.50 cm. The visualized portions of the pulmonary artery and branches are normal. Venous The inferior vena cava is normal in size and collapses greater than 50% with inspiration. Pericardium/Pleural Prominent epicardial adipose tissue noted. There is no evidence of pericardial effusion. Prior Study Comparison No significant change compared to prior study dated: 07/15/2023. Measurements 2D Linear Measurements IVSd: 1.06 0.6-0.9/0.6-1.0 cm LVIDd: 4.25 3.9-5.3/4.2-5.9 cm LVIDd Index: 2.19 2.4-3.2/2.2-3.1 cm/m2 LVIDs: 2.47 2.0-3.6 cm LVPWd: 0.81 0.7-1.1 cm LA Diam: 3.70 2.7-3.8/3.0-4.0 cm LAIDs Index: 1.91 1.5-2.3 cm/m2 LV Mass: 158.09 67-162/88-224 g LV Mass Index: 81.49 43-95/49-115 g/m2 LVOT Diam: 2.00 3.0+(-)1.3 cm 2D Systolic Function EF 4C: 62.50 >55% EF 2C: 66.10 >55% EF BiP: 66.60 >55% Mitral Valve MV Pk E: 0.84 MV PK A: 0.90 MV Decel Time: 182.00 E/A: 0.90 E'Lateral: 9.46 E'Medial: 6.96 E/E' Med: 12.10 E/E' Lat: 8.90 PHT: 53.00 MVA PHT: 4.15 Decel Yates: 4.63 Aortic Valve AoV Pk Sky: 1.30 AoV Mn Sky: 0.96 AoV VTI: 0.30 AoV Pk Grad: 7.00 Aov Mn Grad: 4.00 WOJCIECH Cont.VTI: 2.43 LVOT LVOT Pk Sky: 1.20 LVOT Mn Sky: 0.79 LVOT VTI: 0.23 LVOT Pk Grad: 6.00 LVOT Mn Grad: 3.00 LVOT Diam: 2.00 LVOT Area: 3.14 Diastolic Function MV Pk E: 0.84 MV Pk A: 0.90 E/A: 0.90 E'Medial: 6.96 E/E' Med: 12.10 E' Laterial: 9.46 E/E' Lat: 8.90 Right Ventricle TAPSE (mm): 20.40 TVS' Sky: 11.00 Tricuspid Valve RA Press: 8.00 Great Vessels Aorta Sinus of Valsalva: 3.27 2.0-3.[address] Ridge: 2.56 1.7-3.4 cm Ao Asc: 3.50 2.1-3.4 cm Updated in Other Vendor System with Status of Final Shelton Polo MD electronically signed on 03/06/2025 12:50:29 PM with status of Final
--- OUTSIDE RECORDS SUMMARY | 2025-03-03 13:49 | XMS_ITS | Data Portability ---
Author Organization [facility] Documents Address [address] [place] [address] Assessment No assessment recorded. Plan of Treatment Reminders Order Date Submit Date Provider Last Modified By Organization Details Last Modified Time Details Appointments None recorded. Lab bacterial vaginosis + vaginitis panel, vaginal 2018 019 [place] [address] [facility] [address] [place] [address], [address], 9 11:35:13 chlamydia + gonorrhea DNA panel, unspecified specimen 2018 019 [place] [address] [facility] ([employer]), [address] [place] [address], [address], 9 11:35:14 trichomonas vaginalis RNA 2018 019 [place] [address] [facility]), [address] [place] [address], [address], 9 11:35:14 streptococc us group B, culture, unspecified specimen 2018 019 [place] [address] [facility] [address] [place] [address], [address], 9 11:35:14 bartolo panel, vulvovagina l 2018 019 [place] [address] [facility] [address] [place] [address], [address], 9 11:35:14 Referral None recorded. Procedures None recorded. Surgeries None recorded. Imaging None recorded. Medication Orders None recorded. Patient Targets Encounter Date Encounter Id Patient Goals Patient Target Last Modified By Organization Details Last Modified Time 03/17/2019 [id number] Would Like to be checked for STDs itejwani Not available 03/17/2019 16:25:36 Patient Instructions Encounter Date Encounter Id Patient Instructions Last Modified By Organization Details Last Modified Time 03/17/2019 [id number] A healthy lifestyle: care instructions itejwani Not available 03/17/2019 16:59:21 Advised patient that I will not treat unless the culture report is back She can finish taking the Flagyl that she has Use protection or do not sleep with the same boyfriend Since she seems to know that she did have its recurrent Trichomonas from him itbrittani Not available 03/17/2019 16:26:16 Explained no sexual [...] runny stools and some rectal incontinence with itejwani Not available 03/17/2019 16:27:40 Reason for Referral None Reported. Results Created Date Observation Date Name Description Value Unit Range Abnormal Flag Note LastModifiedBy Organization Detail LastModifiedTime 03/17/2003/20/2019 CT + NG DNA, PCR, unspe cifie d speci men chlamydia trachomatis by real-time PCR (reflex to azithromycin resistance by pyrosequenci ng) Negati ve normal Swab- 1 Vagin al Not Available [facility] [address] [place] [address], [place], [address], 03/24/2019 18:00:02 03/17/20 19 03/20/2019 CT + NG DNA, PCR, unspe cifie d speci men neisseria gonorrhoeae by real-time PCR (reflex to antibiotic resistance by molecular analysis) Negati ve normal Swab- 1 Vagin al Not Available [facility] [address] [place] [address], [id number], 03/24/2019 18:00:02 03/17/2003/24/2019 trich omona s vagin [...] tant isola capri [facility]i [facility]r ol and Preve ntion ([facility]) . Not Available [facility] [address] [place] [address], [address], 03/24/2019 18:00:02 03/17/2003/20/2019 strep tococ cus group B Ag, vagin al group B streptococcu s (gbs) by real-time PCR Positi ve abnormal Swab- 1 Vagin al Not Available [facility] ([facility] [address] [place] [address], [address], 03/24/2019 18:00:03 03/17/2003/20/2019 bacte rial vagin osis panel , vagin al gardnerella vaginalis by real-time PCR Positi ve abnormal Swab- 1 Vagin al Not Available [facility] [address] [place] [address], [address], 03/24/2019 18:00:03 03/17/20 19 03/20/2019 bacte rial vagin osis panel , vagin al atopobium vaginae by real-time PCR Positi ve abnormal Swab- 1 Vagin al Not Available [facility] [address] [place] [address], [address], 03/24/2019 18:00:03 03/17/2003/20/2019 bacte rial vagin osis panel , vagin al bacterial vaginosis associated bacterium 2 (bvab2) by real-time PCR Positi ve abnormal Swab- 1 Vagin al Not Available [facility] ([facility]) [address] [place] [address], [address], 03/24/2019 18:00:03 03/17/2003/21/2019 bacte rial vagin osis panel , vagin al megasphaera species (type 1 and type 2) by real-time PCR Negati ve normal Swab- 1 Vagin al Type1 :Nega tive Type2 :Nega tive. Not Available [facility] [address] [place] [address], [address], 03/24/2019 18:00:03 03/17/2003/21/2019 bacte rial vagin osis panel , vagin al lactobacillu s (bv & av panel) by real time PCR See Commen t normal Swab- 1 Vagin al L.cri spatu s: Negat yamile L.jodi senii : Negat yamile L.gas seri : Negat yamile L.ine rs : Negat yamile. Not Available [facility] [address] [place] [address], [address], 03/24/2019 18:00:03 03/17/2003/2003/20/2019 bonifacio da sp DNA, vagin al bartolo albicans by real-time PCR Negati ve normal Swab- 1 Vagin al Not Available [facility] [address] [place] [address], [address], 03/24/2019 18:00:04 03/17/20 19 03/20/2019 bonifacio da sp DNA, vagin al bartolo tropicalis by real-time PCR Negati ve normal Swab- 1 Vagin al Not Available [facility] [address] [place] [address], [address], 03/24/2019 18:00:04 03/17/20 19 03/20/2019 bonifacio da sp DNA, vagin al bartolo parapsilosis by real-time PCR Negati ve normal Swab- 1 Vagin al Not Available [facility] [address] [place] [address], [address], 03/24/2019 18:00:04 03/17/20 19 03/20/2019 bonifacio da sp DNA, vagin al bartolo glabrata by real-time PCR Negati ve normal Swab- 1 Vagin al Not Available [facility] [address] [place] [address], [address], 03/24/2019 18:00:04 Result Notes None recorded. Procedures Surgical History Date Name Laterality Status Provider Name and Address Organization Details Recorded Time 08/15/20 18 Date of Last Pap Smear completed [facility] 03/17/2019 15:07:41 09/15/19 17 Most Recent Mammogram completed [facility] 03/17/2019 15:07:48 09/15/[address] [facility] 03/17/2019 15:07:52 09/15/19 [address] [facility] 03/17/2019 15:10:53 09/15/19 15 Hysterectomy-Par tial completed [facility] 03/17/2019 15:11:05 09/15/19 03 Appendectomy completed Daisha Ino [facility] 03/17/2019 15:11:21 09/15/19 02 Laparoscopy completed Daisha Ino [facility] 03/17/2019 15:11:47 09/15/18 99 Laparoscopy completed Daisha Ino [facility] 03/17/2019 15:11:42 09/15/18 95 Laparoscopy completed Daisha Nio [facility] 03/17/2019 15:11:38 Imaging Results None recorded. Procedure Notes None recorded. Medical Equipment None Reported. Allergies Allergen ID Allergen Name Allergen Category Reaction Reaction Severity Criticality Documentation Date Start Date Code Code System Note Provider Name and Address Organization Details Recorded Time 04973 Product containin g penicilli n (product) medicatio n Not available Not available Not available 03/17/2019 [address] [facility] [facility] 9 15:06:19 92329 Substance with sulfonami de structure and antibacte rial mechanism of action (substanc e) medicatio n Not available Not available Not available 03/17/2019 06071 8003 SNOMED Daisha Ino [facility] 9 15:06:32 37339 ibuprofen medicatio n Not available Not available Not available 03/17/2019 5640 RxNorm Daisha Ino [facility] 9 15:06:50 Medications Name Sig Start [...] Updated DateTime 03/17/2019 160.02 cm 29.4 kg/m2 17935.33 g 134 mm[Hg] 78 mm[Hg] Daisha Mckinnon [facility] 9 15:24:23 Social History Question Answer Notes LastModified by [employer] Details LastModified Time Tobacco Smoking Status Current Every Day Smoker Diasha Mckinnon [facility] 03/17/2019 15:10:17 How Many Days In The Past Year Have You Had A Heavy Drinking Consumption (4+ Female, 5+ Male)? 0 [email or web address] Information not available 03/17/2019 What Was The Date Of Your Most Recent Tobacco Screening? 03/17/2019 Information not available 04/09/2019 How Much Tobacco Do You Smoke? 0.5 [address] [place] [address] Information not available 03/17/2019 How Many Years Have You Smoked Tobacco? 25 [email or web address] Information not available 03/17/2019 Sex: Unknown Functional Status Question Answer Note LastModified by [employer] Details LastModified Time Urinary incontinence assessment performed? Yes [place] [address] Information not available 03/17/2019 Mental Status None recorded. Family History Relationship Description Onset Age of this Age Resolved Age Notes LastModified by Organization Details LastModified Time Mother Family history of malignant neoplasm [email or web address] Not available 2018 15:09:28 Mother Heart disease [email or web address] Not available 2018 15:09:52 Mother Thyroiditis [email or web address] Not avail able 03/17/2019 15:10:08 Maternal Grandmother Family history of malignant neoplasm [email or web address] Not available 2018 15:09:28 Daughter Heart disease [email or web address] Not available 2018 15:09:52 Medical History Condition Response Stroke/TIA Y Depression Y Asthma Y Gynecological History Statement/Question Response [...] SNOMED-CT Code Diagnosis ICD10 Code Diagnosis Note [id number] Slava Scott MD [id number] [address] [place] [address] 03/17/2019 13:58:10 03/17/2019 16:59:21 Body mass index 25-29 - overweight 590132079 Z68.29 Vaginitis 06795876 N76.0 Cystocele without uterine prolapse 23665213 N81.10 Wait and see and follow-up/ no [...] Name 02/22/2021 1 [place] Mariana Vela [id number] Mariana Vela 06/21/2019 2 [place] (SECONDARY TO MEDICARE) Mariana Vela [id number] Mariana Vela 06/21/2019 2 [facility] [place] (MEDICAID REPLACEMENT - HMO) [id number] Mariana Vela [id number] Mariana Vela Notes Date Note Type Note [...] she did not have with [place] [address] [place], [address], [facility] 03/17/2019 16:29:06 OBGyn Episode No OBEpisode recorded.
== END ==
LOC: HO.CARD 12:45
PROVIDERS: PCP Internal Medicine
DX: R06.02 Shortness of breath (principal)
CPT/HCPCS: 93306

== ENCOUNTER → 2025-03-03 12:48 | Outpatient (BNV) | payer OTHER, SELFPAY | PROVIDERS: PCP Internal Medicine; Visit Provider Internal Medicine Cardiovascular Disease | DX: I51.89 Other ill-defined heart diseases (principal) | CPT/HCPCS: 93306; 93356 ==

== ENCOUNTER → 2025-05-18 09:36 | Outpatient (BNV) | payer OTHER, SELFPAY | PROVIDERS: Absent Provider Internal Medicine; PCP Internal Medicine | DX: R06.02 Shortness of breath (principal) | CPT/HCPCS: 78452; 93016; 93018 ==

== ENCOUNTER → 2025-05-18 09:37 | Outpatient (REF) | payer OTHER, SELFPAY ==
--- NOTE | ~2025-05-18 | XR_ITS ---
EXAMINATION: XR HAND, LEFT CLINICAL INFORMATION: M79.642 - Pain in left hand COMPARISON: None available. TECHNIQUE: PA, lateral, and oblique views of the left hand. FINDINGS: There appears to be a triangular-shaped density projects over the radial aspect of the fifth metacarpal head. Interphalangeal joint spaces are mildly narrowed. No other abnormalities are seen. XR/XR hand LT min 3V IMPRESSION: Triangular shaped density projects over the radial aspect of the fifth metacarpal head. This could represent a bony fragment related to a fracture, soft tissue calcification, or less likely a foreign body. Electronically signed by: Arpan Gil MD 05/18/2025 11:29 AM EDT
--- NOTE | ~2025-05-18 | NM_ITS ---
Lexiscan Myocardial perfusion study Indication: Chest pain Technique: The patient was brought in for a Lexiscan perfusion study on 05/18/2025 and was injected 0.4 mg of Lexiscan intravenously. Within a minute of this injection 30 mCi of sestamibi was given intravenously. Images were obtained using the SPECT gamma camera interlaced with the gating device. Images were obtained in supine position. Resting perfusion study was performed on 05/19/2025. Patient was administered 30 mCi of sestamibi intravenously at rest. Images were then obtained in supine position. Total DLP 161 mGy-cm. Images were processed with the software and compared side to side in short axis, horizontal long axis and vertical long axis views. Findings: Raw aquisition reviewed. Arms by the patient's side. The stress perfusion study showed diminished tracer uptake along the anterior wall. There is some improvement with CT attenuation correction suggestive of components of soft tissue attenuation artifact. The gated study shows normal LV systolic function with calculated LVEF of 61%. LV cavity is normal in size. The gated study shows decreased contractility in the anterior wall. Resting study shows no significant perfusion abnormality. Gating at rest reveals normal wall motion with ejection fraction at 38%, but visually normal. The findings are consistent with reversible anterior perfusion defect suggestive of ischemia. NM/NM cardiolite stress test Impression: 1. Myocardial perfusion imaging study shows anterior wall ischemia. 2. Gated LVEF is 51% during stress; 38% during rest but visually appears higher. 3. Transient ischemic dilatation not present. EKG component of the test reported separately. Electronically signed by: Andrews Francois MD 05/19/2025 03:44 PM EDT
--- NOTE | ~2025-05-18 | XR_ITS ---
EXAMINATION: XR CHEST CLINICAL INFORMATION: R06.02 - Shortness of breath COMPARISON: November 14, 2023. TECHNIQUE: Frontal view of the chest was obtained. FINDINGS: No consolidation, pleural effusion or pneumothorax. Mild hyperinflation. Calcified pleural plaques, lower apices. Cardiomediastinal silhouette size is normal. Mild multilevel thoracic spondylosis. Vascular clips right upper quadrant abdomen likely prior laparoscopic cholecystectomy. XR/XR chest 1V IMPRESSION: Consider chronic interstitial lung disease/COPD emphysematous type changes without acute airspace disease. Electronically signed by: Brain Juarez MD 05/18/2025 11:08 AM EDT
--- NOTE | 2025-05-18 09:36 | CA_ITS ---
Acquisition Time: 2025-05-18 09:49:43 Total Exercise Time: 00:02:00 Test Indications: CP,Dyspnea Medications: SEE H&P Protocol: LEXISCAN Max HR: 127 BPM 74% of Pred: 171 BPM Max BP: 182/102 mmHG Max Work Load: 1.0 METS Pharmacological stress test with Lexiscan while pt swings her legs in chair, with reports of baseline 6/10 left sided chest tightness that jamilah to 10/10 with injection, with SOB and diaphoresis, without any arrythmias, with normotensive response to injection. Nondiagnostic EKG for ischemia. In recovery, pt treated with IVP Aminophylline 75 mg to reverse Lexiscan after which pt slowly feeling back to baseline. Nuclear images pending. Test reviewed with Dr. Polo. Referred By: Stephane Gardner Electronically Signed By: Stephane Gardner
--- OUTSIDE RECORDS SUMMARY | 2025-05-18 10:31 | XMS_ITS | Patient Health Record ---
Author Organization [facility] Address [address] [place] [address] Care Team Providers Care Air Carrier Inspector Name Role Phone Cheryl Martini Primary Care Provider Unavailabl e Allergies Allergen (clinical drug ingredient) Drug/Non Drug Allergy documented on EMR Reaction Allergy Type Onset Date Status diphenhydramine Benadryl Allergy Unknown Drug Allergy Active gabapentin Gabapentin Unknown Drug Allergy Activ e ibuprofen Ibuprofen Unknown Drug Allergy Active morphine Morphine Sulfate Unknown Drug Allergy Active naproxen Naproxen Sodium Unknown Drug Allergy A ctive penicillin G Penicillin G Potassium Unknown Drug Allergy Active penicillin V Penicillin V Potassium Unknown Drug Allergy Active Reason For Referral No Information Medications Medication SIG (Take, Route, Frequency, Duration) Notes Start Date End Date Status Diflucan 150 MG Tablet 1 tablet Orally daily; Duration: 3 days 02/05/2019 Not-Taking/PRN Diflucan 150 MG Tablet 1 tablet Orally o ne dose; Duration: 1 days 05/13/2019 Not-Taking/PRN Diflucan 150 MG Tablet 1 tablet Orally once; Duration: 1 days 09/13/2019 Active Topamax 50 MG Tablet 1 tablet Orally twice a day Not-Taking/PRN Cipro 500 MG Tablet 1 tablet Orally every 12 hrs; Duration: 5 days 09/13/2019 Active Azithromycin 500 MG Tablet 1 tablet Orally bid; Duration: 5 days 02/22/2019 Not-Taking/PRN Tylenol with Codeine #3 300-30 MG Tablet 1 tablet Orally as needed; Duration: 5 days 07/06/2019 Not-Taking/PRN Alpha Lipoic Acid 600 MG Capsule 1 capsule Orally as needed once a day; Duration: 30 days 05/13/2019 Active Diflucan 150 MG Tablet 1 tablet Orally o nce a day; Duration: 3 days 01/14/2019 Not-Taking/PRN traMADol HCl 50 MG Tablet 1 tablet as needed Orally twice a day; Duration: 5 days 05/13/2019 Not-Taking/PRN potassium 200 mg 1 tab Oral once a day Active metroNIDAZOLE 500 MG Tablet 1 tablet Orally twice a day; Duration: 5 days 05/13/2019 Not-Taking/PRN Ciprofloxacin HCl 500 MG Tablet 1 tablet Orally twice a day; Duration: 5 days 01/14/2019 Not-Taking/PRN metroNIDAZOLE 500 MG Tablet 1 tablet Orally twice a day; Duration: 5 days 01/14/2019 Not-Taking/PRN Ondansetron 4 MG Tablet Disintegrating 1 tablet on the tongue and allow to dissolve Orally tid a day 30 minutes before meals/medications; Duration: 5 day(s) 09/13/2019 Active Fioricet 50-300-40 MG Capsule 1 capsule Orally as needed for migraines Not-Taking/ PRN Imodium A-D 2 MG Tablet 1 tablet as need ed Orally 1 tab po NOW, then repeat po x 1 tab after each loose stool; max 4 tabs/day; Duration: 10 days 09/13/2019 Active Albuterol Sulfate 108 (90 Base) MCG/ACT Aerosol Powder Breath Activated 2 puffs Inhalation every 4-6 hrs Not-Taking/PRN Social History Social History Tobacco Use: Social Info Question Answer Notes Tobacco use other than smoking: Are you an other tobac co user? Yes Problems Problem Type SNOMED Code ICD Code Onset Dates Problem Status W/U Status Risk Notes Problem Chronic pain (90015297) Other chronic pain (G89.29) Active confirmed Problem Pain in limb (99174724) Pain in right lower leg (M79.661) Active confirmed Problem Disorder of soft tissue (80870228) Other specified soft tissue disorders (M79.89) Active confirmed Problem Acute vaginitis (03272012) Acute vaginitis (N76.0) Active confirmed Problem Nausea (612748523) Nausea (R11.0) Active confir med Problem Dysuria (96439195) Dysuria (R30.0) Active confi rmed Problem Problem, abnormal examination (81722734) Encounter for general adult medical examination with abnormal findings (Z00.01) Active confirmed Problem Overweight (559554762) Overweight (BMI 25.0-29.9) (E66.3) Active confirmed Problem BMI 25-29 - overweight (478142528) BMI 29.0-29.9,adult (Z68.29) Active confirmed Problem BMI 25-29 - overweight (968855570) BMI 27.0-27.9,adult (Z68.27) Active confirmed Problem Pain in right arm (143613676) Right arm pain (M79.601) Active confirmed Problem Vaginal discharge (655952735) Vaginal discharge (N89.8) Active confirmed Problem Venereal disease screening (731549913) Screening for STD (sexually transmitted disease) (Z11.3) Active confirmed Problem Neuropathy (319600697) Neuropathy (G62.9) Active confirmed Problem Decrease in appetite (finding) (40135769) Decreased appetite (R63.0) Active confirmed Problem Acute diarrhea (100025166) Acute diarrhea (R19.7) Active confirmed Problem Old myocardial infarction (5755570) History of RI (myocardial infarction) (I25.2) Active confirmed Problem Low back pain (410294237) Acute bilateral low back pain without sciatica (M54.5) Active confirmed Problem COPD - Chronic obstructive pulmonary disease (88072901) Chronic obstructive pulmonary disease, unspecified COPD type (J44.9) Active confirmed Problem Urinary tract infectious disease (82202312) Urinary tract infection without hematuria, site unspecified (N39.0) Active confirmed Problem Chronic pain syndrome (908491792) Chronic pain disorder (G89.4) Active confirmed Problem Body mass index 25-29 - overweight (546508897) Body mass index (BMI) of 28.0-28.9 in adult (Z68.28) Active confirmed Problem Thrombocytopenia (703282644) Thrombocytopenia (D69.6) Active confirmed Problem Pain in female genitalia on intercourse (79526792) Dyspareunia in female (N94.10) Active confirmed Problem Productive cough (47763935) Productive cough (R05) Active confirmed Problem Atypical chest pain (111265707) Atypical chest pain (R07.89) Active confirmed Problem Increased frequency of urination (549810403) Increased frequency of urination (R35.0) Active confirmed Problem Edema (900486699) Edema leg (R60.0) Active conf irmed Problem Thrombocytosis (disorder) (0093538) Elevated platelet count (R79.89) Active confirmed Problem Swelling of lymph node (82544272) Swelling of lymph node (R59.9) Active confirmed Plan Of Treatment Pending Test Test Name Order Date Echocardiogram Transthoracic Complete Urinalysis 08/14/2018 Urinalysis 05/13/2019 Urinalysis 09/13/2019 Urinalysis 02/05/2019 Urinalysis 01/08/2019 EKG 01/11/2019 USG PELVIS 08/24/2018 USG NON-OB TVU 08/24/2018 USG Thyroid U/S 08/24/2018 HIV PANEL 09/13/2019 HIV PANEL 08/14/2018 Stress Test (Treadmill) 01/08/2019 Insurance Providers Payer Name Payer Address Payer Phone Subscriber Number Group Number Insured Name Patient Relationship to Insured Coverage Start Date [place]age End [place] [address] [place] [address] [id number] Mariana Vela Self - patient is the insured 6 [id number] QUALIFIED MEDICARE BENEFICIARY [address] [place], [place] [id number] Mariana Vela Self - patient is the insured Medical (General) History Medical History History ICD Code nueropathy, seizures, migrai nanci, polyps, chrohns disease, heart problems,arthritis, copd, stroke, pstd, Chronic pain, herniated disk, breast cancer, Surgical History Surgery Date(Month/Year) hysterectomy 2012 Hospitalization History Reason Date(Month/Year) hysterectomy 2012
--- OUTSIDE RECORDS SUMMARY | 2025-05-18 10:31 | XMS_ITS | Patient Health Record ---
Author Organization [facility] Address [address], [place] [id number] Allergies Allergen (clinical drug ingredient) Drug/Non Drug [...] Start Date End Date Status PriLOSEC Active Independence Active Zofran Active Baclofen Active albuterol 1 [...] displacement, lumbosacral region (M51.27) Active confirmed Problem Lumbar radiculopathy (254264835) Radiculopathy, lumbar region (M54.16) Active confirmed Problem Lumbosacral radiculopathy (1607135) Radiculopathy, lumbosacral region (M54.17) Active confirmed Plan Of Treatment No Information Medical (General) History Medical History History ICD Code asthma - mild persistent migraine headaches Positive PPD
== END ==
LOC: HO.CARD 09:37
PROVIDERS: Absent Provider Internal Medicine; PCP Internal Medicine
DX: R06.02 Shortness of breath (principal); R07.9 Chest pain, unspecified; M79.642 Pain in left hand; M79.89 Other specified soft tissue disorders
CPT/HCPCS: 71045; 73130; 78452; 93017; A9500; J0280; J2785

== ENCOUNTER → 2025-05-18 10:28 | Outpatient (BNV) | payer OTHER, SELFPAY | PROVIDERS: Absent Provider Internal Medicine; PCP Internal Medicine; Visit Provider Radiology Diagnostic Radiology | DX: R06.02 Shortness of breath (principal); M79.642 Pain in left hand | CPT/HCPCS: 71045; 73130 ==

== ENCOUNTER 2025-05-24 13:46 | Outpatient (AMB) | payer OTHER, SELFPAY ==
[2025-05-24 14:25] VITALS: BP 120/62; PULSE 96; BMI 36.4
--- NOTE | 2025-05-24 14:25 | MHC.OFFVIS ---
Vital Signs 05/24/25 14:25 Height 5 ft 3 in Weight 205 lb 7.533 oz BMI 36.4 BP 120/62 Blood Pressure Location Lt brachial Position Sitting Pulse 96 Pulse Source Monitor Intake Visit Reasons: Follow up/ Stress test Litigation Services Manager Required: No Allergies NSAIDS (Non-Steroidal Anti-Inflamma (Nsaids) Allergy (Severe, Verified 05/24/25 14:26) blood in stool diazepam (DIAZEPAM) Allergy (Mild, Verified 05/24/25 14:26) RASH fluoxetine (From Prozac) Allergy (Unknown, Verified 05/24/25 14:26) Unknown ibuprofen (From Motrin) Allergy (Unknown, Verified 05/24/25 14:26) UNKNOWN Penicillins Allergy (Unknown, Verified 05/24/25 14:26) UNKNOWN colchicine Allergy (Verified 05/24/25 14:26) Dizziness gabapentin (From NEURONTIN) Adverse Reaction (Severe, Verified 05/24/25 14:26) HALLUCINATIONS, halluciinations morphine (Morphine) Adverse Reaction (Severe, Verified 05/24/25 14:26) DIFFICULTY BREATHING Sulfa (Sulfonamide Antibiotics) (SULFA (SULFONAMIDE ANTIBIOTICS)) Adverse Reaction (Severe, Verified 05/24/25 14:26) DIFF BREATHING Zetia/ezetimibe Allergy (Intermediate, Uncoded 05/24/25 14:26) Rash and Swelling R side of face pregabalin Adverse Reaction (Intermediate, Uncoded 05/24/25 14:26) Hallucinations Medication List - Last Reconciled 05/24/25 by Stephane Gardner NP albuterol sulfate 2.5 mg (3 mL) inhalation QID PRN 30 days albuterol sulfate 90 mcg/actuation 2 puffs inhalation Q6H PRN aspirin 81 mg PO DAILY 90 days atorvastatin 80 mg PO DAILY 90 days baclofen 20 mg PO TID PRN 30 days bupropion HCl XL 150 mg PO QAM 30 days mnfhngzgxq-lcoeeuozmrknj-dvff 50-325-40 mg 1 tab PO Q6-8H PRN 30 days carvedilol 12.5 mg PO BID NS cholecalciferol (vitamin D3) 50 mcg PO DAILY 90 days codeine-guaifenesin 10-100 mg/5 mL 5 mL PO BID-TID PRN 7 days cyanocobalamin (vitamin B-12) 1,000 mcg IM Q2W duloxetine 30 mg PO DAILY 30 days [ELECTRIC SCOOTER As directed] evolocumab (Repatha Syringe) 140 mg subcut Q2W ezetimibe (Zetia) 10 mg PO DAILY fluticasone furoate 200 mcg/actuation (Arnuity Ellipta) 1 inh inhalation DAILY 30 days teuiwaaaytw-gpdweuudu-gdkisrwr 200-62.5-25 mcg (Trelegy Ellipta) 1 inh inhalation DAILY folic acid 1 mg PO DAILY 90 days furosemide 20 mg PO QAM PRN 15 days [Handicap Shower Head As directed (with long hose as patient can not stand for a long period of time)] hydroxyzine HCl 25 mg PO TID PRN 30 days incontinence pad, liner, disp (Prevail Pant Liner pads) As directed isosorbide mononitrate ER 30 mg PO DAILY lamotrigine 150 mg PO DAILY lidocaine HCl 2% 1 appl topical BID-QID PRN lidocaine HCl 3% 1 appl topical BID PRN 30 days losartan 25 mg PO DAILY 30 days magnesium 200 mg PO BEDTIME 30 days melatonin 10 mg PO BEDTIME PRN 14 days miscellaneous medical supply as directed; Medical Recliner miscellaneous medical supply as directed; Cane miscellaneous medical supply 1 ea miscellaneous DAILY miscellaneous medical supply 1 ea miscellaneous DAILY nebulizers As directed every 6 hours as needed nicotine (polacrilex) (Nicorette) 4 mg buccal Q2H PRN nystatin 5 mL PO TID 7 days nystatin-triamcinolone 100,000-0.1 unit/g-% 1 appl topical BID 10 days omeprazole 20 mg PO DAILY 90 days ondansetron HCl 4 mg PO Q12H PRN 7 days oxycodone-acetaminophen 10-325 mg 1 tab PO Q6H PRN 7 days potassium chloride ER 20 mEq PO DAILY 90 days prazosin 3 mg PO BEDTIME prednisone 20 mg PO DAILY prednisone 20 mg PO DAILY 5 days prednisone 4 tablets x 2 days, then 3 tablets x 2 days, then 2 tablets x 2 days, then 1 tablet x 2 days 8 days prednisone 4 tablets x 2 days, then 3 tablets x 2 days, then 2 tablets x 2 days, then 1 tablet x 2 days 8 days [RECLINER As directed] sertraline 50 mg PO DAILY tizanidine 4 mg PO Q8H PRN 30 days tramadol 50 mg PO QID PRN 21 days HPI Comments Details: This is a 50-year-old female patient coming in for a follow-up visit status post stress test. Patient with a history of hyperlipidemia, COPD, smoking, obesity, and coronary artery disease status post PCI to LAD and ostial diagonal. Patient had gynecologic surgery in November and since then has been having some chest pain radiating to her shoulder and her neck. Patient underwent a stress test and is here to review the result for this. Patient today is reporting ongoing chest discomfort which mostly she notes with exertion and this pain radiates into her jaw and gets better with rest. Patient also states that at times these symptoms are constant. Patient does note that her symptoms have gotten worse over the last 1 month as she gets them with any minimal exertion. Patient is also reporting associated symptom of shortness of breath but otherwise is denying any palpitations, orthopnea, PND, leg edema, presyncope or syncope. Patient is reporting compliance with all her medications. Unfortunately, patient continues to smoke. [facility] Medical History Essential hypertension Hx of ovarian cancer Anxiety Folate deficiency Vitamin D deficiency STEMI (ST elevation myocardial infarction) Coronary atherosclerosis Depression Hematemesis Crohn's disease Avascular necrosis of right talus Chronic pain syndrome Osteoarthritis of right knee Osteoarthritis of left hip Osteoarthritis of right hip Lumbar radiculopathy, right Disc degeneration, lumbar Bony sclerosis Rash Strain of left trapezius muscle Shoulder pain, left Neck pain Mixed hyperlipidemia Pain and swelling of right ankle Swelling of right knee joint Right knee pain Obesity (BMI 30-39.9) Smoker Migraine GERD (gastroesophageal reflux disease) COPD (chronic obstructive pulmonary disease) Right lumbosacral radiculopathy Lumbar degenerative disc disease Surgical History History of right oophorectomy Hx of foot surgery History of esophagogastroduodenoscopy (EGD) Hx of cardiac cath (~11/01/22) Hx of section History of appendectomy Hx of colonoscopy History of hysterectomy History of cholecystectomy Family History Father Hypertension Rheumatoid arthritis Mother Hypertension Diabetes CVD (cardiovascular disease) Multiple sclerosis Sister Liver disease Maternal Grandmother Colon cancer Maternal Aunt Breast cancer Social History Housing: House Are you a primary critical care specialist to a significant other at home: No Do you presently have visiting nurse or other home services: No (Children come by to help) Alcohol intake: never Patient Tobacco Use Status: Current everyday Tobacco user Tobacco use type: Cigarette Cigarettes Per Day: 5 Years Smoked: 30 e-Cigarette/Vaping Use: Never Used Second Hand Smoke Exposure: Yes service: No Current occupational status: disabled Cognitive needs: Yes (cane) Hearing needs: No Vision needs: Yes (glasses) Female Reproductive History Menstrual Age of Menarche: 10 Review of Systems ENT Reports dizziness Card Denies chest pain, Denies chest pain at rest, Denies chest pain with activity, Denies rapid heart rate, Denies pedal edema, Denies edema, Denies leg edema, Denies lightheadedness, Denies palpitations, Denies dyspnea, Denies dyspnea on exertion and Denies orthopnea Resp Denies cough, Denies dyspnea and Denies dyspnea on exertion GI Denies hematochezia and Denies change in stool character Musc Denies abnormal gait, Reports limited range of motion, Reports muscle cramps, Denies muscle weakness, Denies numbness, Denies radiating pain into limb, Denies stiffness and Denies tingling Neuro Denies abnormal gait, Reports dizziness, Denies numbness and Denies tingling Endo Denies palpitations Physical Exam Vital Signs: Last Vital Signs Pulse 96 05/24/25 14:25 BP 120/62 05/24/25 14:25 BMI result Body Mass Index 36.4 Assessment & Plan Assessment & Plan (1) Chest pain: Code(s): R07.9 - Chest pain, unspecified Category: Medical Qualifiers: Chest pain type: unspecified Qualified Code(s): R07.9 - Chest pain, unspecified Plan: 03/03/2025-echo study showed normal LV systolic function with an ejection fraction between 60-65% with akinetic basal inferior segment. 05/18/2025- myocardial perfusion study showed anterior wall ischemia. Given ongoing chest pain and shortness of breath since her surgery, PE remains a consideration and therefore we order a D-dimer and an chest x-ray. Chest x-ray showed COPD. Given abnormal finding on the myocardial perfusion study and her ongoing exertional symptoms, we will plan for a cardiac catheterization. Procedure along with its indications, risks, and benefits was discussed thoroughly with the patient. Patient in agreement of the plan. - reviewed with Dr. Francois. We will increase her isosorbide from 30 mg daily to 60 mg daily to see if this improves her symptoms. Advised to monitor her blood pressure. Continue current regimen including aspirin, carvedilol, atorvastatin, losartan, Lasix, and Zetia therapy. (2) Shortness of breath: Code(s): R06.02 - Shortness of breath Category: Medical Plan: As above. (3) Hx of cardiac cath: Onset Date: ~11/01/22 Comment: x 2 --- 11/01/2022 - stenting (CARA) of mid-LAD; REPEAT cath done a few hours later resulted in CARA into the ostial diagonal - [facility]; 11/17/2023 - mild ISR in the LAD/diagonal stents but otherwise no significant findings Code(s): Z98.890 - Other specified postprocedural states Category: Surgical Plan: 11/27/2023-patient underwent cardiac catheterization that showed minimal disease in the circumflex and RCA with patent stents in LAD and diagonal with mild ISR. Most recent LDL at 45. Continue statin and Zetia therapy. Ideally, LDL goal less than 70. (4) Coronary artery disease: Code(s): I25.10 - Atherosclerotic heart disease of [place] coronary artery without angina pectoris Category: Medical Qualifiers: Coronary Disease-Associated Artery/Lesion type: [place] artery [place] vs. transplanted heart: [place] heart Associated angina: unspecified whether angina present Qualified Code(s): I25.10 - Atherosclerotic heart disease of [place] coronary artery without angina pectoris Plan: As above. Advised heart healthy diet, med compliance, complete smoking cessation, and aggressive management of vascular risk factors. We will follow up after cardiac catheterization. In the interim, patient will call the office with any concerns or change in symptoms. Advised to seek ER care in case of exertional chest pain not resolved with rest. This note was generated using voice recognition software. While every effort has been made to ensure accuracy and proper core piler, there may be occasional errors that could affect the content or meaning of the described symptoms. Orders: Orders Prothrombin Time INR Today R07.9 - Chest pain, unspecified Cardiac Cath LT w PCI Today R07.9 - Chest pain, unspecified, R94.39 - Abnormal result of other cardiovascular function study Complete Blood Count no Diff Today R07.9 - Chest pain, unspecified Basic Metabolic Panel Today R07.9 - Chest pain, unspecified AMB EKG-In Office Today R07.9 - Chest pain, unspecified Medications: Changed From isosorbide mononitrate ER 30 mg PO DAILY 90 tabs 3RF To isosorbide mononitrate ER 60 mg (2 x 30 mg) PO DAILY 90 tabs 3RF Coding Level of Care Code Est Pt Level 4 (24629) Complex EM visit Add On G2211 Diagnoses Chest pain, unspecified type R07.9 Chest pain type: unspecified Shortness of breath R06.02 Hx of cardiac cath Z98.890 Coronary artery disease involving [place] coronary artery of [place] heart, unspecified whether angina present I25.10 Coronary Disease-Associated Artery/Lesion type: [place] artery [place] vs. transplanted heart: [place] heart Associated angina: unspecified whether angina present Time Spent (min) 34 Comment Time spent in reviewing the chart, test results, assessment, counseling and documentation.
--- OUTSIDE RECORDS SUMMARY | 2025-05-24 16:24 | XMS_ITS | Patient Health Record ---
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 Name Role Phone Cheryl Martini Primary Care [...] W/U Status Risk Notes Problem Chronic pain (73693379) Other chronic pain (G89.29) Active confirmed Problem Pain in limb (31129045) Pain in right lower leg (M79.661) Active confirmed Problem Disorder of soft tissue (49139894) Other specified soft tissue disorders (M79.89) Active confirmed Problem Acute vaginitis (91416653) Acute vaginitis (N76.0) Active confirmed Problem Nausea (627257214) Nausea (R11.0) Active confir med Problem Dysuria (60529227) Dysuria (R30.0) Active confi rmed Problem Problem, abnormal examination (65754188) Encounter for general adult medical examination with abnormal findings (Z00.01) Active confirmed Problem Overweight (774170912) Overweight (BMI 25.0-29.9) (E66.3) Active confirmed Problem BMI 25-29 - overweight (158482165) BMI 29.0-29.9,adult (Z68.29) Active confirmed Problem BMI 25-29 - overweight (720810399) BMI 27.0-27.9,adult (Z68.27) Active confirmed Problem Pain in right arm (453986299) Right arm pain (M79.601) Active confirmed Problem Vaginal discharge (064074864) Vaginal discharge (N89.8) Active confirmed Problem Venereal disease screening (368101161) Screening for STD (sexually transmitted disease) (Z11.3) Active confirmed Problem Neuropathy (527994532) Neuropathy (G62.9) Active confirmed Problem Decrease in appetite (finding) (01204110) Decreased appetite (R63.0) Active confirmed Problem Acute diarrhea (242163808) Acute diarrhea (R19.7) Active confirmed Problem Old myocardial infarction (1148373) History of CO (myocardial infarction) (I25.2) Active confirmed Problem Low back pain (437216697) Acute bilateral low back pain without sciatica (M54.5) Active confirmed Problem COPD - Chronic obstructive pulmonary disease (87758316) Chronic obstructive pulmonary disease, unspecified COPD type (J44.9) Active confirmed Problem Urinary tract infectious disease (21688879) Urinary tract infection without hematuria, site unspecified (N39.0) Active confirmed Problem Chronic pain syndrome (331064345) Chronic pain disorder (G89.4) Active confirmed Problem Body mass index 25-29 - overweight (593653786) Body mass index (BMI) of 28.0-28.9 in adult (Z68.28) Active confirmed Problem Thrombocytopenia (621646547) Thrombocytopenia (D69.6) Active confirmed Problem Pain in female genitalia on intercourse (42267514) Dyspareunia in female (N94.10) Active confirmed Problem Productive cough (05679870) Productive cough (R05) Active confirmed Problem Atypical chest pain (096598835) Atypical chest pain (R07.89) Active confirmed Problem Increased frequency of urination (422117856) Increased frequency of urination (R35.0) Active confirmed Problem Edema (762028485) Edema leg (R60.0) Active conf irmed Problem Thrombocytosis (disorder) (0382132) Elevated platelet count (R79.89) Active confirmed Problem Swelling of lymph node (11364336) Swelling of lymph node (R59.9) Active confirmed [...] Coverage [place] [address] [place] [address] [id number] Mariana Vela Self - patient is the insured 6 [employer] MED[employer]ARE [employer] [address] [place], [place] [id number] Mariana Vela Self - patient is the insured Medical (General) History Medical History History ICD Code nueropathy, seizures, migrai nanci, polyps, chrohns disease, heart problems,arthritis, copd, stroke, pstd, Chronic pain, herniated disk, breast cancer, Surgical History Surgery Date(Month/Year) hysterectomy 2012 Hospitalization History Reason Date(Month/Year) hysterectomy 2012
--- OUTSIDE RECORDS SUMMARY | 2025-05-24 16:25 | XMS_ITS | Patient Health Record ---
Author Organization [facility] Address [address], [place] [id number] Allergies Allergen (clinical drug ingredient) Drug/Non Drug [...] Start Date End Date Status PriLOSEC Active [place] Active Zofran Active Baclofen Active albuterol 1 [...] Problem Status W/U Status Risk Notes Problem Information temporarily unavailable Other intervertebral disc displacement, lumbar region (M51.26) Active confirmed Problem Information temporarily unavailable Other intervertebral disc displacement, lumbosacral region (M51.27) Active confirmed Problem Information temporarily unavailable Radiculopathy, lumbar region (M54.16) Active confirmed Problem Information temporarily unavailable Radiculopathy, lumbosacral region (M54.17) Active confirmed Plan Of Treatment No Information Medical (General) History Medical History History ICD Code asthma - mild persistent migraine headaches Positive PPD
== END 2025-05-24 15:03 | disposition home or self-care (01) ==
LOC: HO.HCS 13:47
PROVIDERS: PCP Internal Medicine
DX: R07.9 Chest pain, unspecified (principal); R06.02 Shortness of breath; Z98.890 Other specified postprocedural states; I25.10 Atherosclerotic heart disease of native coronary artery without angina pectoris
CPT/HCPCS: 93010; 99214; G2211

== ENCOUNTER → 2025-05-24 13:46 | Outpatient (BNVA) | payer OTHER, SELFPAY | PROVIDERS: PCP Internal Medicine | DX: R07.9 Chest pain, unspecified (principal); R06.02 Shortness of breath; Z98.890 Other specified postprocedural states; I25.10 Atherosclerotic heart disease of native coronary artery without angina pectoris; Z72.0 Tobacco use | CPT/HCPCS: 93005; 99212 ==

== ENCOUNTER 2025-05-30 11:57 | Outpatient (REF) | payer OTHER, SELFPAY ==
[2025-05-30 12:26] LABS: MANUAL DIFF FLAG NO
[2025-05-30 12:44] LABS: Hematocrit 41.6 % (37.0-47.0); Hematocrit 41.9 % (37.0-47.0); Hemoglobin 14.3 g/dl (12.0-16.0); Hemoglobin 14.4 g/dl (12.0-16.0); Imm Gran Abs Auto 0.04 X10*3/uL (0.00-0.03); Imm Gran Pct Auto 0.3 % (0.0-0.4); Lymphocytes Absolute Auto 4.5 X10*3/uL (1.2-4.9); Mean Corpuscular HGB Conc 34.1 g/dl (31.0-35.0); Mean Corpuscular HGB Conc 34.6 g/dl (31.0-35.0); Mean Corpuscular Hemoglobin 31.4 pg (27.0-33.0); Mean Corpuscular Hemoglobin 31.8 pg (27.0-33.0); Mean Corpuscular Volume 91.8 fL (80.0-98.0); Mean Corpuscular Volume 91.9 fL (80.0-98.0); NRBC Abs Auto 0.000 X10*3/uL (0.0-0.012); NRBC Pct Auto 0.0 /100WBC (0.0-0.2); Platelet Count 398 X10*3/uL (160-400); Platelet Count 410 X10*3/uL (160-400); Red Blood Count 4.53 X10*6/uL (4.20-5.50); Red Blood Count 4.56 X10*6/uL (4.20-5.50); White Blood Count 12.3 X10*3/uL (4.8-10.8); White Blood Count 12.4 X10*3/uL (4.8-10.8)
[2025-05-30 12:53] LABS: INTERNATIONAL NORM RATIO 0.8 (0.9-1.1); Prothrombin Time 9.6 SEC (10.9-12.4)
[2025-05-30 12:54] LABS: Hemoglobin A1C 137.9372 umol/L; Total Hemoglobin (HGBA1C) 3694.7943 umol/L
[2025-05-30 13:15] LABS: D Dimer High Sensitivity < 150 NG/ML
[2025-05-30 13:43] LABS: Alanine Aminotransferase 38 U/L (0-31); Albumin Level 4.5 g/dL (3.5-5.0); Alkaline Phosphatase 180 U/L (39-117); Anion Gap 13 (12-20); Aspartate Amino Transferase 37 U/L (5-31); Blood Urea Nitrogen 10 mg/dL (9-16); Calcium 10.3 mg/dL (8.4-10.2); Carbon Dioxide 27 mmol/L (22-29); Chloride 105 mmol/L (96-108); Cholesterol 278 mg/dL (<200); Estimated Glomerular Filt Rate > 60; HDL Cholesterol 32 mg/dL (>40); Potassium 4.8 mmol/L (3.3-5.1); Sodium 140 mmol/L (135-145); Total Protein 7.7 g/dL (6.5-8.0); Triglycerides 576 mg/dL (<150)
[2025-05-30 15:31] LABS: Appearance Urine Clear; Glucose Urine UA Negative (Negative); PH 5.5 (5.0-9.0); Specific Gravity - Urine >= 1.030 (1.005-1.025)
--- OUTSIDE RECORDS SUMMARY | 2025-05-30 16:39 | XMS_ITS | Patient Health Record ---
Author Organization [facility] Address [address], [place] [id number] Allergies Allergen (clinical drug ingredient) Drug/Non Drug [...] Start Date End Date Status PriLOSEC Active [place] Active Zofran Active Baclofen Active albuterol 1 [...] region (M51.27) Active confirmed Problem Lumbar radiculopathy (012426317) Radiculopathy, lumbar region (M54.16) Active confirmed Problem Lumbosacral radiculopathy (5924815) Radiculopathy, lumbosacral region (M54.17) Active confirmed Plan Of Treatment No Information Medical (General) History Medical History History ICD Code asthma - mild persistent migraine headaches Positive PPD
--- OUTSIDE RECORDS SUMMARY | 2025-05-30 16:39 | XMS_ITS | Patient Health Record ---
Author Organization [facility] Address [address] [place] [address] Care Team Providers Care Health Care Manager Name Role Phone Cheryl Martini Primary Care [...] W/U Status Risk Notes Problem Chronic pain (42693134) Other chronic pain (G89.29) Active confirmed Problem Pain in limb (20823179) Pain in right lower leg (M79.661) Active confirmed Problem Disorder of soft tissue (75372673) Other specified soft tissue disorders (M79.89) Active confirmed Problem Acute vaginitis (53416818) Acute vaginitis (N76.0) Active confirmed Problem Nausea (128213547) Nausea (R11.0) Active confir med Problem Dysuria (24718801) Dysuria (R30.0) Active confi rmed Problem Problem, abnormal examination (82087893) Encounter for general adult medical examination with abnormal findings (Z00.01) Active confirmed Problem Overweight (159062179) Overweight (BMI 25.0-29.9) (E66.3) Active confirmed Problem BMI 25-29 - overweight (391864935) BMI 29.0-29.9,adult (Z68.29) Active confirmed Problem BMI 25-29 - overweight (322254236) BMI 27.0-27.9,adult (Z68.27) Active confirmed Problem Pain in right arm (042717130) Right arm pain (M79.601) Active confirmed Problem Vaginal discharge (940094491) Vaginal discharge (N89.8) Active confirmed Problem Venereal disease screening (295944129) Screening for STD (sexually transmitted disease) (Z11.3) Active confirmed Problem Neuropathy (271161331) Neuropathy (G62.9) Active confirmed Problem Decrease in appetite (finding) (63911009) Decreased appetite (R63.0) Active confirmed Problem Acute diarrhea (438936789) Acute diarrhea (R19.7) Active confirmed Problem Old myocardial infarction (5833716) History of [place] (myocardial infarction) (I25.2) Active confirmed Problem Low back pain (709451236) Acute bilateral low back pain without sciatica (M54.5) Active confirmed Problem COPD - Chronic obstructive pulmonary disease (79351789) Chronic obstructive pulmonary disease, unspecified COPD type (J44.9) Active confirmed Problem Urinary tract infectious disease (40585221) Urinary tract infection without hematuria, site unspecified (N39.0) Active confirmed Problem Chronic pain syndrome (272868759) Chronic pain disorder (G89.4) Active confirmed Problem Body mass index 25-29 - overweight (648728638) Body mass index (BMI) of 28.0-28.9 in adult (Z68.28) Active confirmed Problem Thrombocytopenia (001496101) Thrombocytopenia (D69.6) Active confirmed Problem Pain in female genitalia on intercourse (71250281) Dyspareunia in female (N94.10) Active confirmed Problem Productive cough (02248483) Productive cough (R05) Active confirmed Problem Atypical chest pain (753897499) Atypical chest pain (R07.89) Active confirmed Problem Increased frequency of urination (372494950) Increased frequency of urination (R35.0) Active confirmed Problem Edema (749314105) Edema leg (R60.0) Active conf irmed Problem Thrombocytosis (disorder) (0995744) Elevated platelet count (R79.89) Active confirmed Problem Swelling of lymph node (48105792) Swelling of lymph node (R59.9) Active confirmed Plan Of Treatment Pending Test Test Name Order Date Echocardiogram Transthoracic Complete Urinalysis 08/14/2018 Urinalysis 09/13/2019 Urinalysis 05/13/2019 Urinalysis 01/08/2019 Urinalysis 02/05/2019 EKG 01/11/2019 USG PELVIS 08/24/2018 USG NON-OB TVU 08/24/2018 USG Thyroid U/S 08/24/2018 HIV PANEL 09/13/2019 HIV PANEL 08/14/2018 Stress Test (Treadmill) 01/08/2019 Insurance Providers Payer Name Payer Address Payer Phone Subscriber Number Group Number Insured Name Patient Relationship to Insured Coverage Start Date [place]age End [place] [address] [place] [address] [id number] Mariana Vela Self - patient is the insured 6 [id number] QUALIFIED MEDICARE BENEFICIARY [address] [place], [place] [id number] Mariana Vela Self - patient is the insured Medical (General) History Medical History History ICD Code nueropathy, seizures, migrai nanci, polyps, chrohns disease, heart problems,arthritis, copd, stroke, pstd, Chronic pain, herniated disk, breast cancer, Surgical History Surgery Date(Month/Year) hysterectomy 2012 Hospitalization History Reason Date(Month/Year) hysterectomy 2012
== END 2025-05-30 11:58 | disposition home or self-care (01) ==
LOC: HO.LAB 11:57
PROVIDERS: PCP Internal Medicine; Visit Provider Internal Medicine
DX: E78.00 Pure hypercholesterolemia, unspecified (principal); E55.9 Vitamin D deficiency, unspecified; D64.9 Anemia, unspecified; E11.9 Type 2 diabetes mellitus without complications; R07.9 Chest pain, unspecified; R06.02 Shortness of breath; R30.0 Dysuria; I25.118 Atherosclerotic heart disease of native coronary artery with other forms of angina pectoris; I21.3 ST elevation (STEMI) myocardial infarction of unspecified site; E78.2 Mixed hyperlipidemia; I10 Essential (primary) hypertension; J43.9 Emphysema, unspecified; M25.571 Pain in right ankle and joints of right foot; G89.29 Other chronic pain; M17.11 Unilateral primary osteoarthritis, right knee; M51.360 Other intervertebral disc degeneration, lumbar region with discogenic back pain only; G62.9 Polyneuropathy, unspecified; G43.909 Migraine, unspecified, not intractable, without status migrainosus; K50.919 Crohn's disease, unspecified, with unspecified complications; K21.9 Gastro-esophageal reflux disease without esophagitis; N90.3 Dysplasia of vulva, unspecified; R10.32 Left lower quadrant pain; F41.9 Anxiety disorder, unspecified; F33.9 Major depressive disorder, recurrent, unspecified; E66.9 Obesity, unspecified; Z68.35 Body mass index [BMI] 35.0-35.9, adult; F17.200 Nicotine dependence, unspecified, uncomplicated; Z71.3 Dietary counseling and surveillance; Z71.6 Tobacco abuse counseling
CPT/HCPCS: 36415; 80048; 80053; 80061; 81003; 82306; 83036; 84443; 85025; 85027; 85379; 85610; 99212

== ENCOUNTER 2025-05-30 13:40 | Outpatient (AMB) | payer OTHER, SELFPAY ==
[2025-05-30 14:05] VITALS: BP 124/86; PULSE 90; O2SAT 98; BMI 35.7
--- NOTE | 2025-05-30 14:05 | MHC.PC.OV ---
Vital Signs 05/30/25 14:05 Height 5 ft 3 in Weight 201 lb 8 oz BMI 35.7 BP 124/86 Blood Pressure Location Lt brachial Position Sitting Pulse 90 Pulse Source Pulse Oximeter Pulse Oximetry (%) 98 Oxygen Delivery Method Room Air Intake Visit Reasons: 3mth f/u Town Clerk Required: No Accompanied by: Self / Same As Patient Allergies NSAIDS (Non-Steroidal Anti-Inflamma (Nsaids) Allergy (Severe, Verified 05/30/25 14:50) blood in stool diazepam (DIAZEPAM) Allergy (Mild, Verified 05/30/25 14:50) RASH fluoxetine (From Prozac) Allergy (Unknown, Verified 05/30/25 14:50) Unknown ibuprofen (From Motrin) Allergy (Unknown, Verified 05/30/25 14:50) UNKNOWN Penicillins Allergy (Unknown, Verified 05/30/25 14:50) UNKNOWN colchicine Allergy (Verified 05/30/25 14:50) Dizziness gabapentin (From NEURONTIN) Adverse Reaction (Severe, Verified 05/30/25 14:50) HALLUCINATIONS, halluciinations morphine (Morphine) Adverse Reaction (Severe, Verified 05/30/25 14:50) DIFFICULTY BREATHING Sulfa (Sulfonamide Antibiotics) (SULFA (SULFONAMIDE ANTIBIOTICS)) Adverse Reaction (Severe, Verified 05/30/25 14:50) DIFF BREATHING Zetia/ezetimibe Allergy (Intermediate, Uncoded 05/30/25 14:50) Rash and Swelling R side of face pregabalin Adverse Reaction (Intermediate, Uncoded 05/30/25 14:50) Hallucinations Medication List - Last Reconciled 05/30/25 by Ambrose Feliciano MD albuterol sulfate 2.5 mg (3 mL) inhalation QID PRN 30 days albuterol sulfate 90 mcg/actuation 2 puffs inhalation Q6H PRN aspirin 81 mg PO DAILY 90 days atorvastatin 80 mg PO DAILY 90 days baclofen 20 mg PO TID PRN 30 days bupropion HCl XL 150 mg PO QAM 30 days lynklazqib-inbjsvqltyjew-jyjb 50-325-40 mg 1 tab PO Q6-8H PRN 30 days carvedilol 12.5 mg PO BID NS cholecalciferol (vitamin D3) 50 mcg PO DAILY 90 days codeine-guaifenesin 10-100 mg/5 mL 5 mL PO BID-TID PRN 7 days cyanocobalamin (vitamin B-12) 1,000 mcg IM Q2W duloxetine 30 mg PO DAILY 30 days [ELECTRIC SCOOTER As directed] evolocumab (Repatha Syringe) 140 mg subcut Q2W ezetimibe (Zetia) 10 mg PO DAILY fluticasone furoate 200 mcg/actuation (Arnuity Ellipta) 1 inh inhalation DAILY 30 days kzsfetxnoyz-nuivpbslk-ihcqscrf 200-62.5-25 mcg (Trelegy Ellipta) 1 inh inhalation DAILY folic acid 1 mg PO DAILY 90 days furosemide 20 mg PO QAM PRN 15 days [Handicap Shower Head As directed (with long hose as patient can not stand for a long period of time)] hydroxyzine HCl 25 mg PO TID PRN 30 days incontinence pad, liner, disp (Prevail Pant Liner pads) As directed isosorbide mononitrate ER 60 mg (2 x 30 mg) PO DAILY lamotrigine 150 mg PO DAILY lidocaine HCl 2% 1 appl topical BID-QID PRN lidocaine HCl 3% 1 appl topical BID PRN 30 days losartan 25 mg PO DAILY 30 days magnesium 200 mg PO BEDTIME 30 days melatonin 10 mg PO BEDTIME PRN 14 days miscellaneous medical supply as directed; Medical Recliner miscellaneous medical supply as directed; Dustin miscellaneous medical supply 1 ea miscellaneous DAILY miscellaneous medical supply 1 ea miscellaneous DAILY nebulizers As directed every 6 hours as needed nicotine (polacrilex) (Nicorette) 4 mg buccal Q2H PRN nystatin 5 mL PO TID 7 days nystatin-triamcinolone 100,000-0.1 unit/g-% 1 appl topical BID 10 days omeprazole 20 mg PO DAILY 90 days ondansetron HCl 4 mg PO Q12H PRN 7 days oxycodone-acetaminophen 10-325 mg 1 tab PO Q6H PRN 7 days potassium chloride ER 20 mEq PO DAILY 90 days prazosin 3 mg PO BEDTIME prednisone 20 mg PO DAILY prednisone 20 mg PO DAILY 5 days prednisone 4 tablets x 2 days, then 3 tablets x 2 days, then 2 tablets x 2 days, then 1 tablet x 2 days 8 days prednisone 4 tablets x 2 days, then 3 tablets x 2 days, then 2 tablets x 2 days, then 1 tablet x 2 days 8 days [RECLINER As directed] sertraline 50 mg PO DAILY tizanidine 4 mg PO Q8H PRN 30 days tramadol 50 mg PO QID PRN 21 days Tobacco use date assessed: 05/30/25 Dental Screening Dental Screen Date: 05/30/25 Did you have a dental visit in the last 12 months?: Yes Did you have a dental problem in the last 6 months where you did not have access to dental care?: No Was dental information given to patient?: Patient has dentist HPI 3mth f/u HPI Details Patient comes in today for her follow up visit States that she feels okay She is still experiencing on and off left-sided chest pains, which she feels have been going on since her gynecologic surgery a couple of months ago is now scheduled to undergo repeat cardiac catheterization at [facility] next month on 07/07/2025 She denies any headaches or dizziness Denies any increased shortness of breath No nausea/vomiting, no abdominal pain No change in bowel habits noted States that her chronic low back pain and joint pains remain adequately controlled on her current pain medication She is currently requesting for a prescription for some nicotine lozenges to help her quit smoking States that she has no teeth and is not able to do the gum that she was prescribed previously She had her follow-up labs done earlier today - to discuss her results [facility] Medical History Essential hypertension Hx of ovarian cancer Anxiety Folate deficiency Vitamin D deficiency STEMI (ST elevation myocardial infarction) Coronary atherosclerosis Depression Hematemesis Crohn's disease Avascular necrosis of right [place] Chronic pain syndrome Osteoarthritis of right knee Osteoarthritis of left hip Osteoarthritis of right hip Lumbar radiculopathy, right Disc degeneration, lumbar Bony sclerosis Rash Strain of left trapezius muscle Shoulder pain, left Neck pain Mixed hyperlipidemia Pain and swelling of right ankle Swelling of right knee joint Right knee pain Obesity (BMI 30-39.9) Smoker Migraine GERD (gastroesophageal reflux disease) COPD (chronic obstructive pulmonary disease) Right lumbosacral radiculopathy Lumbar degenerative disc disease Surgical History History of right oophorectomy Hx of foot surgery History of esophagogastroduodenoscopy (EGD) Hx of cardiac cath (~11/01/22) Hx of section History of appendectomy Hx of colonoscopy History of hysterectomy History of cholecystectomy Family History Father Hypertension Rheumatoid arthritis Mother Hypertension Diabetes CVD (cardiovascular disease) Multiple sclerosis Sister Liver disease Maternal Grandmother Colon cancer Maternal Aunt Breast cancer Social History Housing: House Are you a primary patient care provider to a significant other at home: No Do you presently have visiting nurse or other home services: No (Children come by to help) Alcohol intake: never Patient Tobacco Use Status: Current everyday Tobacco user Tobacco use type: Cigarette Cigarettes Per Day: 5 Years Smoked: 30 e-Cigarette/Vaping Use: Never Used Second Hand Smoke Exposure: Yes service: No Current occupational status: disabled Cognitive needs: Yes (cane) Hearing needs: No Vision needs: Yes (glasses) Female Reproductive History Menstrual Age of Menarche: 10 Questionnaire Thrive Questionnaire Date Thrive assessed: 02/02/25 I am a: Patient What is your living situation today?: I have a place to live, but I am worried about losing it in the future Within the past 12 months, did the food you bought not last and you didn't have the money to get more?: Sometimes True Within the past 12 months, did you worry whether your food would run out before you got money to buy more?: Sometimes True Do you have trouble paying for medicines?: Yes Do you have trouble getting transportation to medical appointments?: No Do you have trouble paying your heating and electricity bill?: Yes Do you have trouble taking care of your child, family member or friend?: I choose not to answer this question Do you have trouble with day-to-day activities such as bathing, preparing meals, shopping, managing finances, etc.?: Yes Are you currently unemployed and looking for a job?: No Are you interested in more education?: No Please select the resources that you would like help with: None THRIVE Score: 4 AUDIT C Alcohol Use Questionnaire (AUDIT-C) 1. How often do you have a drink containing alcohol?: Never 3. How often do you have six or more drinks on one occasion?: Never Total Score: 0 Score Reviewed/Action Taken: Yes CHANELLE-7 AMB Questionnaire CHANELLE-7 Date CHANELLE - 7 assessed: 02/02/25 Source: Developed by Drs. Adebayo Lizarraga, Alicia Mata, Avel Blancas and colleagues, with an educational rayshawn from [employer]. Review of Systems Const Denies chills, Denies difficulty sleeping, Reports fatigue, Denies fever(s) and Denies headache(s) ENT Denies dysphagia, Denies dizziness, Denies otalgia, Denies headache(s), Denies neck pain, Denies odynophagia and Denies sore throat Card Reports chest pain (on and off, left-sided), Denies rapid heart rate, Denies irregular heart rhythm, Denies palpitations and Reports dyspnea on exertion (mild) Resp Denies chest congestion, Reports cough (on and off) and Reports dyspnea on exertion (mild) GI Denies abdominal pain, Denies constipation, Denies dysphagia, Denies heartburn, Denies diarrhea, Denies nausea, Denies odynophagia and Denies vomiting Denies difficulty voiding, Denies nocturia, Denies dysuria and Denies urinary urgency Musc Reports back pain (chronic), Reports myalgias (diffuse, frequent), Reports arthralgias (involving multiple joints, including the right knee and right ankle), Denies joint swelling and Denies neck pain Skin/Breast Denies rash Neuro Denies dizziness, Denies headache(s), Denies memory loss (but reports frequent sensation of brain fog) and Reports paresthesias (of both hands and feet) Psych Reports anxiety, Reports depression and Denies memory loss (but reports frequent sensation of brain fog) Endo Reports fatigue and Denies palpitations Han/Lymph Details: hands and feet feel swollen at times Denies easy bruising Physical exam (Primary Care) Vital Signs: Last Vital Signs Pulse 90 05/30/25 14:05 BP 124/86 05/30/25 14:05 Pulse Ox 98 05/30/25 14:05 Oxygen Delivery Method Room Air 05/30/25 14:05 BMI result Body Mass Index 35.7 Tobacco/Smoking Status: Tobacco use Status Tobacco use date assessed 05/30/25 05/30/25 14:09 Patient Tobacco Use Status Current everyday Tobacco 05/30/25 14:09 Tobacco use type Cigarette 05/30/25 14:09 e-Cigarette/Vaping Use Never Used 05/30/25 14:09 Thrive Assessment: Date of Thrive Assessment Date Thrive assessed 02/02/25 05/30/25 14:09 Const General: no acute distress and alert HENMT Ears: TM's normal bilaterally and EAC's normal Throat: Yes posterior oropharynx normal and Yes tonsils normal (no TP congestion) Neck Neck: Yes supple and No lymphadenopathy Thyroid: Thyroid normal Resp Auscultation: no crackles, no rales, no wheezes and diminished lung sounds (slightly) bilateral Cardio Rate: regular rate Rhythm: regular rhythm Heart sounds: no murmurs GI Palpation (GI): Soft to palpation and nontender Auscultation: normal bowel sounds General: Yes no CVA tenderness Back/Spine/Pelvis Back: no CVA tenderness Cervical Spine: Cervical spine tenderness Thoracic/Lumbar Spine: paraspinal muscle tenderness bilaterally in the mid lumbar and in the lower lumbar and lumbar spinal tenderness Skin Rashes: no rashes Extrem General: Yes no clubbing, cyanosis or edema Left upper extremity: hand Details: swelling Right lower extremity: knee Details: tenderness; no swelling, ankle Details: tenderness; no swelling and foot Details: tenderness Location: of the dorsal foot and edema (mild) Location: of the dorsal foot Results Reviewed Results Reviewed: Laboratory Tests 05/30/25 12:25 WBC 12.4 H Hgb 14.4 Hct 41.6 Plt Count 410 H PT 9.6 L INR 0.8 L D-Dimer High Sensitivty < 150 Sodium 140 Potassium 4.8 Creatinine 0.95 Estimated GFR > 60 Fasting Glucose 93 Hemoglobin A1c % 5.6 Calcium 10.3 H AST 37 H ALT 38 H Alkaline Phosphatase 180 H Triglycerides 576 H Cholesterol 278 H LDL Cholesterol, Calc TNP HDL Cholesterol 32 L 25-OH Vitamin D Total 34.0 TSH 2.58 Coding Level of Care Code Est Pt Level 4 (85177) Diagnoses Left-sided chest pain R07.9 Atherosclerosis of [place] coronary artery of [place] heart with stable angina pectoris I25.118 Coronary Disease-Associated Artery/Lesion type: [place] artery [place] vs. transplanted heart: [place] heart Associated angina: with stable angina ST elevation myocardial infarction (STEMI), unspecified artery I21.3 Involved coronary artery: unspecified coronary artery Mixed hyperlipidemia E78.2 Essential hypertension I10 Pulmonary emphysema, unspecified emphysema type J43.9 COPD type: emphysema Emphysema type: unspecified Chronic pain of right ankle M25.571; G89.29 Osteoarthritis of right knee, unspecified osteoarthritis type M17.11 Osteoarthritis type: unspecified Degeneration of intervertebral disc of lumbar region with discogenic back pain M51.360 Disc-related pain type: discogenic back pain only Neuropathy G62.9 Migraine without status migrainosus, not intractable, unspecified migraine type G43.909 Migraine type: unspecified Status migrainosus presence: without status migrainosus Intractability: not intractable Vitamin D deficiency E55.9 Crohn's disease with complication, unspecified gastrointestinal tract location K50.919 Gastrointestinal tract location: unspecified location Digestive disease complication type: unspecified complication Gastroesophageal reflux disease without esophagitis K21.9 Esophagitis presence: without esophagitis 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 LLQ abdominal pain R10.32 Anxiety F41.9 Episode of recurrent major depressive disorder, unspecified depression episode severity F33.9 Depression Type: major depressive disorder Major depression recurrence: recurrent Active/Remission status: currently active Major depression episode severity: unspecified Smoker F17.200 Obesity (BMI 30-39.9) E66.9 Assessment & Plan Assessment & Plan (1) Left-sided chest pain: Code(s): R07.9 - Chest pain, unspecified Category: Medical Plan: Patient reports experiencing this since her gynecologic surgery done a couple of months ago She was seen by cardiology and is now scheduled for repeat cardiac catheterization next month on 07/07/2025 (2) Coronary atherosclerosis: Code(s): I25.10 - Atherosclerotic heart disease of [place] coronary artery without angina pectoris Category: Medical Qualifiers: Coronary Disease-Associated Artery/Lesion type: [place] artery [place] vs. transplanted heart: [place] heart Associated angina: with stable angina Qualified Code(s): I25.118 - Atherosclerotic heart disease of [place] coronary artery with other forms of angina pectoris Plan: S/P cardiac cath and PCI to the mid LAD in October 2022 - had CARA x1 and kissing balloon angioplasty to the bifurcating lesion Continue Aspirin 81 mg QD - will need lifelong antiplatelet therapy S/P Brilinta 90 mg BID x 1 year - this was discontinued by cardiology when she was last seen in March 2024 Continue aggressive risk reduction with strict BP control and cholesterol reduction She is currently scheduled for repeat cardiac catheterization next month on 07/07/2025 Follow up with cardiology as scheduled (3) STEMI (ST elevation myocardial infarction): Comment: 11/01/2022 Code(s): I21.3 - ST elevation (STEMI) myocardial infarction of unspecified site Category: Medical Qualifiers: Involved coronary artery: unspecified coronary artery Qualified Code(s): I21.3 - ST elevation (STEMI) myocardial infarction of unspecified site Plan: S/P STEMI post cath and required a second CARA to remove the occlusion in the ostial diagonal, which was thought to be due to dissection from her prior PCI, in October 2022 She had a second cardiac cath done in November 2023 due to recurrence of her chest pains - cath revealed mild ISR in the LAD/diagonal stents but otherwise no significant findings. Continue Carvedilol 6.25 mg BID and Aspirin 81 mg QD; S/P Brilinta x 1 year (Rx was discontinued in November 2023 by cardiology) Follow up with cardiology as scheduled (4) Mixed hyperlipidemia: Code(s): E78.2 - Mixed hyperlipidemia Category: Medical Plan: Results of her labs done earlier today reviewed and discussed with patient Reinforced low cholesterol diet Continue Atorvastatin 80 mg QD and Repatha 140 mg SQ Q 2 weeks; Ezetimibe and Fenofibrate were both discontinued when Repatha was started by cardiology Will have patient recheck her labs and fasting lipids in 3 months for follow up (5) Essential hypertension: Code(s): I10 - Essential (primary) hypertension Category: Medical Plan: Her blood pressure remains under good control today - goal is systolic BP of 120 mm or less given her comorbidities Reinforced low sodium diet Continue Losartan 25 mg QD and Carvedilol 12.5 mg BID (6) COPD (chronic obstructive pulmonary disease): Code(s): J44.9 - Chronic obstructive pulmonary disease, unspecified Category: Medical Qualifiers: COPD type: emphysema Emphysema type: unspecified Qualified Code(s): J43.9 - Emphysema, unspecified Plan: Controlled at present Continue Trelegy Ellipta 200-62.5-25 mcg 1 inhalation QD and Albuterol HFA 1 to 2 inhalations Q 6 hours PRN Follow up with [facility] as scheduled (7) Chronic pain of right ankle: Code(s): M25.571 - Pain in right ankle and joints of right foot; G89.29 - Other chronic pain Category: Medical Plan: Orthopedics suspected that patient may have AVN of her ankle - right ankle MRI done in January 2022 revealed mild tibiotalar osteoarthritis, with (+) anterior marginal osteophytes as well as an anterior unfused osteophyte versus ossified loose body measuring up to 1.2 cm in ML dimension; small tibiotalar joint effusion; minimal posterior tibialis and flexor digitorum tenosynovitis but no tendon tear although there is some medial subcutaneous edema seen Patient has reportedly been advised that they can only perform corrective surgery on her ankle when she is cleared by Cardiology and she is OFF Brilinta for at least 90 days Continue Duloxetine 30 mg QD and Tramadol 50 mg QID PRN for pain Follow-up with orthopedics as scheduled - patient states that she plans to have this issue addressed once her upcoming surgeries next month are all done and resolved (8) Osteoarthritis of right knee: Comment: Right knee MRI done on 09/18/2020 showed: 1. Intact menisci. 2. Intact cruciate and collateral ligaments. 3. Preserved tricompartmental articular cartilage. 4. Small joint effusion Code(s): M17.11 - Unilateral primary osteoarthritis, right knee Category: Medical Qualifiers: Osteoarthritis type: unspecified Qualified Code(s): M17.11 - Unilateral primary osteoarthritis, right knee Plan: She was seen previously by [facility] and advised that her knee OA is mild with no other intervention recommended at the time Per request, she was referred to orthopedics in [place] for a second opinion and she is now following up with [facility] for her knee issues (9) Lumbar degenerative disc disease: Code(s): M51.36 - Other intervertebral disc degeneration, lumbar region Category: Medical Qualifiers: Disc-related pain type: discogenic back pain only Qualified Code(s): M51.360 - Other intervertebral disc degeneration, lumbar region with discogenic back pain only Plan: Reinforced activity and weight-lifting restrictions She has expressed her concerns that her current pain med (Percocet 5-325 mg BID-TID PRN may not be enough to help with her pain when she goes for her surgery soon I have agreed to increase her Rx for Percocet to 10-325 mg to take BID-TID only as needed for severe pain until her current issues have been resolved following her surgery next month Continue Duloxetine 30 mg QD and Tramadol 50 mg QID PRN for pain Follow up with pain management as scheduled (10) Neuropathy: Code(s): G62.9 - Polyneuropathy, unspecified Category: Medical Plan: She has been advised that her hand and feet symptoms appear to be neuropathic symptoms Patient relates that she was diagnosed with neuropathy a few years ago and had a nerve test done but could not recall exactly when and where it was done Have discussed with her that if she does have neuropathy and her symptoms are progressing, there may not be much else we can do as she was unable to tolerate Gabapentin and Pregabalin when we trialed her on these medications in the past Follow up with neurology as scheduled (11) Migraine: Code(s): G43.909 - Migraine, unspecified, not intractable, without status migrainosus Category: Medical Qualifiers: Migraine type: unspecified Status migrainosus presence: without status migrainosus Intractability: not intractable Qualified Code(s): G43.909 - Migraine, unspecified, not intractable, without status migrainosus Plan: Stable lately - continue Fioricet 3 to 4 times a day as needed for headaches (12) Vitamin D deficiency: Code(s): E55.9 - Vitamin D deficiency, unspecified Category: Medical Plan: Continue Vitamin D3 2000 units QD (13) Crohn's disease: Code(s): K50.90 - Crohn's disease, unspecified, without complications Category: Medical Qualifiers: Gastrointestinal tract location: unspecified location Digestive disease complication type: unspecified complication Qualified Code(s): K50.919 - Crohn's disease, unspecified, with unspecified complications Plan: States thar she has had no recent GI flare ups Follow up with GI as scheduled (14) GERD (gastroesophageal reflux disease): Code(s): K21.9 - Gastro-esophageal reflux disease without esophagitis Category: Medical Qualifiers: Esophagitis presence: without esophagitis Qualified Code(s): K21.9 - Gastro-esophageal reflux disease without esophagitis Plan: Dietary restrictions reinforced Continue Omeprazole 20 mg QD Follow up with GI as scheduled (15) Vulvar dysplasia: Code(s): N90.3 - Dysplasia of vulva, unspecified Category: Medical Plan: Patient initially underwent vulvar colposcopy which revealed (+) findings concerning for vulvar dysplasia She subsequently underwent a wide local excision of multiple lesions on 12/10/2024 Follow up with gynecology as scheduled (16) LLQ abdominal pain: Code(s): R10.32 - Left lower quadrant pain Category: Medical Plan: She also underwent robotic removal of the left ovary and MRV in addition to her vulvar colposcopy on 12/10/2024 Further treatments, including potential chemotherapy and/or radiation therapy, will be recommended only if her pathology revealed any malignancy (17) Anxiety: Code(s): F41.9 - Anxiety disorder, unspecified Category: Medical Plan: Continue Bupropion 150 mg Q AM, Sertraline 50 mg QD and Hydroxyzine 25 mg TID PRN Continue Prazosin 3 mg Q HS (18) Depression: Code(s): F32.A - Depression, unspecified Category: Medical Qualifiers: Depression Type: major depressive disorder Major depression recurrence: recurrent Active/Remission status: currently active Major depression episode severity: unspecified Qualified Code(s): F33.9 - Major depressive disorder, recurrent, unspecified Plan: Continue Sertraline 50 mg QD, Bupropion 150 mg Q AM, Lamictal 150 mg QD and Duloxetine 30 mg QD Follow up with psychiatry as scheduled (19) Smoker: Code(s): F17.200 - Nicotine dependence, unspecified, uncomplicated Category: Social Hx Plan: Patient is counseled again on complete smoking cessation Per request, prescription for nicotine lozenges was sent to her pharmacy to help her quit smoking (20) Obesity (BMI 30-39.9): Code(s): E66.9 - Obesity, unspecified Category: Medical Plan: Reinforced diet; exercise is currently not an option due to her chronic ankle and knee and joint issues Plan Follow up in 3 months Orders: Orders Complete Blood Count Auto Diff 3 Months D64.9 - Anemia, unspecified TSH reflex Free T4 3 Months E78.00 - Pure hypercholesterolemia, unspecified UA CC w/rflx Micro + Cult 3 Months R30.0 - Dysuria Comprehensive [place]. Panel Fast 3 Months E78.00 - Pure hypercholesterolemia, unspecified Medications: New nicotine (polacrilex) (Nicorette) 4 mg buccal Q6H PRN 81 ea 12RF nicotine cravings
== END 2025-05-30 15:04 | disposition home or self-care (01) ==
LOC: HO.HMCH 13:41
PROVIDERS: PCP Internal Medicine; Visit Provider Internal Medicine
DX: R07.9 Chest pain, unspecified (principal); I25.2 Old myocardial infarction; I21.3 ST elevation (STEMI) myocardial infarction of unspecified site; E78.2 Mixed hyperlipidemia; I10 Essential (primary) hypertension; K50.919 Crohn's disease, unspecified, with unspecified complications; J43.9 Emphysema, unspecified; M25.571 Pain in right ankle and joints of right foot; G89.29 Other chronic pain; M17.11 Unilateral primary osteoarthritis, right knee; M51.360 Other intervertebral disc degeneration, lumbar region with discogenic back pain only; G62.9 Polyneuropathy, unspecified; G43.909 Migraine, unspecified, not intractable, without status migrainosus; E55.9 Vitamin D deficiency, unspecified; K21.9 Gastro-esophageal reflux disease without esophagitis; N90.3 Dysplasia of vulva, unspecified; R10.32 Left lower quadrant pain; F41.9 Anxiety disorder, unspecified; F33.9 Major depressive disorder, recurrent, unspecified; F17.200 Nicotine dependence, unspecified, uncomplicated

== ENCOUNTER → 2025-07-07 23:59 | Outpatient (BNV) | payer OTHER, SELFPAY | PROVIDERS: PCP Internal Medicine; Visit Provider Internal Medicine Cardiovascular Disease | DX: I25.118 Atherosclerotic heart disease of native coronary artery with other forms of angina pectoris (principal) | CPT/HCPCS: 93458; 99152 ==

== ENCOUNTER 2025-07-21 10:30 | Outpatient (AMB) | payer OTHER, SELFPAY ==
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
[2025-07-21 10:33] VITALS: BP 126/58; PULSE 90; BMI 36.7
--- NOTE | 2025-07-21 10:33 | A.OFFVIS_ITS ---
Vital Signs 07/21/25 10:33 Height 5 ft 3 in Weight 207 lb 3.752 oz BMI 36.7 BP 126/58 L Blood Pressure Location Lt brachial Position Sitting Pulse 90 Pulse Source Pulse Oximeter Intake Visit Reasons: Follow up post cardiac cath Roving Changer Required: No Accompanied by: Self / Same As Patient Allergies NSAIDS (Non-Steroidal Anti-Inflamma (Nsaids) Allergy (Severe, Verified 07/21/25 10:37) blood in stool diazepam (DIAZEPAM) Allergy (Mild, Verified 07/21/25 10:37) RASH fluoxetine (From Prozac) Allergy (Unknown, Verified 07/21/25 10:37) Unknown ibuprofen (From Motrin) Allergy (Unknown, Verified 07/21/25 10:37) UNKNOWN Penicillins Allergy (Unknown, Verified 07/21/25 10:37) UNKNOWN colchicine Allergy (Verified 07/21/25 10:37) Dizziness gabapentin (From NEURONTIN) Adverse Reaction (Severe, Verified 07/21/25 10:37) HALLUCINATIONS, halluciinations morphine (Morphine) Adverse Reaction (Severe, Verified 07/21/25 10:37) DIFFICULTY BREATHING Sulfa (Sulfonamide Antibiotics) (SULFA (SULFONAMIDE ANTIBIOTICS)) Adverse Reaction (Severe, Verified 07/21/25 10:37) DIFF BREATHING Zetia/ezetimibe Allergy (Intermediate, Uncoded 05/30/25 14:50) Rash and Swelling R side of face pregabalin Adverse Reaction (Intermediate, Uncoded 05/30/25 14:50) Hallucinations Medication List - Last Reconciled 07/21/25 by Andrews Francois MD albuterol sulfate 2.5 mg (3 mL) inhalation QID PRN 30 days albuterol sulfate 90 mcg/actuation 2 puffs inhalation Q6H PRN aspirin 81 mg PO DAILY 90 days atorvastatin 80 mg PO DAILY 90 days baclofen 20 mg PO TID PRN 30 days bupropion HCl XL 150 mg PO QAM 30 days bzbewjzbgk-msnrvjhjzfgxq-ymbq 50-325-40 mg 1 tab PO Q6-8H PRN 30 days carvedilol 18.75 mg (1.5 x 12.5 mg) PO BID NS cholecalciferol (vitamin D3) 50 mcg PO DAILY 90 days codeine-guaifenesin 10-100 mg/5 mL 5 mL PO BID-TID PRN 7 days cyanocobalamin (vitamin B-12) 1,000 mcg IM Q2W duloxetine 30 mg PO DAILY 30 days [ELECTRIC SCOOTER As directed] evolocumab (Repatha Syringe) 140 mg subcut Q2W ezetimibe (Zetia) 10 mg PO DAILY fluticasone furoate 200 mcg/actuation (Arnuity Ellipta) 1 inh inhalation DAILY 30 days arijclnmpuw-vivlkhpsb-agbuijnc 200-62.5-25 mcg (Trelegy Ellipta) 1 inh inhalation DAILY folic acid 1 mg PO DAILY 90 days furosemide 20 mg PO QAM PRN 15 days [Handicap Shower Head As directed (with long hose as patient can not stand for a long period of time)] hydroxyzine HCl 25 mg PO TID PRN 30 days incontinence pad, liner, disp (Prevail Pant Liner pads) As directed isosorbide mononitrate ER 30 mg PO DAILY lamotrigine 150 mg PO DAILY lidocaine HCl 3% 1 appl topical BID PRN 30 days losartan 25 mg PO DAILY 30 days magnesium 200 mg PO BEDTIME 30 days melatonin 10 mg PO BEDTIME PRN 14 days miscellaneous medical supply as directed; Medical Recliner miscellaneous medical supply as directed; Candangelo miscellaneous medical supply 1 ea miscellaneous DAILY miscellaneous medical supply 1 ea miscellaneous DAILY nebulizers As directed every 6 hours as needed nicotine (polacrilex) (Nicorette) 4 mg buccal Q6H PRN nitroglycerin 0.4 mg sublingual Q5M PRN nystatin 5 mL PO TID 7 days nystatin-triamcinolone 100,000-0.1 unit/g-% 1 appl topical BID 10 days ondansetron HCl 4 mg PO Q12H PRN 7 days oxycodone-acetaminophen 10-325 mg 1 tab PO Q6H PRN 7 days prazosin 3 mg PO BEDTIME prednisone 20 mg PO DAILY 5 days prednisone 4 tablets x 2 days, then 3 tablets x 2 days, then 2 tablets x 2 days, then 1 tablet x 2 days 8 days [RECLINER As directed] sertraline 50 mg PO DAILY tizanidine 4 mg PO Q8H PRN 30 days tramadol 50 mg PO QID PRN 21 days HPI Comments Details: Mariana returns for follow-up regarding coronary disease. To recall, she was originally seen in consultation regarding exertional chest pain. It sounded anginal and hence referred for cardiac catheterization. She underwent LAD PCI but developed resting chest pain and EKG demonstrating lateral ST elevation. Then had another angiogram and PCI of diagonal. In 2023, again was complaining of chest pains which led to another catheterization. However, no new interventions. Following another abnormal stress test, she underwent one further catheter ization last week and that showed patent LAD/diagonal bifurcation stent and mild ISR in diagonal ostium. No significant disease in the circumflex/right coronary artery. Her chest pains are quite atypical and she gets some randomly. Not clear if it is just from coughing or so. [facility] Medical History Essential hypertension Hx of ovarian cancer Anxiety Folate deficiency Vitamin D deficiency STEMI (ST elevation myocardial infarction) Coronary atherosclerosis Depression Hematemesis Crohn's disease Avascular necrosis of right talus Chronic pain syndrome Osteoarthritis of right knee Osteoarthritis of left hip Osteoarthritis of right hip Lumbar radiculopathy, right Disc degeneration, lumbar Bony sclerosis Rash Strain of left trapezius muscle Shoulder pain, left Neck pain Mixed hyperlipidemia Pain and swelling of right ankle Swelling of right knee joint Right knee pain Obesity (BMI 30-39.9) Smoker Migraine GERD (gastroesophageal reflux disease) COPD (chronic obstructive pulmonary disease) Right lumbosacral radiculopathy Lumbar degenerative disc disease Surgical History History of right oophorectomy Hx of foot surgery History of esophagogastroduodenoscopy (EGD) Hx of cardiac cath (~11/01/22) Hx of section History of appendectomy Hx of colonoscopy History of hysterectomy History of cholecystectomy Family History Father Hypertension Rheumatoid arthritis Mother Hypertension Diabetes CVD (cardiovascular disease) Multiple sclerosis Sister Liver disease Maternal Grandmother Colon cancer Maternal Aunt Breast cancer Social History Housing: House Are you a primary lawn care professional to a significant other at home: No Do you presently have visiting nurse or other home services: No (Children come by to help) Alcohol intake: never Patient Tobacco Use Status: Current everyday Tobacco user Tobacco use type: Cigarette Cigarettes Per Day: 5 Years Smoked: 30 e-Cigarette/Vaping Use: Never Used Second Hand Smoke Exposure: Yes service: No Current occupational status: disabled Cognitive needs: Yes (cane) Hearing needs: No Vision needs: Yes (glasses) Female Reproductive History Menstrual Age of Menarche: 10 Review of Systems Const Denies daytime sleepiness, Denies difficulty sleeping, Denies snoring, Denies stops breathing during sleep and Denies weakness Card Denies chest pain, Denies rapid heart rate, Denies irregular heart rhythm, Denies claudication, Denies leg edema, Denies lightheadedness, Reports palpitations, Reports dyspnea, Denies dyspnea on exertion, Denies orthopnea, Denies paroxysmal nocturnal dyspnea and Denies slow heart rate Resp Denies cough, Reports dyspnea, Denies dyspnea on exertion and Denies snoring GI Reports no additional complaints, Denies hematochezia, Denies change in stool character and Denies dyspepsia Musc Denies abnormal gait, Denies muscle weakness and Denies numbness Neuro Denies abnormal gait, Denies numbness and Denies weakness Endo Reports palpitations Physical Exam Vital Signs: Last Vital Signs Pulse 90 07/21/25 10:33 BP 126/58 L 07/21/25 10:33 BMI result Body Mass Index 36.7 Assessment & Plan Assessment & Plan (1) Coronary atherosclerosis: Code(s): I25.10 - Atherosclerotic heart disease of [place] coronary artery without angina pectoris Category: Medical Qualifiers: Associated angina: with stable angina Coronary Disease-Associated Artery/Lesion type: [place] artery [place] vs. transplanted heart: n[place]ana heart Qualified Code(s): I25.118 - Atherosclerotic heart disease of [place] coronary artery with other forms of angina pectoris Plan: In the most recent cardiac catheterization from last week, no new findings. Patent LAD/diagonal bifurcation stent and mild InStent restenosis in the diagonal ostium. Continue aspirin and beta-blockers. Her chest pains do not seem exertional and could very well be noncardiac as sometimes they come on with coughing extra. She stated that she might go to [place] for a 2nd opinion for coronary disease and that she will make those arrangements. (2) Mixed hyperlipidemia: Code(s): E78.2 - Mixed hyperlipidemia Category: Medical Plan: She is on statins, Zetia, Repatha. Her LDL is quite well controlled but triglycerides are going high. It seems she was on fenofibrate before but not taking anymore. We can restart that. She will need follow-up labs including lipids and LFTs and there is already an order from PCP. We discussed about this today. (3) Smoker: Code(s): F17.200 - Nicotine dependence, unspecified, uncomplicated Category: Social Hx Plan: Strongly encouraged to stop. Plan Discussion Notes I discussed with the patient the potential causes of her chest pain, emphasizing that it is unlikely to be cardiac in origin. We talked about the possibility of COPD or stress as contributing factors and the importance of smoking cessation. We also discussed her hypertriglyceridemia management. Patient was informed and verbally consented to the use of an ambient scribe for clinic note documentation during this visit. Medications: New fenofibrate 160 mg PO DAILY 90 tabs 1RF E78.2 - Mixed hyperlipidemia Coding Level of Care Code Est Pt Level 4 (38526) Complex EM visit Add On G2211 Diagnoses Atherosclerosis of nen[place] coronary artery of [place] heart with stable angina pectoris I25.118 Associated angina: with stable angina Coronary Disease-Associated Artery/Lesion type: [place] artery [place] vs. transplanted heart: [place] heart Mixed hyperlipidemia E78.2 Smoker F17.200
--- OUTSIDE RECORDS SUMMARY | 2025-07-21 12:31 | XMS_ITS | Data Portability ---
Author Organization [employer] [facility], [facility] Address [address] [place] [address] Care Team Providers Care Airplane Inspector Name Role Phone HIM CCA Referring Provider Assessment Encounter Date Assessment Date Assessment LastModified by Organization Details LastModified Time 11/19/2023 11/19/2023 I provided real -time medical direction via phone for this encounter and was available for additional phone-based assistance as needed. I have reviewed and agree with the Assessment and Plan as documented by the Roto Rooter Operator. Patient given the opportunity to ask questions. This service was called for an assessment of bronchitis As per above, patient with recent ED visit where she was diagnosed with CAP vs. bronchitis. She was started on a Z-pack and has 2 doses remaining. She is also using her Duo-nebs regularly but ran out and her TECHNICAL SUPPORT ENGINEER went to go get more for her. She says she is better but not improving as fast as she thought she would. She denies CP, SOB at rest. + LOUISE. Per leak inspector on the scene, patient s vitals are stable. She is wheezing and is tight although moving enough air to maintain good O2 sats. No increased WOB. Impression: Asthmatic bronchitis +/- CAP Plan: Complete abx course, continue with nebs as prescribed. Added Prednisone with 40 mg po times one with the leak inspector and I called in a prescription for [...] Orders prednisone 10 mg tablet 2023 024 [id number], [address], [place], [address], 4 14:15:21 prednisone 20 mg tablet [address] [facility], [address], [place], [id number], 4 17:21:59 Patient TargetsNo targets recorded. Patient InstructionsNo instructions recorded. Reason for Referral None Reported. Medical Equipment None Reported. Allergies Allergen ID Allergen Name Allergen Category Reaction Reaction Severity Criticality Documentation Date Start Date Code Code System Note Provider Name and Address Organization Details Recorded Time 9725 egg extract food,medi cation Not available Not available Not available 07/13/2024 41143 15 RxNorm Not Available [facility] [employer] 4 04:15:04 9726 latex environme nt,medica tion Not available Not available Not available 07/13/2024 39235 91 RxNorm Not Available [facility] 4 04:15:04 9727 morphine medicatio n Not available Not available Not available 07/13/2024 7052 RxNorm Not Available [facility] 4 04:15:04 9728 Product containin g penicilli n (product) medicatio n Not available Not available Not available 07/13/2024 34702 8001 SNOMED Not Available [facility] - [facility] [...] Pulse oximetry Body temperature Respiratory rate Systolic And Diastolic Provider Name and Address Organization Details Last Updated DateTime 4 67 /min 99 % 99 % 98.4 [degF] 18 /min 116/74 mm[Hg] Not Available [employer] 4 15:12:54 Date Recorded Body temperature Heart rate Respiratory rate Oxygen saturation Oxygen saturation in Arterial blood by Pulse oximetry Systolic And Diastolic Provider Name and Address Organization Details Last Updated DateTime 4 97.8 [degF] 88 /min 20 /min 100 % 100 % 160/88 mm[Hg] Not Available [employer] 4 14:11:02 Social History None recorded. Functional Status None recorded. Mental Status None recorded. Family History Nothing Reported. Medical History No medical history recorded. Gynecological HistoryNo gynecological history recorded. Obstetrics History GPAL:G 0 P 0 0 0 0 Past Encounters Encounter ID Performer Location Encounter Start Date Encounter Closed Date Diagnosis/Indication Diagnosis SNOMED-CT Code Diagnosis ICD10 Code Diagnosis IMO Codes Diagnosis Note [id number] Jessica Dang MD [facility] - [facility] [address] [place] [phone] 11/19/2023 15:12:52 11/20/2023 09:56:00 Acute bronchitis 02344474 J20.9 [id number] [facility] [address] [place] [phone] 05/01/2024 14:10:59 05/01/2024 19:03:45 Acute low back pain 323800301 M54.50 As noted, we were called to see this patient regarding concerns of low back pain due to fall and spasm. Evaluation in the field was performed by my leak inspector colleague, as noted above, I provided real-time [...] Alford Member ID Guarantor Name 05/01/2024 1 [facility] - DOS ON OR AFTER 2022 - DUAL ELIGIBLE - [facility] OPTIONS AND ONE CARE (MEDICARE REPLACEMENT/ADV ANTAGE - HMO) Mariana Vela [id number] Mariana Vela Notes Date Note Type Note Provider Name and Address Organization Details Recorded Time 11/19/2023 text/html HPI: MSR transferred call to this CRU RN due to member having acute medical issues and reported to MSR that she was diagnosed with PNA. River tony 48 yo female with hx of COPD, asthma, Migraines, Bilateral OA of hips, OA right knee, Crohn s Disease, Radiculopathy of lumbar and sacral regions, low back pain, Cervicalgia, Myalgia, right foot and right ankle pain, HLD, rash and localized swelling, mass lump on trunk. Allergies to Fluoxetine, Eggs, Morphine, Hydromorphone, Neurontin, ASA, PCN, Motrin, Latex, NSAIDS, Cortisone, and Lyrica. River reported she went to the Hospital a week ago for resp s/s and had tests, xrays done. Mbr reported that she was told a few days ago that xray showed PNA. River just started zpac yesterday and states she feels terrible and taking neb treatments every four hours. States neg treatments help a little. Mbr does not have home O2 or sat monitoring device. Mbr weepy at times and coughing on and off. Mbr very upset with PCP and would like call back from CP today at her earliest convenience to discuss her issues w/PCP. Offered [facility] and she agreed. Instructed Mbr to call [phone]`1 and go back to ER if sghe develops worsening s/s. Reports on/off fever but no chest pain however has a engineering laboratory technician appt on the of this month. Confirmed address and the best number to reach Mbr is [phone]. .................... .................... .................... .................... .................... .................... .................... . [facility] Nurse Triage Notes (Angelica Browne): Comments: HPI reviewed. No further information required to process visit. .................... .................... .................... .................... .................... .................... .................... . Roto Rooter Operator Note From Anand Galeas: Dispatched to the [...] . Disposition: Fulfilled Jessica Dang MD [address] [place] [address],[address], [place], [phone], [employer] 11/19/2023 15:21:15 05/01/2024 text/html HPI: Member recently had a fall and hurt her back. Seen in ER 3 days ago and diagnosed to back muscle sprain. Member also has L4and L5 herniated disc was given 3 days of Prednisone. Member calling because pain is intolerable again and states she can't move due to pain. .................... .................... .................... .................... .................... .................... .................... . [facility] Nurse Triage Notes (Mildred Schroeder): Chief Complaints: Pain Allergies: Penicillin, Egg, Latex, Morphine Other Allergies: sulfa, Lyrica, Benadryl Comments: Reviewed HPI, no further info needed to process visitConsent on Stefania CARDONA .................... .................... .................... .................... .................... .................... .................... . Roto Rooter Operator Note From Katelynn Cuevas: Dispatched for the 48 yo female chief complaint of lower back pain. U/a pt is found seated upright in living room chair accompanied by general milling superintendent x1. Pt presents CA&Ox4, patent airway, normal [...] NSAID's due to hx of GI bleeds. [facility] contacted and prescribed pt Prednisone. [facility] instructs [facility] administer 20mg Prednisone at this time, complete without incident. Pt advised of all red flags and to follow up with PCP for further treatment. End of report. .................... .................... .................... .................... .................... .................... .................... . Disposition: Fulfilled Remington Kyle MD [address] [place] [address],[address] [facility], [place], [phone], [employer] 05/01/2024 14:31:19 OBGyn Episode No OBEpisode recorded.
--- OUTSIDE RECORDS SUMMARY | 2025-07-21 12:31 | XMS_ITS | Patient Health Record ---
Author Organization [facility] Address [address] [place] [address] Care Team Providers Care Director Of It Operations Name Role Phone Cheryl Martini Primary Care [...] W/U Status Risk Notes Problem Chronic pain (24222506) Other chronic pain (G89.29) Active confirmed Problem Pain in limb (93137126) Pain in right lower leg (M79.661) Active confirmed Problem Disorder of soft tissue (55345681) Other specified soft tissue disorders (M79.89) Active confirmed Problem Acute vaginitis (48597672) Acute vaginitis (N76.0) Active confirmed Problem Nausea (105737485) Nausea (R11.0) Active confir med Problem Dysuria (28085419) Dysuria (R30.0) Active confi rmed Problem Problem, abnormal examination (56565723) Encounter for general adult medical examination with abnormal findings (Z00.01) Active confirmed Problem Overweight (037174573) Overweight (BMI 25.0-29.9) (E66.3) Active confirmed Problem BMI 25-29 - overweight (251946139) BMI 29.0-29.9,adult (Z68.29) Active confirmed Problem BMI 25-29 - overweight (524837025) BMI 27.0-27.9,adult (Z68.27) Active confirmed Problem Pain in right arm (785303869) Right arm pain (M79.601) Active confirmed Problem Vaginal discharge (783340532) Vaginal discharge (N89.8) Active confirmed Problem Venereal disease screening (731816287) Screening for STD (sexually transmitted disease) (Z11.3) Active confirmed Problem Neuropathy (579671998) Neuropathy (G62.9) Active confirmed Problem Decrease in appetite (finding) (39110205) Decreased appetite (R63.0) Active confirmed Problem Acute diarrhea (987948730) Acute diarrhea (R19.7) Active confirmed Problem Old myocardial infarction (0782715) History of [place] (myocardial infarction) (I25.2) Active confirmed Problem Low back pain (545909503) Acute bilateral low back pain without sciatica (M54.5) Active confirmed Problem COPD - Chronic obstructive pulmonary disease (16188362) Chronic obstructive pulmonary disease, unspecified COPD type (J44.9) Active confirmed Problem Urinary tract infectious disease (27242528) Urinary tract infection without hematuria, site unspecified (N39.0) Active confirmed Problem Chronic pain syndrome (413118031) Chronic pain disorder (G89.4) Active confirmed Problem Body mass index 25-29 - overweight (822639533) Body mass index (BMI) of 28.0-28.9 in adult (Z68.28) Active confirmed Problem Thrombocytopenia (487690751) Thrombocytopenia (D69.6) Active confirmed Problem Pain in female genitalia on intercourse (78489595) Dyspareunia in female (N94.10) Active confirmed Problem Productive cough (08178947) Productive cough (R05) Active confirmed Problem Atypical chest pain (937943318) Atypical chest pain (R07.89) Active confirmed Problem Increased frequency of urination (168675930) Increased frequency of urination (R35.0) Active confirmed Problem Edema (631115715) Edema leg (R60.0) Active conf irmed Problem Thrombocytosis (disorder) (4169216) Elevated platelet count (R79.89) Active confirmed Problem Swelling of lymph node (68959524) Swelling of lymph node (R59.9) Active confirmed [...] Coverage End Date [place] [place] [address] [id number] Mariana Vela Self - patient is the insured 6 [employer] MED[employer]ARE [employer]EFIC[employer]ARY [address] [place], [place] [id number] Mariana Vela Self - patient is the insured Medical (General) History Medical History History ICD Code nueropathy, seizures, migrai nanci, polyps, chrohns disease, heart problems,arthritis, copd, stroke, pstd, Chronic pain, herniated disk, breast cancer, Surgical History Surgery Date(Month/Year) hysterectomy 2012 Hospitalization History Reason Date(Month/Year) hysterectomy 2012
--- OUTSIDE RECORDS SUMMARY | 2025-07-21 12:31 | XMS_ITS | Patient Health Record ---
Author Organization [facility] Address [address], [place] [id number] Allergies Allergen (clinical drug ingredient) Drug/Non Drug [...] Start Date End Date Status PriLOSEC Active [place] Active Zofran Active Baclofen Active albuterol 1 [...] region (M51.27) Active confirmed Problem Lumbar radiculopathy (998844527) Radiculopathy, lumbar region (M54.16) Active confirmed Problem Lumbosacral radiculopathy (0127449) Radiculopathy, lumbosacral region (M54.17) Active confirmed Plan Of Treatment No Information Medical (General) History Medical History History ICD Code asthma - mild persistent migraine headaches Positive PPD
== END 2025-07-21 10:57 | disposition home or self-care (01) ==
LOC: HO.HCS 10:31
PROVIDERS: PCP Internal Medicine; Visit Provider Internal Medicine
DX: I25.118 Atherosclerotic heart disease of native coronary artery with other forms of angina pectoris (principal); E78.2 Mixed hyperlipidemia; F17.200 Nicotine dependence, unspecified, uncomplicated
CPT/HCPCS: 99214; G2211

== ENCOUNTER → 2025-07-21 10:30 | Outpatient (BNVA) | payer OTHER, SELFPAY | PROVIDERS: PCP Internal Medicine; Visit Provider Internal Medicine | DX: R07.9 Chest pain, unspecified (principal); I25.118 Atherosclerotic heart disease of native coronary artery with other forms of angina pectoris; E78.2 Mixed hyperlipidemia; F17.200 Nicotine dependence, unspecified, uncomplicated | CPT/HCPCS: 99212 ==

== ENCOUNTER 2025-09-13 11:39 | Outpatient (REF) | payer OTHER, SELFPAY ==
[2025-09-13 11:57] LABS: MANUAL DIFF FLAG NO
[2025-09-13 12:10] LABS: Hematocrit 41.7 % (37.0-47.0); Hemoglobin 14.2 g/dl (12.0-16.0); Imm Gran Abs Auto 0.03 X10*3/uL (0.00-0.03); Imm Gran Pct Auto 0.2 % (0.0-0.4); Lymphocytes Absolute Auto 4.3 X10*3/uL (1.2-4.9); Mean Corpuscular HGB Conc 34.1 g/dl (31.0-35.0); Mean Corpuscular Hemoglobin 30.8 pg (27.0-33.0); Mean Corpuscular Volume 90.5 fL (80.0-98.0); NRBC Abs Auto 0.000 X10*3/uL (0.0-0.012); NRBC Pct Auto 0.0 /100WBC (0.0-0.2); Platelet Count 411 X10*3/uL (160-400); Red Blood Count 4.61 X10*6/uL (4.20-5.50); White Blood Count 12.5 X10*3/uL (4.8-10.8)
[2025-09-13 12:14] LABS: Appearance Urine Clear; Glucose Urine UA Negative (Negative); PH 6.0 (5.0-9.0); Specific Gravity - Urine 1.025 (1.005-1.025)
[2025-09-13 13:14] LABS: Alanine Aminotransferase 21 U/L (0-31); Albumin Level 4.7 g/dL (3.5-5.0); Alkaline Phosphatase 152 U/L (39-117); Anion Gap 12 (12-20); Aspartate Amino Transferase 15 U/L (5-31); Blood Urea Nitrogen 13 mg/dL (9-16); Calcium 9.9 mg/dL (8.4-10.2); Carbon Dioxide 24 mmol/L (22-29); Chloride 109 mmol/L (96-108); Cholesterol 258 mg/dL (<200); Estimated Glomerular Filt Rate > 60; HDL Cholesterol 37 mg/dL (>40); Potassium 4.0 mmol/L (3.3-5.1); Sodium 141 mmol/L (135-145); Total Protein 7.5 g/dL (6.5-8.0); Triglycerides 290 mg/dL (<150)
--- OUTSIDE RECORDS SUMMARY | 2025-09-13 15:42 | XMS_ITS | Data Portability ---
Author Organization [facility], [facility] Address [address] [place] [address] Care Team Providers Care Photoengraving Machine Operator/Tender Name Role Phone HIM CCA Referring Provider [phone] Assessment Encounter Date Assessment Date Assessment LastModified by Organization Details LastModified Time 11/19/2023 11/19/2023 I provided real -time medical direction via phone for this encounter and was available for additional phone-based assistance as needed. I have reviewed and agree with the Assessment and Plan as documented by the Pallet Sorter. Patient given the opportunity to ask questions. This service was called for an assessment of bronchitis As per above, patient with recent ED visit where she was diagnosed with CAP vs. bronchitis. She was started on a Z-pack and has 2 doses remaining. She is also using her Duo-nebs regularly but ran out and her CAMPGROUND ATTENDANT went to go get more for her. She says she is better but not improving as fast as she thought she would. She denies CP, SOB at rest. + LOUISE. Per fire ranger on the scene, patient s vitals are stable. She is wheezing and is tight although moving enough air to maintain good O2 sats. No increased WOB. Impression: Asthmatic bronchitis +/- CAP Plan: Complete abx course, continue with nebs as prescribed. Added Prednisone with 40 mg po times one with the fire ranger and I called in a prescription for [...] Orders prednisone 10 mg tablet 2023 024 [id number], [address], [place], [address], 4 14:15:21 prednisone 20 mg tablet 2023 024 [facility], [address], [place], [id number], 4 17:21:59 Patient TargetsNo targets recorded. Patient InstructionsNo instructions recorded. Reason for Referral None Reported. Medical Equipment None Reported. Allergies Allergen ID Allergen Name Allergen Category Reaction Reaction Severity Criticality Documentation Date Start Date Code Code System Note Provider Name and Address Organization Details Recorded Time 9725 egg extract food,medi cation Not available Not available Not available 07/13/2024 49754 15 RxNorm Not Available [facility] - production 4 04:15:04 9726 latex environme nt,medica tion Not available Not available Not available 07/13/2024 56449 91 RxNorm Not Available [facility] - production 4 04:15:04 9727 morphine medicatio n Not available Not available Not available 07/13/2024 7052 RxNorm Not Available [facility] - production 4 04:15:04 9728 Product containin g penicilli n (product) medicatio n Not available Not available Not available 07/13/2024 15912 8001 SNOMED Not Available [facility] - production [...] Vitals Date Recorded Heart rate Oxygen saturation Body temperature Respiratory rate Systolic And Diastolic Provider Name and Address Organization Details Last Updated DateTime 4 67 /min 99 % 98.4 [degF] 18 /min 116/74 mm[Hg] Not Available [facility] production 4 15:12:54 Date Recorded Body temperature Heart rate Respiratory rate Oxygen saturation Systolic And Diastolic Provider Name and Address Organization Details Last Updated DateTime 4 97.8 [degF] 88 /min 20 /min 100 % 160/88 mm[Hg] Not Available [facility] - production 4 14:11:02 Social History None recorded. Functional Status None recorded. Mental Status None recorded. Family History Nothing Reported. Medical History No medical history recorded. Gynecological HistoryNo gynecological history recorded. Obstetrics History GPAL:G 0 P 0 0 0 0 Past Encounters Encounter ID Performer Location Encounter Start Date Encounter Closed Date Diagnosis/Indication Diagnosis SNOMED-CT Code Diagnosis ICD10 Code Diagnosis IMO Codes Diagnosis Note [id number] Jessica Dang MD Main - [address] [phone] 11/19/2023 15:12:52 11/20/2023 09:56:00 Acute bronchitis 66818069 J20.9 [id number] Remington Kyle MD Main - [address] [address] 05/01/2024 14:10:59 05/01/2024 19:03:45 Acute low back pain 249551904 M54.50 As noted, we were called to see this patient regarding concerns of low back pain due to fall and spasm. Evaluation in the field was performed by my fire ranger colleague, as noted above, I provided real-time [...] Member ID Guarantor Name 05/01/2024 1 [facility] - DOS ON OR AFTER 2022 - DUAL ELIGIBLE - USP OPTIONS AND ONE CARE (MEDICARE REPLACEMENT/ADV ANTAGE - HMO) Mariana Vela [id number] Mariana Vela Notes Date Note Type Note [...] few days ago that xray showed PNA. Mbr just started zpac yesterday and states she [...] but no chest pain however has a lab specialist appt on the of this month. Confirmed address and the best number to reach Mbr is [phone]. .................... .................... .................... .................... .................... .................... .................... . [facility] Nurse Triage Notes (Angelica Browne): Comments: HPI reviewed. No further information required to process visit. .................... .................... .................... .................... .................... .................... .................... . Pallet Sorter Note From Anand Galeas: Dispatched to the [...] .................... . Disposition: Fulfilled Jessica Dang MD [address] [place] [address],[address], [place], [address], [email or web address] 11/19/2023 15:21:15 05/01/2024 text/html HPI: Member recently [...] further info needed to [facility] .................... .................... .................... .................... .................... .................... .................... . Pallet Sorter Note From Katelynn Cuevas: Dispatched for the 48 yo female chief complaint of lower back pain. U/a pt is found seated upright in living room chair accompanied by technical specialist cytology x1. Pt presents CA&Ox4, patent airway, normal [...] NSAID's due to hx of GI bleeds. [facility] contacted and prescribed pt Prednisone. [facility] instruct[facility] administer 20mg Prednisone at this time, complete without incident. Pt advised of all red flags and to follow up with PCP for further treatment. End of report. .................... .................... .................... .................... .................... .................... .................... . Disposition: Fulfilled Remington Kyle MD [address] [facility] [facility], [place], [address], [email or web address] WarsJINA WORLEY 05/01/2024 14:31:19 OBGyn Episode No OBEpisode recorded.
--- OUTSIDE RECORDS SUMMARY | 2025-09-13 15:42 | XMS_ITS | Patient Health Record ---
Author Organization [facility] Address [address] [place] [address] Care Team Providers Care Skiver Hand Name Role Phone Cheryl Martini Primary Care [...] W/U Status Risk Notes Problem Chronic pain (14071975) Other chronic pain (G89.29) Active confirmed Problem Pain in limb (74270076) Pain in right lower leg (M79.661) Active confirmed Problem Disorder of soft tissue (72579297) Other specified soft tissue disorders (M79.89) Active confirmed Problem Acute vaginitis (86618229) Acute vaginitis (N76.0) Active confirmed Problem Nausea (450767488) Nausea (R11.0) Active confir med Problem Dysuria (01451172) Dysuria (R30.0) Active confi rmed Problem Problem, abnormal examination (29243131) Encounter for general adult medical examination with abnormal findings (Z00.01) Active confirmed Problem Overweight (553335865) Overweight (BMI 25.0-29.9) (E66.3) Active confirmed Problem BMI 25-29 - overweight (206511997) BMI 29.0-29.9,adult (Z68.29) Active confirmed Problem BMI 25-29 - overweight (792771952) BMI 27.0-27.9,adult (Z68.27) Active confirmed Problem Pain in right arm (929491586) Right arm pain (M79.601) Active confirmed Problem Vaginal discharge (791537274) Vaginal discharge (N89.8) Active confirmed Problem Venereal disease screening (951683813) Screening for STD (sexually transmitted disease) (Z11.3) Active confirmed Problem Neuropathy (157823784) Neuropathy (G62.9) Active confirmed Problem Decrease in appetite (finding) (48529734) Decreased appetite (R63.0) Active confirmed Problem Acute diarrhea (219525335) Acute diarrhea (R19.7) Active confirmed Problem Old myocardial infarction (6159990) History of MT (myocardial infarction) (I25.2) Active confirmed Problem Low back pain (076318060) Acute bilateral low back pain without sciatica (M54.5) Active confirmed Problem COPD - Chronic obstructive pulmonary disease (40558104) Chronic obstructive pulmonary disease, unspecified COPD type (J44.9) Active confirmed Problem Urinary tract infectious disease (73656588) Urinary tract infection without hematuria, site unspecified (N39.0) Active confirmed Problem Chronic pain syndrome (073736333) Chronic pain disorder (G89.4) Active confirmed Problem Body mass index 25-29 - overweight (416962504) Body mass index (BMI) of 28.0-28.9 in adult (Z68.28) Active confirmed Problem Thrombocytopenia (605623420) Thrombocytopenia (D69.6) Active confirmed Problem Pain in female genitalia on intercourse (75008808) Dyspareunia in female (N94.10) Active confirmed Problem Productive cough (78330324) Productive cough (R05) Active confirmed Problem Atypical chest pain (878577935) Atypical chest pain (R07.89) Active confirmed Problem Increased frequency of urination (146798740) Increased frequency of urination (R35.0) Active confirmed Problem Edema (975630850) Edema leg (R60.0) Active conf irmed Problem Thrombocytosis (disorder) (2114498) Elevated platelet count (R79.89) Active confirmed Problem Swelling of lymph node (10010288) Swelling of lymph node (R59.9) Active confirmed Plan Of Treatment Pending Test Test Name Order Date Echocardiogram Transthoracic Complete Urinalysis 01/08/2019 Urinalysis 08/14/2018 Urinalysis 05/13/2019 Urinalysis 09/13/2019 Urinalysis 02/05/2019 EKG 01/11/2019 USG PELVIS 08/24/2018 USG NON-OB TVU 08/24/2018 USG Thyroid U/S 08/24/2018 HIV PANEL 08/14/2018 HIV PANEL 09/13/2019 Stress Test (Treadmill) 01/08/2019 Insurance Providers Payer Name Payer Address Payer Phone Subscriber Number Group Number Insured Name Patient Relationship to Insured Coverage Start Date [place]age End [place] [address] [place] [address] [id number] Mariana Vela Self - patient is the insured 6 [id number] MEDICARE BENEFICIARY [address] [place], [place] [id number] Mariana Vela Self - patient is the insured Medical (General) History Medical History History ICD Code nueropathy, seizures, migrai nanci, polyps, chrohns disease, heart problems,arthritis, copd, stroke, pstd, Chronic pain, herniated disk, breast cancer, Surgical History Surgery Date(Month/Year) hysterectomy 2012 Hospitalization History Reason Date(Month/Year) hysterectomy 2012
--- OUTSIDE RECORDS SUMMARY | 2025-09-13 15:43 | XMS_ITS | Patient Health Record ---
Author Organization [facility] Address [address], [place] [id number] Allergies Allergen (clinical drug ingredient) Drug/Non Drug [...] Start Date End Date Status PriLOSEC Active [place] Active Zofran Active Baclofen Active albuterol 1 [...] region (M51.27) Active confirmed Problem Lumbar radiculopathy (164763082) Radiculopathy, lumbar region (M54.16) Active confirmed Problem Lumbosacral radiculopathy (3807527) Radiculopathy, lumbosacral region (M54.17) Active confirmed Plan Of Treatment No Information Medical (General) History Medical History History ICD Code asthma - mild persistent migraine headaches Positive PPD
== END 2025-09-13 11:40 | disposition home or self-care (01) ==
LOC: HO.LAB 11:39
PROVIDERS: PCP Internal Medicine; Visit Provider Internal Medicine
DX: R30.0 Dysuria (principal); M25.50 Pain in unspecified joint; F41.9 Anxiety disorder, unspecified; I25.10 Atherosclerotic heart disease of native coronary artery without angina pectoris; I21.3 ST elevation (STEMI) myocardial infarction of unspecified site; E78.2 Mixed hyperlipidemia; I10 Essential (primary) hypertension; J43.9 Emphysema, unspecified; M25.571 Pain in right ankle and joints of right foot; G89.29 Other chronic pain; M17.11 Unilateral primary osteoarthritis, right knee; M51.360 Other intervertebral disc degeneration, lumbar region with discogenic back pain only; G62.9 Polyneuropathy, unspecified; G43.909 Migraine, unspecified, not intractable, without status migrainosus; E55.9 Vitamin D deficiency, unspecified; K50.919 Crohn's disease, unspecified, with unspecified complications; K21.9 Gastro-esophageal reflux disease without esophagitis; N90.3 Dysplasia of vulva, unspecified; R10.32 Left lower quadrant pain; F33.9 Major depressive disorder, recurrent, unspecified; F17.210 Nicotine dependence, cigarettes, uncomplicated; E66.9 Obesity, unspecified; D64.9 Anemia, unspecified; Z68.36 Body mass index [BMI] 36.0-36.9, adult
CPT/HCPCS: 36415; 80053; 80061; 81003; 84443; 85025; 96127; 99212

== ENCOUNTER 2025-09-13 13:09 | Outpatient (AMB) | payer OTHER, SELFPAY ==
[2025-09-13 13:34] VITALS: BP 124/86; PULSE 85; O2SAT 96; BMI 36.3
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
== END 2025-09-13 14:45 | disposition home or self-care (01) ==
LOC: HO.HMCH 13:10
PROVIDERS: PCP Internal Medicine; Visit Provider Internal Medicine
DX: I25.118 Atherosclerotic heart disease of native coronary artery with other forms of angina pectoris (principal); E78.2 Mixed hyperlipidemia; I10 Essential (primary) hypertension; J43.9 Emphysema, unspecified; K50.919 Crohn's disease, unspecified, with unspecified complications; M25.571 Pain in right ankle and joints of right foot; G89.29 Other chronic pain; K21.9 Gastro-esophageal reflux disease without esophagitis; M17.11 Unilateral primary osteoarthritis, right knee; M51.360 Other intervertebral disc degeneration, lumbar region with discogenic back pain only; G62.9 Polyneuropathy, unspecified; G43.909 Migraine, unspecified, not intractable, without status migrainosus; E55.9 Vitamin D deficiency, unspecified; N90.3 Dysplasia of vulva, unspecified; R10.32 Left lower quadrant pain; F41.9 Anxiety disorder, unspecified; F33.9 Major depressive disorder, recurrent, unspecified; F17.200 Nicotine dependence, unspecified, uncomplicated; E66.9 Obesity, unspecified